=== PATIENT | female | born 1955 | race African-American/Black ===

== ENCOUNTER 2017-03-05 16:38 | Emergency (ER) | payer MEDICAID, MEDICARE ==
[2017-03-05] MEDS ORDERED: Ondansetron 4 MG/2 ML SDV IVPUSH ONE (17:35)
[2017-03-05] MEDS ORDERED: Sodium Chloride 0.9% 10 ML Syringe FLUSH PRN (17:35)
[2017-03-05] MEDS ORDERED: HYDROmorphone 0.5 MG/0.5 ML Syringe IVPUSH ONE (17:36)
--- NOTE | 2017-03-05 17:43 | EDM.PDOC ---
ED HPI GENERAL MEDICAL PROBLEM - General Chief Complaint: General Stated Complaint: DIARRHEA, LEG PAIN, LIGHTHEADED Time Seen by Provider: 03/05/17 17:16 Source of Information: Reports: Patient History Limitations: Reports: No Limitations - History of Present Illness INITIAL COMMENTS - FREE TEXT/NARRATIVE: Patient is a 61-year-old female who presents to the ED complaining of diarrhea, neuropathy to left hip, and generalized headache. 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 Neuropathy pain comes and goes and is generally treated with a Percocet tabs and/or taking ibuprofen/Aleve. States with not being able to take the Percocet tabs the pain has grown increasingly worse. In addition she developed a generalized headache this past described as a throbbing sensation mild in intensity with sensitivity to light. It is not described as the worse headache of her life. She has had headaches in the past. In addition she complains of diarrhea which she describes as being chronic. States after eating a chicken sandwich from a local fast food restaurant she had increased abdominal cramping and increasing diarrhea episodes. States she did become mildly nauseated without vomiting. Nausea has subsided. Her appetite remains in place. She has no blood in her stool but notes with wiping she has some blood on the tissue. She does have a history of hemorrhoids in the past requiring surgery. Denies vision changes, numbness/tingling, nausea or vomiting, fever/chills, sinus congestion, ear pain, sore throat, or recent trauma to her head. Onset: Other (chronic) Duration: Chronic, Waxing/Waning Location: Reports: Head, Abdomen, Other (left hip pain) Quality: Reports: Other (cramping, dull, sharp) Severity: Moderate Improves with: Reports: Medication (percocets: she ran out this past Tuesday.) Associated Symptoms: Reports: Headaches (generalized, throbbing), Nausea/ Vomiting (intermittent nausea). 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 stated) Headache Pain Score (Numeric/FACES): 10 - Related Data Allergies Allergy/AdvReac Type Severity Reaction Status Date / Time No Known Allergies Allergy Verified 10/18/14 21:50 Home Meds: Home Meds Atenolol 100 mg PO DAILY 10/18/14 [History] Gabapentin [Neurontin] 300 mg PO TID 10/18/14 [History] Hydrochlorothiazide 50 mg PO DAILY 10/18/14 [History] Omeprazole [Prilosec] 20 mg PO BID 10/18/14 [History] Potassium Chloride [Klor-Con 10] 10 meq PO BID 10/18/14 [History] Acetaminophen/oxyCODONE [Percocet 325-5 MG] 1 tab PO Q6H PRN #10 tablet [Rx] FLUoxetine [PROzac] 20 mg PO DAILY 03/05/17 [History] Nitrofurantoin Monohyd/M-Cryst [Macrobid 100 mg Capsule] 100 mg PO BID #10 capsule 03/05/17 [Rx] metroNIDAZOLE [Flagyl] 500 mg PO Q12H #20 tablet 03/05/17 [Rx] Past Medical History Cardiovascular History: Reports: Hypertension Gastrointestinal History: Reports: Chronic Diarrhea, GERD, Hemorrhoids Other Gastrointestinal History: laser to hemmoroids Genitourinary History: Reports: UTI, Recurrent Musculoskeletal History: Reports: Other (See Below) Psychiatric History: Reports: Depression - Infectious Disease History Infectious Disease History: Reports: Hepatitis C - Past Surgical History GI Surgical History: Reports: Cholecystectomy Musculoskeletal Surgical History: Reports: Amputation, Knee Replacement Other Musculoskeletal Surgeries/Procedures:: 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 hip Social & Family History - Tobacco Use Smoking Status *Q: Never Smoker Years of Tobacco use: 1 Second Hand Smoke Exposure: No - Caffeine Use Caffeine Use: Reports: Coffee, Soda, Tea - Alcohol Use Days Per Week of Alcohol Use: 0 - Recreational Drug Use Recreational Drug Use: No Recreational Drug Type: Reports: Marijuana/Hashish ED ROS GENERAL - Review of Systems Review Of Systems: See Below Constitutional: Denies: Fever, Chills, Malaise, Weakness, Decreased Appetite HEENT: Reports: No Symptoms Respiratory: Reports: No Symptoms Cardiovascular: Reports: No Symptoms GI/Abdominal: Reports: Abdominal Pain (cramping, generalized), Diarrhea, Nausea (intermittent), Other (history of hemorrhoidshistory of blood on tissue with wiping, chronic). Denies: Black Stool, Bloody Stool, Constipation, Decreased Appetite, Distension, Flatus, Melena, Vomiting : Denies: Dysuria, Flank Pain, Frequency, Hematuria, Pain, Urgency, Urinary Retention Musculoskeletal: Reports: Other (left hip pain secondary to neuropathy) Neurological: Reports: Headache, Difficulty Walking. Denies: Dizziness, Numbness, Tingling, Weakness ED EXAM, GENERAL - Physical Exam Exam: See Below Exam Limited By: No Limitations General Appearance: Alert, WD/WN, No Apparent Distress Ears: Hearing Grossly Normal Nose: Normal Inspection Throat/Mouth: Normal Inspection, Normal Oropharynx, Normal Voice, No Airway Compromise Neck: Normal Inspection, Supple. No: Lymphadenopathy (L), Lymphadenopathy (R) Respiratory/Chest: No Respiratory Distress, Lungs Clear, Normal Breath Sounds, No Accessory Muscle Use, Chest Non-Tender Cardiovascular: Normal Peripheral Pulses, Regular Rate, Rhythm, No JVD Peripheral Pulses: 2+: Radial (L) GI/Abdominal: Normal Bowel Sounds, Soft, Non-Tender, No Organomegaly, No Distention, Other (obese) Back Exam: Normal Inspection Extremities: Other (amputation of the left leg at the hip. no pain with palpation of stump.) Neurological: Alert, Oriented, CN II-XII Intact, Normal Cognition, No Motor/ Sensory Deficits Psychiatric: Normal Affect, Normal Mood Skin Exam: Warm, Dry, Intact, Normal Color Course - Vital Signs Last Recorded V/S: Last Vital Signs Temp 97.8 F 03/05/17 17:10 Pulse 85 03/05/17 19:55 Resp 16 03/05/17 19:55 BP 166/98 H 03/05/17 19:55 Pulse Ox 98 03/05/17 19:55 - Orders/Labs/Meds Orders: Active Orders 24 hr Category Date Time Status Peripheral IV Care [RC] . DIRECTED Care 03/05/17 17:35 Active CULTURE URINE [RM] Stat Lab 03/05/17 18:10 Received Peripheral IV Insertion Adult [OM.PC] Stat Oth 03/05/17 17:34 Ordered Labs: Laboratory Tests 03/05/17 03/05/17 03/05/17 Range/Units 18:10 18:10 18:30 WBC 7.93 (3.98-10.04) K/mm3 RBC 4.75 (3.98-5.22) M/mm3 Hgb 13.5 (11.2-15.7) gm/L Hct 41.5 (34.1-44.9) % MCV 87.4 (79.4-94.8) fl MCH 28.4 (25.6-32.2) pg MCHC 32.5 (32.2-35.5) g/dl RDW Std Deviation 44.3 (36.4-46.3) fL Plt Count 360 (182-369) K/mm3 MPV 11.1 (9.4-12.3) fl Neut % (Auto) 61.4 (34.0-71.1) % Lymph % (Auto) 24.8 (19.3-51.7) % Sutton % (Auto) 10.5 (4.7-12.5) % Eos % (Auto) 2.6 (0.7-5.8) Baso % (Auto) 0.4 (0.1-1.2) % Neut # (Auto) 4.87 (1.56-6.13) K/mm3 Lymph # (Auto) 1.97 (1.18-3.74) K/mm3 Sutton # (Auto) 0.83 H (0.24-0.36) K/mm3 Eos # (Auto) 0.21 (0.04-0.36) K/mm3 Baso # (Auto) 0.03 (0.01-0.08) K/mm3 Sodium (136-145) mEq/L Potassium (3.5-5.1) mEq/L Chloride (98-107) mEq/L Carbon Dioxide (21-32) mEq/L Anion Gap (5-15) BUN (7-18) mg/dL Creatinine (0.55-1.02) mg/dL Est Cr Clr Drug Dosing mL/min Estimated GFR (MDRD) (>60) mL/min BUN/Creatinine Ratio (14-18) Glucose (80-115) mg/dL Calcium (8.5-10.1) mg/dL Total Bilirubin (0.2-1.0) mg/dL AST (15-37) U/L ALT (14-59) U/L Alkaline Phosphatase (46-116) U/L Total Protein (6.4-8.2) g/dl Albumin (3.4-5.0) g/dl Globulin gm/dL Albumin/Globulin Ratio (1-2) Urine Color Yellow (Yellow) Urine Appearance Slt cloudy H (Clear) Urine pH 6.0 (5.0-8.0) Ur Specific Crete 1.020 (1.005-1.030) Urine Protein Negative (Negative) Urine Glucose (UA) Negative (Negative) Urine Ketones Negative (Negative) Urine Occult Blood Negative (Negative) Urine Nitrite Positive H (Negative) Urine Bilirubin Negative (Negative) Urine Urobilinogen 0.2 (0.2-1.0) Ur Leukocyte Esterase 2+ H (Negative) Urine RBC 0-5 (0-5) /hpf Urine WBC 50-75 H (0-5) /hpf Urine WBC Clumps Few (NOT SEEN) /hpf Ur Epithelial Cells 0-5 (0-5) /hpf Urine Bacteria Many H (FEW) /hpf Hyaline Casts 0-5 (0-5) /lpf Urine Mucus Few (FEW) /hpf C.difficile [id number] Presumptive negative C. difficile Tox (PCR) Positive H 03/05/17 Range/Units 18:30 WBC (3.98-10.04) K/mm3 RBC (3.98-5.22) M/mm3 Hgb (11.2-15.7) gm/L Hct (34.1-44.9) % MCV (79.4-94.8) fl MCH (25.6-32.2) pg MCHC (32.2-35.5) g/dl RDW Std Deviation (36.4-46.3) fL Plt Count (182-369) K/mm3 MPV (9.4-12.3) fl Neut % (Auto) (34.0-71.1) % Lymph % (Auto) (19.3-51.7) % Sutton % (Auto) (4.7-12.5) % Eos % (Auto) (0.7-5.8) Baso % (Auto) (0.1-1.2) % Neut # (Auto) (1.56-6.13) K/mm3 Lymph # (Auto) (1.18-3.74) K/mm3 Sutton # (Auto) (0.24-0.36) K/mm3 Eos # (Auto) (0.04-0.36) K/mm3 Baso # (Auto) (0.01-0.08) K/mm3 Sodium 141 (136-145) mEq/L Potassium 4.3 (3.5-5.1) mEq/L Chloride 105 (98-107) mEq/L Carbon Dioxide 24 (21-32) mEq/L Anion Gap 16.3 H (5-15) BUN 17 (7-18) mg/dL Creatinine 0.9 (0.55-1.02) mg/dL Est Cr Clr Drug Dosing 55.25 mL/min Estimated GFR (MDRD) > 60 (>60) mL/min BUN/Creatinine Ratio 18.9 H (14-18) Glucose 98 (80-115) mg/dL Calcium 9.0 (8.5-10.1) mg/dL Total Bilirubin 0.6 (0.2-1.0) mg/dL AST 28 (15-37) U/L ALT 37 (14-59) U/L Alkaline Phosphatase 147 H (46-116) U/L Total Protein 7.9 (6.4-8.2) g/dl Albumin 3.6 (3.4-5.0) g/dl Globulin 4.3 gm/dL Albumin/Globulin Ratio 0.8 L (1-2) Urine Color (Yellow) Urine Appearance (Clear) Urine pH (5.0-8.0) Ur Specific Crete (1.005-1.030) Urine Protein (Negative) Urine Glucose (UA) (Negative) Urine Ketones (Negative) Urine Occult Blood (Negative) Urine Nitrite (Negative) Urine Bilirubin (Negative) Urine Urobilinogen (0.2-1.0) Ur Leukocyte Esterase (Negative) Urine RBC (0-5) /hpf Urine WBC (0-5) /hpf Urine WBC Clumps (NOT SEEN) /hpf Ur Epithelial Cells (0-5) /hpf Urine Bacteria (FEW) /hpf Hyaline Casts (0-5) /lpf Urine Mucus (FEW) /hpf C.difficile [id number]-[id number] C. difficile Tox (PCR) Meds: Medications Discontinued Medications Generic Name Dose Route Start Last Admin Trade Name Freq PRN Reason Stop Dose Admin Hydromorphone HCl 0.5 mg 03/05/17 17:36 03/05/17 18:55 Dilaudid IVPUSH 03/05/17 17:37 0.5 mg ONETIME ONE Administration Sodium Chloride 1,000 mls @ 75 mls/hr 03/05/17 17:45 03/05/17 18:50 Normal Saline IV 75 mls/hr ASDIRECTED ADAM Administration Ondansetron HCl 4 mg 03/05/17 17:35 03/05/17 18:52 Zofran IVPUSH 03/05/17 17:36 4 mg ONETIME ONE Administration Sodium Chloride 10 ml 03/05/17 17:35 03/05/17 18:55 Saline Flush FLUSH 10 ml ASDIRECTED PRN Administration Keep Vein Open - Re-Assessments/Exams Free Text/Narrative Re-Assessment/Exam: Ordered IV of normal saline, Zofran 4 mg IVP, and dilaudid 0.5 mg IVP. Initial labs and studies include a CBC, chem 14, UA with micro-, stool WBC, C. difficile by PCR, and Hemoccult blood. Labs reviewed: CBC essentially normal. Sodium 141, potassium 4.3, creatinine 0.9. UA revealed nitrite positive, leukocyte esterase 2+, wbc's 50-75,many bacteria. Urine culture obtained. Stool WBC's negative. Stool Occult negative for blood. CDIFF pending. Minimal chance positive with no WBC's. Patients discomfort has drastically improved. Ordered macrobid 100mg PO. Will discharge patient home with instructions as documented. Prescription for macrobid and percocet provided. 03/05/17 20:04 C-diff was positive. Patient has not left will start her on flagyl. She was instructed to followup with PCP at conclusion of treatment to check for resolution. Discharge paperwork was not reprinted. Departure - Departure Time of Disposition: 19:21 Disposition: Home, Self-Care 01 Condition: good Clinical Impression: Neuropathic pain, Clostridium difficile diarrhea UTI (urinary tract infection) Qualifiers: Urinary tract infection type: acute cystitis Hematuria presence: without hematuria Qualified Code(s): N30.00 - Acute cystitis without hematuria HTN (hypertension) Qualifiers: Hypertension type: unspecified secondary hypertension Qualified Code(s): I15.9 - Secondary hypertension, unspecified - Discharge Information Prescriptions: Acetaminophen/oxyCODONE [Percocet 325-5 MG] 1 tab PO Q6H PRN #10 tablet PRN Reason: Pain (Severe 7-10) Nitrofurantoin Monohyd/M-Cryst [Macrobid 100 mg Capsule] 100 mg PO BID #10 capsule metroNIDAZOLE [Flagyl] 500 mg PO Q12H #20 tablet Instructions: Clostridium Difficile Infection, [id number], Urinary Tract Infection, Adult, [id number], Hypertension, [id number] Referrals: Toño Elaine Jr, MD [Primary Care Provider] - Forms: ED Department Discharge Additional Instructions: UA revealed U. have a urinary tract infection.Will treat your infection with Macrobid 100 mg twice a day for 5 days. For your neuropathy take the Percocet tabs one tab every 6 hours as needed for severe pain. Push the fluids. Of note your blood pressure was elevated while in the MRSA department. Continue taking all home medications as prescribed. Follow up with your primary care provider Tuesday or Tuesday to discuss further pain management and reevaluation of blood pressure. Return to the E.D. for any new or worsening symptoms - My Orders Last 24 Hours: My Active Orders 03/05/17 17:34 Peripheral IV Insertion Adult [OM.PC] Stat 03/05/17 17:35 Peripheral IV Care [RC] . DIRECTED 03/05/17 18:10 CULTURE URINE [RM] Stat - Assessment/Plan Last 24 Hours: My Active Orders 03/05/17 17:34 Peripheral IV Insertion Adult [OM.PC] Stat 03/05/17 17:35 Peripheral IV Care [RC] . DIRECTED 03/05/17 18:10 CULTURE URINE [RM] Stat
[2017-03-05] MEDS ORDERED: Sodium Chloride 0.9% 1,000 ML IV SCH (17:45)
[2017-03-05 19:56] VITALS: BP 166/98
== END 2017-03-05 19:45 | disposition home or self-care (01) ==
LOC: JD.ED 16:38
DX: M79.2 Neuralgia and neuritis, unspecified (principal); N30.00 Acute cystitis without hematuria; I15.9 Secondary hypertension, unspecified; A04.7 Enterocolitis due to Clostridium difficile; K21.9 Gastro-esophageal reflux disease without esophagitis; F32.9 Major depressive disorder, single episode, unspecified; Z90.49 Acquired absence of other specified parts of digestive tract; Z79.899 Other long term (current) drug therapy; Z96.659 Presence of unspecified artificial knee joint
CPT/HCPCS: 36415; 80053; 81001; 82272; 85025; 87086; 87493; 89055; 96361; 96374; 96375; 99284; J1170; J2405; J7040; J7050; 87088; 87186

== ENCOUNTER 2017-07-14 10:10 | Emergency (ER) | payer MEDICARE, SELFPAY ==
[2017-07-14 10:28] VITALS: BP 192/80
--- NOTE | 2017-07-14 11:35 | EDM.PDOC ---
ED HPI GENERAL MEDICAL PROBLEM - General Chief Complaint: Upper Extremity Injury/Pain Stated Complaint: FELL RIB INJURY Time Seen by Provider: 07/14/17 10:34 Source of Information: Reports: Patient History Limitations: Reports: No Limitations - History of Present Illness INITIAL COMMENTS - FREE TEXT/NARRATIVE: The patient presents with bilateral chest pain after a fall. The patient was getting up to use the bathroom Tuesday night. She has an above the knee amputation of her left leg due to bone cancer. She had no lights on and she may have tripped. She fell forward and landed on her chest. She did not hit her head and she has no neck pain. She has pain with movement and deep breathing. The pain is to the front of the chest. She has ecchymosis to the right breast. She has no fever or chills. She does not have cough. Onset: Sudden Duration: Day(s): (Tuesday) Location: Reports: Chest Quality: Reports: Sharp Severity: Moderate Improves with: Reports: None Worsens with: Reports: Breathing, Movement Context: Reports: Activity (She fell) Associated Symptoms: Reports: Chest Pain. Denies: Cough, Fever/Chills, Nausea/ Vomiting, Shortness of Breath Left Breast Pain Score (Numeric/FACES): 10 - Related Data Allergies Allergy/AdvReac Type Severity Reaction Status Date / Time diazepam [From Valium] Allergy Respiratory Verified 07/14/17 10:28 Distress meperidine [From Demerol] Allergy Respiratory Verified 07/14/17 10:28 Distress Home Meds: Home Meds Atenolol 100 mg PO DAILY 10/18/14 [History] Gabapentin [Neurontin] 300 mg PO TID 10/18/14 [History] Hydrochlorothiazide 50 mg PO DAILY 10/18/14 [History] Omeprazole [Prilosec] 20 mg PO BID 10/18/14 [History] Potassium Chloride [Klor-Con 10] 10 meq PO BID 10/18/14 [History] Acetaminophen/oxyCODONE [Percocet 325-5 MG] 1 tab PO Q6H PRN #10 tablet [Rx] FLUoxetine [PROzac] 20 mg PO DAILY 03/05/17 [History] oxyCODONE HCl/Acetaminophen [Percocet 5-325 mg Tablet] 1 - 2 each PO Q6HR PRN # 20 tablet 07/14/17 [Rx] Past Medical History HEENT History: Reports: Impaired Vision Cardiovascular History: Reports: Hypertension Gastrointestinal History: Reports: Chronic Diarrhea, GERD, Hemorrhoids Other Gastrointestinal History: laser to hemmoroids Genitourinary History: Reports: UTI, Recurrent Musculoskeletal History: Reports: Other (See Below) Psychiatric History: Reports: Depression - Infectious Disease History Infectious Disease History: Reports: Hepatitis C - Past Surgical History GI Surgical History: Reports: Cholecystectomy Musculoskeletal Surgical History: Reports: Amputation, Knee Replacement Other Musculoskeletal Surgeries/Procedures:: 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 hip Social & Family History - Family History Cardiac: Reports: [place] Endocrine/Metabolic: Reports: Diabetes, type II - Tobacco Use Smoking Status *Q: Never Smoker Years of Tobacco use: 1 Second Hand Smoke Exposure: No - Caffeine Use Caffeine Use: Reports: Coffee, Soda - Alcohol Use Days Per Week of Alcohol Use: 0 - Recreational Drug Use Recreational Drug Use: No Recreational Drug Type: Reports: Marijuana/Hashish Review of Systems - Review of Systems Review Of Systems: See Below Constitutional: Reports: No Symptoms Eyes: Reports: No Symptoms Ears: Reports: No Symptoms Nose: Reports: No Symptoms Mouth/Throat: Reports: No Symptoms Respiratory: Reports: No Symptoms Cardiovascular: Reports: Chest Pain GI/Abdominal: Reports: No Symptoms Genitourinary: Reports: No Symptoms Musculoskeletal: Reports: No Symptoms ED EXAM, GENERAL - Physical Exam Exam: See Below Exam Limited By: No Limitations General Appearance: Alert, No Apparent Distress Ears: Normal External Exam Nose: Normal Inspection Head: Atraumatic, Normocephalic Neck: Normal Inspection Respiratory/Chest: No Respiratory Distress, Lungs Clear, Normal Breath Sounds, Other (Ecchymosis to the right chest and pain upon palpation to the right and left chest) Cardiovascular: Regular Rate, Rhythm, No Edema, No Murmur GI/Abdominal: Soft, Non-Tender, No Organomegaly, No Mass Extremities: Other (Left above the knee amputation) Neurological: Alert, Oriented Course - Vital Signs Last Recorded V/S: Last Vital Signs Temp 97.9 F 07/14/17 10:24 Pulse 80 07/14/17 10:24 Resp 22 H 07/14/17 10:24 BP 192/80 H 07/14/17 10:24 Pulse Ox 97 07/14/17 10:24 - Orders/Labs/Meds Orders: Active Orders 24 hr Category Date Time Status Chest 2V [CR] Stat Exams 07/14/17 10:39 Taken - Re-Assessments/Exams Free Text/Narrative Re-Assessment/Exam: 07/14/17 11:40 Her x-ray looks good. Departure - Departure Time of Disposition: 11:50 Disposition: Home, Self-Care 01 Condition: Good Clinical Impression: Fall Qualifiers: Encounter type: initial encounter Qualified Code(s): W19.XXXA - Unspecified fall, initial encounter Chest wall contusion Qualifiers: Encounter type: initial encounter Laterality: unspecified laterality Qualified Code(s): S20.219A - Contusion of unspecified front wall of thorax, initial encounter - Discharge Information Prescriptions: oxyCODONE HCl/Acetaminophen [Percocet 5-325 mg Tablet] 1 - 2 each PO Q6HR PRN # 20 tablet PRN Reason: Pain Referrals: Toño Elaine Jr, MD [Primary Care Provider] - Forms: ED Department Discharge, ED Return to Work/School Form Additional Instructions: Take the percocet as needed for pain. Follow up with Dr Elaine tomorrow. - My Orders Last 24 Hours: My Active Orders 07/14/17 10:39 Chest 2V [CR] Stat - Assessment/Plan Last 24 Hours: My Active Orders 07/14/17 10:39 Chest 2V [CR] Stat
--- NOTE | 2017-07-15 11:14 | CR ---
Chest: Two views of the chest were obtained. Comparison: Previous chest x-ray of 05/24/15. Heart size and mediastinum are normal. Lungs are clear. Degenerative change is seen within the left shoulder. Impression: 1. Incidental finding. Nothing acute is seen on two-view chest x-ray. Diagnostic code #2
== END 2017-07-14 12:19 | disposition home or self-care (01) ==
LOC: JD.ED 10:10
DX: S20.219A Contusion of unspecified front wall of thorax, initial encounter (principal); I10 Essential (primary) hypertension; Z88.8 Allergy status to other drugs, medicaments and biological substances; Z79.899 Other long term (current) drug therapy; W19.XXXA Unspecified fall, initial encounter
CPT/HCPCS: 71020; 71020-26; 99282; 99283

== ENCOUNTER 2017-09-30 15:25 | Emergency (ER) | payer MEDICARE, MEDICAID, OTHER ==
[2017-09-30 15:32] VITALS: BP 130/71
[2017-09-30] MEDS ORDERED: HYDROmorphone 1 MG/ML Syringe IVPUSH ONE (15:45)
[2017-09-30] MEDS ORDERED: Sodium Chloride 0.9% 10 ML Syringe FLUSH PRN (15:45)
--- NOTE | 2017-09-30 18:30 | EDM.PDOC ---
ED HPI GENERAL MEDICAL PROBLEM - General Chief Complaint: Lower Extremity Injury/Pain Stated Complaint: [facility] Time Seen by Provider: 09/30/17 15:35 Source of Information: Reports: Patient History Limitations: Reports: No Limitations - History of Present Illness INITIAL COMMENTS - FREE TEXT/NARRATIVE: 62 year old female arrives via [place] ambulance service for evaluation and treatment of injuries from a fall. Injury occurred prior to arrival in the ER. 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 Tonight she was using her crutches. 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 She landed on her left side and hip. Complaining of pain to the left hip. States she did not hit her head. No syncope, back pain, neck pain or abdominal pain. Left Hip Pain Score (Numeric/FACES): 10 - Related Data Allergies Allergy/AdvReac Type Severity Reaction Status Date / Time diazepam [From Valium] Allergy Respiratory Verified 07/14/17 10:28 Distress meperidine [From Demerol] Allergy Respiratory Verified 07/14/17 10:28 Distress Home Meds: Home Meds Atenolol 100 mg PO DAILY 10/18/14 [History] Gabapentin [Neurontin] 300 mg PO TID 10/18/14 [History] Hydrochlorothiazide 50 mg PO DAILY 10/18/14 [History] Omeprazole [Prilosec] 20 mg PO BID 10/18/14 [History] Potassium Chloride [Klor-Con 10] 10 meq PO BID 10/18/14 [History] FLUoxetine [PROzac] 20 mg PO DAILY 03/05/17 [History] oxyCODONE HCl/Acetaminophen [Percocet 5-325 mg Tablet] 1 - 2 each PO Q6HR PRN # 20 tablet 07/14/17 [Rx] Past Medical History HEENT History: Reports: Impaired Vision Cardiovascular History: Reports: Hypertension Gastrointestinal History: Reports: Chronic Diarrhea, GERD, Hemorrhoids Other Gastrointestinal History: laser to hemmoroids Genitourinary History: Reports: UTI, Recurrent Musculoskeletal History: Reports: Other (See Below) Psychiatric History: Reports: Depression - Infectious Disease History Infectious Disease History: Reports: Hepatitis C - Past Surgical History GI Surgical History: Reports: Cholecystectomy Musculoskeletal Surgical History: Reports: Amputation, Knee Replacement Other Musculoskeletal Surgeries/Procedures:: 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 hip Social & Family History - Family History Cardiac: Reports: [place] Endocrine/Metabolic: Reports: Diabetes, type II - Tobacco Use Smoking Status *Q: Former Smoker Years of Tobacco use: 1 Used Tobacco, but Quit: Yes Month Tobacco Last Used: last year Second Hand Smoke Exposure: No - Caffeine Use Caffeine Use: Reports: None - Alcohol Use Days Per Week of Alcohol Use: 0 - Recreational Drug Use Recreational Drug Use: No Recreational Drug Type: Reports: Marijuana/Hashish Review of Systems - Review of Systems Review Of Systems: See Below Respiratory: Denies: Shortness of Breath Cardiovascular: Denies: Chest Pain GI/Abdominal: Denies: Abdominal Pain Musculoskeletal: Reports: Other (left hip and left side pain). Denies: Neck Pain, Back Pain Neurological: Denies: Syncope ED EXAM, GENERAL - Physical Exam Exam: See Below Exam Limited By: No Limitations General Appearance: Alert, WD/WN, Anxious, Obese Eye Exam: Bilateral Eye: Normal Inspection, PERRL Ears: Normal External Exam Nose: Normal Inspection Throat/Mouth: Normal Inspection, Normal Lips, Normal Oropharynx, Normal Voice, No Airway Compromise Head: Atraumatic, Normocephalic Neck: Normal Inspection, Supple, Non-Tender, Full Range of Motion Respiratory/Chest: No Respiratory Distress, Lungs Clear, Normal Breath Sounds Cardiovascular: Normal Peripheral Pulses, Regular Rate, Rhythm, No Murmur GI/Abdominal: Soft, Non-Tender Back Exam: Normal Inspection. No: Vertebral Tenderness Extremities: Normal Inspection (right), Non-Tender, Other (left leg amputations) Neurological: Alert, Oriented, Normal Cognition Psychiatric: Normal Affect, Normal Mood, Anxious Skin Exam: Warm, Dry, Normal Color Course - Vital Signs Last Recorded V/S: Last Vital Signs Temp 36.6 C 09/30/17 15:30 Pulse 79 09/30/17 15:30 Resp 20 09/30/17 15:30 BP 130/71 09/30/17 15:30 Pulse Ox 96 09/30/17 15:30 - Orders/Labs/Meds Labs: Laboratory Tests 09/30/17 09/30/17 Range/Units 16:18 16:18 WBC 8.85 (3.98-10.04) K/mm3 RBC 4.43 (3.98-5.22) M/mm3 Hgb 12.2 (11.2-15.7) gm/L Hct 39.0 (34.1-44.9) % MCV 88.0 (79.4-94.8) fl MCH 27.5 (25.6-32.2) pg MCHC 31.3 L (32.2-35.5) g/dl RDW Std Deviation 45.4 (36.4-46.3) fL Plt Count 314 (182-369) K/mm3 MPV 10.2 (9.4-12.3) fl Neut % (Auto) 68.5 (34.0-71.1) % Lymph % (Auto) 21.4 (19.3-51.7) % [place] % (Auto) 7.6 (4.7-12.5) % Eos % (Auto) 2.0 (0.7-5.8) Baso % (Auto) 0.2 (0.1-1.2) % Neut # (Auto) 6.06 (1.56-6.13) K/mm3 Lymph # (Auto) 1.89 (1.18-3.74) K/mm3 [place] # (Auto) 0.67 H (0.24-0.36) K/mm3 Eos # (Auto) 0.18 (0.04-0.36) K/mm3 Baso # (Auto) 0.02 (0.01-0.08) K/mm3 Sodium 145 (136-145) mEq/L Potassium 3.1 L (3.5-5.1) mEq/L Chloride 107 (98-107) mEq/L Carbon Dioxide 25 (21-32) mEq/L Anion Gap 16.1 H (5-15) BUN 11 (7-18) mg/dL Creatinine 0.5 L (0.55-1.02) mg/dL Est Cr Clr Drug Dosing 98.16 mL/min Estimated GFR (MDRD) > 60 (>60) mL/min BUN/Creatinine Ratio 22.0 H (14-18) Glucose 106 (80-115) mg/dL Calcium 8.5 (8.5-10.1) mg/dL Total Bilirubin 0.4 (0.2-1.0) mg/dL AST 48 H (15-37) U/L ALT 44 (14-59) U/L Alkaline Phosphatase 158 H (46-116) U/L Total Protein 7.1 (6.4-8.2) g/dl Albumin 3.2 L (3.4-5.0) g/dl Globulin 3.9 gm/dL Albumin/Globulin Ratio 0.8 L (1-2) Meds: Medications Discontinued Medications Generic Name Dose Route Start Last Admin Trade Name Thomq PRN Reason Stop Dose Admin Hydromorphone HCl 1 mg 09/30/17 15:45 09/30/17 15:52 Dilaudid IVPUSH 09/30/17 15:46 1 mg ONETIME ONE Administration Sodium Chloride 10 ml 09/30/17 15:45 09/30/17 15:52 Saline Flush FLUSH 10 ml ASDIRECTED PRN Administration Keep Vein Open - Radiology Interpretation Free Text/Narrative:: xray of the lumbar spine shows no acute fractures or dislocations xray of the pelvis shows a left leg amputation. No acute fractures or dislocations. - Re-Assessments/Exams Free Text/Narrative Re-Assessment/Exam: 09/30/17 18:30 I reviewed the xray results with the patient. Pain improved after the Dilaudid. Reviewed the labs with the patient. Reports she has been taking her medication, including her potassium as prescribed. Will discharge home. Discharge instructions as documented. Departure - Departure Time of Disposition: 18:28 Disposition: Home, Self-Care 01 Condition: Fair Clinical Impression: Obesity, Fall, Soft tissue injury of hip - Discharge Information Instructions: Fall Prevention in the Home, [id number], Obesity Referrals: Toño Elaine Jr, MD [Primary Care Provider] - Forms: ED Department Discharge Additional Instructions: ice or heat to the sore area. Continue on your medications for pain relief. Follow-up with your primary care provider for recheck of your symptoms next week. Please return to the ER if your symptoms change or worsen.
--- NOTE | 2017-10-03 08:34 | CR ---
Lumbar spine: AP and lateral views of the lumbar spine were obtained. Comparison: No prior lumbar spine exam. Moderate disc space narrowing is noted at L4-L5 with vacuum phenomena and anterior osteophytes with slight posterior ridging. Other disc spaces are maintained. Vertebral body heights are maintained. Pedicles as well as visualized transverse and spinous processes are intact. Prior cholecystectomy is noted. Impression: 1. Degenerative change at L4-L5. Two-view lumbar spine exam is otherwise unremarkable. Diagnostic code #2
--- NOTE | 2017-10-03 08:34 | CR ---
Pelvis: AP view of the pelvis was obtained. Comparison: No prior pelvic x-ray. Absent left lower extremity is noted. Joint space within the right hip is maintained. Osteopenia is seen mostly on the left side due to disuse. Slight disc space narrowing is noted within the lower lumbar spine. Sacroiliac joints are within normal limits. Nothing acute is seen. Impression: 1. Incidental findings. Nothing acute is appreciated on AP pelvis study. Diagnostic code #2
== END 2017-09-30 19:30 | disposition home or self-care (01) ==
LOC: SUPCPDRO 15:25 → JD.ED 15:25
DX: S79.912A Unspecified injury of left hip, initial encounter (principal); E66.9 Obesity, unspecified; F32.9 Major depressive disorder, single episode, unspecified; I10 Essential (primary) hypertension; Z88.5 Allergy status to narcotic agent; Z88.8 Allergy status to other drugs, medicaments and biological substances; Z79.899 Other long term (current) drug therapy; W19.XXXA Unspecified fall, initial encounter
CPT/HCPCS: 36415; 72100; 72170; 80053; 85025; 96374; 99284; J1170; J7050

== ENCOUNTER 2017-10-14 01:08 | Inpatient (IN) | payer MEDICARE, MEDICAID, SELFPAY ==
[2017-10-14] MEDS ORDERED: HYDROmorphone 1 MG/ML Syringe IVPUSH ONE (01:27)
[2017-10-14] MEDS ORDERED: Metoclopramide 10 MG/2 ML SDV IVPUSH ONE (01:27)
[2017-10-14] MEDS ORDERED: Sodium Chloride 0.9% 1,000 ML IV SCH (01:30)
--- NOTE | 2017-10-14 01:32 | EDM.PDOC ---
ED HPI GENERAL MEDICAL PROBLEM - General Chief Complaint: Lower Extremity Injury/Pain Stated Complaint: [facility] Time Seen by Provider: 10/14/17 01:26 Source of Information: Reports: Patient History Limitations: Reports: No Limitations - History of Present Illness INITIAL COMMENTS - FREE TEXT/NARRATIVE: 62-year-old female reports that she was up to get a glass of water when she lost her balance and fell in her kitchen on hardwood floor at about 11:30 last evening. There was no one else at home and she had wait till her son got off of work and found her on the floor. He subsequently called the ambulance. She denies hitting her head or losing consciousness. She denies any cervical neck pain or rib pain. She states she landed very hard on her left buttock and hip area. 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 She is does not use a prosthesis and gets around with crutches. Has severe pain at this time in her left hip area and pelvis. Onset: Sudden Onset Date: 10/13/17 Onset Time: 23:30 Duration: Hour(s): Location: Reports: Pelvis Quality: Reports: Ache, Other (Cries out frequently due to severe) Severity: Severe (pain in the left hip area.) Improves with: Reports: None ( 10 out of 10 pain.) Worsens with: Reports: Movement (Movement of any kind causes severe pain.) Context: Reports: Trauma (Lost her balance and fell in her kitchen at home.). Denies: Activity, Exercise, Lifting, Sick Contact Associated Symptoms: Reports: No Other Symptoms Treatments BACK LINE COOK: Reports: Other (see below) (None.) Left Hip Pain Score (Numeric/FACES): 10 - Related Data Allergies Allergy/AdvReac Type Severity Reaction Status Date / Time diazepam [From Valium] Allergy Respiratory Verified 07/14/17 10:28 Distress meperidine [From Demerol] Allergy Respiratory Verified 07/14/17 10:28 Distress Home Meds: Home Meds Atenolol 100 mg PO DAILY 10/18/14 [History] Gabapentin [Neurontin] 300 mg PO TID 10/18/14 [History] Hydrochlorothiazide 50 mg PO DAILY 10/18/14 [History] Omeprazole [Prilosec] 20 mg PO BID 10/18/14 [History] Potassium Chloride [Klor-Con 10] 10 meq PO BID 10/18/14 [History] FLUoxetine [PROzac] 20 mg PO DAILY 03/05/17 [History] oxyCODONE HCl/Acetaminophen [Percocet 5-325 mg Tablet] 1 - 2 each PO Q6HR PRN # 20 tablet 07/14/17 [Rx] Past Medical History HEENT History: Reports: Impaired Vision Cardiovascular History: Reports: Hypertension Gastrointestinal History: Reports: Chronic Diarrhea, GERD, Hemorrhoids Other Gastrointestinal History: laser to hemmoroids Genitourinary History: Reports: UTI, Recurrent Musculoskeletal History: Reports: Other (See Below) Other Musculoskeletal History: chronic pain to the right foot Psychiatric History: Reports: Depression - Infectious Disease History Infectious Disease History: Reports: Hepatitis C - Past Surgical History GI Surgical History: Reports: Cholecystectomy Musculoskeletal Surgical History: Reports: Amputation, Knee Replacement Other Musculoskeletal Surgeries/Procedures:: 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 hip Oncologic Surgical History: Reports: Other (See Below) Other Oncologic Surgeries/Procedures: 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 Social & Family History - Family History Cardiac: Reports: [place] Endocrine/Metabolic: Reports: Diabetes, type II - Tobacco Use Smoking Status *Q: Never Smoker Years of Tobacco use: 1 Used Tobacco, but Quit: Yes Month Tobacco Last Used: last year Second Hand Smoke Exposure: No - Caffeine Use Caffeine Use: Reports: Coffee - Alcohol Use Days Per Week of Alcohol Use: 0 - Recreational Drug Use Recreational Drug Use: No Recreational Drug Type: Reports: Marijuana/Hashish - Living Situation & Occupation Living situation: Reports: with Family (Silent son lives with her.) Occupation: Disabled Review of Systems - Review of Systems Review Of Systems: See Below Constitutional: Reports: No Symptoms Eyes: Reports: No Symptoms, Other Ears: Reports: No Symptoms Nose: Reports: No Symptoms Mouth/Throat: Reports: No Symptoms Respiratory: Reports: No Symptoms Cardiovascular: Reports: No Symptoms GI/Abdominal: Reports: Other (Occasional problems with constipation). Denies: Abdominal Pain Genitourinary: Reports: Incontinence (Urge component.) Musculoskeletal: Reports: Other (Chronic back pain and chronic right hip pain chronic pain lower extremity lost her left leg high thigh amputation 50 years ago due to osteogenic sarcoma.) Skin: Reports: No Symptoms Neurological: Reports: No Symptoms Psychiatric: Reports: No Symptoms ED EXAM, GENERAL - Physical Exam Exam: See Below Exam Limited By: No Limitations General Appearance: Moderate Distress (Patient cries out frequently due to severe pain in her left hip area.) Eye Exam: Bilateral Eye: Normal Inspection Throat/Mouth: Normal Inspection, Normal Lips, Normal Oropharynx Head: Atraumatic, Normocephalic Neck: Normal Inspection, Supple, Non-Tender, Full Range of Motion. No: Lymphadenopathy (L), Lymphadenopathy (R) Respiratory/Chest: Lungs Clear, Normal Breath Sounds (Mild tachypnea due to anxiety and pain.), Respiratory Distress, Other Cardiovascular: Regular Rate, Rhythm, No Edema, No Gallop (No edema in her right leg. Left leg is missing.), No Rub. No: Normal Peripheral Pulses Peripheral Pulses: 1+: Posterior Tibial (R), Dorsalis Pedis (R) GI/Abdominal: Other (Morbidly obese abdomen. This limits ability to palpate any solid organs. Does have pain on palpation in the left inguinal area.) Back Exam: Other (Pain in the left buttock and posterior pelvis and hip area.) Extremities: Normal Inspection (Of the right lower extremity and both upper extremities with full range of motion.), Other (Left leg is amputated to the hip. This apparently was done over 50 years ago because of osteogenic sarcoma.) Neurological: Alert, Oriented, CN II-XII Intact, Normal Cognition Psychiatric: Anxious (Extremely anxious) Skin Exam: Warm, Dry, Intact, Normal Color, No Rash Course - Vital Signs Last Recorded V/S: Last Vital Signs Temp 36.2 C 10/14/17 01:11 Pulse 88 10/14/17 01:11 Resp 24 H 10/14/17 01:11 BP 132/93 H 10/14/17 01:11 Pulse Ox 99 10/14/17 01:11 - Orders/Labs/Meds Orders: Active Orders 24 hr Category Date Time Status Pelvis 1V or 2V [CR] Stat Exams 10/14/17 01:27 Taken Pelvis wo Cont [CT] Stat Exams 10/14/17 01:58 Taken Sodium Chloride 0.9% [Normal Saline] 1,000 ml Med 10/14/17 01:30 Active IV ASDIRECTED Medication Orders Sodium Chloride (Normal Saline) 1,000 mls @ 250 mls/hr IV ASDIRECTED ADAM Last Admin: 10/14/17 01:56 Dose: 250 mls/hr Potassium Chloride 10 meq/ (Premix) 100 mls @ 100 mls/hr IV ASDIRECTED [facility] Labs: Laboratory Tests 10/14/17 10/14/17 Range/Units 03:10 03:10 WBC 9.53 (3.98-10.04) K/mm3 RBC 4.43 (3.98-5.22) M/mm3 Hgb 12.1 (11.2-15.7) gm/L Hct 38.7 (34.1-44.9) % MCV 87.4 (79.4-94.8) fl MCH 27.3 (25.6-32.2) pg MCHC 31.3 L (32.2-35.5) g/dl RDW Std Deviation 46.8 H (36.4-46.3) fL Plt Count 322 (182-369) K/mm3 MPV 10.0 (9.4-12.3) fl Neutrophils % (Manual) 79 H (40-60) % Band Neutrophils % 0 (0-10) % Lymphocytes % (Manual) 13 L (20-40) % Atypical Lymphs % 0 % Monocytes % (Manual) 4 (2-10) % Eosinophils % (Manual) 3 (0.7-5.8) % Basophils % (Manual) 1 (0.1-1.2) Platelet Estimate Adequate RBC Morph Comment Normal Sodium 141 (136-145) mEq/L Potassium 3.0 L (3.5-5.1) mEq/L Chloride 103 (98-107) mEq/L Carbon Dioxide 26 (21-32) mEq/L Anion Gap 15.0 (5-15) BUN 16 (7-18) mg/dL Creatinine 0.9 (0.55-1.02) mg/dL Est Cr Clr Drug Dosing 54.53 mL/min Estimated GFR (MDRD) > 60 (>60) mL/min BUN/Creatinine Ratio 17.8 (14-18) Glucose 130 H (80-115) mg/dL Calcium 8.4 L (8.5-10.1) mg/dL Magnesium 1.7 L (1.8-2.4) mg/dl Total Bilirubin 0.6 (0.2-1.0) mg/dL AST 32 (15-37) U/L ALT 32 (14-59) U/L Alkaline Phosphatase 195 H (46-116) U/L Total Protein 6.9 (6.4-8.2) g/dl Albumin 3.1 L (3.4-5.0) g/dl Globulin 3.8 gm/dL Albumin/Globulin Ratio 0.8 L (1-2) Meds: Medications Generic Name Dose Route Start Last Admin Trade Name Freq PRN Reason Stop Dose Admin Sodium Chloride 1,000 mls @ 250 mls/hr 10/14/17 01:30 10/14/17 01:56 Normal Saline IV 250 mls/hr ASDIRECTED ADAM Administration Potassium Chloride 10 meq/ 100 mls @ 100 mls/hr 10/14/17 06:45 Premix IV ASDIRECTED ADAM Discontinued Medications Generic Name Dose Route Start Last Admin Trade Name Freq PRN Reason Stop Dose Admin Hydromorphone HCl 1 mg 10/14/17 01:27 10/14/17 01:38 Dilaudid IVPUSH 10/14/17 01:28 1 mg ONETIME ONE Administration Metoclopramide HCl 10 mg 10/14/17 01:27 10/14/17 01:39 Reglan IVPUSH 10/14/17 01:28 10 mg ONETIME ONE Administration - Radiology Interpretation Free Text/Narrative:: 62-year-old female arrives in the ED per ambulance after apparently falling at home in her own kitchen at about 11:30 last p.m. There was no one else home at the time and she had to wait for her son to come home from work to discover her lying on the floor she was unable to get up. She states she landed very hard on her left hip area. Of note she has a below hip and PT for 50 years. She gets around with aid of crutches. She indicates she just simply lost her balance en route to the kitchen to get a glass to fetch some water. Examination reveals her to be morbidly obese and complaining of severe pain in the left buttock hip and pelvis area. No pain on left hip with internal/external rotation of her right hip. Plan pain management with IV normal saline at 250 mils per hour. Dilaudid 1 mg IV and Reglan 10 mg IV. X-ray of her pelvis will then be performed. - Re-Assessments/Exams Free Text/Narrative Re-Assessment/Exam: 10/14/17 02:00 plain films done on the bedside are of poor quality due to the patient's size. It appears she has had a complete hip amputation on the left side. There is a question whether there is a fracture through the superior external surface of the acetabulum of the pelvis. There is no obvious fracture of the superior or inferior pubic rami or the iliac crest. I cannot visualize the SI joint however. Due to her size decision made to CT her pelvis to further establish that there is no significant fracture that would need surgical repair. 10/14/17 02:49 CT of the pelvis confirms that she has minimal fractures through the anterior and posterior aspect of the mid and posterior left acetabulum. She has complete absence of her hip joint due to previous amputation. These are minimal fractures and will not require surgical repair. She will likely require admission to hospital for pain management since she gets around with crutches or wheelchair. She may well have to be admitted to a intermediate for a month for rehabilitation purposes. At this time she is sleeping from the initial dose of Dilaudid and Reglan. Routine lab work will now be ordered since she is tentatively going to be admitted to hospital 10/14/17 03:39 labs have been drawn. Patient remains asleep and pain seems to be well-controlled. Vital signs remained stable at this time. Labs are pending. 10/14/17 06:41 Labs reveal a total white count of 9.53 with slight left shift of 79% neutrophils. No bands reported. Hemoglobin is 12.1 with hematocrit of 38.7. Platelet count is 322,000. Sodium is 141 potassium is low at 3.0. Chloride 103 bicarbonate is 26. Anion gap is normal at 15.0. BUN is 16. Creatinine is 0.9. GFR is greater than 60. Glucose is 130. Calcium 8.4. Magnesium slightly low at 1.7. Bilirubin normal at 0.6 normal liver function alk phosphatase slightly elevated at 195. Plan she will have potassium supplement by way of IV potassium chloride 10 mEq piggyback to intercurrent IV. I have spoken with Dr. Tineo, [facility] orthodontist hospitalist and hip he has accepted patient in care. The hope is to get her into a intermediate bed today or as soon as possible for rehabilitation purposes as she requires mainly pain management and help until her acetabular fractures heal and cause her less discomfort and pain in lower her to return to her normal mobility with crutches Departure - Departure Time of Disposition: 06:42 Disposition: Refer to Observation Condition: Fair Clinical Impression: Closed fracture of acetabulum, hip, Fall as cause of accidental injury at home as place of occurrence - Discharge Information - My Orders Last 24 Hours: My Active Orders 10/14/17 01:27 Pelvis 1V or 2V [CR] Stat 10/14/17 01:30 Sodium Chloride 0.9% [Normal Saline] 1,000 ml IV ASDIRECTED 10/14/17 01:58 Pelvis wo Cont [CT] Stat - Assessment/Plan Last 24 Hours: My Active Orders 10/14/17 01:27 Pelvis 1V or 2V [CR] Stat 10/14/17 01:30 Sodium Chloride 0.9% [Normal Saline] 1,000 ml IV ASDIRECTED 10/14/17 01:58 Pelvis wo Cont [CT] Stat
[2017-10-14] MEDS ORDERED: Potassium Chloride 10 MEQ in Premix Bag 1 BAG IV SCH (06:45)
[2017-10-14] MEDS ORDERED: Ondansetron 4 MG/2 ML SDV IV PRN (07:32)
[2017-10-14] MEDS ORDERED: Magnesium Hydroxide 400 MG/5 ML Susp 30 ML Cup PO PRN (07:32)
[2017-10-14] MEDS ORDERED: Sodium Chloride 0.9% 10 ML Syringe FLUSH PRN (07:32)
[2017-10-14] MEDS ORDERED: Ondansetron 4 MG Tab.DIS PO PRN (07:32)
[2017-10-14] MEDS ORDERED: LORazepam 2 MG/ML SDV IV PRN (07:32)
[2017-10-14] MEDS ORDERED: Polyethylene Glycol 3350 Powder 17 GM Packet PO PRN (07:32)
[2017-10-14] MEDS ORDERED: Magnesium Oxide 400 MG Tab PO ONE (07:43)
--- NOTE | 2017-10-14 07:52 | PCM.HP ---
H&P History of Present Illness - General Date of Service: 10/14/17 Admit Problem/Dx: Admission Diagnosis/Problem Admission Diagnosis/Problem Fall at home Source of Information: Patient, Other (ER provider and ER notes) History Limitations: Reports: Altered Mental Status (Patient is lethargic due to pain medications given in ED--- unable to obtain much hx from her) - History of Present Illness Initial Comments - Free Text/Narative: Tonya is a 62-year-old female who presented to the emergency room in the early hours of the morning after fall at home in her kitchen. She reports this fall occurred around 11:30 PM. She repeated on the floor until her son arrived back from work at 1 AM. He then brought her to the emergency room for evaluation. She reported to ED personnel that she lost her balance and fell onto her left side. 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 She is mobile with crutches and wheelchair since that time. She reported severe pain to her left hip and pelvis upon presentation to the emergency department, she reported 10 out of 10 pain upon arrival. 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 ED evaluation initially was with plain films of the pelvis which were of poor quality. CT scan of the pelvis was obtained, Dr. 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 Labs obtained CBC with white blood cell count of 9.53 hemoglobin and hematocrit within normal limits platelets normal at 322. Call metabolic panel potassium of 3.0 magnesium 1.7, glucose 1:30, renal function and other indices within normal limits. Alkaline phosphatase is slightly elevated at 195. Pain management was obtained in the emergency department 1 mg of Dilaudid IV, 10 mg Reglan IV, 2 50 mL per hour of 1 L of normal saline. At time of my exam patient is quite lethargic and I'm really unable to get much history from her. She is resting quite comfortably. Hospitalist service is consulted for admission for acetabular fracture and pain management. Onset of Symptoms: Reports: Today Location: Reports: Pelvis Worsens with: Reports: Movement Context: Reports: Trauma (fall at home onto left side) Left Hip Pain Score (Numeric/FACES): 10 - Related Data Allergies/Adverse Reactions: Allergies Allergy/AdvReac Type Severity Reaction Status Date / Time diazepam [From Valium] Allergy Respiratory Verified 07/14/17 10:28 Distress meperidine [From Demerol] Allergy Respiratory Verified 07/14/17 10:28 Distress Home Medications: Home Meds Atenolol 100 mg PO DAILY 10/18/14 [History] Gabapentin [Neurontin] 300 mg PO TID 10/18/14 [History] Hydrochlorothiazide 50 mg PO DAILY 10/18/14 [History] Omeprazole [Prilosec] 20 mg PO BID 10/18/14 [History] Potassium Chloride [Klor-Con 10] 10 meq PO BID 10/18/14 [History] FLUoxetine [PROzac] 20 mg PO DAILY 03/05/17 [History] oxyCODONE HCl/Acetaminophen [Percocet 5-325 mg Tablet] 1 - 2 each PO Q6HR PRN # 20 tablet 07/14/17 [Rx] Past Medical History HEENT History: Reports: Impaired Vision Cardiovascular History: Reports: Hypertension Gastrointestinal History: Reports: Chronic Diarrhea, GERD, Hemorrhoids Other Gastrointestinal History: laser to hemmoroids Genitourinary History: Reports: UTI, Recurrent Musculoskeletal History: Reports: Other (See Below) Other Musculoskeletal History: chronic pain to the right foot Psychiatric History: Reports: Depression - Infectious Disease History Infectious Disease History: Reports: Hepatitis C - Past Surgical History GI Surgical History: Reports: Cholecystectomy Musculoskeletal Surgical History: Reports: Amputation, Knee Replacement Other Musculoskeletal Surgeries/Procedures:: 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 hip Oncologic Surgical History: Reports: Other (See Below) Other Oncologic Surgeries/Procedures: 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 Social & Family History - Family History Cardiac: Reports: [place] Endocrine/Metabolic: Reports: Diabetes, type II - Tobacco Use Smoking Status *Q: Never Smoker Years of Tobacco use: 1 Used Tobacco, but Quit: Yes Month Tobacco Last Used: last year Second Hand Smoke Exposure: No - Caffeine Use Caffeine Use: Reports: Coffee - Alcohol Use Days Per Week of Alcohol Use: 0 - Recreational Drug Use Recreational Drug Use: No Recreational Drug Type: Reports: Marijuana/Hashish - Living Situation & Occupation Living situation: Reports: with Family (Silent son lives with her.) Occupation: Disabled H&P Review of Systems - Review of Systems: Review Of Systems: See Below General: Denies: Fever Pulmonary: Denies: Shortness of Breath Cardiovascular: Denies: Chest Pain Gastrointestinal: Denies: Abdominal Pain Musculoskeletal: Reports: Other (pain to left pelvis with movement upon entrance to ED and while in ED prior to pain medicatoin administration) Exam - Exam Exam: See Below - Vital Signs Vital Signs: Last Vital Signs Temp 97.1 F 10/14/17 01:11 Pulse 88 10/14/17 01:11 Resp 24 H 10/14/17 01:11 BP 132/93 H 10/14/17 01:11 Pulse Ox 99 10/14/17 01:11 Weight: 220 lb - Exam General: Sedated, Other (patient is sleeping/resting comfortably, she opens her eyes with sternal rub and falls back asleep on my exam in ED ) HEENT: EOMI, Mucosa Moist & [place]. No: Rhinitis Neck: Supple Lungs: Clear to Auscultation, Normal Respiratory Effort, Decreased Breath Sounds (bases) Cardiovascular: Regular Rate, Regular Rhythm, Normal S1, Normal S2 GI/Abdominal Exam: Normal Bowel Sounds, Soft, Non-Tender, Other (round/obese) (Female) Exam: Deferred Rectal (Female) Exam: Deferred Extremities: Other (absent left leg; right leg is with very trace edema to ankle ; no other abnormalities noted) Peripheral Pulses: 2+: Dorsalis Pedis (R) Skin: Warm, Dry Neuro Extensive - Mental Status: Alert (responds appropriately to sternal rub but falls back asleep) Psychiatric: Alert, Other (lethargic; sedated) - Patient Data Result Diagrams: 10/14/17 03:10 10/14/17 03:10 *Q Meaningful Use (ADM) - VTE *Q VTE Criteria *Q: - Stroke *Q Stroke Criteria *Q: - AMI *Q AMI Criteria *Q: - Problem List (1) Closed fracture of acetabulum, hip SNOMED Code(s): 46332046 ICD Code: S32.409A - UNSP FRACTURE OF UNSP ACETABULUM, INIT FOR CLOS FX Status: Acute Priority: High Current Visit: Yes (2) Fall as cause of accidental injury at home as place of occurrence SNOMED Code(s): 24138055 ICD Code: W19.XXXA - UNSPECIFIED FALL, INITIAL ENCOUNTER; Y92.009 - UNSP PLACE IN UNSP NON-INSTITUT (PRIVATE) RESIDENCE PLACE Status: Acute Priority: High Current Visit: Yes Qualifiers: Encounter type: initial encounter Qualified Code(s): W19.XXXA - Unspecified fall, initial encounter; Y92.009 - Unspecified place in unspecified non-institutional (private) residence as the place of occurrence of the external cause; Y92.009 - Unspecified place in unspecified non-institutional ( private) residence as the place of occurrence of the external cause (3) HTN (hypertension) SNOMED Code(s): 42519393 ICD Code: I10 - ESSENTIAL (PRIMARY) HYPERTENSION Status: Chronic Priority : Medium Current Visit: Yes Qualifiers: Hypertension type: unspecified secondary hypertension Qualified Code(s): I15.9 - Secondary hypertension, unspecified; I15 - Secondary hypertension (4) Neuropathic pain SNOMED Code(s): 154491205 ICD Code: M79.2 - NEURALGIA AND NEURITIS, UNSPECIFIED Status: Chronic Priority: Medium Current Visit: No (5) Obesity SNOMED Code(s): 858794496 ICD Code: E66.9 - OBESITY, UNSPECIFIED Status: Chronic Priority: Medium Current Visit: Yes (6) Chronic pain SNOMED Code(s): 89839907 ICD Code: G89.29 - OTHER CHRONIC PAIN Status: Chronic Priority: Medium Current Visit: Yes Qualifiers: Chronic pain type: other chronic pain Qualified Code(s): G89.29 - Other chronic pain Problem List Initiated/Reviewed/Updated: Yes Orders Last 24hrs: Active Orders 24 hr Category Date Time Status Admission Status [Patient Status] [ADT] Routine ADT 10/14/17 06:43 Active Patient Status [ADT] Routine ADT 10/14/17 07:32 Ordered Ambulate [RC] ASDIRECTED Care 10/14/17 07:50 Ordered Bedrest Bathroom Privileges [RC] ASDIRECTED Care 10/14/17 07:32 Inactive Cardiac Monitoring [RC] CONTINUOUS Care 10/14/17 07:35 Ordered Intake and Output [RC] QSHIFT Care 10/14/17 07:35 Ordered Notify Provider Consults [RC] ASDIRECTED Care 10/14/17 07:39 Ordered Oxygen Therapy [RC] PRN Care 10/14/17 07:32 Ordered VTE/DVT Education [RC] PER UNIT ROUTINE Care 10/14/17 07:32 Ordered Vital Signs [RC] Q4H Care 10/14/17 07:32 Ordered Consult to Branch Customer Service Representative [CONS] Routine Cons 10/14/17 07:32 Ordered Consult to Physician [CONS] Routine Cons 10/14/17 07:32 Ordered Consult to Copping Machine Operator [CONS] Routine Cons 10/14/17 07:32 Ordered OT Evaluation and Treatment [CONS] Routine Cons 10/14/17 07:32 Ordered PT Evaluation and Treatment [CONS] Routine Cons 10/14/17 07:32 Ordered 2 Gram Sodium Diet [DIET] Diet 10/14/17 Lunch Ordered A1C [GLYCOSYLATED HEMOGLOBIN,HGBA1C] [CHEM] Routine Lab 10/14/17 07:44 Ordered BASIC METABOLIC PANEL,BMP [CHEM] AM Lab 10/15/17 05:11 Ordered CBC WITH AUTO DIFF [HEME] AM Lab 10/15/17 05:11 Ordered MAGNESIUM [CHEM] AM Lab 10/15/17 05:11 Ordered Acetaminophen/oxyCODONE [Percocet 325-5 MG] Med 10/14/17 07:32 Ordered 1 tab PO Q4H PRN Atenolol [Atenolol] Med 10/14/17 09:00 Ordered 100 mg PO DAILY Docusate Sodium/Sennosides [Senna Plus] Med 10/14/17 07:32 Ordered 1 tab PO BID PRN Enoxaparin [Lovenox] Med 10/14/17 09:00 Ordered 40 mg SUBCUT DAILY FLUoxetine [PROzac] Med 10/14/17 09:00 Ordered 20 mg PO DAILY Gabapentin [Neurontin] Med 10/14/17 09:00 Ordered 300 mg PO TID HYDROmorphone [Dilaudid] Med 10/14/17 07:32 Ordered 0.5 mg IVPUSH Q2H PRN Hydrochlorothiazide [Hydrochlorothiazide] Med 10/14/17 09:00 Ordered 50 mg PO DAILY Ibuprofen [Motrin] Med 10/14/17 07:32 Ordered 600 mg PO Q6H PRN Ketorolac [Toradol] Med 10/14/17 07:45 Ordered 30 mg IVPUSH Q6H LORazepam [Ativan] Med 10/14/17 07:32 Ordered 0.5 mg IV Q6H PRN Magnesium Hydroxide [Milk of Magnesia] Med 10/14/17 07:32 Ordered 30 ml PO Q12H PRN Magnesium Oxide Med 10/14/17 07:43 Once 800 mg PO ONETIME ONE Omeprazole Med 10/14/17 09:00 Ordered 20 mg PO BID Ondansetron [Zofran ODT] Med 10/14/17 07:32 Ordered 4 mg PO Q4H PRN Ondansetron [Zofran] Med 10/14/17 07:32 Ordered 4 mg IV Q4H PRN Polyethylene Glycol 3350 [MiraLAX] Med 10/14/17 07:32 Ordered 17 gm PO DAILY PRN Potassium Chloride Med 10/14/17 07:43 Once 40 meq PO ONETIME ONE Potassium Chloride [KCl 10 MEQ in Water 100 ML] 10 meq Med 10/14/17 06:45 Active Premix Bag 1 bag IV ASDIRECTED Potassium Chloride [Klor-Con 10] Med 10/14/17 09:00 Ordered 10 meq PO BID Sodium Chloride 0.9% [Saline Flush] Med 10/14/17 07:32 Ordered 10 ml FLUSH ASDIRECTED PRN Temazepam [Restoril] Med 10/14/17 07:32 Ordered 7.5 mg PO BEDTIME PRN Saline Lock Insert [OM.PC] Routine Oth 10/14/17 07:32 Ordered Resuscitation Status Routine Resus Stat 10/14/17 07:32 Ordered Medication Orders Enoxaparin Sodium (Lovenox) 40 mg SUBCUT DAILY ADAM Fluoxetine HCl (Prozac) 20 mg PO DAILY ADAM Gabapentin (Neurontin) 300 mg PO TID ADAM Hydromorphone HCl (Dilaudid) 0.5 mg IVPUSH Q2H PRN PRN Reason: Pain (severe 7-10) Potassium Chloride 10 meq/ (Premix) 100 mls @ 100 mls/hr IV ASDIRECTED ADAM Ibuprofen (Motrin) 600 mg PO Q6H PRN PRN Reason: Pain (moderate 4-6) Ketorolac Tromethamine (Toradol) 30 mg IVPUSH Q6H ADAM Lorazepam (Ativan) 0.5 mg IV Q6H PRN PRN Reason: restlessness, N/V Magnesium Hydroxide (Milk Of Magnesia) 30 ml PO Q12H PRN PRN Reason: Constipation Magnesium Oxide (Magnesium Oxide) 800 mg PO ONETIME ONE Stop: 10/14/17 07:44 Non-Formulary Medication (Atenolol [Atenolol]) 100 mg PO DAILY ADAM Non-Formulary Medication (Hydrochlorothiazide [Hydrochlorothiazide]) 50 mg PO DAILY ADAM Non-Formulary Medication (Omeprazole) 20 mg PO BID ADAM Ondansetron HCl (Zofran Odt) 4 mg PO Q4H PRN PRN Reason: nausea, able to take PO Ondansetron HCl (Zofran) 4 mg IV Q4H PRN PRN Reason: Nausea/Vomiting Oxycodone/Acetaminophen (Percocet 325-5 Mg) 1 tab PO Q4H PRN PRN Reason: Pain (moderate 4-6) Polyethylene Glycol (Miralax) 17 gm PO DAILY PRN PRN Reason: Constipation Potassium Chloride (Klor-Con 10) 10 meq PO BID ADAM Potassium Chloride (Potassium Chloride) 40 meq PO ONETIME ONE Stop: 10/14/17 07:44 Senna/Docusate Sodium (Senna Plus) 1 tab PO BID PRN PRN Reason: Constipation Sodium Chloride (Saline Flush) 10 ml FLUSH ASDIRECTED PRN PRN Reason: Keep Vein Open Temazepam (Restoril) 7.5 mg PO BEDTIME PRN PRN Reason: Sleep Assessment/Plan Comment:: I/P: Left acetabular fractures s/p fall at home -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 -Spoke with Dr. Carrero re: noted fractures, reviewed imaging with him. -Recommendations: Pain control, WBAT to non-affected right leg, PT/OT, f/ up with Orthopedics in 2 weeks, no surgical intervention needed -Pain management, see orders -PT/OT -SW for consult for rehab stay HTN -Resume home meds -PRN apresoline Obesity -Branch Customer Service Representative consult -A1C = 6.1 Hx of recurrent UTI -UA ordered -Currently with AMS, likely d/t narcotics but will r/o UTI also; could be contributor for fall also -Per ED reports Mental status was WNL prior to administration of narcotic pain medications; takes narcotics daily at home so is not naive. Chronic neuropathic pain -Continue home meds- neurontin TID -Chronic opioid use at home Other: Refer to Observation status at this time- if pain control is an issue can consider inpatient status later today. DVT/GI prophylax SW consult as above Pain medications as ordered Monitor mental status--suspect purely r/t narcotic medications Labs tomorrow Patient is Full Code status.
--- NOTE | 2017-10-14 07:53 | PCM.SN ---
- Free Text/Narrative Note: Call placed to Dr. Carrero, Orthopedics. Reviewed and discussed case, CT findings. Recommendations for pain control, WBAT to rt leg/nonaffected leg or side, PT to eval and treat. Orders placed. Follow up with Dr. Carrero in 2 weeks for recheck.
[2017-10-14] MEDS: Ketorolac 30 MG/ML SDV IVPUSH SCH ×3 (09:39→19:49)
[2017-10-14] MEDS: Enoxaparin 40 MG/0.4 ML Syringe SUBCUT SCH (09:53)
[2017-10-14] MEDS: Gabapentin 300 MG Cap PO SCH ×4 (09:54→20:03)
[2017-10-14] MEDS: Atenolol 50 MG Tab PO SCH ×2 (09:54→11:24)
[2017-10-14] MEDS: FLUoxetine 20 MG Cap PO SCH ×2 (09:54→11:24)
[2017-10-14] MEDS: Potassium Chloride 10% 20 MEQ/15 ML Soln 30 ML UD Cup PO ONE ×2 (09:54→14:32)
[2017-10-14] MEDS: Pantoprazole 40 MG Tab.CR PO SCH ×3 (09:54→20:04)
[2017-10-14] MEDS: Hydrochlorothiazide 25 MG Tab PO SCH ×2 (09:54→11:24)
[2017-10-14] MEDS: Potassium Chloride 10 MEQ Tab.ER PO SCH ×3 (09:54→20:03)
[2017-10-14] MEDS ORDERED: Magnesium Sulfate/Water 2 GM in Premix Bag 1 BAG IV ONE (09:56)
[2017-10-14] MEDS: HYDROmorphone 0.5 MG/0.5 ML Syringe IVPUSH PRN (10:05)
[2017-10-14] MEDS: Dextrose 5%-0.9% NaCl with KCl 1,000 ML IV SCH ×2 (10:10→19:53)
[2017-10-14] MEDS: hydrALAZINE 20 MG/ML SDV IVPUSH PRN ×2 (10:38→16:50)
--- NOTE | 2017-10-14 10:43 | CR ---
Pelvis: AP view of the pelvis was obtained. Comparison: Previous pelvis exam of 09/30/17. Bowel gas pattern appears within normal limits. Left leg is missing. Osteopenia is noted. Nothing acute is appreciated. Impression: 1. Incidental findings. Nothing acute is seen. Diagnostic code #2
--- NOTE | 2017-10-14 10:43 | CT ---
CT pelvis Technique: Multiple axial sections through the pelvis were obtained. Reconstructed coronal and sagittal images were reviewed. Comparison: Previous plain film pelvis study performed earlier on the same day (1:39 AM). Findings: Disc space narrowing is noted at L4-L5 with vacuum phenomena. Mild degenerative change seen within the apophyseal joints at L4-L5 and L5-S1. Minimal fracture identified within the superior acetabulum on the left side as well as posterior to the acetabulum. No significant displacement is seen. Joint space narrowing is noted within the right hip. Impression: 1. Nondisplaced fracture within the superior acetabulum of the left hip as well as additional nondisplaced fracture posterior to the acetabulum. 2. Degenerative change within the lumbar spine. 3. Other incidental findings. Diagnostic code #3 I agree with preliminary report issued by [facility] ([facility] report finalized on 10/14/17, 3:50 AM Central Time)
[2017-10-14] MEDS: Potassium Chloride 10 MEQ in Premix Bag 1 BAG IV SCH ×4 (13:08→16:33)
[2017-10-14] MEDS ORDERED: FLU Vacc QS 2017-18 (6mos UP)/PF 60 MCG/0.5 ML Syringe IM ONE (18:30)
[2017-10-14] MEDS: cefTRIAXone 1 GM in Sodium Chloride 0.9% 100 ML IV SCH (18:56)
--- NOTE | 2017-10-14 19:17 | PCM.SN ---
- Free Text/Narrative Note: In to see Tonya fairchild. She is eating and feels comfortable in bed. I answered multiple questions from the patient about her condition and also explained to her that she has a UTI. She does have a history of frequent UTIs. I reviewed her prior visits and urine cultures showed susceptibility to Rocephin. Culture ordered. Will start Rocephin 1 g every 24hr. Patient still somewhat confused. As noted prior this is likely due to some type of combination of pain medications and the UTI. She does answer questions appropriately, however her timeline of past events is somewhat scattered. Dietitian was in to see the patient earlier this afternoon and reported the same thing. She did have a lengthy conversation about sodium restriction and healthy eating. I did discuss with the patient the possibility of a rehabilitation stay in a jail facility, as she has had this in the past. She is concerned about falling again while attempting to get to the restroom in her home. She did note a feeling of heat on her left buttocks. She does have what appears to be a healing wound. But no erythema or edema is noted. She reports having had a prior "boil" in that location which opened up and drained. I see no signs of infection. At this time pain is controlled. No other complaints.
[2017-10-14] MEDS: Acetaminophen/oxyCODONE 325-5 MG Tab PO PRN (19:42)
[2017-10-14] MEDS: Baclofen 10 MG Tab PO SCH (20:03)
[2017-10-14] MEDS ORDERED: Atenolol 50 MG Tab PO ONE (21:00)
[2017-10-14] MEDS ORDERED: Gabapentin 600 MG Tab PO SCH (21:00)
[2017-10-15] MEDS: hydrALAZINE 20 MG/ML SDV IVPUSH PRN ×2 (00:10→16:09)
[2017-10-15] MEDS ORDERED: Ibuprofen 600 MG Tab PO PRN (02:00)
[2017-10-15] MEDS: Acetaminophen/oxyCODONE 325-5 MG Tab PO PRN ×4 (02:13→21:17)
[2017-10-15] MEDS: Dextrose 5%-0.9% NaCl with KCl 1,000 ML IV SCH ×2 (05:59→16:05)
[2017-10-15] MEDS: Enoxaparin 40 MG/0.4 ML Syringe SUBCUT SCH (08:23)
[2017-10-15] MEDS: Potassium Chloride 10 MEQ Tab.ER PO SCH ×2 (08:24→21:16)
[2017-10-15] MEDS: Hydrochlorothiazide 25 MG Tab PO SCH (08:24)
[2017-10-15] MEDS: FLUoxetine 20 MG Cap PO SCH (08:24)
[2017-10-15] MEDS: Baclofen 10 MG Tab PO SCH ×3 (08:24→21:16)
[2017-10-15] MEDS: Gabapentin 300 MG Cap PO SCH ×2 (08:25→14:11)
[2017-10-15] MEDS: Pantoprazole 40 MG Tab.CR PO SCH ×2 (08:25→21:16)
[2017-10-15] MEDS ORDERED: Gabapentin 300 MG Cap PO ONE (11:37)
--- NOTE | 2017-10-15 11:51 | PCM.PN ---
- General Info Date of Service: 10/15/17 Subjective Update: Complaining of pain, not satisfied with current regimen. Functional Status: Reports: Tolerating Diet - Review of Systems General: Reports: Weakness HEENT: Reports: No Symptoms Pulmonary: Reports: No Symptoms Cardiovascular: Reports: No Symptoms Gastrointestinal: Reports: No Symptoms Genitourinary: Reports: No Symptoms Musculoskeletal: Reports: No Symptoms Skin: Reports: No Symptoms Neurological: Reports: No Symptoms Psychiatric: Reports: No Symptoms - Patient Data Vitals - Most Recent: Last Vital Signs Temp 36.9 C 10/15/17 08:24 Pulse 86 10/15/17 08:24 Resp 18 10/15/17 08:24 BP 142/122 H 10/15/17 08:24 Pulse Ox 96 10/15/17 08:24 Weight - Most Recent: 111.039 kg I&O - Last 24 Hours: Intake & Output 10/14/17 10/15/17 10/15/17 22:59 06:59 14:59 Intake Total 1090 2497 Output Total 300 650 Balance 790 1847 Lab Results Last 24 Hours: Laboratory Results - last 24 hr 10/14/17 10/14/17 10/15/17 Range/Units 15:27 15:27 06:10 WBC 5.92 (3.98-10.04) K/mm3 RBC 4.70 (3.98-5.22) M/mm3 Hgb 12.8 (11.2-15.7) gm/L Hct 41.2 (34.1-44.9) % MCV 87.7 (79.4-94.8) fl MCH 27.2 (25.6-32.2) pg MCHC 31.1 L (32.2-35.5) g/dl RDW Std Deviation 48.2 H (36.4-46.3) fL Plt Count 300 (182-369) K/mm3 MPV 10.5 (9.4-12.3) fl Neut % (Auto) 57.1 (34.0-71.1) % Lymph % (Auto) 29.2 (19.3-51.7) % [place] % (Auto) 7.1 (4.7-12.5) % Eos % (Auto) 5.9 H (0.7-5.8) Baso % (Auto) 0.5 (0.1-1.2) % Neut # (Auto) 3.38 (1.56-6.13) K/mm3 Lymph # (Auto) 1.73 (1.18-3.74) K/mm3 [place] # (Auto) 0.42 H (0.24-0.36) K/mm3 Eos # (Auto) 0.35 (0.04-0.36) K/mm3 Baso # (Auto) 0.03 (0.01-0.08) K/mm3 Sodium (136-145) mEq/L Potassium (3.5-5.1) mEq/L Chloride (98-107) mEq/L Carbon Dioxide (21-32) mEq/L Anion Gap (5-15) BUN (7-18) mg/dL Creatinine (0.55-1.02) mg/dL Est Cr Clr Drug Dosing mL/min Estimated GFR (MDRD) (>60) mL/min BUN/Creatinine Ratio (14-18) Glucose (80-115) mg/dL Calcium (8.5-10.1) mg/dL Magnesium (1.8-2.4) mg/dl Urine Color Yellow (Yellow) Urine Appearance Slt cloudy H (Clear) Urine pH 6.0 (5.0-8.0) Ur Specific [place] 1.015 (1.005-1.030) Urine Protein Trace H (Negative) Urine Glucose (UA) Negative (Negative) Urine Ketones Negative (Negative) Urine Occult Blood 2+ H (Negative) Urine Nitrite Negative (Negative) Urine Bilirubin Negative (Negative) Urine Urobilinogen 0.2 (0.2-1.0) Ur Leukocyte Esterase 3+ H (Negative) Urine RBC 0-5 (0-5) /hpf Urine WBC 40-50 H (0-5) /hpf Urine WBC Clumps Few (NOT SEEN) /hpf Ur Epithelial Cells 0-5 (0-5) /hpf Urine Bacteria Many H (FEW) /hpf Hyaline Casts 0-5 (0-5) /lpf Urine Mucus Not seen (FEW) /hpf Urine Opiates Screen Negative (NEGATIVE) Ur Buprenorphine Scrn Negative (NEGATIVE) Ur Oxycodone Screen Negative (NEGATIVE) Urine Methadone Screen Negative (NEGATIVE) Ur Propoxyphene Screen Negative (NEGATIVE) Ur Barbiturates Screen Negative (NEGATIVE) Ur Tricyclics Screen Presumptive positive H (NEGATIVE) Ur Phencyclidine Scrn Negative (NEGATIVE) Ur Amphetamine Screen Negative (NEGATIVE) U Methamphetamines Scrn Negative (NEGATIVE) U Benzodiazepines Scrn Negative (NEGATIVE) U Cocaine Metab Screen Negative (NEGATIVE) U Marijuana (THC) Screen Negative (NEGATIVE) 10/15/17 Range/Units 06:10 WBC (3.98-10.04) K/mm3 RBC (3.98-5.22) M/mm3 Hgb (11.2-15.7) gm/L Hct (34.1-44.9) % MCV (79.4-94.8) fl MCH (25.6-32.2) pg MCHC (32.2-35.5) g/dl RDW Std Deviation (36.4-46.3) fL Plt Count (182-369) K/mm3 MPV (9.4-12.3) fl Neut % (Auto) (34.0-71.1) % Lymph % (Auto) (19.3-51.7) % [place] % (Auto) (4.7-12.5) % Eos % (Auto) (0.7-5.8) Baso % (Auto) (0.1-1.2) % Neut # (Auto) (1.56-6.13) K/mm3 Lymph # (Auto) (1.18-3.74) K/mm3 [place] # (Auto) (0.24-0.36) K/mm3 Eos # (Auto) (0.04-0.36) K/mm3 Baso # (Auto) (0.01-0.08) K/mm3 Sodium 144 (136-145) mEq/L Potassium 3.5 (3.5-5.1) mEq/L Chloride 108 H (98-107) mEq/L Carbon Dioxide 27 (21-32) mEq/L Anion Gap 12.5 (5-15) BUN 11 (7-18) mg/dL Creatinine 0.7 (0.55-1.02) mg/dL Est Cr Clr Drug Dosing 70.11 mL/min Estimated GFR (MDRD) > 60 (>60) mL/min BUN/Creatinine Ratio 15.7 (14-18) Glucose 107 (80-115) mg/dL Calcium 8.4 L (8.5-10.1) mg/dL Magnesium 2.2 (1.8-2.4) mg/dl Urine Color (Yellow) Urine Appearance (Clear) Urine pH (5.0-8.0) Ur Specific [place] (1.005-1.030) Urine Protein (Negative) Urine Glucose (UA) (Negative) Urine Ketones (Negative) Urine Occult Blood (Negative) Urine Nitrite (Negative) Urine Bilirubin (Negative) Urine Urobilinogen (0.2-1.0) Ur Leukocyte Esterase (Negative) Urine RBC (0-5) /hpf Urine WBC (0-5) /hpf Urine WBC Clumps (NOT SEEN) /hpf Ur Epithelial Cells (0-5) /hpf Urine Bacteria (FEW) /hpf Hyaline Casts (0-5) /lpf Urine Mucus (FEW) /hpf Urine Opiates Screen (NEGATIVE) Ur Buprenorphine Scrn (NEGATIVE) Ur Oxycodone Screen (NEGATIVE) Urine Methadone Screen (NEGATIVE) Ur Propoxyphene Screen (NEGATIVE) Ur Barbiturates Screen (NEGATIVE) Ur Tricyclics Screen (NEGATIVE) Ur Phencyclidine Scrn (NEGATIVE) Ur Amphetamine Screen (NEGATIVE) U Methamphetamines Scrn (NEGATIVE) U Benzodiazepines Scrn (NEGATIVE) U Cocaine Metab Screen (NEGATIVE) U Marijuana (THC) Screen (NEGATIVE) Anmol Results Last 24 Hours: Microbiology 10/14/17 15:27 Urine Culture - Preliminary Urine, Quick Cath (In-Out) Gram Negative Rods Med Orders - Current: Current Medications Baclofen (Lioresal) 10 mg PO TID [facility] Last Admin: 10/15/17 08:24 Dose: 10 mg Enoxaparin Sodium (Lovenox) 40 mg SUBCUT DAILY [facility] Last Admin: 10/15/17 08:23 Dose: 40 mg Fluoxetine HCl (Prozac) 20 mg PO DAILY [facility] Last Admin: 10/15/17 08:24 Dose: 20 mg Gabapentin (Neurontin) 300 mg PO DAILY@1500 [facility] Gabapentin (Neurontin) 600 mg PO BID [facility] Hydralazine HCl (Apresoline) 5 mg IVPUSH Q4H PRN PRN Reason: sb/p >150 Last Admin: 10/15/17 00:10 Dose: 5 mg Hydrochlorothiazide (Hydrochlorothiazide) 50 mg PO DAILY [facility] Last Admin: 10/15/17 08:24 Dose: 50 mg Hydromorphone HCl (Dilaudid) 0.5 mg IVPUSH Q2H PRN PRN Reason: Pain (severe 7-10) Last Admin: 10/14/17 10:05 Dose: 0.5 mg Potassium Chloride/Dextrose/Sod Cl (D5 Ns With 20 Meq Kcl) 1,000 mls @ 100 mls/ hr IV ASDIRECTED [facility] Last Admin: 10/15/17 05:59 Dose: 100 mls/hr Ceftriaxone Sodium 1 gm/ (Sodium Chloride) 100 mls @ 200 mls/hr IV Q24H [facility] Last Admin: 10/14/17 18:56 Dose: 200 mls/hr Ibuprofen (Motrin) 600 mg PO Q6H PRN PRN Reason: Pain (moderate 4-6) Lorazepam (Ativan) 0.5 mg IV Q6H PRN PRN Reason: restlessness, N/V Magnesium Hydroxide (Milk Of Magnesia) 30 ml PO Q12H PRN PRN Reason: Constipation Ondansetron HCl (Zofran Odt) 4 mg PO Q4H PRN PRN Reason: nausea, able to take PO Ondansetron HCl (Zofran) 4 mg IV Q4H PRN PRN Reason: Nausea/Vomiting Oxycodone/Acetaminophen (Percocet 325-5 Mg) 1 tab PO Q4H PRN PRN Reason: Pain (moderate 4-6) Last Admin: 10/15/17 09:18 Dose: 1 tab Pantoprazole Sodium (Protonix) 40 mg PO BID [facility] Last Admin: 10/15/17 08:25 Dose: 40 mg Polyethylene Glycol (Miralax) 17 gm PO DAILY PRN PRN Reason: Constipation Potassium Chloride (Klor-Con 10) 10 meq PO BID [facility] Last Admin: 10/15/17 08:24 Dose: 10 meq Senna/Docusate Sodium (Senna Plus) 1 tab PO BID PRN PRN Reason: Constipation Last Admin: 10/14/17 19:44 Dose: 1 tab Sodium Chloride (Saline Flush) 10 ml FLUSH ASDIRECTED PRN PRN Reason: Keep Vein Open Temazepam (Restoril) 7.5 mg PO BEDTIME PRN PRN Reason: Sleep Discontinued Medications Atenolol (Tenormin) 100 mg PO DAILY [facility] Last Admin: 10/14/17 11:24 Dose: Not Given Atenolol (Tenormin) 100 mg PO ONETIME ONE Stop: 10/14/17 21:01 Last Admin: 10/14/17 20:03 Dose: 100 mg Gabapentin (Neurontin) 300 mg PO TID [facility] Last Admin: 10/15/17 08:25 Dose: 300 mg Gabapentin (Neurontin) 600 mg PO QID [facility] Gabapentin (Neurontin) 300 mg PO ONETIME ONE Stop: 10/15/17 11:38 Last Admin: 10/15/17 11:48 Dose: 300 mg Hydromorphone HCl (Dilaudid) 1 mg IVPUSH ONETIME ONE Stop: 10/14/17 01:28 Last Admin: 10/14/17 01:38 Dose: 1 mg Sodium Chloride (Normal Saline) 1,000 mls @ 250 mls/hr IV ASDIRECTED [facility] Last Admin: 10/14/17 01:56 Dose: 250 mls/hr Potassium Chloride 10 meq/ (Premix) 100 mls @ 100 mls/hr IV ASDIRECTED [facility] Magnesium Sulfate 2 gm/ Premix 50 mls @ 25 mls/hr IV ONETIME ONE Stop: 10/14/17 11:55 Last Admin: 10/14/17 10:19 Dose: 25 mls/hr Potassium Chloride 10 meq/ (Premix) 100 mls @ 100 mls/hr IV Q1H [facility] Stop: 10/14/17 16:29 Last Admin: 10/14/17 16:33 Dose: 100 mls/hr Influenza Virus Vaccine (Flulaval Quad 0132-1850) 60 mcg IM .ONCE ONE Stop: 10/14/17 18:31 Ketorolac Tromethamine (Toradol) 30 mg IVPUSH Q6H [facility] Stop: 10/14/17 20:31 Last Admin: 10/14/17 19:49 Dose: 30 mg Magnesium Oxide (Magnesium Oxide) 800 mg PO ONETIME ONE Stop: 10/14/17 07:44 Last Admin: 10/14/17 10:14 Dose: Not Given Metoclopramide HCl (Reglan) 10 mg IVPUSH ONETIME ONE Stop: 10/14/17 01:28 Last Admin: 10/14/17 01:39 Dose: 10 mg Potassium Chloride (Potassium Chloride) 40 meq PO ONETIME ONE Stop: 10/14/17 07:44 Last Admin: 10/14/17 14:32 Dose: Not Given - Exam Quality Assessment: DVT Prophylaxis General: Alert, Oriented, Cooperative, No Acute Distress HEENT: Pupils Equal, Pupils Reactive, EOMI, Mucous Membr. Moist/[place] Neck: Supple, Trachea Midline Lungs: Clear to Auscultation, Normal Respiratory Effort Cardiovascular: Regular Rate, Regular Rhythm GI/Abdominal Exam: Normal Bowel Sounds, Soft, Non-Tender, No Organomegaly, No Distention (Female) Exam: Deferred Back Exam: Normal Inspection Extremities: Normal Inspection Skin: Warm Neurological: No New Focal Deficit, Normal Speech Psy/Mental Status: Alert, Normal Affect, Normal Mood - Problem List Review Problem List Initiated/Reviewed/Updated: Yes - My Orders Last 24 Hours: My Active Orders 10/15/17 15:00 Gabapentin [Neurontin] 300 mg PO DAILY@1500 10/16/17 21:00 Gabapentin [Neurontin] 600 mg PO BID - Plan Plan:: I/P: Left acetabular fractures s/p fall at home -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 -Spoke with Dr. Carrero re: noted fractures, reviewed imaging with him. -Recommendations: Pain control, WBAT to non-affected right leg, PT/OT, f/ up with Orthopedics in 2 weeks, no surgical intervention needed -Pain management, see orders -PT/OT -SW for consult for rehab stay HTN -Resume home meds -PRN apresoline Obesity -Nurse Aide consult -A1C = 6.1 Hx of recurrent UTI -UA--->AUTI on Rocephin -Currently with AMS, likely d/t narcotics but will r/o UTI also; could be contributor for fall also -Per ED reports Mental status was WNL prior to administration of narcotic pain medications; takes narcotics daily at home so is not naive. Chronic neuropathic pain -Continue home meds- neurontin TID -Chronic opioid use at home Other: Refer to Observation status at this time- if pain control is an issue can consider inpatient status later today. DVT/GI prophylax SW consult as above Pain medications as ordered Monitor mental status--suspect purely r/t narcotic medications Labs tomorrow Patient is Full Code status.
[2017-10-15] MEDS: Atenolol 50 MG Tab PO SCH ×2 (12:39→21:17)
[2017-10-15] MEDS: traMADol 50 MG Tab PO PRN (16:12)
[2017-10-15] MEDS: cefTRIAXone 1 GM in Sodium Chloride 0.9% 100 ML IV SCH (17:54)
[2017-10-15] MEDS: Gabapentin 600 MG Tab PO SCH (21:17)
[2017-10-15] MEDS: Temazepam 7.5 MG Cap PO PRN (21:19)
[2017-10-16] MEDS: Dextrose 5%-0.9% NaCl with KCl 1,000 ML IV SCH (02:34)
[2017-10-16] MEDS: traMADol 50 MG Tab PO PRN ×3 (02:35→19:57)
[2017-10-16] MEDS: Acetaminophen/oxyCODONE 325-5 MG Tab PO PRN ×5 (05:48→23:36)
[2017-10-16] MEDS: Pantoprazole 40 MG Tab.CR PO SCH ×2 (08:38→20:02)
[2017-10-16] MEDS: Hydrochlorothiazide 25 MG Tab PO SCH (08:38)
[2017-10-16] MEDS: Atenolol 50 MG Tab PO SCH ×2 (08:38→20:02)
[2017-10-16] MEDS: Gabapentin 600 MG Tab PO SCH ×2 (08:38→20:02)
[2017-10-16] MEDS: FLUoxetine 20 MG Cap PO SCH (08:38)
[2017-10-16] MEDS: Potassium Chloride 10 MEQ Tab.ER PO SCH ×2 (08:38→20:02)
[2017-10-16] MEDS: Baclofen 10 MG Tab PO SCH ×3 (08:38→20:02)
[2017-10-16] MEDS: Enoxaparin 40 MG/0.4 ML Syringe SUBCUT SCH (08:39)
[2017-10-16] MEDS: hydrALAZINE 20 MG/ML SDV IVPUSH PRN ×3 (12:02→23:36)
--- NOTE | 2017-10-16 12:08 | PCM.PN ---
- General Info Date of Service: 10/16/17 Functional Status: Reports: Pain Controlled, Tolerating Diet - Review of Systems General: Reports: No Symptoms HEENT: Reports: No Symptoms Pulmonary: Reports: No Symptoms Cardiovascular: Reports: No Symptoms Gastrointestinal: Reports: No Symptoms Genitourinary: Reports: No Symptoms Musculoskeletal: Reports: No Symptoms Skin: Reports: No Symptoms Neurological: Reports: No Symptoms Psychiatric: Reports: No Symptoms - Patient Data Vitals - Most Recent: Last Vital Signs Temp 37.0 C 10/16/17 11:31 Pulse 84 10/16/17 11:31 Resp 20 10/16/17 11:31 BP 156/89 H 10/16/17 11:31 Pulse Ox 95 10/16/17 11:31 Weight - Most Recent: 114.623 kg Med Orders - Current: Current Medications Atenolol (Tenormin) 50 mg PO BID [facility] Last Admin: 10/16/17 08:38 Dose: 50 mg Baclofen (Lioresal) 10 mg PO TID [facility] Last Admin: 10/16/17 08:38 Dose: 10 mg Enoxaparin Sodium (Lovenox) 40 mg SUBCUT DAILY [facility] Last Admin: 10/16/17 08:39 Dose: 40 mg Fluoxetine HCl (Prozac) 20 mg PO DAILY [facility] Last Admin: 10/16/17 08:38 Dose: 20 mg Gabapentin (Neurontin) 300 mg PO DAILY@1500 [facility] Last Admin: 10/15/17 14:11 Dose: 300 mg Gabapentin (Neurontin) 600 mg PO BID [facility] Last Admin: 10/16/17 08:38 Dose: 600 mg Hydralazine HCl (Apresoline) 5 mg IVPUSH Q4H PRN PRN Reason: sb/p >150 Last Admin: 10/16/17 12:02 Dose: 5 mg Hydrochlorothiazide (Hydrochlorothiazide) 50 mg PO DAILY [facility] Last Admin: 10/16/17 08:38 Dose: 50 mg Hydromorphone HCl (Dilaudid) 0.5 mg IVPUSH Q2H PRN PRN Reason: Pain (severe 7-10) Last Admin: 10/14/17 10:05 Dose: 0.5 mg Ceftriaxone Sodium 1 gm/ (Sodium Chloride) 100 mls @ 200 mls/hr IV Q24H [facility] Last Admin: 10/15/17 17:54 Dose: 200 mls/hr Ibuprofen (Motrin) 600 mg PO Q6H PRN PRN Reason: Pain (moderate 4-6) Lorazepam (Ativan) 0.5 mg IV Q6H PRN PRN Reason: restlessness, N/V Magnesium Hydroxide (Milk Of Magnesia) 30 ml PO Q12H PRN PRN Reason: Constipation Ondansetron HCl (Zofran Odt) 4 mg PO Q4H PRN PRN Reason: nausea, able to take PO Ondansetron HCl (Zofran) 4 mg IV Q4H PRN PRN Reason: Nausea/Vomiting Oxycodone/Acetaminophen (Percocet 325-5 Mg) 1 tab PO Q4H PRN PRN Reason: Pain (moderate 4-6) Last Admin: 10/16/17 09:47 Dose: 1 tab Pantoprazole Sodium (Protonix) 40 mg PO BID [facility] Last Admin: 10/16/17 08:38 Dose: 40 mg Polyethylene Glycol (Miralax) 17 gm PO DAILY PRN PRN Reason: Constipation Potassium Chloride (Klor-Con 10) 10 meq PO BID [facility] Last Admin: 10/16/17 08:38 Dose: 10 meq Senna/Docusate Sodium (Senna Plus) 1 tab PO BID PRN PRN Reason: Constipation Last Admin: 10/14/17 19:44 Dose: 1 tab Sodium Chloride (Saline Flush) 10 ml FLUSH ASDIRECTED PRN PRN Reason: Keep Vein Open Temazepam (Restoril) 7.5 mg PO BEDTIME PRN PRN Reason: Sleep Last Admin: 10/15/17 21:19 Dose: 7.5 mg Tramadol HCl (Ultram) 50 mg PO Q8H PRN PRN Reason: Pain Last Admin: 10/16/17 12:04 Dose: 50 mg Discontinued Medications Atenolol (Tenormin) 100 mg PO DAILY [facility] Last Admin: 10/14/17 11:24 Dose: Not Given Atenolol (Tenormin) 100 mg PO ONETIME ONE Stop: 10/14/17 21:01 Last Admin: 10/14/17 20:03 Dose: 100 mg Gabapentin (Neurontin) 300 mg PO TID [facility] Last Admin: 10/15/17 08:25 Dose: 300 mg Gabapentin (Neurontin) 600 mg PO QID [facility] Gabapentin (Neurontin) 300 mg PO ONETIME ONE Stop: 10/15/17 11:38 Last Admin: 10/15/17 11:48 Dose: 300 mg Hydromorphone HCl (Dilaudid) 1 mg IVPUSH ONETIME ONE Stop: 10/14/17 01:28 Last Admin: 10/14/17 01:38 Dose: 1 mg Sodium Chloride (Normal Saline) 1,000 mls @ 250 mls/hr IV ASDIRECTED [facility] Last Admin: 10/14/17 01:56 Dose: 250 mls/hr Potassium Chloride 10 meq/ (Premix) 100 mls @ 100 mls/hr IV ASDIRECTED [facility] Magnesium Sulfate 2 gm/ Premix 50 mls @ 25 mls/hr IV ONETIME ONE Stop: 10/14/17 11:55 Last Admin: 10/14/17 10:19 Dose: 25 mls/hr Potassium Chloride/Dextrose/Sod Cl (D5 Ns With 20 Meq Kcl) 1,000 mls @ 100 mls/ hr IV ASDIRECTED [facility] Last Admin: 10/16/17 02:34 Dose: 100 mls/hr Potassium Chloride 10 meq/ (Premix) 100 mls @ 100 mls/hr IV Q1H [facility] Stop: 10/14/17 16:29 Last Admin: 10/14/17 16:33 Dose: 100 mls/hr Influenza Virus Vaccine (Flulaval Quad [id number]) 60 mcg IM .ONCE ONE Stop: 10/14/17 18:31 Ketorolac Tromethamine (Toradol) 30 mg IVPUSH Q6H [facility] Stop: 10/14/17 20:31 Last Admin: 10/14/17 19:49 Dose: 30 mg Magnesium Oxide (Magnesium Oxide) 800 mg PO ONETIME ONE Stop: 10/14/17 07:44 Last Admin: 10/14/17 10:14 Dose: Not Given Metoclopramide HCl (Reglan) 10 mg IVPUSH ONETIME ONE Stop: 10/14/17 01:28 Last Admin: 10/14/17 01:39 Dose: 10 mg Potassium Chloride (Potassium Chloride) 40 meq PO ONETIME ONE Stop: 10/14/17 07:44 Last Admin: 10/14/17 14:32 Dose: Not Given - Exam Quality Assessment: Supplemental Oxygen, DVT Prophylaxis General: Alert, Oriented, Cooperative, No Acute Distress HEENT: Pupils Equal, Pupils Reactive, EOMI Neck: Supple, Trachea Midline Lungs: Clear to Auscultation, Normal Respiratory Effort Cardiovascular: Regular Rate, Regular Rhythm GI/Abdominal Exam: Normal Bowel Sounds, Soft, Non-Tender, No Organomegaly, No Distention (Female) Exam: Deferred Back Exam: Normal Inspection Extremities: Normal Inspection Skin: Warm Neurological: No New Focal Deficit, Normal Speech Psy/Mental Status: Alert, Normal Affect, Normal Mood - Problem List Review Problem List Initiated/Reviewed/Updated: Yes - My Orders Last 24 Hours: My Active Orders 10/17/17 05:00 BASIC METABOLIC PANEL,BMP [CHEM] DAILY CBC WITH AUTO DIFF [HEME] DAILY CRP [C-REACTIVE PROTEIN] [CHEM] DAILY GLYCOSYLATED HEMOGLOBIN,HGBA1C [CHEM] Routine MAGNESIUM [CHEM] DAILY 10/18/17 05:00 BASIC METABOLIC PANEL,BMP [CHEM] DAILY CBC WITH AUTO DIFF [HEME] DAILY CRP [C-REACTIVE PROTEIN] [CHEM] DAILY MAGNESIUM [CHEM] DAILY 10/19/17 05:00 BASIC METABOLIC PANEL,BMP [CHEM] DAILY CBC WITH AUTO DIFF [HEME] DAILY CRP [C-REACTIVE PROTEIN] [CHEM] DAILY MAGNESIUM [CHEM] DAILY 10/20/17 05:00 BASIC METABOLIC PANEL,BMP [CHEM] DAILY CBC WITH AUTO DIFF [HEME] DAILY CRP [C-REACTIVE PROTEIN] [CHEM] DAILY MAGNESIUM [CHEM] DAILY - Plan Plan:: I/P: Left acetabular fractures s/p fall at home -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 -Spoke with Dr. Carrero re: noted fractures, reviewed imaging with him. -Recommendations: Pain control, WBAT to non-affected right leg, PT/OT, f/ up with Orthopedics in 2 weeks, no surgical intervention needed -Pain management, see orders -PT/OT -SW for consult for rehab stay HTN -Resume home meds -PRN apresoline Obesity -Sld Educational Aide consult -A1C = 6.1 Hx of recurrent UTI -UA ordered -Currently with AMS, likely d/t narcotics but will r/o UTI also; could be contributor for fall also -Per ED reports Mental status was WNL prior to administration of narcotic pain medications; takes narcotics daily at home so is not naive. Chronic neuropathic pain -Continue home meds- neurontin TID -Chronic opioid use at home Other: Refer to Observation status at this time- if pain control is an issue can consider inpatient status later today. DVT/GI prophylax SW consult as above Pain medications as ordered Monitor mental status--suspect purely r/t narcotic medications Labs tomorrow DC will need SNF placement Patient is Full Code status.
[2017-10-16] MEDS: Gabapentin 300 MG Cap PO SCH (14:52)
[2017-10-16] MEDS: cefTRIAXone 1 GM in Sodium Chloride 0.9% 100 ML IV SCH (17:59)
[2017-10-16] MEDS: Temazepam 7.5 MG Cap PO PRN (21:22)
[2017-10-17] MEDS: traMADol 50 MG Tab PO PRN ×3 (03:39→20:00)
[2017-10-17] MEDS: Acetaminophen/oxyCODONE 325-5 MG Tab PO PRN ×5 (03:39→21:35)
[2017-10-17] MEDS: hydrALAZINE 20 MG/ML SDV IVPUSH PRN (04:21)
[2017-10-17] MEDS: Gabapentin 600 MG Tab PO SCH ×2 (10:01→20:00)
[2017-10-17] MEDS: Potassium Chloride 10 MEQ Tab.ER PO SCH (10:01)
[2017-10-17] MEDS: Hydrochlorothiazide 25 MG Tab PO SCH (10:01)
[2017-10-17] MEDS: Enoxaparin 40 MG/0.4 ML Syringe SUBCUT SCH (10:02)
[2017-10-17] MEDS: Atenolol 50 MG Tab PO SCH ×2 (10:02→19:59)
[2017-10-17] MEDS: Pantoprazole 40 MG Tab.CR PO SCH ×2 (10:02→19:59)
[2017-10-17] MEDS: Baclofen 10 MG Tab PO SCH ×3 (10:02→19:59)
[2017-10-17] MEDS: FLUoxetine 20 MG Cap PO SCH (10:02)
[2017-10-17] MEDS: Gabapentin 300 MG Cap PO SCH (15:31)
[2017-10-17] MEDS: HYDROmorphone 0.5 MG/0.5 ML Syringe IVPUSH PRN (15:31)
--- NOTE | 2017-10-17 16:01 | PCM.PN ---
- General Info Date of Service: 10/17/17 Functional Status: Reports: Pain Controlled, Tolerating Diet - Review of Systems General: Reports: No Symptoms HEENT: Reports: No Symptoms Pulmonary: Reports: No Symptoms Cardiovascular: Reports: No Symptoms Gastrointestinal: Reports: No Symptoms Genitourinary: Reports: No Symptoms Musculoskeletal: Reports: No Symptoms Skin: Reports: No Symptoms Neurological: Reports: No Symptoms Psychiatric: Reports: No Symptoms - Patient Data Vitals - Most Recent: Last Vital Signs Temp 36.9 C 10/17/17 11:45 Pulse 95 10/17/17 11:45 Resp 32 H 10/17/17 11:45 BP 171/95 H 10/17/17 11:45 Pulse Ox 94 L 10/17/17 11:45 Weight - Most Recent: 114.623 kg I&O - Last 24 Hours: Intake & Output 10/17/17 10/17/17 10/17/17 06:59 14:59 22:59 Intake Total 600 180 Output Total 1203 Balance -603 180 Lab Results Last 24 Hours: Laboratory Results - last 24 hr 10/17/17 10/17/17 10/17/17 Range/Units 05:55 05:55 05:55 WBC 6.39 (3.98-10.04) K/mm3 RBC 4.72 (3.98-5.22) M/mm3 Hgb 12.8 (11.2-15.7) gm/L Hct 41.4 (34.1-44.9) % MCV 87.7 (79.4-94.8) fl MCH 27.1 (25.6-32.2) pg MCHC 30.9 L (32.2-35.5) g/dl RDW Std Deviation 48.7 H (36.4-46.3) fL Plt Count 314 (182-369) K/mm3 MPV 10.2 (9.4-12.3) fl Neut % (Auto) 52.5 (34.0-71.1) % Lymph % (Auto) 30.0 (19.3-51.7) % [place] % (Auto) 9.1 (4.7-12.5) % Eos % (Auto) 7.7 H (0.7-5.8) Baso % (Auto) 0.5 (0.1-1.2) % Neut # (Auto) 3.36 (1.56-6.13) K/mm3 Lymph # (Auto) 1.92 (1.18-3.74) K/mm3 [place] # (Auto) 0.58 H (0.24-0.36) K/mm3 Eos # (Auto) 0.49 H (0.04-0.36) K/mm3 Baso # (Auto) 0.03 (0.01-0.08) K/mm3 Sodium 139 (136-145) mEq/L Potassium 5.0 (3.5-5.1) mEq/L Chloride 104 (98-107) mEq/L Carbon Dioxide 27 (21-32) mEq/L Anion Gap 13.0 (5-15) BUN 12 (7-18) mg/dL Creatinine 0.6 (0.55-1.02) mg/dL Est Cr Clr Drug Dosing 81.80 mL/min Estimated GFR (MDRD) > 60 (>60) mL/min BUN/Creatinine Ratio 20.0 H (14-18) Glucose 102 (80-115) mg/dL Hemoglobin A1c 6.10 (4.50-6.20) % Calcium 9.4 (8.5-10.1) mg/dL Magnesium 1.7 L (1.8-2.4) mg/dl C-Reactive Protein 0.6 (<1.0) mg/dL Med Orders - Current: Current Medications Atenolol (Tenormin) 50 mg PO BID [facility] Last Admin: 10/17/17 10:02 Dose: 50 mg Baclofen (Lioresal) 10 mg PO TID [facility] Last Admin: 10/17/17 15:31 Dose: 10 mg Enoxaparin Sodium (Lovenox) 40 mg SUBCUT DAILY [facility] Last Admin: 10/17/17 10:02 Dose: 40 mg Fluoxetine HCl (Prozac) 20 mg PO DAILY [facility] Last Admin: 10/17/17 10:02 Dose: 20 mg Gabapentin (Neurontin) 300 mg PO DAILY@1500 [facility] Last Admin: 10/17/17 15:31 Dose: 300 mg Gabapentin (Neurontin) 600 mg PO BID [facility] Last Admin: 10/17/17 10:01 Dose: 600 mg Hydralazine HCl (Apresoline) 5 mg IVPUSH Q4H PRN PRN Reason: sb/p >150 Last Admin: 10/17/17 04:21 Dose: 5 mg Hydrochlorothiazide (Hydrochlorothiazide) 50 mg PO DAILY [facility] Last Admin: 10/17/17 10:01 Dose: 50 mg Hydromorphone HCl (Dilaudid) 0.5 mg IVPUSH Q2H PRN PRN Reason: Pain (severe 7-10) Last Admin: 10/17/17 15:31 Dose: 0.25 mg Ceftriaxone Sodium 1 gm/ (Sodium Chloride) 100 mls @ 200 mls/hr IV Q24H [facility] Last Admin: 10/16/17 17:59 Dose: 200 mls/hr Ibuprofen (Motrin) 600 mg PO Q6H PRN PRN Reason: Pain (moderate 4-6) Lorazepam (Ativan) 0.5 mg IV Q6H PRN PRN Reason: restlessness, N/V Magnesium Hydroxide (Milk Of Magnesia) 30 ml PO Q12H PRN PRN Reason: Constipation Ondansetron HCl (Zofran Odt) 4 mg PO Q4H PRN PRN Reason: nausea, able to take PO Ondansetron HCl (Zofran) 4 mg IV Q4H PRN PRN Reason: Nausea/Vomiting Oxycodone/Acetaminophen (Percocet 325-5 Mg) 1 tab PO Q4H PRN PRN Reason: Pain (moderate 4-6) Last Admin: 10/17/17 12:28 Dose: 1 tab Pantoprazole Sodium (Protonix) 40 mg PO BID [facility] Last Admin: 10/17/17 10:02 Dose: 40 mg Polyethylene Glycol (Miralax) 17 gm PO DAILY PRN PRN Reason: Constipation Potassium Chloride (Klor-Con 10) 10 meq PO BID [facility] Last Admin: 10/17/17 10:01 Dose: 10 meq Senna/Docusate Sodium (Senna Plus) 1 tab PO BID PRN PRN Reason: Constipation Last Admin: 10/14/17 19:44 Dose: 1 tab Sodium Chloride (Saline Flush) 10 ml FLUSH ASDIRECTED PRN PRN Reason: Keep Vein Open Temazepam (Restoril) 7.5 mg PO BEDTIME PRN PRN Reason: Sleep Last Admin: 10/16/17 21:22 Dose: 7.5 mg Tramadol HCl (Ultram) 50 mg PO Q8H PRN PRN Reason: Pain Last Admin: 10/17/17 12:29 Dose: 50 mg Discontinued Medications Atenolol (Tenormin) 100 mg PO DAILY [facility] Last Admin: 10/14/17 11:24 Dose: Not Given Atenolol (Tenormin) 100 mg PO ONETIME ONE Stop: 10/14/17 21:01 Last Admin: 10/14/17 20:03 Dose: 100 mg Gabapentin (Neurontin) 300 mg PO TID [facility] Last Admin: 10/15/17 08:25 Dose: 300 mg Gabapentin (Neurontin) 600 mg PO QID [facility] Gabapentin (Neurontin) 300 mg PO ONETIME ONE Stop: 10/15/17 11:38 Last Admin: 10/15/17 11:48 Dose: 300 mg Hydromorphone HCl (Dilaudid) 1 mg IVPUSH ONETIME ONE Stop: 10/14/17 01:28 Last Admin: 10/14/17 01:38 Dose: 1 mg Sodium Chloride (Normal Saline) 1,000 mls @ 250 mls/hr IV ASDIRECTED [facility] Last Admin: 10/14/17 01:56 Dose: 250 mls/hr Potassium Chloride 10 meq/ (Premix) 100 mls @ 100 mls/hr IV ASDIRECTED [facility] Magnesium Sulfate 2 gm/ Premix 50 mls @ 25 mls/hr IV ONETIME ONE Stop: 10/14/17 11:55 Last Admin: 10/14/17 10:19 Dose: 25 mls/hr Potassium Chloride/Dextrose/Sod Cl (D5 Ns With 20 Meq Kcl) 1,000 mls @ 100 mls/ hr IV ASDIRECTED [facility] Last Admin: 10/16/17 02:34 Dose: 100 mls/hr Potassium Chloride 10 meq/ (Premix) 100 mls @ 100 mls/hr IV Q1H [facility] Stop: 10/14/17 16:29 Last Admin: 10/14/17 16:33 Dose: 100 mls/hr Influenza Virus Vaccine (Flulaval Quad [id number]) 60 mcg IM .ONCE ONE Stop: 10/14/17 18:31 Ketorolac Tromethamine (Toradol) 30 mg IVPUSH Q6H [facility] Stop: 10/14/17 20:31 Last Admin: 10/14/17 19:49 Dose: 30 mg Magnesium Oxide (Magnesium Oxide) 800 mg PO ONETIME ONE Stop: 10/14/17 07:44 Last Admin: 10/14/17 10:14 Dose: Not Given Metoclopramide HCl (Reglan) 10 mg IVPUSH ONETIME ONE Stop: 10/14/17 01:28 Last Admin: 10/14/17 01:39 Dose: 10 mg Potassium Chloride (Potassium Chloride) 40 meq PO ONETIME ONE Stop: 10/14/17 07:44 Last Admin: 10/14/17 14:32 Dose: Not Given - Exam Quality Assessment: DVT Prophylaxis General: Alert, Oriented, Cooperative, No Acute Distress HEENT: Pupils Equal, Pupils Reactive, EOMI Neck: Supple, Trachea Midline, No JVD Lungs: Normal Respiratory Effort Cardiovascular: Regular Rate, Regular Rhythm GI/Abdominal Exam: Normal Bowel Sounds, Soft, Non-Tender, No Organomegaly, No Distention (Female) Exam: Deferred Back Exam: Normal Inspection Extremities: Normal Inspection Skin: Warm Neurological: No New Focal Deficit Psy/Mental Status: Alert, Normal Affect, Normal Mood - Problem List Review Problem List Initiated/Reviewed/Updated: Yes - My Orders Last 24 Hours: My Active Orders 10/18/17 05:00 BASIC METABOLIC PANEL,BMP [CHEM] DAILY CBC WITH AUTO DIFF [HEME] DAILY CRP [C-REACTIVE PROTEIN] [CHEM] DAILY MAGNESIUM [CHEM] DAILY 10/19/17 05:00 BASIC METABOLIC PANEL,BMP [CHEM] DAILY CBC WITH AUTO DIFF [HEME] DAILY CRP [C-REACTIVE PROTEIN] [CHEM] DAILY MAGNESIUM [CHEM] DAILY 10/20/17 05:00 BASIC METABOLIC PANEL,BMP [CHEM] DAILY CBC WITH AUTO DIFF [HEME] DAILY CRP [C-REACTIVE PROTEIN] [CHEM] DAILY MAGNESIUM [CHEM] DAILY - Plan Plan:: I/P: Left acetabular fractures s/p fall at home -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 -Spoke with Dr. Carrero re: noted fractures, reviewed imaging with him. -Recommendations: Pain control, WBAT to non-affected right leg, PT/OT, f/ up with Orthopedics in 2 weeks, no surgical intervention needed -Pain management, see orders -PT/OT -SW for consult for rehab stay HTN -Resume home meds -PRN apresoline Obesity -Supervisor [employer] consult -A1C = 6.1 Hx of recurrent UTI -UA/UC--->E Coli sensitive to Rocephin -Currently with AMS, likely d/t narcotics but will r/o UTI also; could be contributor for fall also -Per ED reports Mental status was WNL prior to administration of narcotic pain medications; takes narcotics daily at home so is not naive. Chronic neuropathic pain -Continue home meds- neurontin TID; dose adjustment downward as tolerated. -Chronic opioid use at home Other: Refer to Observation status at this time- if pain control is an issue can consider inpatient status later today. DVT/GI prophylaxis SW consult as above Pain medications as ordered Monitor mental status--suspect purely r/t narcotic medications Labs tomorrow DC will need SNF placement Patient is Full Code status.
[2017-10-17] MEDS: cefTRIAXone 1 GM in Sodium Chloride 0.9% 100 ML IV SCH (17:46)
[2017-10-17] MEDS ORDERED: hydrALAZINE 20 MG/ML SDV IVPUSH PRN (20:16)
[2017-10-17] MEDS: Temazepam 7.5 MG Cap PO PRN (21:36)
[2017-10-18] MEDS: Acetaminophen/oxyCODONE 325-5 MG Tab PO PRN ×6 (01:39→22:28)
[2017-10-18] MEDS: traMADol 50 MG Tab PO PRN ×4 (05:53→22:28)
[2017-10-18] MEDS: Hydrochlorothiazide 25 MG Tab PO SCH (10:04)
[2017-10-18] MEDS: Atenolol 50 MG Tab PO SCH ×2 (10:05→22:27)
[2017-10-18] MEDS: Baclofen 10 MG Tab PO SCH ×3 (10:06→22:26)
[2017-10-18] MEDS: Gabapentin 600 MG Tab PO SCH ×2 (10:06→22:27)
[2017-10-18] MEDS: Pantoprazole 40 MG Tab.CR PO SCH ×2 (10:06→22:27)
[2017-10-18] MEDS: FLUoxetine 20 MG Cap PO SCH (10:06)
[2017-10-18] MEDS: Enoxaparin 40 MG/0.4 ML Syringe SUBCUT SCH (10:06)
[2017-10-18] MEDS ORDERED: Ondansetron 4 MG/2 ML SDV IV PRN (13:07)
[2017-10-18] MEDS ORDERED: LORazepam 2 MG/ML SDV IV PRN (13:07)
[2017-10-18] MEDS ORDERED: HYDROmorphone 0.5 MG/0.5 ML Syringe IVPUSH PRN (13:07)
[2017-10-18] MEDS: Gabapentin 300 MG Cap PO SCH (15:29)
--- NOTE | 2017-10-18 16:21 | PCM.PN ---
- General Info Date of Service: 10/18/17 Functional Status: Reports: Tolerating Diet - Review of Systems General: Reports: Weakness HEENT: Reports: No Symptoms Pulmonary: Reports: No Symptoms Cardiovascular: Reports: No Symptoms Gastrointestinal: Reports: No Symptoms Genitourinary: Reports: No Symptoms Musculoskeletal: Reports: No Symptoms Skin: Reports: No Symptoms Neurological: Reports: No Symptoms Psychiatric: Reports: No Symptoms - Patient Data Vitals - Most Recent: Last Vital Signs Temp 36.5 C 10/18/17 14:32 Pulse 89 10/18/17 14:32 Resp 18 10/18/17 14:32 BP 138/72 10/18/17 14:32 Pulse Ox 95 10/18/17 14:32 Weight - Most Recent: 112.718 kg I&O - Last 24 Hours: Intake & Output 10/18/17 10/18/17 10/18/17 06:59 14:59 22:59 Intake Total 700 180 Output Total 1850 Balance -1150 180 Lab Results Last 24 Hours: Laboratory Results - last 24 hr 10/18/17 10/18/17 Range/Units 06:25 06:25 WBC 7.23 (3.98-10.04) K/mm3 RBC 4.75 (3.98-5.22) M/mm3 Hgb 13.0 (11.2-15.7) gm/L Hct 41.4 (34.1-44.9) % MCV 87.2 (79.4-94.8) fl MCH 27.4 (25.6-32.2) pg MCHC 31.4 L (32.2-35.5) g/dl RDW Std Deviation 48.2 H (36.4-46.3) fL Plt Count 338 (182-369) K/mm3 MPV 10.2 (9.4-12.3) fl Neut % (Auto) 54.3 (34.0-71.1) % Lymph % (Auto) 29.3 (19.3-51.7) % [place] % (Auto) 8.4 (4.7-12.5) % Eos % (Auto) 7.3 H (0.7-5.8) Baso % (Auto) 0.4 (0.1-1.2) % Neut # (Auto) 3.92 (1.56-6.13) K/mm3 Lymph # (Auto) 2.12 (1.18-3.74) K/mm3 [place] # (Auto) 0.61 H (0.24-0.36) K/mm3 Eos # (Auto) 0.53 H (0.04-0.36) K/mm3 Baso # (Auto) 0.03 (0.01-0.08) K/mm3 Sodium 141 (136-145) mEq/L Potassium 4.9 (3.5-5.1) mEq/L Chloride 102 (98-107) mEq/L Carbon Dioxide 29 (21-32) mEq/L Anion Gap 14.9 (5-15) BUN 14 (7-18) mg/dL Creatinine 0.7 (0.55-1.02) mg/dL Est Cr Clr Drug Dosing 70.11 mL/min Estimated GFR (MDRD) > 60 (>60) mL/min BUN/Creatinine Ratio 20.0 H (14-18) Glucose 113 (80-115) mg/dL Calcium 9.4 (8.5-10.1) mg/dL Magnesium 1.8 (1.8-2.4) mg/dl C-Reactive Protein 0.5 (<1.0) mg/dL Med Orders - Current: Current Medications Atenolol (Tenormin) 50 mg PO BID [facility] Last Admin: 10/18/17 10:05 Dose: 50 mg Baclofen (Lioresal) 10 mg PO TID [facility] Last Admin: 10/18/17 15:29 Dose: 10 mg Enoxaparin Sodium (Lovenox) 40 mg SUBCUT DAILY [facility] Last Admin: 10/18/17 10:06 Dose: 40 mg Fluoxetine HCl (Prozac) 20 mg PO DAILY [facility] Last Admin: 10/18/17 10:06 Dose: 20 mg Gabapentin (Neurontin) 300 mg PO DAILY@1500 [facility] Last Admin: 10/18/17 15:29 Dose: 300 mg Gabapentin (Neurontin) 600 mg PO BID [facility] Last Admin: 10/18/17 10:06 Dose: 600 mg Hydralazine HCl (Apresoline) 20 mg IVPUSH Q4H PRN PRN Reason: SBP >150 Hydrochlorothiazide (Hydrochlorothiazide) 50 mg PO DAILY [facility] Last Admin: 10/18/17 10:04 Dose: 50 mg Hydromorphone HCl (Dilaudid) 1 mg IVPUSH Q4H PRN PRN Reason: Pain (severe 7-10) Last Admin: 10/18/17 16:09 Dose: 1 mg Ceftriaxone Sodium 1 gm/ (Sodium Chloride) 100 mls @ 200 mls/hr IV Q24H [facility] Stop: 10/18/17 18:01 Last Admin: 10/17/17 17:46 Dose: 200 mls/hr Ibuprofen (Motrin) 600 mg PO Q6H PRN PRN Reason: Pain (moderate 4-6) Lorazepam (Ativan) 0.5 mg IV Q12H PRN PRN Reason: restlessness, N/V Magnesium Hydroxide (Milk Of Magnesia) 30 ml PO Q12H PRN PRN Reason: Constipation Ondansetron HCl (Zofran Odt) 4 mg PO Q4H PRN PRN Reason: nausea, able to take PO Ondansetron HCl (Zofran) 4 mg IV Q8H PRN PRN Reason: Nausea/Vomiting Oxycodone/Acetaminophen (Percocet 325-5 Mg) 1 tab PO Q4H PRN PRN Reason: Pain (moderate 4-6) Last Admin: 10/18/17 14:19 Dose: 1 tab Pantoprazole Sodium (Protonix) 40 mg PO BID [facility] Last Admin: 10/18/17 10:06 Dose: 40 mg Polyethylene Glycol (Miralax) 17 gm PO DAILY PRN PRN Reason: Constipation Potassium Chloride (Klor-Con 10) 10 meq PO BID [facility] Last Admin: 10/17/17 10:01 Dose: 10 meq Senna/Docusate Sodium (Senna Plus) 1 tab PO BID PRN PRN Reason: Constipation Last Admin: 10/14/17 19:44 Dose: 1 tab Sodium Chloride (Saline Flush) 10 ml FLUSH ASDIRECTED PRN PRN Reason: Keep Vein Open Temazepam (Restoril) 7.5 mg PO BEDTIME PRN PRN Reason: Sleep Last Admin: 10/17/17 21:36 Dose: 7.5 mg Tramadol HCl (Ultram) 50 mg PO Q4H PRN PRN Reason: Pain Last Admin: 10/18/17 14:19 Dose: 50 mg Discontinued Medications Atenolol (Tenormin) 100 mg PO DAILY [facility] Last Admin: 10/14/17 11:24 Dose: Not Given Atenolol (Tenormin) 100 mg PO ONETIME ONE Stop: 10/14/17 21:01 Last Admin: 10/14/17 20:03 Dose: 100 mg Gabapentin (Neurontin) 300 mg PO TID [facility] Last Admin: 10/15/17 08:25 Dose: 300 mg Gabapentin (Neurontin) 600 mg PO QID [facility] Gabapentin (Neurontin) 300 mg PO ONETIME ONE Stop: 10/15/17 11:38 Last Admin: 10/15/17 11:48 Dose: 300 mg Hydralazine HCl (Apresoline) 5 mg IVPUSH Q4H PRN PRN Reason: sb/p >150 Last Admin: 10/17/17 04:21 Dose: 5 mg Hydromorphone HCl (Dilaudid) 1 mg IVPUSH ONETIME ONE Stop: 10/14/17 01:28 Last Admin: 10/14/17 01:38 Dose: 1 mg Hydromorphone HCl (Dilaudid) 0.5 mg IVPUSH Q2H PRN PRN Reason: Pain (severe 7-10) Last Admin: 10/17/17 15:31 Dose: 0.25 mg Sodium Chloride (Normal Saline) 1,000 mls @ 250 mls/hr IV ASDIRECTED [facility] Last Admin: 10/14/17 01:56 Dose: 250 mls/hr Potassium Chloride 10 meq/ (Premix) 100 mls @ 100 mls/hr IV ASDIRECTED [facility] Magnesium Sulfate 2 gm/ Premix 50 mls @ 25 mls/hr IV ONETIME ONE Stop: 10/14/17 11:55 Last Admin: 10/14/17 10:19 Dose: 25 mls/hr Potassium Chloride/Dextrose/Sod Cl (D5 Ns With 20 Meq Kcl) 1,000 mls @ 100 mls/ hr IV ASDIRECTED [facility] Last Admin: 10/16/17 02:34 Dose: 100 mls/hr Potassium Chloride 10 meq/ (Premix) 100 mls @ 100 mls/hr IV Q1H [facility] Stop: 10/14/17 16:29 Last Admin: 10/14/17 16:33 Dose: 100 mls/hr Ceftriaxone Sodium 1 gm/ (Sodium Chloride) 100 mls @ 200 mls/hr IV Q24H [facility] Last Admin: 10/16/17 17:59 Dose: 200 mls/hr Influenza Virus Vaccine (Flulaval Quad [id number]) 60 mcg IM .ONCE ONE Stop: 10/14/17 18:31 Ketorolac Tromethamine (Toradol) 30 mg IVPUSH Q6H [facility] Stop: 10/14/17 20:31 Last Admin: 10/14/17 19:49 Dose: 30 mg Lorazepam (Ativan) 0.5 mg IV Q6H PRN PRN Reason: restlessness, N/V Magnesium Oxide (Magnesium Oxide) 800 mg PO ONETIME ONE Stop: 10/14/17 07:44 Last Admin: 10/14/17 10:14 Dose: Not Given Metoclopramide HCl (Reglan) 10 mg IVPUSH ONETIME ONE Stop: 10/14/17 01:28 Last Admin: 10/14/17 01:39 Dose: 10 mg Ondansetron HCl (Zofran) 4 mg IV Q4H PRN PRN Reason: Nausea/Vomiting Potassium Chloride (Potassium Chloride) 40 meq PO ONETIME ONE Stop: 10/14/17 07:44 Last Admin: 10/14/17 14:32 Dose: Not Given Tramadol HCl (Ultram) 50 mg PO Q8H PRN PRN Reason: Pain Last Admin: 10/18/17 05:53 Dose: 50 mg - Exam Quality Assessment: Supplemental Oxygen, DVT Prophylaxis General: Alert, Oriented, Cooperative, No Acute Distress HEENT: Pupils Equal, Pupils Reactive, EOMI Neck: Trachea Midline, No JVD Lungs: Normal Respiratory Effort Cardiovascular: Regular Rate, Regular Rhythm GI/Abdominal Exam: Normal Bowel Sounds, Soft, Non-Tender, No Organomegaly, No Distention (Female) Exam: Deferred Back Exam: Normal Inspection Extremities: Normal Inspection Skin: Warm Neurological: No New Focal Deficit Psy/Mental Status: Alert, Normal Affect, Normal Mood - Problem List Review Problem List Initiated/Reviewed/Updated: Yes - My Orders Last 24 Hours: My Active Orders 10/17/17 15:40 Patient Status [ADT] Routine 10/17/17 20:16 hydrALAZINE [Apresoline] 20 mg IVPUSH Q4H PRN 10/18/17 13:07 HYDROmorphone [Dilaudid] 1 mg IVPUSH Q4H PRN LORazepam [Ativan] 0.5 mg IV Q12H PRN Ondansetron [Zofran] 4 mg IV Q8H PRN traMADol [Ultram] 50 mg PO Q4H PRN 10/19/17 05:00 BASIC METABOLIC PANEL,BMP [CHEM] DAILY CBC WITH AUTO DIFF [HEME] DAILY CRP [C-REACTIVE PROTEIN] [CHEM] DAILY MAGNESIUM [CHEM] DAILY 10/20/17 05:00 BASIC METABOLIC PANEL,BMP [CHEM] DAILY CBC WITH AUTO DIFF [HEME] DAILY CRP [C-REACTIVE PROTEIN] [CHEM] DAILY MAGNESIUM [CHEM] DAILY - Plan Plan:: I/P: Left acetabular fractures s/p fall at home -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 -Spoke with Dr. Carrero re: noted fractures, reviewed imaging with him. 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 Chronic neuropathic pain -Continue home meds- neurontin TID; dose adjustment downward as tolerated. -Chronic opioid use at home Other: Refer to Observation status at this time- if pain control is an issue can consider inpatient status later today. DVT/GI prophylaxis SW consult as above Pain medications as ordered Monitor mental status--suspect purely r/t narcotic medications Labs daily. Adjusted pain meds as needed. DC will need SNF placement Patient is Full Code status.
[2017-10-18] MEDS: cefTRIAXone 1 GM in Sodium Chloride 0.9% 100 ML IV SCH (18:38)
[2017-10-18] MEDS: Temazepam 7.5 MG Cap PO PRN (22:32)
[2017-10-19] MEDS: traMADol 50 MG Tab PO PRN ×5 (03:08→21:49)
[2017-10-19] MEDS: Acetaminophen/oxyCODONE 325-5 MG Tab PO PRN ×5 (03:08→21:54)
[2017-10-19] MEDS: Atenolol 50 MG Tab PO SCH ×2 (08:11→21:52)
[2017-10-19] MEDS: Baclofen 10 MG Tab PO SCH ×3 (08:11→21:54)
[2017-10-19] MEDS: Hydrochlorothiazide 25 MG Tab PO SCH (08:11)
[2017-10-19] MEDS: Gabapentin 600 MG Tab PO SCH ×2 (08:11→21:48)
[2017-10-19] MEDS: Pantoprazole 40 MG Tab.CR PO SCH ×2 (08:11→21:52)
[2017-10-19] MEDS: FLUoxetine 20 MG Cap PO SCH (08:12)
[2017-10-19] MEDS: Enoxaparin 40 MG/0.4 ML Syringe SUBCUT SCH (08:12)
[2017-10-19] MEDS ORDERED: HYDROmorphone 0.5 MG/0.5 ML Syringe IVPUSH PRN (09:49)
[2017-10-19] MEDS ORDERED: HYDROmorphone 1 MG/ML Syringe IVPUSH PRN (10:55)
[2017-10-19] MEDS: fentaNYL 25 MCG/HR Transdermal Patch TRDERM SCH (11:05)
[2017-10-19] MEDS: Gabapentin 300 MG Cap PO SCH (14:14)
[2017-10-19] MEDS ORDERED: Magnesium Sulfate/Water 2 GM in Premix Bag 1 BAG IV ONE (14:41)
--- NOTE | 2017-10-19 14:43 | PCM.PN ---
- General Info Date of Service: 10/19/17 Functional Status: Reports: Pain Controlled (moderate control), Tolerating Diet - Review of Systems General: Reports: No Symptoms HEENT: Reports: No Symptoms Pulmonary: Reports: No Symptoms Cardiovascular: Reports: No Symptoms Gastrointestinal: Reports: No Symptoms Genitourinary: Reports: No Symptoms Musculoskeletal: Reports: No Symptoms Skin: Reports: No Symptoms Neurological: Reports: No Symptoms Psychiatric: Reports: No Symptoms - Patient Data Vitals - Most Recent: Last Vital Signs Temp 36.8 C 10/19/17 12:06 Pulse 86 10/19/17 12:06 Resp 18 10/19/17 12:06 BP 123/81 10/19/17 12:06 Pulse Ox 95 10/19/17 12:06 Weight - Most Recent: 112.672 kg I&O - Last 24 Hours: Intake & Output 10/18/17 10/19/17 10/19/17 22:59 06:59 14:59 Intake Total 2800 500 600 Output Total 750 2825 Balance 2050 -2325 600 Lab Results Last 24 Hours: Laboratory Results - last 24 hr 10/19/17 10/19/17 Range/Units 06:37 06:37 WBC 8.20 (3.98-10.04) K/mm3 RBC 4.61 (3.98-5.22) M/mm3 Hgb 12.8 (11.2-15.7) gm/L Hct 40.2 (34.1-44.9) % MCV 87.2 (79.4-94.8) fl MCH 27.8 (25.6-32.2) pg MCHC 31.8 L (32.2-35.5) g/dl RDW Std Deviation 47.5 H (36.4-46.3) fL Plt Count 370 H (182-369) K/mm3 MPV 10.5 (9.4-12.3) fl Neut % (Auto) 55.1 (34.0-71.1) % Lymph % (Auto) 28.7 (19.3-51.7) % [place] % (Auto) 10.1 (4.7-12.5) % Eos % (Auto) 5.5 (0.7-5.8) Baso % (Auto) 0.4 (0.1-1.2) % Neut # (Auto) 4.52 (1.56-6.13) K/mm3 Lymph # (Auto) 2.35 (1.18-3.74) K/mm3 [place] # (Auto) 0.83 H (0.24-0.36) K/mm3 Eos # (Auto) 0.45 H (0.04-0.36) K/mm3 Baso # (Auto) 0.03 (0.01-0.08) K/mm3 Sodium 137 (136-145) mEq/L Potassium 4.9 (3.5-5.1) mEq/L Chloride 100 (98-107) mEq/L Carbon Dioxide 29 (21-32) mEq/L Anion Gap 12.9 (5-15) BUN 16 (7-18) mg/dL Creatinine 0.8 (0.55-1.02) mg/dL Est Cr Clr Drug Dosing 61.35 mL/min Estimated GFR (MDRD) > 60 (>60) mL/min BUN/Creatinine Ratio 20.0 H (14-18) Glucose 119 H (80-115) mg/dL Calcium 9.9 (8.5-10.1) mg/dL Magnesium 1.8 (1.8-2.4) mg/dl C-Reactive Protein 1.0 (<1.0) mg/dL Med Orders - Current: Current Medications Atenolol (Tenormin) 50 mg PO BID [facility] Last Admin: 10/19/17 08:11 Dose: 50 mg Baclofen (Lioresal) 10 mg PO TID [facility] Last Admin: 10/19/17 14:14 Dose: 10 mg Enoxaparin Sodium (Lovenox) 40 mg SUBCUT DAILY [facility] Last Admin: 10/19/17 08:12 Dose: 40 mg Fentanyl (Duragesic) 25 mcg TRDERM Q72H [facility] Last Admin: 10/19/17 11:05 Dose: 25 mcg Fluoxetine HCl (Prozac) 20 mg PO DAILY [facility] Last Admin: 10/19/17 08:12 Dose: 20 mg Gabapentin (Neurontin) 300 mg PO DAILY@1500 [facility] Last Admin: 10/19/17 14:14 Dose: 300 mg Gabapentin (Neurontin) 600 mg PO BID [facility] Last Admin: 10/19/17 08:11 Dose: 600 mg Hydralazine HCl (Apresoline) 20 mg IVPUSH Q4H PRN PRN Reason: SBP >150 Hydrochlorothiazide (Hydrochlorothiazide) 50 mg PO DAILY [facility] Last Admin: 10/19/17 08:11 Dose: 50 mg Hydromorphone HCl (Dilaudid) 1 mg IVPUSH Q6H PRN PRN Reason: Pain (severe 7-10) Last Admin: 10/19/17 11:05 Dose: 1 mg Ibuprofen (Motrin) 600 mg PO Q6H PRN PRN Reason: Pain (moderate 4-6) Magnesium Hydroxide (Milk Of Magnesia) 30 ml PO Q12H PRN PRN Reason: Constipation Miscellaneous Information (Remove Patch) 0 ea TRDERM Q72H [facility] Ondansetron HCl (Zofran Odt) 4 mg PO Q4H PRN PRN Reason: nausea, able to take PO Ondansetron HCl (Zofran) 4 mg IV Q8H PRN PRN Reason: Nausea/Vomiting Oxycodone/Acetaminophen (Percocet 325-5 Mg) 1 tab PO Q4H PRN PRN Reason: Pain (moderate 4-6) Last Admin: 10/19/17 13:28 Dose: 1 tab Pantoprazole Sodium (Protonix) 40 mg PO BID [facility] Last Admin: 10/19/17 08:11 Dose: 40 mg Polyethylene Glycol (Miralax) 17 gm PO DAILY PRN PRN Reason: Constipation Potassium Chloride (Klor-Con 10) 10 meq PO BID [facility] Last Admin: 10/17/17 10:01 Dose: 10 meq Senna/Docusate Sodium (Senna Plus) 1 tab PO BID PRN PRN Reason: Constipation Last Admin: 10/14/17 19:44 Dose: 1 tab Sodium Chloride (Saline Flush) 10 ml FLUSH ASDIRECTED PRN PRN Reason: Keep Vein Open Temazepam (Restoril) 7.5 mg PO BEDTIME PRN PRN Reason: Sleep Last Admin: 10/18/17 22:32 Dose: 7.5 mg Tramadol HCl (Ultram) 50 mg PO Q4H PRN PRN Reason: Pain Last Admin: 10/19/17 13:28 Dose: 50 mg Discontinued Medications Atenolol (Tenormin) 100 mg PO DAILY [facility] Last Admin: 10/14/17 11:24 Dose: Not Given Atenolol (Tenormin) 100 mg PO ONETIME ONE Stop: 10/14/17 21:01 Last Admin: 10/14/17 20:03 Dose: 100 mg Gabapentin (Neurontin) 300 mg PO TID [facility] Last Admin: 10/15/17 08:25 Dose: 300 mg Gabapentin (Neurontin) 600 mg PO QID [facility] Gabapentin (Neurontin) 300 mg PO ONETIME ONE Stop: 10/15/17 11:38 Last Admin: 10/15/17 11:48 Dose: 300 mg Hydralazine HCl (Apresoline) 5 mg IVPUSH Q4H PRN PRN Reason: sb/p >150 Last Admin: 10/17/17 04:21 Dose: 5 mg Hydromorphone HCl (Dilaudid) 1 mg IVPUSH ONETIME ONE Stop: 10/14/17 01:28 Last Admin: 10/14/17 01:38 Dose: 1 mg Hydromorphone HCl (Dilaudid) 0.5 mg IVPUSH Q2H PRN PRN Reason: Pain (severe 7-10) Last Admin: 10/17/17 15:31 Dose: 0.25 mg Hydromorphone HCl (Dilaudid) 1 mg IVPUSH Q4H PRN PRN Reason: Pain (severe 7-10) Last Admin: 10/18/17 16:09 Dose: 1 mg Hydromorphone HCl (Dilaudid) 1 mg IVPUSH Q6H PRN PRN Reason: Pain (severe 7-10) Sodium Chloride (Normal Saline) 1,000 mls @ 250 mls/hr IV ASDIRECTED [facility] Last Admin: 10/14/17 01:56 Dose: 250 mls/hr Potassium Chloride 10 meq/ (Premix) 100 mls @ 100 mls/hr IV ASDIRECTED [facility] Magnesium Sulfate 2 gm/ Premix 50 mls @ 25 mls/hr IV ONETIME ONE Stop: 10/14/17 11:55 Last Admin: 10/14/17 10:19 Dose: 25 mls/hr Potassium Chloride/Dextrose/Sod Cl (D5 Ns With 20 Meq Kcl) 1,000 mls @ 100 mls/ hr IV ASDIRECTED [facility] Last Admin: 10/16/17 02:34 Dose: 100 mls/hr Potassium Chloride 10 meq/ (Premix) 100 mls @ 100 mls/hr IV Q1H [facility] Stop: 10/14/17 16:29 Last Admin: 10/14/17 16:33 Dose: 100 mls/hr Ceftriaxone Sodium 1 gm/ (Sodium Chloride) 100 mls @ 200 mls/hr IV Q24H [facility] Last Admin: 10/16/17 17:59 Dose: 200 mls/hr Ceftriaxone Sodium 1 gm/ (Sodium Chloride) 100 mls @ 200 mls/hr IV Q24H [facility] Stop: 10/18/17 18:01 Last Admin: 10/18/17 18:38 Dose: 200 mls/hr Influenza Virus Vaccine (Flulaval Quad 8236-1284) 60 mcg IM .ONCE ONE Stop: 10/14/17 18:31 Ketorolac Tromethamine (Toradol) 30 mg IVPUSH Q6H [facility] Stop: 10/14/17 20:31 Last Admin: 10/14/17 19:49 Dose: 30 mg Lorazepam (Ativan) 0.5 mg IV Q6H PRN PRN Reason: restlessness, N/V Lorazepam (Ativan) 0.5 mg IV Q12H PRN PRN Reason: restlessness, N/V Magnesium Oxide (Magnesium Oxide) 800 mg PO ONETIME ONE Stop: 10/14/17 07:44 Last Admin: 10/14/17 10:14 Dose: Not Given Metoclopramide HCl (Reglan) 10 mg IVPUSH ONETIME ONE Stop: 10/14/17 01:28 Last Admin: 10/14/17 01:39 Dose: 10 mg Ondansetron HCl (Zofran) 4 mg IV Q4H PRN PRN Reason: Nausea/Vomiting Potassium Chloride (Potassium Chloride) 40 meq PO ONETIME ONE Stop: 10/14/17 07:44 Last Admin: 10/14/17 14:32 Dose: Not Given Tramadol HCl (Ultram) 50 mg PO Q8H PRN PRN Reason: Pain Last Admin: 10/18/17 05:53 Dose: 50 mg - Exam Quality Assessment: DVT Prophylaxis General: Alert, Oriented, Cooperative, No Acute Distress HEENT: Pupils Equal, Pupils Reactive, EOMI Neck: Supple, Trachea Midline Lungs: Normal Respiratory Effort Cardiovascular: Regular Rate GI/Abdominal Exam: Normal Bowel Sounds, Soft, Non-Tender, No Organomegaly, No Distention (Female) Exam: Deferred Back Exam: Normal Inspection Extremities: Normal Inspection, Non-Tender Skin: Warm Neurological: No New Focal Deficit Psy/Mental Status: Alert, Normal Affect, Normal Mood - Problem List Review Problem List Initiated/Reviewed/Updated: Yes - My Orders Last 24 Hours: My Active Orders 10/19/17 04:12 Up With Assistance [RC] ASDIRECTED 10/19/17 10:00 fentaNYL [Duragesic] 25 mcg TRDERM Q72H 10/19/17 10:55 HYDROmorphone [Dilaudid] 1 mg IVPUSH Q6H PRN 10/19/17 14:41 Magnesium Sulfate/Water [Magnesium Sulfate 2 GM in Water 50 ML] 2 gm Premix Bag 1 bag IV ONETIME 10/20/17 05:00 BASIC METABOLIC PANEL,BMP [CHEM] DAILY CBC WITH AUTO DIFF [HEME] DAILY CRP [C-REACTIVE PROTEIN] [CHEM] DAILY MAGNESIUM [CHEM] DAILY 10/22/17 10:00 Remove Patch 0 ea TRDERM Q72H - Plan Plan:: I/P: Left acetabular fractures s/p fall at home -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 -Spoke with Dr. Carrero re: noted fractures, reviewed imaging with him. -Recommendations: Pain control, WBAT to non-affected right leg, PT/OT, f/ up with Orthopedics in 2 weeks, no surgical intervention needed -Pain management, see orders -PT/OT -SW for consult for rehab stay HTN -Resume home meds -PRN apresoline Obesity -[employer]ist [employer] consult -A1C = 6.1 Hx of recurrent UTI -UA/UC--->E Coli sensitive to Rocephin -Currently with AMS, likely d/t narcotics but will r/o UTI also; could be contributor for fall also -Per ED reports Mental status was WNL prior to administration of narcotic pain medications; takes narcotics daily at home so is not naive. Chronic neuropathic pain -Continue home meds- neurontin TID; dose adjustment downward as tolerated. -Chronic opioid use at home Other: Refer to Observation status at this time- if pain control is an issue can consider inpatient status later today. DVT/GI prophylaxis SW consult as above Pain medications as ordered Monitor mental status--suspect purely r/t narcotic medications Labs daily. Adjusted pain meds as needed. DC will need SNF placement, or HH; LOS> 96 houyrs for placement and adjustment of pain meds Patient is Full Code status.
[2017-10-19] MEDS: Temazepam 15 MG Cap PO PRN (21:48)
[2017-10-20] MEDS: Acetaminophen/oxyCODONE 325-5 MG Tab PO PRN ×5 (03:35→22:44)
[2017-10-20] MEDS: traMADol 50 MG Tab PO PRN ×5 (03:36→22:42)
[2017-10-20] MEDS: Pantoprazole 40 MG Tab.CR PO SCH ×2 (09:28→22:43)
[2017-10-20] MEDS: Baclofen 10 MG Tab PO SCH ×3 (09:28→22:43)
[2017-10-20] MEDS: FLUoxetine 20 MG Cap PO SCH (09:28)
[2017-10-20] MEDS: Hydrochlorothiazide 25 MG Tab PO SCH (09:28)
[2017-10-20] MEDS: Enoxaparin 40 MG/0.4 ML Syringe SUBCUT SCH (09:28)
[2017-10-20] MEDS: Gabapentin 600 MG Tab PO SCH ×2 (09:29→22:44)
[2017-10-20] MEDS: Atenolol 50 MG Tab PO SCH ×2 (09:29→22:43)
--- NOTE | 2017-10-20 14:28 | PCM.PN ---
- General Info Date of Service: 10/20/17 Subjective Update: Continues to complain of pain, Percocet 325-10 is NF, also Neurontin has been decreased to 600 mg TID. Patient is open to Home Health; current option for skilled care are three: HH; SNF; Swing bed. Patient states that she wishes to go back to work when her pain is under control. See will reschedule her appt with Dr Del Cid for her left hip fracture. Functional Status: Reports: Tolerating Diet - Review of Systems General: Reports: No Symptoms HEENT: Reports: No Symptoms Pulmonary: Reports: No Symptoms Cardiovascular: Reports: No Symptoms Gastrointestinal: Reports: No Symptoms Genitourinary: Reports: No Symptoms Musculoskeletal: Reports: Leg Pain (left hip) Skin: Reports: No Symptoms Neurological: Reports: No Symptoms Psychiatric: Reports: No Symptoms - Patient Data Vitals - Most Recent: Last Vital Signs Temp 36.7 C 10/20/17 11:10 Pulse 87 10/20/17 11:10 Resp 18 10/20/17 11:10 BP 150/87 H 10/20/17 11:10 Pulse Ox 97 10/20/17 11:10 Weight - Most Recent: 111.674 kg I&O - Last 24 Hours: Intake & Output 10/19/17 10/20/17 10/20/17 22:59 06:59 14:59 Intake Total 1430 600 540 Output Total 950 1200 Balance 480 -600 540 Lab Results Last 24 Hours: Laboratory Results - last 24 hr 10/20/17 10/20/17 Range/Units 08:21 08:21 WBC 8.74 (3.98-10.04) K/mm3 RBC 4.78 (3.98-5.22) M/mm3 Hgb 13.0 (11.2-15.7) gm/L Hct 41.6 (34.1-44.9) % MCV 87.0 (79.4-94.8) fl MCH 27.2 (25.6-32.2) pg MCHC 31.3 L (32.2-35.5) g/dl RDW Std Deviation 48.2 H (36.4-46.3) fL Plt Count 394 H (182-369) K/mm3 MPV 10.5 (9.4-12.3) fl Neut % (Auto) 53.3 (34.0-71.1) % Lymph % (Auto) 28.8 (19.3-51.7) % [place] % (Auto) 11.8 (4.7-12.5) % Eos % (Auto) 4.9 (0.7-5.8) Baso % (Auto) 0.5 (0.1-1.2) % Neut # (Auto) 4.66 (1.56-6.13) K/mm3 Lymph # (Auto) 2.52 (1.18-3.74) K/mm3 [place] # (Auto) 1.03 H (0.24-0.36) K/mm3 Eos # (Auto) 0.43 H (0.04-0.36) K/mm3 Baso # (Auto) 0.04 (0.01-0.08) K/mm3 Sodium 136 (136-145) mEq/L Potassium 4.7 (3.5-5.1) mEq/L Chloride 98 (98-107) mEq/L Carbon Dioxide 31 (21-32) mEq/L Anion Gap 11.7 (5-15) BUN 21 H (7-18) mg/dL Creatinine 0.8 (0.55-1.02) mg/dL Est Cr Clr Drug Dosing 61.35 mL/min Estimated GFR (MDRD) > 60 (>60) mL/min BUN/Creatinine Ratio 26.3 H (14-18) Glucose 104 (80-115) mg/dL Calcium 9.9 (8.5-10.1) mg/dL Magnesium 2.1 (1.8-2.4) mg/dl C-Reactive Protein 1.3 H* (<1.0) mg/dL Med Orders - Current: Current Medications Atenolol (Tenormin) 50 mg PO BID [facility] Last Admin: 10/20/17 09:29 Dose: 50 mg Baclofen (Lioresal) 10 mg PO TID [facility] Last Admin: 10/20/17 09:28 Dose: 10 mg Enoxaparin Sodium (Lovenox) 40 mg SUBCUT DAILY [facility] Last Admin: 10/20/17 09:28 Dose: 40 mg Fentanyl (Duragesic) 25 mcg TRDERM Q72H [facility] Last Admin: 10/19/17 11:05 Dose: 25 mcg Fluoxetine HCl (Prozac) 20 mg PO DAILY [facility] Last Admin: 10/20/17 09:28 Dose: 20 mg Gabapentin (Neurontin) 300 mg PO DAILY@1500 [facility] Last Admin: 10/19/17 14:14 Dose: 300 mg Gabapentin (Neurontin) 600 mg PO BID [facility] Last Admin: 10/20/17 09:29 Dose: 600 mg Hydralazine HCl (Apresoline) 20 mg IVPUSH Q4H PRN PRN Reason: SBP >150 Hydrochlorothiazide (Hydrochlorothiazide) 50 mg PO DAILY [facility] Last Admin: 10/20/17 09:28 Dose: 50 mg Ibuprofen (Motrin) 600 mg PO Q6H PRN PRN Reason: Pain (moderate 4-6) Magnesium Hydroxide (Milk Of Magnesia) 30 ml PO Q12H PRN PRN Reason: Constipation Miscellaneous Information (Remove Patch) 0 ea TRDERM Q72H [facility] Ondansetron HCl (Zofran Odt) 4 mg PO Q4H PRN PRN Reason: nausea, able to take PO Ondansetron HCl (Zofran) 4 mg IV Q8H PRN PRN Reason: Nausea/Vomiting Oxycodone/Acetaminophen (Percocet 325-5 Mg) 1 tab PO Q4H PRN PRN Reason: Pain (moderate 4-6) Last Admin: 10/20/17 13:28 Dose: 1 tab Pantoprazole Sodium (Protonix) 40 mg PO BID [facility] Last Admin: 10/20/17 09:28 Dose: 40 mg Polyethylene Glycol (Miralax) 17 gm PO DAILY PRN PRN Reason: Constipation Potassium Chloride (Klor-Con 10) 10 meq PO BID [facility] Last Admin: 10/17/17 10:01 Dose: 10 meq Senna/Docusate Sodium (Senna Plus) 1 tab PO BID PRN PRN Reason: Constipation Last Admin: 10/14/17 19:44 Dose: 1 tab Sodium Chloride (Saline Flush) 10 ml FLUSH ASDIRECTED PRN PRN Reason: Keep Vein Open Temazepam (Restoril) 15 mg PO BEDTIME PRN PRN Reason: Insomnia Last Admin: 10/19/17 21:48 Dose: 15 mg Tramadol HCl (Ultram) 50 mg PO Q4H PRN PRN Reason: Pain Last Admin: 10/20/17 13:27 Dose: 50 mg Discontinued Medications Atenolol (Tenormin) 100 mg PO DAILY [facility] Last Admin: 10/14/17 11:24 Dose: Not Given Atenolol (Tenormin) 100 mg PO ONETIME ONE Stop: 10/14/17 21:01 Last Admin: 10/14/17 20:03 Dose: 100 mg Gabapentin (Neurontin) 300 mg PO TID [facility] Last Admin: 10/15/17 08:25 Dose: 300 mg Gabapentin (Neurontin) 600 mg PO QID [facility] Gabapentin (Neurontin) 300 mg PO ONETIME ONE Stop: 10/15/17 11:38 Last Admin: 10/15/17 11:48 Dose: 300 mg Hydralazine HCl (Apresoline) 5 mg IVPUSH Q4H PRN PRN Reason: sb/p >150 Last Admin: 10/17/17 04:21 Dose: 5 mg Hydromorphone HCl (Dilaudid) 1 mg IVPUSH ONETIME ONE Stop: 10/14/17 01:28 Last Admin: 10/14/17 01:38 Dose: 1 mg Hydromorphone HCl (Dilaudid) 0.5 mg IVPUSH Q2H PRN PRN Reason: Pain (severe 7-10) Last Admin: 10/17/17 15:31 Dose: 0.25 mg Hydromorphone HCl (Dilaudid) 1 mg IVPUSH Q4H PRN PRN Reason: Pain (severe 7-10) Last Admin: 10/18/17 16:09 Dose: 1 mg Hydromorphone HCl (Dilaudid) 1 mg IVPUSH Q6H PRN PRN Reason: Pain (severe 7-10) Hydromorphone HCl (Dilaudid) 1 mg IVPUSH Q6H PRN PRN Reason: Pain (severe 7-10) Last Admin: 10/19/17 11:05 Dose: 1 mg Sodium Chloride (Normal Saline) 1,000 mls @ 250 mls/hr IV ASDIRECTED [facility] Last Admin: 10/14/17 01:56 Dose: 250 mls/hr Potassium Chloride 10 meq/ (Premix) 100 mls @ 100 mls/hr IV ASDIRECTED [facility] Magnesium Sulfate 2 gm/ Premix 50 mls @ 25 mls/hr IV ONETIME ONE Stop: 10/14/17 11:55 Last Admin: 10/14/17 10:19 Dose: 25 mls/hr Potassium Chloride/Dextrose/Sod Cl (D5 Ns With 20 Meq Kcl) 1,000 mls @ 100 mls/ hr IV ASDIRECTED [facility] Last Admin: 10/16/17 02:34 Dose: 100 mls/hr Potassium Chloride 10 meq/ (Premix) 100 mls @ 100 mls/hr IV Q1H [facility] Stop: 10/14/17 16:29 Last Admin: 10/14/17 16:33 Dose: 100 mls/hr Ceftriaxone Sodium 1 gm/ (Sodium Chloride) 100 mls @ 200 mls/hr IV Q24H [facility] Last Admin: 10/16/17 17:59 Dose: 200 mls/hr Ceftriaxone Sodium 1 gm/ (Sodium Chloride) 100 mls @ 200 mls/hr IV Q24H [facility] Stop: 10/18/17 18:01 Last Admin: 10/18/17 18:38 Dose: 200 mls/hr Magnesium Sulfate 2 gm/ Premix 50 mls @ 25 mls/hr IV ONETIME ONE Stop: 10/19/17 16:40 Last Admin: 10/19/17 15:16 Dose: 25 mls/hr Influenza Virus Vaccine (Flulaval Quad [id number]) 60 mcg IM .ONCE ONE Stop: 10/14/17 18:31 Ketorolac Tromethamine (Toradol) 30 mg IVPUSH Q6H [facility] Stop: 10/14/17 20:31 Last Admin: 10/14/17 19:49 Dose: 30 mg Lorazepam (Ativan) 0.5 mg IV Q6H PRN PRN Reason: restlessness, N/V Lorazepam (Ativan) 0.5 mg IV Q12H PRN PRN Reason: restlessness, N/V Magnesium Oxide (Magnesium Oxide) 800 mg PO ONETIME ONE Stop: 10/14/17 07:44 Last Admin: 10/14/17 10:14 Dose: Not Given Metoclopramide HCl (Reglan) 10 mg IVPUSH ONETIME ONE Stop: 10/14/17 01:28 Last Admin: 10/14/17 01:39 Dose: 10 mg Ondansetron HCl (Zofran) 4 mg IV Q4H PRN PRN Reason: Nausea/Vomiting Potassium Chloride (Potassium Chloride) 40 meq PO ONETIME ONE Stop: 10/14/17 07:44 Last Admin: 10/14/17 14:32 Dose: Not Given Temazepam (Restoril) 7.5 mg PO BEDTIME PRN PRN Reason: Sleep Last Admin: 10/18/17 22:32 Dose: 7.5 mg Tramadol HCl (Ultram) 50 mg PO Q8H PRN PRN Reason: Pain Last Admin: 10/18/17 05:53 Dose: 50 mg - Problem List Review Problem List Initiated/Reviewed/Updated: Yes - My Orders Last 24 Hours: My Active Orders 10/19/17 20:07 Temazepam [Restoril] 15 mg PO BEDTIME PRN 10/20/17 14:24 Consult to Speech Language Pathology [HOSPITAL SECRETARY Evaluation and Treatment] [CONS] Routine 10/22/17 10:00 Remove Patch 0 ea TRDERM Q72H - Plan Plan:: I/P: Left acetabular fractures s/p fall at home -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 -Will reschedule appt with Dr Del Cid re: l hip fx. -Recommendations: Pain control, WBAT to non-affected right leg, PT/OT, f/ up with Orthopedics in 2 weeks, no surgical intervention needed -Pain management, see orders -PT/OT -SW for consult for rehab stay HTN -Resume home meds -PRN apresoline Obesity -Digital Account Manager consult -A1C = 6.1 Hx of recurrent UTI -UA/UC--->E Coli sensitive to Rocephin -Currently with AMS, likely d/t narcotics but will r/o UTI also; could be contributor for fall also -Per ED reports Mental status was WNL prior to administration of narcotic pain medications; takes narcotics daily at home so is not naive. Chronic neuropathic pain -Continue home meds- neurontin TID; dose adjustment downward as tolerated. -Chronic opioid use at home Other: Refer to Observation status at this time- if pain control is an issue can consider inpatient status later today. DVT/GI prophylaxis SW consult as above Pain medications as ordered Monitor mental status--suspect purely r/t narcotic medications Labs daily. Adjusted pain meds as needed. DC will need SNF placement, or HH; LOS> 96 hours for placement and adjustment of pain meds Patient is Full Code status.
[2017-10-20] MEDS: Gabapentin 300 MG Cap PO SCH (14:51)
[2017-10-20] MEDS: Temazepam 15 MG Cap PO PRN (22:43)
[2017-10-21] MEDS: Acetaminophen/oxyCODONE 325-5 MG Tab PO PRN ×3 (03:39→12:27)
[2017-10-21] MEDS: traMADol 50 MG Tab PO PRN ×3 (03:41→12:26)
[2017-10-21] MEDS: Pantoprazole 40 MG Tab.CR PO SCH (08:25)
[2017-10-21] MEDS: Potassium Chloride 10 MEQ Tab.ER PO SCH (08:25)
[2017-10-21] MEDS: Gabapentin 600 MG Tab PO SCH (08:25)
[2017-10-21] MEDS: Baclofen 10 MG Tab PO SCH (08:26)
[2017-10-21] MEDS: FLUoxetine 20 MG Cap PO SCH (08:26)
[2017-10-21] MEDS: Hydrochlorothiazide 25 MG Tab PO SCH (08:28)
[2017-10-21] MEDS: Enoxaparin 40 MG/0.4 ML Syringe SUBCUT SCH (08:29)
[2017-10-21] MEDS: Atenolol 50 MG Tab PO SCH (08:30)
--- NOTE | 2017-10-21 10:44 | PCM.DCSUM1 ---
Discharge Summary - Hospital Course Free Text/Narrative:: Tonya is a 62-year-old female who presented to the emergency room in the early hours of the morning after fall at home in her kitchen. She reports this fall occurred around 11:30 PM. She repeated on the floor until her son arrived back from work at 1 AM. He then brought her to the emergency room for evaluation. She reported to ED personnel that she lost her balance and fell onto her left side. 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 She is mobile with crutches and wheelchair since that time. She reported severe pain to her left hip and pelvis upon presentation to the emergency department, she reported 10 out of 10 pain upon arrival. 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 ED evaluation initially was with plain films of the pelvis which were of poor quality. CT scan of the pelvis was obtained, Dr. 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 Labs obtained CBC with white blood cell count of 9.53 hemoglobin and hematocrit within normal limits platelets normal at 322. Call metabolic panel potassium of 3.0 magnesium 1.7, glucose 1:30, renal function and other indices within normal limits. Alkaline phosphatase is slightly elevated at 195. Pain management was obtained in the emergency department 1 mg of Dilaudid IV, 10 mg Reglan IV, 2 50 mL per hour of 1 L of normal saline. At time of my exam patient is quite lethargic and I'm really unable to get much history from her. She is resting quite comfortably. Hospitalist service is consulted for admission for acetabular fracture and pain management. - Discharge Data Discharge Date: 10/21/17 (admit date 10/16/17) Discharge Disposition: DC/Tfer to SNF 03 Condition: Fair - Discharge Diagnosis/Problem(s) (1) Closed fracture of acetabulum, hip SNOMED Code(s): 84099045 ICD Code: S32.409A - UNSP FRACTURE OF UNSP ACETABULUM, INIT FOR CLOS FX Status: Acute Priority: High Current Visit: Yes (2) Fall as cause of accidental injury at home as place of occurrence SNOMED Code(s): 04721833 ICD Code: W19.XXXA - UNSPECIFIED FALL, INITIAL ENCOUNTER; Y92.009 - UNSP PLACE IN UNSP NON-INSTITUT (PRIVATE) RESIDENCE PLACE Status: Acute Priority: High Current Visit: Yes Qualifiers: Encounter type: initial encounter Qualified Code(s): W19.XXXA - Unspecified fall, initial encounter; Y92.009 - Unspecified place in unspecified non-institutional (private) residence as the place of occurrence of the external cause; Y92.009 - Unspecified place in unspecified non-institutional ( private) residence as the place of occurrence of the external cause (3) HTN (hypertension) SNOMED Code(s): 87473169 ICD Code: I10 - ESSENTIAL (PRIMARY) HYPERTENSION Status: Chronic Priority : Medium Current Visit: Yes Qualifiers: Hypertension type: unspecified secondary hypertension Qualified Code(s): I15.9 - Secondary hypertension, unspecified; I15 - Secondary hypertension (4) Neuropathic pain SNOMED Code(s): 588856006 ICD Code: M79.2 - NEURALGIA AND NEURITIS, UNSPECIFIED Status: Chronic Priority: Medium Current Visit: Yes (5) Obesity SNOMED Code(s): 097978489 ICD Code: E66.9 - OBESITY, UNSPECIFIED Status: Chronic Priority: Medium Current Visit: Yes (6) Chronic pain SNOMED Code(s): 58020409 ICD Code: G89.29 - OTHER CHRONIC PAIN Status: Chronic Priority: Medium Current Visit: Yes Qualifiers: Chronic pain type: other chronic pain Qualified Code(s): G89.29 - Other chronic pain - Patient Summary/Data Operative Procedure(s) Performed: None Complications: None Consults: Consultations 10/20/17 14:24 Consult to Speech Language Pathology [ROLL FORM OPERATOR Evaluation and Treatment] [CONS] Routine Labs Pending at D/C: None Recommended Follow-up Testing/Procedures: [employer] recommend patient to get new w/c from [place] office due to amputation of leg (They would be able to fit her better) Phone # [phone]. Community based service information given to patient Nursing please call [facility] [phone] to notify of d/c date. Home health care physical, occupational and possible speech therapy. Follow up with primary provider Dr Elaine and return to Dr Mendoza for post fall follow up and testing; both with [facility] in [place]. Planned Operative Procedure(s) after DC: None Hospital Course: I/P: Left acetabular fractures s/p fall at home -Absent left leg/femur d/t hx of osteosarcoma 50 years ago -High fall risk; gait imbalance, obesity -Will reschedule appt with Dr Del Cid, primary Orthopedic provider for her-- re: lt hip fx. -Recommendations from Dr Carrero, Ortho during hospital stay: Pain control, WBAT to non-affected right leg, PT/OT, f/up with Orthopedics in 2 weeks , no surgical intervention needed -Pain management, see orders -PT/OT -SW for consult for rehab stay HTN--stable -Resume home meds -PRN apresoline Obesity -Infantry Indirect Fire Crewmember consult -A1C = 6.1 Hx of recurrent UTI -UA/UC--->E Coli sensitive to Rocephin--completed treatment, no abx needed on discharge -Currently with AMS, likely d/t narcotics but will r/o UTI also; could be contributor for fall also -Per ED reports Mental status was WNL prior to administration of narcotic pain medications; takes narcotics daily at home so is not naive. Chronic neuropathic pain -Continue home meds- neurontin TID---dose adjusted and stable now -Chronic opioid use at home Other: IP status DVT/GI prophylaxis SW consult as above Pain medications as ordered--adjusted for pain control PRN Labs daily. DC will need SNF/rehab placement, or HHC; LOS> 96 hours for placement and adjustment of pain meds---Patient accepted at [facility] today; will be transported via ambulance for pain control to [facility] today. Patient is Full Code status. - Patient Instructions Diet: Heart Healthy Diet, Drink 8-10+ Glasses/Day Activity: As Tolerated (PT/OT to eval and tx) Driving: Do Not Drive Showering/Bathing: May Shower Notify Provider of: Fever, Increased Pain - Discharge Plan Home Medications: Home Meds Hydrochlorothiazide 50 mg PO DAILY 10/18/14 [History] Omeprazole [Prilosec] 20 mg PO BIDMEALS 10/18/14 [History] Potassium Chloride [Klor-Con 10] 10 meq PO DAILY 10/18/14 [History] FLUoxetine [PROzac] 20 mg PO DAILY 03/05/17 [History] Alendronate [Fosamax] 70 mg PO WEEKLY 10/14/17 [History] Baclofen 10 mg PO TID 10/14/17 [History] Cyclobenzaprine [Flexeril] 10 mg PO Q12HR PRN 10/14/17 [History] Diclofenac Sodium [Voltaren 1% Gel] 100 gm TOP QID PRN 10/14/17 [History] Ibuprofen 600 mg PO TIDMEALS 10/14/17 [History] Zolpidem [Ambien] 10 mg PO BEDTIME PRN 10/14/17 [History] oxyCODONE HCl/Acetaminophen [Endocet 10-325 mg Tablet] 1 each PO Q6HR PRN [History] Atenolol [Tenormin] 50 mg PO BID tablet 10/21/17 [Rx] Docusate Sodium/Sennosides [Senna Plus] 1 tab PO BID PRN tablet 10/21/17 [Rx] Gabapentin [Neurontin] 300 mg PO DAILY@1500 cap 10/21/17 [Rx] Gabapentin [Neurontin] 600 mg PO BID tablet 10/21/17 [Rx] fentaNYL [Duragesic] 25 mcg TRDERM Q72H patch 10/21/17 [Rx] traMADol [Ultram] 50 mg PO Q4H PRN tablet 10/21/17 [Rx] Patient Handouts: Hip Pain, Hip Fracture Forms: ED Department Discharge Referrals: PCP,None [Primary Care Provider] - - Discharge Summary/Plan Comment DC Time >30 min.: Yes (40 min) - General Info Date of Service: 10/21/17 Admission Dx/Problem (Free Text: Admission Diagnosis/Problem Admission Diagnosis/Problem Fall at home Acetabular fracture Patient doing well, pain under fair control with current regimen and addition of fentanyl patch. Plans DC for rehab at [facility] today. Functional Status: Reports: Pain Controlled, Tolerating Diet, Ambulating, Urinating. Denies: New Symptoms - Review of Systems General: Reports: Weakness, Fatigue HEENT: Reports: No Symptoms Pulmonary: Reports: No Symptoms. Denies: Cough Cardiovascular: Reports: No Symptoms. Denies: Chest Pain Gastrointestinal: Reports: No Symptoms. Denies: Abdominal Pain, Diarrhea, Nausea, Vomiting Genitourinary: Reports: No Symptoms Musculoskeletal: Reports: Other (hip pain/pelvic pain ) Skin: Reports: No Symptoms Neurological: Reports: Other (Neuropathic pain) Psychiatric: Reports: No Symptoms - Patient Data Vitals - Most Recent: Last Vital Signs Temp 97.0 F 10/21/17 05:30 Pulse 95 10/21/17 08:30 Resp 16 10/21/17 05:30 BP 142/90 H 10/21/17 08:30 Pulse Ox 93 L 10/21/17 05:30 Weight - Most Recent: 245 lb 12.8 oz I&O - Last 24 hours: Intake & Output 10/20/17 10/21/17 10/21/17 22:59 06:59 14:59 Intake Total 1200 1600 Output Total 600 1950 Balance 600 -350 Med Orders - Current: Current Medications Atenolol (Tenormin) 50 mg PO BID [facility] Last Admin: 10/21/17 08:30 Dose: 50 mg Baclofen (Lioresal) 10 mg PO TID [facility] Last Admin: 10/21/17 08:26 Dose: 10 mg Enoxaparin Sodium (Lovenox) 40 mg SUBCUT DAILY [facility] Last Admin: 10/21/17 08:29 Dose: 40 mg Fentanyl (Duragesic) 25 mcg TRDERM Q72H [facility] Last Admin: 10/19/17 11:05 Dose: 25 mcg Fluoxetine HCl (Prozac) 20 mg PO DAILY [facility] Last Admin: 10/21/17 08:26 Dose: 20 mg Gabapentin (Neurontin) 300 mg PO DAILY@1500 [facility] Last Admin: 10/20/17 14:51 Dose: 300 mg Gabapentin (Neurontin) 600 mg PO BID [facility] Last Admin: 10/21/17 08:25 Dose: 600 mg Hydralazine HCl (Apresoline) 20 mg IVPUSH Q4H PRN PRN Reason: SBP >150 Hydrochlorothiazide (Hydrochlorothiazide) 50 mg PO DAILY [facility] Last Admin: 10/21/17 08:28 Dose: 50 mg Ibuprofen (Motrin) 600 mg PO Q6H PRN PRN Reason: Pain (moderate 4-6) Magnesium Hydroxide (Milk Of Magnesia) 30 ml PO Q12H PRN PRN Reason: Constipation Miscellaneous Information (Remove Patch) 0 ea TRDERM Q72H [facility] Ondansetron HCl (Zofran Odt) 4 mg PO Q4H PRN PRN Reason: nausea, able to take PO Ondansetron HCl (Zofran) 4 mg IV Q8H PRN PRN Reason: Nausea/Vomiting Oxycodone/Acetaminophen (Percocet 325-5 Mg) 1 tab PO Q4H PRN PRN Reason: Pain (moderate 4-6) Last Admin: 10/21/17 08:24 Dose: 1 tab Pantoprazole Sodium (Protonix) 40 mg PO BID [facility] Last Admin: 10/21/17 08:25 Dose: 40 mg Polyethylene Glycol (Miralax) 17 gm PO DAILY PRN PRN Reason: Constipation Potassium Chloride (Klor-Con 10) 10 meq PO BID [facility] Last Admin: 10/21/17 08:25 Dose: 10 meq Senna/Docusate Sodium (Senna Plus) 1 tab PO BID PRN PRN Reason: Constipation Last Admin: 10/14/17 19:44 Dose: 1 tab Sodium Chloride (Saline Flush) 10 ml FLUSH ASDIRECTED PRN PRN Reason: Keep Vein Open Temazepam (Restoril) 15 mg PO BEDTIME PRN PRN Reason: Insomnia Last Admin: 10/20/17 22:43 Dose: 15 mg Tramadol HCl (Ultram) 50 mg PO Q4H PRN PRN Reason: Pain Last Admin: 10/21/17 08:22 Dose: 50 mg Discontinued Medications Atenolol (Tenormin) 100 mg PO DAILY [facility] Last Admin: 10/14/17 11:24 Dose: Not Given Atenolol (Tenormin) 100 mg PO ONETIME ONE Stop: 10/14/17 21:01 Last Admin: 10/14/17 20:03 Dose: 100 mg Gabapentin (Neurontin) 300 mg PO TID [facility] Last Admin: 10/15/17 08:25 Dose: 300 mg Gabapentin (Neurontin) 600 mg PO QID [facility] Gabapentin (Neurontin) 300 mg PO ONETIME ONE Stop: 10/15/17 11:38 Last Admin: 10/15/17 11:48 Dose: 300 mg Hydralazine HCl (Apresoline) 5 mg IVPUSH Q4H PRN PRN Reason: sb/p >150 Last Admin: 10/17/17 04:21 Dose: 5 mg Hydromorphone HCl (Dilaudid) 1 mg IVPUSH ONETIME ONE Stop: 10/14/17 01:28 Last Admin: 10/14/17 01:38 Dose: 1 mg Hydromorphone HCl (Dilaudid) 0.5 mg IVPUSH Q2H PRN PRN Reason: Pain (severe 7-10) Last Admin: 10/17/17 15:31 Dose: 0.25 mg Hydromorphone HCl (Dilaudid) 1 mg IVPUSH Q4H PRN PRN Reason: Pain (severe 7-10) Last Admin: 10/18/17 16:09 Dose: 1 mg Hydromorphone HCl (Dilaudid) 1 mg IVPUSH Q6H PRN PRN Reason: Pain (severe 7-10) Hydromorphone HCl (Dilaudid) 1 mg IVPUSH Q6H PRN PRN Reason: Pain (severe 7-10) Last Admin: 10/19/17 11:05 Dose: 1 mg Sodium Chloride (Normal Saline) 1,000 mls @ 250 mls/hr IV ASDIRECTED [facility] Last Admin: 10/14/17 01:56 Dose: 250 mls/hr Potassium Chloride 10 meq/ (Premix) 100 mls @ 100 mls/hr IV ASDIRECTED [facility] Magnesium Sulfate 2 gm/ Premix 50 mls @ 25 mls/hr IV ONETIME ONE Stop: 10/14/17 11:55 Last Admin: 10/14/17 10:19 Dose: 25 mls/hr Potassium Chloride/Dextrose/Sod Cl (D5 Ns With 20 Meq Kcl) 1,000 mls @ 100 mls/ hr IV ASDIRECTED [facility] Last Admin: 10/16/17 02:34 Dose: 100 mls/hr Potassium Chloride 10 meq/ (Premix) 100 mls @ 100 mls/hr IV Q1H [facility] Stop: 10/14/17 16:29 Last Admin: 10/14/17 16:33 Dose: 100 mls/hr Ceftriaxone Sodium 1 gm/ (Sodium Chloride) 100 mls @ 200 mls/hr IV Q24H [facility] Last Admin: 10/16/17 17:59 Dose: 200 mls/hr Ceftriaxone Sodium 1 gm/ (Sodium Chloride) 100 mls @ 200 mls/hr IV Q24H [facility] Stop: 10/18/17 18:01 Last Admin: 10/18/17 18:38 Dose: 200 mls/hr Magnesium Sulfate 2 gm/ Premix 50 mls @ 25 mls/hr IV ONETIME ONE Stop: 10/19/17 16:40 Last Admin: 10/19/17 15:16 Dose: 25 mls/hr Influenza Virus Vaccine (Flulaval Quad [id number]) 60 mcg IM .ONCE ONE Stop: 10/14/17 18:31 Ketorolac Tromethamine (Toradol) 30 mg IVPUSH Q6H ADAM Stop: 10/14/17 20:31 Last Admin: 10/14/17 19:49 Dose: 30 mg Lorazepam (Ativan) 0.5 mg IV Q6H PRN PRN Reason: restlessness, N/V Lorazepam (Ativan) 0.5 mg IV Q12H PRN PRN Reason: restlessness, N/V Magnesium Oxide (Magnesium Oxide) 800 mg PO ONETIME ONE Stop: 10/14/17 07:44 Last Admin: 10/14/17 10:14 Dose: Not Given Metoclopramide HCl (Reglan) 10 mg IVPUSH ONETIME ONE Stop: 10/14/17 01:28 Last Admin: 10/14/17 01:39 Dose: 10 mg Ondansetron HCl (Zofran) 4 mg IV Q4H PRN PRN Reason: Nausea/Vomiting Potassium Chloride (Potassium Chloride) 40 meq PO ONETIME ONE Stop: 10/14/17 07:44 Last Admin: 10/14/17 14:32 Dose: Not Given Temazepam (Restoril) 7.5 mg PO BEDTIME PRN PRN Reason: Sleep Last Admin: 10/18/17 22:32 Dose: 7.5 mg Tramadol HCl (Ultram) 50 mg PO Q8H PRN PRN Reason: Pain Last Admin: 10/18/17 05:53 Dose: 50 mg - Exam Quality Assessment: Reports: DVT Prophylaxis General: Reports: Alert, Oriented, Cooperative HEENT: Reports: Pupils Equal, EOMI, Mucous Membr. Moist/Welling Neck: Reports: Supple Lungs: Reports: Normal Respiratory Effort, Decreased Breath Sounds (bases) Cardiovascular: Reports: Regular Rate, Regular Rhythm GI/Abdominal Exam: Normal Bowel Sounds, Soft, Non-Tender, Other (round/obese) (Female) Exam: Deferred Rectal (Female) Exam: Deferred Extremities: Other (absent left leg; pain to left hip/pelvis area with movement or ambulation with walker.) Neurological: Reports: No New Focal Deficit Psy/Mental Status: Reports: Alert, Normal Affect, Normal Mood *Q Meaningful Use (DIS) - VTE *Q VTE Criteria *Q: - Stroke *Q Stroke Criteria *Q: - AMI *Q AMI Criteria *Q:
[2017-10-21 12:28] VITALS: BP 111/80
[2017-10-21] MEDS: fentaNYL 25 MCG/HR Transdermal Patch TRDERM SCH (12:43)
[2017-10-21] MEDS ORDERED: FLU Vacc QS 2017-18 (6mos UP)/PF 60 MCG/0.5 ML Syringe IM ONE (13:30)
== END 2017-10-21 12:20 | DRG 947 ==
LOC: JD.ED 01:08 → UNDOADMOB 06:36 → JD.MS 06:36 → OBSVTOIN 10-16 10:47
PROVIDERS: ADMIT Internal Medicine Cardiovascular Disease; ATTEND Internal Medicine Cardiovascular Disease
DX: G89.11 Acute pain due to trauma (principal); S32.492A Other specified fracture of left acetabulum, initial encounter for closed fracture; N39.0 Urinary tract infection, site not specified; B96.20 Unspecified Escherichia coli [E. coli] as the cause of diseases classified elsewhere; W18.30XA Fall on same level, unspecified, initial encounter; Y92.000 Kitchen of unspecified non-institutional (private) residence as the place of occurrence of the external cause; R41.82 Altered mental status, unspecified; R53.1 Weakness; I10 Essential (primary) hypertension; K21.9 Gastro-esophageal reflux disease without esophagitis; G89.29 Other chronic pain; F32.9 Major depressive disorder, single episode, unspecified; Z85.830 Personal history of malignant neoplasm of bone; Z89.612 Acquired absence of left leg above knee; K52.9 Noninfective gastroenteritis and colitis, unspecified; E66.9 Obesity, unspecified; Z68.37 Body mass index [BMI] 37.0-37.9, adult; Z86.19 Personal history of other infectious and parasitic diseases; M79.2 Neuralgia and neuritis, unspecified; Z87.440 Personal history of urinary (tract) infections; Z87.891 Personal history of nicotine dependence; Z88.8 Allergy status to other drugs, medicaments and biological substances; Z79.899 Other long term (current) drug therapy; Z91.81 History of falling; Z23 Encounter for immunization
CPT/HCPCS: 36415 ×2; 51701; 72170; 72192; 80048; 80053; 80306; 81001; 83036; 83735 ×2; 85025 ×2; 87086; 96361; 96374; 96375; 97162; 97167; 97530 ×3; 99285; A9270 ×39; J0360 ×4; J0696 ×2; J1170 ×2; J1650 ×3; J1885 ×3; J2765; J3480 ×9; J7030 ×2; J7040; 86140; 87088; 87186; 90686; 96125-GN; 96365; 96366; 96367; 96372; 96376; 97110-GO; 97110-GP; 97116-GP; 97166-GO; 97535-GO; 99284; G0008; G0378; J3475

== ENCOUNTER 2018-01-27 01:52 | Emergency (ER) | payer MEDICAID, MEDICARE, OTHER ==
[2018-01-27] MEDS ORDERED: HYDROmorphone 0.5 MG/0.5 ML SYRINGE IVPUSH ONE ×2 (02:16→06:41)
[2018-01-27] MEDS ORDERED: Sodium Chloride 0.9% 10 ML Syringe FLUSH PRN (02:16)
[2018-01-27] MEDS ORDERED: Ondansetron 4 MG/2 ML SDV IVPUSH ONE ×2 (02:16→06:41)
[2018-01-27] MEDS ORDERED: Famotidine 20 MG/2 ML SDV IVPUSH ONE (02:17)
[2018-01-27] MEDS ORDERED: Sodium Chloride 0.9% 1,000 ML IV SCH (02:30)
[2018-01-27] MEDS ORDERED: LORazepam 2 MG/ML SDV IVPUSH ONE (03:02)
--- NOTE | 2018-01-27 03:12 | EDM.PDOC ---
ED HPI GENERAL MEDICAL PROBLEM - General Chief Complaint: Chest Pain Stated Complaint: [facility] Time Seen by Provider: 01/27/18 02:02 Source of Information: Reports: Patient, EMS, RN Notes Reviewed - History of Present Illness INITIAL COMMENTS - FREE TEXT/NARRATIVE: 62-year-old lady states she has not been feeling well for about 3-5 days. Yesterday afternoon she became more violently ill with upper abdominal pain, nausea, vomiting. Early this morning she started having burning discomfort up the center of her chest. At that point she decided to call our local ambulance for transport here to the ED. She continues to feel nauseated on arrival to the ED with continued upper abdominal discomfort and continued burning discomfort radiating up the central area of her chest. No radiation to shoulder or arm. No recent cough fever or difficulty breathing. She has had some loose stools but no watery diarrhea. No known history for coronary artery disease. Chest Pain Score (Numeric/FACES): 8 - Related Data Allergies Allergy/AdvReac Type Severity Reaction Status Date / Time diazepam [From Valium] Allergy Respiratory Verified 01/27/18 01:55 Distress meperidine [From Demerol] Allergy Respiratory Verified 01/27/18 01:55 Distress Home Meds: Home Meds Hydrochlorothiazide 50 mg PO DAILY 10/18/14 [History] Omeprazole [Prilosec] 20 mg PO BIDMEALS 10/18/14 [History] Potassium Chloride [Klor-Con 10] 20 meq PO DAILY 10/18/14 [History] FLUoxetine [PROzac] 20 mg PO DAILY 03/05/17 [History] Alendronate [Fosamax] 70 mg PO WEEKLY 10/14/17 [History] Baclofen 10 mg PO TID 10/14/17 [History] Ibuprofen 600 mg PO TIDMEALS 10/14/17 [History] Zolpidem [Ambien] 10 mg PO BEDTIME PRN 10/14/17 [History] oxyCODONE HCl/Acetaminophen [Endocet 10-325 mg Tablet] 1 each PO Q6HR PRN [History] Gabapentin [Neurontin] 300 mg PO DAILY@1500 cap 10/21/17 [Rx] Atenolol [Tenormin] 100 mg PO DAILY 01/27/18 [History] Diclofenac Sodium [Voltaren] 1 applic TOP BID 01/27/18 [History] Gabapentin [Neurontin] 600 mg PO QID 01/27/18 [History] Iron Ag,Ps/C/Fa6/B12/Zn/SA/Sto [Niferex Tablet] 1 tab PO DAILY 01/27/18 [History ] Meloxicam 15 mg PO DAILY 01/27/18 [History] Meloxicam [Mobic] 7.5 mg PO DAILY PRN 01/27/18 [History] Ondansetron [Zofran ODT] 4 mg PO Q6H PRN #7 tab.dis 01/27/18 [Rx] Past Medical History HEENT History: Reports: Impaired Vision Cardiovascular History: Reports: Hypertension Gastrointestinal History: Reports: Chronic Diarrhea, GERD, Hemorrhoids Other Gastrointestinal History: laser to hemmoroids Genitourinary History: Reports: UTI, Recurrent Musculoskeletal History: Reports: Other (See Below) Other Musculoskeletal History: chronic pain to the right foot Psychiatric History: Reports: Depression - Infectious Disease History Infectious Disease History: Reports: Hepatitis C - Past Surgical History GI Surgical History: Reports: Cholecystectomy Musculoskeletal Surgical History: Reports: Amputation, Knee Replacement Other Musculoskeletal Surgeries/Procedures:: 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 hip Oncologic Surgical History: Reports: Other (See Below) Other Oncologic Surgeries/Procedures: 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 Social & Family History - Family History Family Medical History: Unobtainable Cardiac: Reports: [place] Endocrine/Metabolic: Reports: Diabetes, type II - Tobacco Use Smoking Status *Q: Unknown Ever Smoked Years of Tobacco use: 1 Used Tobacco, but Quit: Yes Month/Year Tobacco Last Used: last year Second Hand Smoke Exposure: No - Caffeine Use Caffeine Use: Reports: Coffee - Alcohol Use Days Per Week of Alcohol Use: 0 Number of Drinks Per Day: 3 Total Drinks Per Week: 0 - Recreational Drug Use Recreational Drug Use: No Drug Use in Last 12 Months: Yes Recreational Drug Type: Reports: Marijuana/Hashish Recreational Drug Use Frequency: Socially - Living Situation & Occupation Living situation: Reports: with Family (Silent son lives with her.) Occupation: Disabled ED ROS GENERAL - Review of Systems Review Of Systems: See Below Constitutional: Reports: Chills. Denies: Fever, Diaphoresis HEENT: Denies: Sinus Problem, Throat Pain Respiratory: Reports: Shortness of Breath (Occasional) Cardiovascular: Reports: Chest Pain (Burning anterior mid chest discomfort) GI/Abdominal: Reports: Abdominal Pain (Primarily upper mid abdomen), Diarrhea ( Loose stools only), Nausea, Vomiting. Denies: Hematemesis Musculoskeletal: Denies: Shoulder Pain, Arm Pain Skin: Reports: No Symptoms Neurological: Reports: No Symptoms ED EXAM, GI/ABD - Physical Exam Exam: See Below General Appearance: Alert, Mild Distress Eyes: Bilateral: Normal Appearance Throat/Mouth: Normal Inspection, Other (A mucosa is dry) Head: Atraumatic. No: Facial Swelling Neck: Supple, Full Range of Motion Respiratory/Chest: No Respiratory Distress, Lungs Clear, Normal Breath Sounds Cardiovascular: Regular Rate, Rhythm GI/Abdominal Exam: Tender (There is tenderness of the upper mid abdomen lower abdomen is soft and nontender). No: Guarding, Rebound Back Exam: No: CVA Tenderness (L), CVA Tenderness (R) Neurological: Alert, Oriented, No Motor/Sensory Deficits EKG INTERPRETATION EKG Date: 01/27/18 Rhythm: NSR P-Wave: Present QRS: Normal ST-T: Normal Course - Vital Signs Last Recorded V/S: Last Vital Signs Temp 97.4 F 01/27/18 01:55 Pulse 102 H 01/27/18 03:17 Resp 20 01/27/18 03:17 BP 123/87 01/27/18 03:17 Pulse Ox 86 L 01/27/18 03:17 - Orders/Labs/Meds Orders: Active Orders 24 hr Category Date Time Status EKG Documentation Completion [RC] ASDIRECTED Care 01/27/18 02:03 Active Peripheral IV Care [RC] . DIRECTED Care 01/27/18 02:17 Active Sodium Chloride 0.9% [Normal Saline] 1,000 ml Med 01/27/18 02:30 Active IV ONETIME Sodium Chloride 0.9% [Saline Flush] Med 01/27/18 02:16 Active 10 ml FLUSH ASDIRECTED PRN Peripheral IV Insertion Adult [OM.PC] Stat Oth 01/27/18 02:16 Ordered EKG 12 Lead [EK] Stat Ther 01/27/18 02:03 Ordered Medication Orders Sodium Chloride (Normal Saline) 1,000 mls @ 999 mls/hr IV ONETIME ADAM Last Admin: 01/27/18 02:23 Dose: 999 mls/hr Sodium Chloride (Saline Flush) 10 ml FLUSH ASDIRECTED PRN PRN Reason: Keep Vein Open Last Admin: 01/27/18 02:25 Dose: 10 ml Labs: Laboratory Tests 01/27/18 01/27/18 Range/Units 02:25 02:25 WBC 10.25 H (3.98-10.04) K/mm3 RBC 4.35 (3.98-5.22) M/mm3 Hgb 11.7 (11.2-15.7) gm/L Hct 36.4 (34.1-44.9) % MCV 83.7 (79.4-94.8) fl MCH 26.9 (25.6-32.2) pg MCHC 32.1 L (32.2-35.5) g/dl RDW Std Deviation 46.7 H (36.4-46.3) fL Plt Count 382 H (182-369) K/mm3 MPV 10.5 (9.4-12.3) fl Neut % (Auto) 76.5 H (34.0-71.1) % Lymph % (Auto) 16.2 L (19.3-51.7) % [place] % (Auto) 6.5 (4.7-12.5) % Eos % (Auto) 0.3 L (0.7-5.8) Baso % (Auto) 0.3 (0.1-1.2) % Neut # (Auto) 7.84 H (1.56-6.13) K/mm3 Lymph # (Auto) 1.66 (1.18-3.74) K/mm3 [place] # (Auto) 0.67 H (0.24-0.36) K/mm3 Eos # (Auto) 0.03 L (0.04-0.36) K/mm3 Baso # (Auto) 0.03 (0.01-0.08) K/mm3 Sodium 145 (136-145) mEq/L Potassium 3.2 L (3.5-5.1) mEq/L Chloride 107 (98-107) mEq/L Carbon Dioxide 22 (21-32) mEq/L Anion Gap 19.2 H (5-15) BUN 24 H (7-18) mg/dL Creatinine 1.4 H (0.55-1.02) mg/dL Est Cr Clr Drug Dosing 35.06 mL/min Estimated GFR (MDRD) 46 (>60) mL/min BUN/Creatinine Ratio 17.1 (14-18) Glucose 114 (80-115) mg/dL Calcium 9.9 (8.5-10.1) mg/dL Total Bilirubin 0.5 (0.2-1.0) mg/dL AST 21 (15-37) U/L ALT 23 (14-59) U/L Alkaline Phosphatase 123 H (46-116) U/L Total Protein 7.5 (6.4-8.2) g/dl Albumin 3.3 L (3.4-5.0) g/dl Globulin 4.2 gm/dL Albumin/Globulin Ratio 0.8 L (1-2) Lipase 442 H (73-393) U/L Meds: Medications Generic Name Dose Route Start Last Admin Trade Name Freq PRN Reason Stop Dose Admin Sodium Chloride 1,000 mls @ 999 mls/hr 01/27/18 02:30 01/27/18 02:23 Normal Saline IV 999 mls/hr ONETIME ADAM Administration Sodium Chloride 10 ml 01/27/18 02:16 01/27/18 02:25 Saline Flush FLUSH 10 ml ASDIRECTED PRN Administration Keep Vein Open Discontinued Medications Generic Name Dose Route Start Last Admin Trade Name Freq PRN Reason Stop Dose Admin Famotidine 20 mg 01/27/18 02:17 01/27/18 02:24 Pepcid IVPUSH 01/27/18 02:18 20 mg ONETIME ONE Administration Hydromorphone HCl 0.5 mg 01/27/18 02:16 01/27/18 02:26 Dilaudid IVPUSH 01/27/18 02:17 0.5 mg ONETIME ONE Administration Lorazepam 1 mg 01/27/18 03:02 01/27/18 03:15 Ativan IVPUSH 01/27/18 03:03 1 mg ONETIME ONE Administration Ondansetron HCl 4 mg 01/27/18 02:16 01/27/18 02:24 Zofran IVPUSH 01/27/18 02:17 4 mg ONETIME ONE Administration - Re-Assessments/Exams Free Text/Narrative Re-Assessment/Exam: 01/27/18 04:00. Patient was given Zofran 4 mg IV which helped her nausea vomiting very rapidly, Dilaudid 1 mg IV which helped her pain. However she was still restless, anxious so we did give 1 mg Ativan IV. With that she has been sleeping for over the past hour. No further vomiting. Labs show that she was moderately dehydrated so have given 1 L IV fluid now working on the second liter. Lipase very slightly elevated. Because that is only very mildly elevated I am not going to CT her at this time. Once the second liter of fluid is in and she has a ride she will be able to go home. Departure - Departure Time of Disposition: 04:20 Disposition: Home, Self-Care 01 Condition: Fair Clinical Impression: Abdominal pain Qualifiers: Abdominal location: upper abdomen, unspecified Qualified Code(s): R10.10 - Upper abdominal pain, unspecified GERD (gastroesophageal reflux disease) Qualifiers: Esophagitis presence: without esophagitis Qualified Code(s): K21.9 - Gastro- esophageal reflux disease without esophagitis Vomiting Qualifiers: Vomiting type: unspecified Vomiting Intractability: non-intractable Nausea presence: with nausea Qualified Code(s): R11.2 - Nausea with vomiting, unspecified - Discharge Information Prescriptions: Ondansetron [Zofran ODT] 4 mg PO Q6H PRN #7 tab.dis PRN Reason: Nausea/Vomiting Referrals: Toño Elaine Jr, MD [Primary Care Provider] - Forms: ED Department Discharge Additional Instructions: Clear liquids until this evening, than very careful bland diet as tolerated, Zofran if needed for any further nausea or vomiting, follow-up clinic if not much better within 2-3 days as expected, return to ED as needed if symptoms worsening in any way. - My Orders Last 24 Hours: My Active Orders 01/27/18 02:03 EKG Documentation Completion [RC] ASDIRECTED EKG 12 Lead [EK] Stat 01/27/18 02:16 Sodium Chloride 0.9% [Saline Flush] 10 ml FLUSH ASDIRECTED PRN Peripheral IV Insertion Adult [OM.PC] Stat 01/27/18 02:17 Peripheral IV Care [RC] . DIRECTED 01/27/18 02:30 Sodium Chloride 0.9% [Normal Saline] 1,000 ml IV ONETIME - Assessment/Plan Last 24 Hours: My Active Orders 01/27/18 02:03 EKG Documentation Completion [RC] ASDIRECTED EKG 12 Lead [EK] Stat 01/27/18 02:16 Sodium Chloride 0.9% [Saline Flush] 10 ml FLUSH ASDIRECTED PRN Peripheral IV Insertion Adult [OM.PC] Stat 01/27/18 02:17 Peripheral IV Care [RC] . DIRECTED 01/27/18 02:30 Sodium Chloride 0.9% [Normal Saline] 1,000 ml IV ONETIME
[2018-01-27 03:49] VITALS: BP 123/87
== END 2018-01-27 08:47 | disposition home or self-care (01) ==
LOC: SUPCPDRO 01:52 → JD.ED 01:52
DX: K21.9 Gastro-esophageal reflux disease without esophagitis (principal); R11.2 Nausea with vomiting, unspecified; I10 Essential (primary) hypertension; Z79.899 Other long term (current) drug therapy; Z88.8 Allergy status to other drugs, medicaments and biological substances; Z87.891 Personal history of nicotine dependence
CPT/HCPCS: 36415; 80053; 83690; 85025; 93005; 96361; 96374; 96375; 96376; 99285; J1170; J2060; J2405; J7040; J7050; 93010; 99284-25

== ENCOUNTER 2018-07-03 19:09 | Emergency (ER) | payer MEDICARE, SELFPAY ==
[2018-07-03 19:18] VITALS: BP 139/79
[2018-07-03] MEDS ORDERED: Sodium Chloride 0.9% 10 ML Syringe FLUSH PRN (19:42)
[2018-07-03] MEDS ORDERED: HYDROmorphone 0.5 MG/0.5 ML SYRINGE IVPUSH ONE ×2 (19:42→21:35)
[2018-07-03] MEDS ORDERED: Ondansetron 4 MG/2 ML SDV IVPUSH ONE (19:42)
[2018-07-03] MEDS ORDERED: Sodium Chloride 0.9% 1,000 ML IV SCH (19:45)
--- NOTE | 2018-07-03 20:27 | EDM.PDOC ---
ED HPI GENERAL MEDICAL PROBLEM - General Chief Complaint: Abdominal Pain Stated Complaint: [facility] Time Seen by Provider: 07/03/18 19:19 Source of Information: Reports: Patient, EMS, RN Notes Reviewed - History of Present Illness INITIAL COMMENTS - FREE TEXT/NARRATIVE: 62-year-old lady was fairly sudden onset of right lower abdominal pain at work about 2 hours ago. Since the pain initially was very sharp, shooting and came on quite suddenly. Continues to have aching pain in the right lower abdomen but not as intense as it was initially. Is not radiating to left abdomen or into her back. No voiding symptoms. She did get nauseated but has not vomited. She has had diarrhea today, about 4 episodes of watery diarrhea worse after eating. No fever or chills. Chest pain or difficulty breathing. Abdomen Pain Score (Numeric/FACES): 8 - Related Data Allergies Allergy/AdvReac Type Severity Reaction Status Date / Time diazepam [From Valium] Allergy Respiratory Verified 07/03/18 19:18 Distress meperidine [From Demerol] Allergy Respiratory Verified 07/03/18 19:18 Distress Home Meds: Home Meds Potassium Chloride [Klor-Con 10] 20 meq PO DAILY 10/18/14 [History] Alendronate [Fosamax] 70 mg PO WEEKLY 10/14/17 [History] Baclofen 10 mg PO TID 10/14/17 [History] Zolpidem [Ambien] 10 mg PO BEDTIME PRN 10/14/17 [History] oxyCODONE HCl/Acetaminophen [Endocet 10-325 mg Tablet] 1 each PO Q6HR PRN [History] Atenolol [Tenormin] 100 mg PO DAILY 01/27/18 [History] Gabapentin [Neurontin] 600 mg PO QID 01/27/18 [History] Iron Ag,Ps/C/Fa6/B12/Zn/SA/Sto [Niferex Tablet] 1 tab PO DAILY 01/27/18 [History ] Past Medical History HEENT History: Reports: Impaired Vision Cardiovascular History: Reports: Hypertension Gastrointestinal History: Reports: Chronic Diarrhea, GERD, Hemorrhoids Other Gastrointestinal History: laser to hemmoroids Genitourinary History: Reports: UTI, Recurrent Musculoskeletal History: Reports: Other (See Below) Other Musculoskeletal History: chronic pain to the right foot Psychiatric History: Reports: Depression - Infectious Disease History Infectious Disease History: Reports: Hepatitis C - Past Surgical History GI Surgical History: Reports: Cholecystectomy Musculoskeletal Surgical History: Reports: Amputation, Knee Replacement Other Musculoskeletal Surgeries/Procedures:: 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 hip Oncologic Surgical History: Reports: Other (See Below) Other Oncologic Surgeries/Procedures: 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 Denies: Fever, Chills HEENT: Reports: No Symptoms Respiratory: Denies: Shortness of Breath, Pleuritic Chest Pain Cardiovascular: Denies: Chest Pain GI/Abdominal: Reports: Abdominal Pain, Diarrhea (Right lower abdomen), Nausea ( watery, repetitive). Denies: Hematochezia, Melena, Vomiting Musculoskeletal: Denies: Back Pain Skin: Denies: Rash Neurological: Reports: Dizziness (No better) ED EXAM, GI/ABD - Physical Exam Exam: See Below General Appearance: Alert, Mild Distress Eyes: Bilateral: Normal Appearance Throat/Mouth: Normal Inspection, Normal Oropharynx Head: Atraumatic. No: Facial Swelling Neck: Supple, Full Range of Motion Respiratory/Chest: No Respiratory Distress, Lungs Clear, Normal Breath Sounds Cardiovascular: Regular Rate, Rhythm GI/Abdominal Exam: Tender (Right lower abdomen, remainder of abdomen soft and nontender). No: Guarding, Rebound Back Exam: No: CVA Tenderness (L), CVA Tenderness (R) Neurological: Alert, Oriented, No Motor/Sensory Deficits Skin Exam: Warm, Dry Course - Vital Signs Last Recorded V/S: Last Vital Signs Temp 98.3 F 07/03/18 19:14 Pulse 87 07/03/18 19:14 Resp 18 07/03/18 19:14 BP 139/79 07/03/18 19:14 Pulse Ox 97 07/03/18 19:14 - Orders/Labs/Meds Orders: Active Orders 24 hr Category Date Time Status Peripheral IV Care [RC] . DIRECTED Care 07/03/18 19:42 Active Peripheral IV Insertion Adult [OM.PC] Stat Oth 07/03/18 19:41 Ordered Labs: Laboratory Tests 07/03/18 07/03/18 07/03/18 Range/Units 19:55 19:55 19:55 WBC 9.65 (3.98-10.04) K/mm3 RBC 4.58 (3.98-5.22) M/mm3 Hgb 12.4 (11.2-15.7) gm/L Hct 38.8 (34.1-44.9) % MCV 84.7 (79.4-94.8) fl MCH 27.1 (25.6-32.2) pg MCHC 32.0 L (32.2-35.5) g/dl RDW Std Deviation 45.6 (36.4-46.3) fL Plt Count 324 (182-369) K/mm3 MPV 10.5 (9.4-12.3) fl Neut % (Auto) 60.4 (34.0-71.1) % Lymph % (Auto) 27.8 (19.3-51.7) % [place] % (Auto) 10.2 (4.7-12.5) % Eos % (Auto) 1.3 (0.7-5.8) Baso % (Auto) 0.3 (0.1-1.2) % Neut # (Auto) 5.83 (1.56-6.13) K/mm3 Lymph # (Auto) 2.68 (1.18-3.74) K/mm3 [place] # (Auto) 0.98 H (0.24-0.36) K/mm3 Eos # (Auto) 0.13 (0.04-0.36) K/mm3 Baso # (Auto) 0.03 (0.01-0.08) K/mm3 Sodium 139 (136-145) mEq/L Potassium 3.3 L (3.5-5.1) mEq/L Chloride 103 (98-107) mEq/L Carbon Dioxide 25 (21-32) mEq/L Anion Gap 14.3 (5-15) BUN 26 H (7-18) mg/dL Creatinine 0.8 (0.55-1.02) mg/dL Est Cr Clr Drug Dosing 61.35 mL/min Estimated GFR (MDRD) > 60 (>60) mL/min BUN/Creatinine Ratio 32.5 H (14-18) Glucose 78 L (80-115) mg/dL Calcium 9.1 (8.5-10.1) mg/dL Total Bilirubin 0.5 (0.2-1.0) mg/dL AST 43 H (15-37) U/L ALT 52 (14-59) U/L Alkaline Phosphatase 126 H (46-116) U/L C-Reactive Protein 0.2 (<1.0) mg/dL Total Protein 7.7 (6.4-8.2) g/dl Albumin 3.3 L (3.4-5.0) g/dl Globulin 4.4 gm/dL Albumin/Globulin Ratio 0.8 L (1-2) Meds: Medications Discontinued Medications Generic Name Dose Route Start Last Admin Trade Name Freq PRN Reason Stop Dose Admin Hydromorphone HCl 0.5 mg 07/03/18 19:42 07/03/18 20:18 Dilaudid IVPUSH 07/03/18 19:43 0.5 mg ONETIME ONE Administration Hydromorphone HCl 0.5 mg 07/03/18 21:35 07/03/18 21:43 Dilaudid IVPUSH 07/03/18 21:36 0.5 mg ONETIME ONE Administration Sodium Chloride 1,000 mls @ 999 mls/hr 07/03/18 19:45 07/03/18 20:16 Normal Saline IV 999 mls/hr ONETIME ADAM Administration Lorazepam 1 mg 07/03/18 20:33 07/03/18 20:47 Ativan PO 07/03/18 20:34 1 mg ONETIME ONE Administration Ondansetron HCl 4 mg 07/03/18 19:42 07/03/18 20:16 Zofran IVPUSH 07/03/18 19:43 4 mg ONETIME ONE Administration Sodium Chloride 10 ml 07/03/18 19:42 07/03/18 20:18 Saline Flush FLUSH 10 ml ASDIRECTED PRN Administration Keep Vein Open - Re-Assessments/Exams Free Text/Narrative Re-Assessment/Exam: 07/04/18 03:31 White blood count and C-reactive protein normal, you missed Maryan relatively okay. Patient has been given 1 L of IV fluid, Zofran IV and also Dilaudid IV. That she is feeling somewhat better. She is asking for pain medication ago home and I have informed her that is inappropriate for diarrhea. Discharge instructions as documented. Departure - Departure Time of Disposition: 22:12 Disposition: Home, Self-Care 01 Condition: Fair Clinical Impression: Abdominal pain Qualifiers: Abdominal location: upper abdomen, unspecified Qualified Code(s): R10.10 - Upper abdominal pain, unspecified Diarrhea Qualifiers: Diarrhea type: unspecified type Qualified Code(s): R19.7 - Diarrhea, unspecified - Discharge Information Instructions: Diarrhea, Adult, Abdominal Pain, Adult, [id number] Referrals: Toño Elaine Jr, MD [Primary Care Provider] - Forms: ED Department Discharge Additional Instructions: Clear liquids until tomorrow afternoon, then very careful bland diet as tolerated, begin probiotic this evening if possible and take twice daily for 1 week, that is available OTC, follow-up clinic if not getting back to normal within 2-3 days as expected. You've been given Zofran, IV fluid, Dilaudid IV while here in the ED, Tylenol if needed for further discomfort. - My Orders Last 24 Hours: My Active Orders 07/03/18 19:41 Peripheral IV Insertion Adult [OM.PC] Stat 07/03/18 19:42 Peripheral IV Care [RC] . DIRECTED - Assessment/Plan Last 24 Hours: My Active Orders 07/03/18 19:41 Peripheral IV Insertion Adult [OM.PC] Stat 07/03/18 19:42 Peripheral IV Care [RC] . DIRECTED
[2018-07-03] MEDS ORDERED: LORazepam 1 MG Tab PO ONE (20:33)
== END 2018-07-03 22:42 | disposition home or self-care (01) ==
LOC: JD.ED 19:09
DX: R19.7 Diarrhea, unspecified (principal); R10.31 Right lower quadrant pain; I10 Essential (primary) hypertension; Z88.8 Allergy status to other drugs, medicaments and biological substances; Z79.899 Other long term (current) drug therapy
CPT/HCPCS: 36415; 80053; 85025; 86140; 96361; 96374; 96375; 96376; 99284; A9270; J1170; J2405; J7040; J7050

== ENCOUNTER 2020-10-24 17:52 | Emergency (ER) | payer MEDICARE, OTHER, MEDICAID ==
[2020-10-24 18:30] VITALS: BP 155/65; PULSE 80
[2020-10-24] MEDS ORDERED: HYDROmorphone 1 MG/ML Syringe IM ONE (18:31)
--- NOTE | 2020-10-24 18:35 | EDM.PDOC ---
ED HPI GENERAL MEDICAL PROBLEM - General Chief Complaint: Lower Extremity Injury/Pain Stated Complaint: LEG PAIN Time Seen by Provider: 10/24/20 18:15 Source of Information: Reports: Patient, RN Notes Reviewed History Limitations: Reports: No Limitations - History of Present Illness INITIAL COMMENTS - FREE TEXT/NARRATIVE: Patient is a 65-year-old female presenting to the emergency department with complaints of right lower extremity pain from below her knee to her ankle. Pain began a few days ago. Patient states that she saw Dr. Curtis in the clinic yesterday for routine care on the calluses on her right foot. She states he did blood work at that time and it was all found to be normal. He recommended that she have an ultrasound done of the extremity to ensure that there is not a blood clot. She has no history of blood clots. Denies any redness or warmth to the area. She chose to come to the emergency department to have the ultrasound done as opposed to [facility] as she was worried that it would be too painful to have it done in the clinic without pain medications given prior. She denies any chest pain or shortness of breath. Right Lower Leg Pain Score (Numeric/FACES): 8 - Related Data Allergies Allergy/AdvReac Type Severity Reaction Status Date / Time diazepam [From Valium] Allergy Respiratory Verified 07/03/18 19:18 Distress meperidine [From Demerol] Allergy Respiratory Verified 07/03/18 19:18 Distress Home Meds: Home Meds Potassium Chloride [Klor-Con 10] 20 meq PO DAILY 10/18/14 [History] Alendronate [Fosamax] 70 mg PO WEEKLY 10/14/17 [History] Baclofen 10 mg PO TID 10/14/17 [History] Zolpidem [Ambien] 10 mg PO BEDTIME PRN 10/14/17 [History] oxyCODONE HCl/Acetaminophen [Endocet 10-325 mg Tablet] 1 each PO Q6HR PRN 10/14/17 [History] Atenolol [Tenormin] 100 mg PO DAILY 01/27/18 [History] Gabapentin [Neurontin] 600 mg PO QID 01/27/18 [History] Iron Ag,Ps/C/Fa6/B12/Zn/SA/Sto [Niferex Tablet] 1 tab PO DAILY 01/27/18 [History] Past Medical History HEENT History: Reports: Impaired Vision Cardiovascular History: Reports: Hypertension Gastrointestinal History: Reports: Chronic Diarrhea, GERD, Hemorrhoids Other Gastrointestinal History: laser to hemmoroids Genitourinary History: Reports: UTI, Recurrent Musculoskeletal History: Reports: Other (See Below) Other Musculoskeletal History: chronic pain to the right foot Psychiatric History: Reports: Depression - Infectious Disease History Infectious Disease History: Reports: Hepatitis C - Past Surgical History GI Surgical History: Reports: Cholecystectomy Musculoskeletal Surgical History: Reports: Amputation, Knee Replacement Other Musculoskeletal Surgeries/Procedures:: 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 hip Oncologic Surgical History: Reports: Other (See Below) Other Oncologic Surgeries/Procedures: 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 Social & Family History - Family History Family Medical History: Unobtainable Cardiac: Reports: [place] Endocrine/Metabolic: Reports: Diabetes, type II - Tobacco Use Tobacco Use Status *Q: Former Tobacco User Used Tobacco, but Quit: Yes Month/Year Tobacco Last Used: March - Caffeine Use Caffeine Use: Reports: Coffee, Soda, Tea - Recreational Drug Use Recreational Drug Use: No - Living Situation & Occupation Living situation: Reports: with Family (Silent son lives with her.) Occupation: Disabled Review of Systems - Review of Systems Review Of Systems: See Below Constitutional: Reports: No Symptoms Eyes: Reports: No Symptoms Ears: Reports: No Symptoms Nose: Reports: No Symptoms Mouth/Throat: Reports: No Symptoms Respiratory: Reports: No Symptoms Cardiovascular: Reports: No Symptoms GI/Abdominal: Reports: No Symptoms Genitourinary: Reports: No Symptoms Musculoskeletal: Reports: Other (right calf pain) Skin: Reports: No Symptoms Neurological: Reports: No Symptoms Psychiatric: Reports: No Symptoms ED EXAM, GENERAL - Physical Exam Exam: See Below General Appearance: Alert, WD/WN, No Apparent Distress Respiratory/Chest: No Respiratory Distress, Lungs Clear, Normal Breath Sounds, No Accessory Muscle Use, Chest Non-Tender Cardiovascular: Normal Peripheral Pulses, Regular Rate, Rhythm, No Edema, No Gallop, No JVD, No Murmur, No Rub Extremities: Other (tenderness to palpation to the distal aspect of the right calf No redness, warmth, or edema. Lt below the hip amputation of LLE.) Neurological: Alert, Oriented, CN II-XII Intact, Normal Cognition, Normal Gait, Normal Reflexes, No Motor/Sensory Deficits Psychiatric: Normal Affect, Normal Mood Skin Exam: Warm, Dry, Intact, Normal Color, No Rash Course - Vital Signs Last Recorded V/S: Last Vital Signs Temp 97.6 F 10/24/20 18:29 Pulse 80 10/24/20 18:29 Resp 20 10/24/20 18:29 BP 155/65 H 10/24/20 18:29 Pulse Ox 98 10/24/20 18:29 - Orders/Labs/Meds Meds: Medications Discontinued Medications Generic Name Dose Route Start Last Admin Trade Name Heather PRN Reason Stop Dose Admin Hydromorphone HCl 1 mg 10/24/20 18:31 10/24/20 18:57 Dilaudid IM 10/24/20 18:32 1 mg ONETIME ONE Administration - Re-Assessments/Exams Free Text/Narrative Re-Assessment/Exam: Patient is a 65-year-old female presenting to the emergency department at the request of Dr. Curtis. She has pain to her right lower extremity on the distal portion of her calf. This has been going on for about 3 days. States she had blood work done at [facility] and this was found to be normal. She is requesting ultrasound to rule out DVT. I have ordered a venous Doppler ultrasound of the right lower extremity. She is scheduled to have shoulder surgery with Dr. Reed next week and is requesting that the images and a copy of today's report be sent to him as well. Ordered Dilaudid 1 mg IM for pain control related to the ultrasound procedure. 10/24/20 20:40 Venous Doppler ultrasound of the right lower extremity was negative for DVT. Discussed symptomatic treatment with patient including heat, elevation, and Tyl enol. I have pushed the images to [facility] for Dr. Reed's review. I will also provide her with a copy of today's radiology report that she may provide to him. Discharge instructions as documented. Departure - Departure Time of Disposition: 20:42 Disposition: Home, Self-Care 01 Condition: Good Clinical Impression: Leg pain, right - Discharge Information *PRESCRIPTION DRUG MONITORING PROGRAM REVIEWED*: No *COPY OF PRESCRIPTION DRUG MONITORING REPORT IN PATIENT CHIDI: No Instructions: Pain Without a Known Cause Referrals: Toño Elaine Jr, MD [Primary Care Provider] - Valdemar Reed MD [Physician] - Forms: ED Department Discharge Additional Instructions: You were seen in the emergency department today for evaluation with regards to pain to your right lower extremity. Venous Doppler ultrasound was completed and did not show a blood clot. As we discussed, your pain is likely musculoskeletal in nature. Recommend elevation and heat to the lower extremity. You may use Tylenol as needed for discomfort. A copy of the report has been provided for you to give to Dr. Reed as needed. We have also sent the ultrasound images to [facility]. If you should experience any new or worsening symptoms of concern, please not hesitate to return to the emergency department for reevaluation. Sepsis Event Note (ED) - Evaluation Sepsis Screening Result: No Definite Risk
--- NOTE | 2020-10-25 14:44 | US ---
Right lower extremity deep venous ultrasound: Duplex and color Doppler evaluation was obtained of the right common femoral, proximal greater saphenous, superficial femoral, popliteal, posterior tibial and peroneal vein. Calf veins are not well seen due to patient's body size and edema. Findings: Normal phasic flow, augmentation and compression is otherwise seen. Impression: 1. Calf veins are not well seen. 2. Other veins show no findings of deep venous thrombosis. Diagnostic code #2 I agree with preliminary report from [facility], finalized on 10/24/20, 9:17 PM HOUSE DETECTIVE
== END 2020-10-24 20:55 | disposition home or self-care (01) ==
LOC: JD.ED 17:52
DX: M79.661 Pain in right lower leg (principal); I10 Essential (primary) hypertension; Z79.899 Other long term (current) drug therapy; Z87.891 Personal history of nicotine dependence; Z88.8 Allergy status to other drugs, medicaments and biological substances; Z88.5 Allergy status to narcotic agent
CPT/HCPCS: 93971; 96372; 99283; J1170

== ENCOUNTER 2020-11-24 14:06 | Inpatient (IN) | payer MEDICARE, OTHER, MEDICAID ==
--- NOTE | 2020-11-24 15:03 | EDM.PDOC ---
ED HPI GENERAL MEDICAL PROBLEM - General Chief Complaint: General Stated Complaint: DISABILITIES MAKE HER UNABLE TO CARE FOR HERSELF Time Seen by Provider: 11/24/20 14:40 Source of Information: Reports: Patient History Limitations: Reports: No Limitations, Other (ED vital signs reveal a temp of 98.0, pulse 85, respiratory rate 16, blood pressure 142/75, pulse ox 96% on room air.) - History of Present Illness INITIAL COMMENTS - FREE TEXT/NARRATIVE: 65-year-old female presents to the emergency department today stating she is unable to care for herself at home and wants residential placement. She had a total shoulder replacement on October [address] Reed in [place] and has been in a residential in [place] until last Tuesday. She states she checked herself out as her family is all located in [place] however she realizes she is now unable to care for herself and does need residential placement and physical therapy. She states that she called [facility] and spoke with one of their social workers who told her to come to the emergency department. Patient states she needs physical therapy but is unable to get to any of her appointments. She denies any other physical complaints such as fever, chills, nausea, vomiting or diarrhea. Right Shoulder Pain Score (Numeric/FACES): 5 - Related Data Allergies Allergy/AdvReac Type Severity Reaction Status Date / Time diazepam [From Valium] Allergy Respiratory Verified 07/03/18 19:18 Distress meperidine [From Demerol] Allergy Respiratory Verified 07/03/18 19:18 Distress Home Meds: Home Meds Potassium Chloride [Klor-Con 10] 20 meq PO DAILY 10/18/14 [History] Alendronate [Fosamax] 70 mg PO WEEKLY 10/14/17 [History] Baclofen 10 mg PO TID 10/14/17 [History] Zolpidem [Ambien] 10 mg PO BEDTIME PRN 10/14/17 [History] oxyCODONE HCl/Acetaminophen [Endocet 10-325 mg Tablet] 1 each PO Q6HR 10/14/17 [History] Atenolol [Tenormin] 100 mg PO DAILY 01/27/18 [History] Gabapentin [Neurontin] 600 mg PO QID 01/27/18 [History] Iron Ag,Ps/C/Fa6/B12/Zn/SA/Sto [Niferex Tablet] 1 tab PO DAILY 01/27/18 [History] Aspirin 81 mg PO DAILY 11/24/20 [History] Docusate Sodium [Colace] 50 mg PO DAILY 11/24/20 [History] fentaNYL [Fentanyl] 25 mcg TRDERM ASDIRECTED 11/24/20 [History] hydroCHLOROthiazide [Hydrochlorothiazide] 50 mg PO DAILY 11/24/20 [History] oxyCODONE 5 mg PO Q4HR PRN 11/24/20 [History] Past Medical History HEENT History: Reports: Impaired Vision Cardiovascular History: Reports: Hypertension Gastrointestinal History: Reports: Chronic Diarrhea, GERD, Hemorrhoids Other Gastrointestinal History: laser to hemmoroids Genitourinary History: Reports: UTI, Recurrent Musculoskeletal History: Reports: Other (See Below) Other Musculoskeletal History: chronic pain to the right foot Psychiatric History: Reports: Depression - Infectious Disease History Infectious Disease History: Reports: Hepatitis C - Past Surgical History GI Surgical History: Reports: Cholecystectomy Musculoskeletal Surgical History: Reports: Amputation, Knee Replacement Other Musculoskeletal Surgeries/Procedures:: 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 ED EXAM, GENERAL - Physical Exam Exam: See Below Exam Limited By: No Limitations General Appearance: Alert, WD/WN, No Apparent Distress Eye Exam: Bilateral Eye: PERRL Nose: Normal Inspection Throat/Mouth: Normal Voice, No Airway Compromise Head: Atraumatic, Normocephalic Neck: Normal Inspection, Supple, Non-Tender, Full Range of Motion Respiratory/Chest: No Respiratory Distress, Lungs Clear, Normal Breath Sounds, No Accessory Muscle Use, Chest Non-Tender Cardiovascular: Normal Peripheral Pulses, Regular Rate, Rhythm, No Edema, No JVD, No Murmur GI/Abdominal: Normal Bowel Sounds, Soft, Non-Tender, No Distention (Female) Exam: Deferred Rectal (Female) Exam: Deferred Back Exam: Normal Inspection, Full Range of Motion Extremities: Normal Inspection, No Pedal Edema, Normal Capillary Refill. No: Normal Range of Motion (Decreased range of motion to right upper extremity due to recent shoulder replacement. Patient's arm is in a sling and swath and Steri-Strips are still in place.), Non-Tender (Right upper extremity specifically right shoulder area due to surgery on October 27. Steri-Strips are still intact.) Neurological: Alert, Oriented, Normal Cognition Psychiatric: Normal Affect, Normal Mood Skin Exam: Warm, Dry, Intact, Normal Color, No Rash, Wound/Incision (Steri- Strips still intact, no redness warmth or drainage noted to incision) Lymphatic: No Adenopathy Course - Vital Signs Text/Narrative:: 65-year-old female presented emergency department with request for residential placement. Recent surgery on October 27 for shoulder replacement. Has been in the residential in [place] since then until this last Tuesday when she checked herself out. Denies any other physical complaints. However she is unable to care for herself at home and needs physical therapy for her shoulder. I have called the hospital social security specialist to assist with patient placement. Last Recorded V/S: Last Vital Signs Temp 98 F 11/24/20 14:37 Pulse 85 11/24/20 14:37 Resp 16 11/24/20 14:37 BP 142/75 H 11/24/20 14:37 Pulse Ox 96 11/24/20 14:37 - Orders/Labs/Meds Orders: Active Orders 24 hr Category Date Time Status CORONAVIRUS COVID-19 BEBE [MOLEC] Stat Lab 11/24/20 17:25 Received - Re-Assessments/Exams Free Text/Narrative Re-Assessment/Exam: 11/24/20 17:40 The hospital social security specialist spoke with [facility] and they state they will take the patient but not until tomorrow. Social work also attempted to get patient placed at [facility] and [facility] and killed there however both of them refused to accept her. Attempted to send the patient home for the night as she has 2 sons that live in town. Patient states she cannot go home tonight. Social work attempted to asked the patient to give them permission to call the sons and speak with them and she refuses to release this information. The patient states that she has not bathed since Tuesday and also that she almost fell while at home today. She states she is unsafe to go home and cannot do that. I will speak with Dr. Messer the hospitalist to see if he will accept her as an observation patient on the floor. I have done a Covid test on her and I am waiting the results. 11/24/20 17:41 Dr. Messer has accepted care of the patient. [facility] obv placement. Departure - Departure Time of Disposition: 17:44 Disposition: DC/Tfer to [facility] Condition: Fair Clinical Impression: Unable to care for self - Discharge Information Referrals: Toño Elaine Jr, MD [Primary Care Provider] - Forms: ED Department Discharge Sepsis Event Note (ED) - Evaluation Sepsis Screening Result: No Definite Risk - Focused Exam Vital Signs: Vital Signs Temp Pulse Resp BP Pulse Ox 11/24/20 14:37 98 F 85 16 142/75 H 96 - My Orders Last 24 Hours: My Active Orders 11/24/20 17:25 CORONAVIRUS COVID-19 BEBE [MOLEC] Stat - Assessment/Plan Last 24 Hours: My Active Orders 11/24/20 17:25 CORONAVIRUS COVID-19 BEBE [MOLEC] Stat
[2020-11-24] MEDS ORDERED: Albuterol/Ipratropium 3.0-0.5 MG/3 ML Neb Soln NEB PRN (19:23)
[2020-11-24] MEDS ORDERED: Promethazine 12.5 MG in Sodium Chloride 0.9% 50 ML IV PRN (19:23)
[2020-11-24] MEDS ORDERED: oxyCODONE 5 MG Tab PO PRN (19:23)
[2020-11-24] MEDS ORDERED: hydrALAZINE 20 MG/ML SDV IVPUSH PRN (19:35)
--- NOTE | 2020-11-24 19:42 | PCM.HP.2 ---
H&P History of Present Illness - General Date of Service: 11/24/20 Admit Problem/Dx: Admission Diagnosis/Problem Admission Diagnosis/Problem Failure to thrive in adult Source of Information: Patient, Other - History of Present Illness Initial Comments - Free Text/Narative: Patient is a 65-year-old female with a history of high blood pressure and hepatitis C who presented to the ER because she is unable to take care of of herself wants retirement placement. Patient had a right total shoulder placement in October [address] Reed in [place] and has been in a retirement in [place] until last Tuesday. Other than mild right shoulder pain and limited range of motion, she is fine. Denies headache, dizziness, chest pain, shortness of breath, abdominal pain, or dysuria. In the ER, Covid test positive. Onset of Symptoms: Reports: Gradual Right Shoulder Pain Score (Numeric/FACES): 5 - Related Data Allergies/Adverse Reactions: Allergies Allergy/AdvReac Type Severity Reaction Status Date / Time No Known Allergies Allergy Verified 11/24/20 19:04 Home Medications: Home Meds Potassium Chloride [Klor-Con 10] 20 meq PO DAILY 10/18/14 [History] Alendronate [Fosamax] 70 mg PO WEEKLY 10/14/17 [History] Baclofen 10 mg PO TID 10/14/17 [History] Zolpidem [Ambien] 10 mg PO BEDTIME PRN 10/14/17 [History] oxyCODONE HCl/Acetaminophen [Endocet 10-325 mg Tablet] 1 each PO Q6HR 10/14/17 [History] Atenolol [Tenormin] 100 mg PO DAILY 01/27/18 [History] Gabapentin [Neurontin] 600 mg PO QID 01/27/18 [History] Iron Ag,Ps/C/Fa6/B12/Zn/SA/Sto [Niferex Tablet] 1 tab PO DAILY 01/27/18 [History] Aspirin 81 mg PO DAILY 11/24/20 [History] Docusate Sodium [Colace] 50 mg PO DAILY 11/24/20 [History] fentaNYL [Fentanyl] 25 mcg TRDERM ASDIRECTED 11/24/20 [History] hydroCHLOROthiazide [Hydrochlorothiazide] 50 mg PO DAILY 11/24/20 [History] oxyCODONE 5 mg PO Q4HR PRN 11/24/20 [History] Past Medical History HEENT History: Reports: Impaired Vision, Other (See Below) Other HEENT History: wear glasses, upper denture and lower partial Cardiovascular History: Reports: Hypertension Gastrointestinal History: Reports: Chronic Diarrhea, GERD, Hemorrhoids Other Gastrointestinal History: laser to hemorrhoids Genitourinary History: Reports: UTI, Recurrent [employer] History: Reports: Musculoskeletal History: Reports: Other (See Below) Other Musculoskeletal History: chronic pain to the right foot Psychiatric History: Reports: Depression Hematologic History: Reports: Anemia - Infectious Disease History Infectious Disease History: Reports: Chicken Pox, Hepatitis C, Novel Coronavirus - Past Surgical History GI Surgical History: Reports: Cholecystectomy Musculoskeletal Surgical History: Reports: Amputation, Knee Replacement Other Musculoskeletal Surgeries/Procedures:: 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 hip Oncologic Surgical History: Reports: Other (See Below) Other Oncologic Surgeries/Procedures: 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 Social & Family History - Family History Family Medical History: Unobtainable Cardiac: Reports: [place] Endocrine/Metabolic: Reports: Diabetes, type II - Tobacco Use Tobacco Use Status *Q: Never Tobacco User Second Hand Smoke Exposure: No - Caffeine Use Caffeine Use: Reports: Coffee, Soda - Recreational Drug Use Recreational Drug Use: No Drug Use in Last 12 Months: No - Living Situation & Occupation Living situation: Reports: with Family (Silent son lives with her.) Occupation: Disabled H&P Review of Systems - Review of Systems: Review Of Systems: Comprehensive ROS is negative, except as noted in HPI. Exam - Exam Exam: See Below - Vital Signs Vital Signs: Last Vital Signs Temp 36.6 C 11/24/20 14:37 Pulse 85 11/24/20 14:37 Resp 16 11/24/20 14:37 BP 142/75 H 11/24/20 14:37 Pulse Ox 96 11/24/20 14:37 Weight: 95.073 kg - Exam Physical Exam Comments:: Physical Exam: General: No acute distress HEENT: Conjunctiva Clear, EOMI, Mucosa Moist & [place] Neck: Supple, Trachea Midline, NO JVD Lungs: CTA, normal Respiratory Effort, no Wheezing Cardiovascular: Regular Rate, Regular Rhythm GI/Abdominal Exam: Normal Bowel Sounds, Soft, Non-Tender, No Organomegaly, No Distention, No Abnormal Bruit, No Mass Extremities: Right shoulder in a sling and limited range of motion. Skin: Warm, Dry, Intact Neurology: A+O x 3, no focal neurological deficits Psychiatric: Normal Mood - Patient Data Lab Results Last 24 hrs: Laboratory Results - last 24 hr 11/24/20 Range/Units 17:25 SARS-CoV-2 RNA (BEBE) Positive H (NEGATIVE) Sepsis Event Note - Evaluation Sepsis Screening Result: No Definite Risk - Focused Exam Vital Signs: Vital Signs Temp Pulse Resp BP Pulse Ox 11/24/20 14:37 36.6 C 85 16 142/75 H 96 Problem List Initiated/Reviewed/Updated: Yes Orders Last 24hrs: Active Orders 24 hr Category Date Time Status Admission Status [Patient Status] [ADT] Routine ADT 11/24/20 17:45 Active Bedrest Bedside Commode [RC] ASDIRECTED Care 11/24/20 19:23 Ordered Intake and Output [RC] QSHIFT Care 11/24/20 19:23 Ordered Oxygen Therapy [RC] PRN Care 11/24/20 19:23 Active RT Aerosol Therapy [RC] ASDIRECTED Care 11/24/20 19:26 Ordered VTE/DVT Education [RC] PER UNIT ROUTINE Care 11/24/20 19:23 Ordered Vital Signs [RC] Q4H Care 11/24/20 19:23 Ordered OT Evaluation and Treatment [CONS] Routine Cons 11/24/20 19:26 Ordered PT Evaluation and Treatment [CONS] Routine Cons 11/24/20 19:26 Ordered Consistent Carbohydrate Diet [DIET] Diet 11/24/20 Dinner Ordered Chest 1V Frontal [CR] Routine Exams 11/24/20 19:30 Ordered A1C [GLYCOSYLATED HEMOGLOBIN,HGBA1C] [CHEM] Routine Lab 11/24/20 19:31 Ordered CBC WITH AUTO DIFF [HEME] DAILY Lab 11/25/20 05:00 Ordered CBC WITH AUTO DIFF [HEME] DAILY Lab 11/26/20 05:00 Ordered CBC WITH AUTO DIFF [HEME] DAILY Lab 11/27/20 05:00 Ordered CBC WITH AUTO DIFF [HEME] DAILY Lab 11/28/20 05:00 Ordered COMPREHENSIVE METABOLIC PN,CMP [CHEM] DAILY Lab 11/25/20 05:00 Ordered COMPREHENSIVE METABOLIC PN,CMP [CHEM] DAILY Lab 11/26/20 05:00 Ordered COMPREHENSIVE METABOLIC PN,CMP [CHEM] DAILY Lab 11/27/20 05:00 Ordered COMPREHENSIVE METABOLIC PN,CMP [CHEM] DAILY Lab 11/28/20 05:00 Ordered CRP [C-REACTIVE PROTEIN] [CHEM] Routine Lab 11/24/20 19:31 Ordered MAGNESIUM [CHEM] Routine Lab 11/24/20 19:26 Ordered PROCALCITONIN [REF] Urgent Lab 11/24/20 19:31 Ordered TROPONIN I [CHEM] Stat Lab 11/24/20 19:26 Ordered VITAMIN D,25-HYDROXY [CHEM] Routine Lab 11/24/20 19:31 Ordered Acetaminophen [TylenoL] Med 11/24/20 19:23 Ordered 650 mg PO Q6H PRN Albuterol/Ipratropium [DuoNeb 3.0-0.5 MG/3 ML] Med 11/24/20 19:23 Ordered 3 ml NEB Q4H PRN Alendronate Med 11/24/20 19:45 Ordered 70 mg PO WEEKLY Aspirin Med 11/25/20 09:00 Ordered 81 mg PO DAILY Baclofen [Lioresal] Med 11/24/20 21:00 Ordered 10 mg PO TID Docusate Sodium [Colace] Med 11/24/20 19:23 Ordered 100 mg PO BID PRN Enoxaparin [Lovenox] Med 11/25/20 09:00 Ordered 40 mg SUBCUT DAILY Gabapentin [Neurontin] Med 11/24/20 21:00 Ordered 600 mg PO QID Iron Ag,Ps/C/Fa6/B12/Zn/SA/Sto [Niferex Tablet] Med 11/25/20 09:00 Ordered 1 tab PO DAILY Morphine Med 11/24/20 19:23 Ordered 2 mg IVPUSH Q4H PRN Promethazine [Phenergan] 12.5 mg Med 11/24/20 19:23 Ordered Sodium Chloride 0.9% [Normal Saline] 50 ml IV Q6H Zolpidem [Ambien] Med 11/24/20 19:33 Ordered 10 mg PO BEDTIME PRN atenoloL [Tenormin] Med 11/25/20 09:00 Ordered 100 mg PO DAILY hydrALAZINE [Apresoline] Med 11/24/20 19:35 Ordered 10 mg IVPUSH Q4H PRN hydroCHLOROthiazide [Hydrochlorothiazide] Med 11/25/20 09:00 Ordered 50 mg PO DAILY oxyCODONE Med 11/24/20 19:23 Ordered 5 mg PO Q6H PRN Pulse Oximetry Continuous Monitoring [OM.PC] Routine Oth 11/24/20 19:32 Ordered Resuscitation Status Routine Resus Stat 11/24/20 19:23 Ordered Medication Orders Acetaminophen (Tylenol) 650 mg PO Q6H PRN PRN Reason: Pain (Mild 1-3)/fever Albuterol/Ipratropium (Duoneb 3.0-0.5 Mg/3 Ml) 3 ml NEB Q4H PRN PRN Reason: Shortness Of Breath/wheezing Aspirin (Aspirin) 81 mg PO DAILY ADAM Atenolol (Tenormin) 100 mg PO DAILY ADAM Baclofen (Lioresal) 10 mg PO TID ADAM Docusate Sodium (Colace) 100 mg PO BID PRN PRN Reason: Constipation Enoxaparin Sodium (Lovenox) 40 mg SUBCUT DAILY ADAM Gabapentin (Neurontin) 600 mg PO QID ADAM Hydralazine HCl (Apresoline) 10 mg IVPUSH Q4H PRN PRN Reason: Hypertension Promethazine HCl 12.5 mg/ (Sodium Chloride) 50.5 mls @ 100 mls/hr IV Q6H PRN PRN Reason: Nausea/Vomiting Morphine Sulfate (Morphine) 2 mg IVPUSH Q4H PRN PRN Reason: Pain (severe 7-10) Stop: 11/25/20 19:25 Non-Formulary Medication (Alendronate) 70 mg PO WEEKLY [facility] Non-Formulary Medication (Hydrochlorothiazide [Hydrochlorothiazide]) 50 mg PO DAILY [facility] Non-Formulary Medication (Iron Ag,Ps/C/Fa6/B12/Zn/Sa/Sto [Niferex Tablet]) 1 tab PO DAILY [facility] Oxycodone HCl (Oxycodone) 5 mg PO Q6H PRN PRN Reason: Pain (moderate 4-6) Zolpidem Tartrate (Ambien) 10 mg PO BEDTIME PRN PRN Reason: Sleep Assessment/Plan Comment:: Assessment and plan: 1. 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 S/p right total should replacement in 10/[address] Mejia in [place] Follow with Dr. Reed 3. HTN Continue home medication 4. Hepatitis C Repeat liver function in morning 5. Covid 19 positive Patient is on room air with good oxygen saturation Chest x-ray CRP Hemoglobin A1c Procalcitonin I do not order D-dimer due to recent surgery Troponin Vitamin D level I do not order remdesivir, steroid or anticoagulation at this moment Continue home aspirin 6. DVT prophylaxis: Lovenox - Mortality Measure Prognosis:: Good
[2020-11-24] MEDS ORDERED: Non-Formulary Medication 1 Each (Alendronate 70 MG) PO SCH (19:45)
[2020-11-24 20:13] LABS: HEMOGLOBIN A1C 5.9 %
[2020-11-24 20:36] LABS: VITAMIN D,25-HYDROXY 21.3 ng/ml (30.0-100.0)
[2020-11-24] MEDS: Gabapentin 600 MG Tab PO SCH (21:23)
[2020-11-24] MEDS: Baclofen 10 MG Tab PO SCH (21:23)
[2020-11-24] MEDS: Morphine 2 MG/ML SYRINGE IVPUSH PRN (22:08)
[2020-11-25] MEDS: Zolpidem 10 MG Tab PO PRN (00:20)
[2020-11-25] MEDS: Morphine 2 MG/ML SYRINGE IVPUSH PRN (06:12)
--- NOTE | 2020-11-25 08:57 | CR ---
Chest: Portable view of the chest was obtained. Comparison: Prior chest x-ray of 07/14/17. Heart size and mediastinum are normal. Lungs are clear with no acute parenchymal change. Bony structures show degenerative change within the shoulder on the left side. Prior surgery is noted on the right side. Impression: 1. Findings as noted above. 2. Nothing acute is appreciated. Diagnostic code #2 I agree with preliminary report from [facility], finalized on 11/24/20, 10:38 PM [employer]
[2020-11-25] MEDS: Baclofen 10 MG Tab PO SCH ×3 (09:11→20:28)
[2020-11-25] MEDS: Aspirin 81 MG Tab.Chew PO SCH (09:13)
[2020-11-25] MEDS: Gabapentin 600 MG Tab PO SCH ×4 (09:13→20:28)
[2020-11-25] MEDS: Atenolol 50 MG Tab PO SCH (09:14)
[2020-11-25] MEDS: Hydrochlorothiazide 25 MG Tab PO SCH (09:16)
[2020-11-25] MEDS: Acetaminophen 325 MG Tab PO PRN (10:16)
[2020-11-25] MEDS: Enoxaparin 40 MG/0.4 ML Syringe SUBCUT SCH ×2 (10:17→10:28)
[2020-11-25] MEDS: Iron Polysaccharides Complex 150 MG Cap PO SCH (10:17)
[2020-11-25] MEDS: amLODIPine 2.5 MG Tab PO SCH (10:17)
[2020-11-25] MEDS ORDERED: oxyCODONE 5 MG Tab PO PRN ×2 (11:35→17:52)
[2020-11-25] MEDS: Acetaminophen/oxyCODONE 325-5 MG Tab PO PRN ×2 (13:39→21:58)
--- NOTE | 2020-11-25 15:55 | PCM.PN ---
- General Info Date of Service: 11/25/20 Admission Dx/Problem (Free Text): Admission Diagnosis/Problem Admission Diagnosis/Problem Failure to thrive in adult Subjective Update: Patient complains of right shoulder pain and asks more pain medications. He would like to have acetaminophen/oxycodone 325-10 every 4 hours. Blood pressure 146/69, heart rate 88 Hemoglobin 80.8, hemoglobin A1c 5.9 CRP less than 0.2 Vitamin D 21.3 Explained to patient that she does not need treatment for her positive COVID-19 based on the guidelines. She agreed with that. - Review of Systems Systems Review Comment:: Positive for right shoulder pain. All other systems were reviewed and negative. - Patient Data Vitals - Most Recent: Last Vital Signs Temp 37.1 C 11/25/20 11:10 Pulse 84 11/25/20 11:10 Resp 18 11/25/20 11:10 BP 158/90 H 11/25/20 11:10 Pulse Ox 97 11/25/20 11:10 Weight - Most Recent: 95.073 kg I&O - Last 24 Hours: Intake & Output 11/25/20 11/25/20 11/25/20 06:59 14:59 22:59 Intake Total 400 320 Output Total 600 Balance -200 320 Lab Results Last 24 Hours: Laboratory Results - last 24 hr 11/24/20 11/24/20 11/24/20 Range/Units 17:25 19:47 19:47 WBC (3.98-10.04) K/mm3 RBC (3.98-5.22) M/mm3 Hgb (11.2-15.7) gm/dl Hct (34.1-44.9) % MCV (79.4-94.8) fl MCH (25.6-32.2) pg MCHC (32.2-35.5) g/dl RDW Std Deviation (36.4-46.3) fL Plt Count (182-369) K/mm3 MPV (9.4-12.3) fl Neut % (Auto) (34.0-71.1) % Lymph % (Auto) (19.3-51.7) % [place] % (Auto) (4.7-12.5) % Eos % (Auto) (0.7-5.8) Baso % (Auto) (0.1-1.2) % Neut # (Auto) (1.56-6.13) K/mm3 Lymph # (Auto) (1.18-3.74) K/mm3 [place] # (Auto) (0.24-0.36) K/mm3 Eos # (Auto) (0.04-0.36) K/mm3 Baso # (Auto) (0.01-0.08) K/mm3 Manual Slide Review Sodium (136-145) mEq/L Potassium (3.5-5.1) mEq/L Chloride (98-107) mEq/L Carbon Dioxide (21-32) mEq/L Anion Gap (5-15) BUN (7-18) mg/dL Creatinine (0.55-1.02) mg/dL Est Cr Clr Drug Dosing mL/min Estimated GFR (MDRD) (>60) mL/min BUN/Creatinine Ratio (14-18) Glucose (80-115) mg/dL Hemoglobin A1c ( - 5.6) % Calcium (8.5-10.1) mg/dL Magnesium 1.9 (1.8-2.4) mg/dl Ferritin (8-252) ng/ml Total Bilirubin (0.2-1.0) mg/dL AST (15-37) U/L ALT (14-59) U/L Alkaline Phosphatase (46-116) U/L Troponin I < 0.017 (0.00-0.056) ng/mL C-Reactive Protein <0.2 (<1.0) mg/dL Total Protein (6.4-8.2) g/dl Albumin (3.4-5.0) g/dl Globulin gm/dL Albumin/Globulin Ratio (1-2) Vitamin D 25-Hydroxy 21.3 L (30.0-100.0) ng/ml SARS-CoV-2 RNA (BEBE) Positive H (NEGATIVE) MRSA (PCR) 11/24/20 11/24/20 11/25/20 Range/Units 19:47 21:00 06:13 WBC 5.02 (3.98-10.04) K/mm3 RBC 3.37 L (3.98-5.22) M/mm3 Hgb 8.8 L D (11.2-15.7) gm/dl Hct 29.8 L (34.1-44.9) % MCV 88.4 D (79.4-94.8) fl MCH 26.1 (25.6-32.2) pg MCHC 29.5 L (32.2-35.5) g/dl RDW Std Deviation 47.2 H (36.4-46.3) fL Plt Count 309 (182-369) K/mm3 MPV 9.8 (9.4-12.3) fl Neut % (Auto) 53.5 (34.0-71.1) % Lymph % (Auto) 31.1 (19.3-51.7) % [place] % (Auto) 11.4 (4.7-12.5) % Eos % (Auto) 3.6 (0.7-5.8) Baso % (Auto) 0.2 (0.1-1.2) % Neut # (Auto) 2.69 (1.56-6.13) K/mm3 Lymph # (Auto) 1.56 (1.18-3.74) K/mm3 [place] # (Auto) 0.57 H (0.24-0.36) K/mm3 Eos # (Auto) 0.18 (0.04-0.36) K/mm3 Baso # (Auto) 0.01 (0.01-0.08) K/mm3 Manual Slide Review Abnormal smear Sodium (136-145) mEq/L Potassium (3.5-5.1) mEq/L Chloride (98-107) mEq/L Carbon Dioxide (21-32) mEq/L Anion Gap (5-15) BUN (7-18) mg/dL Creatinine (0.55-1.02) mg/dL Est Cr Clr Drug Dosing mL/min Estimated GFR (MDRD) (>60) mL/min BUN/Creatinine Ratio (14-18) Glucose (80-115) mg/dL Hemoglobin A1c 5.9 H ( - 5.6) % Calcium (8.5-10.1) mg/dL Magnesium (1.8-2.4) mg/dl Ferritin (8-252) ng/ml Total Bilirubin (0.2-1.0) mg/dL AST (15-37) U/L ALT (14-59) U/L Alkaline Phosphatase (46-116) U/L Troponin I (0.00-0.056) ng/mL C-Reactive Protein (<1.0) mg/dL Total Protein (6.4-8.2) g/dl Albumin (3.4-5.0) g/dl Globulin gm/dL Albumin/Globulin Ratio (1-2) Vitamin D 25-Hydroxy (30.0-100.0) ng/ml SARS-CoV-2 RNA (BEBE) (NEGATIVE) MRSA (PCR) Negative 11/25/20 11/25/20 Range/Units 06:13 06:13 WBC (3.98-10.04) K/mm3 RBC (3.98-5.22) M/mm3 Hgb (11.2-15.7) gm/dl Hct (34.1-44.9) % MCV (79.4-94.8) fl MCH (25.6-32.2) pg MCHC (32.2-35.5) g/dl RDW Std Deviation (36.4-46.3) fL Plt Count (182-369) K/mm3 MPV (9.4-12.3) fl Neut % (Auto) (34.0-71.1) % Lymph % (Auto) (19.3-51.7) % [place] % (Auto) (4.7-12.5) % Eos % (Auto) (0.7-5.8) Baso % (Auto) (0.1-1.2) % Neut # (Auto) (1.56-6.13) K/mm3 Lymph # (Auto) (1.18-3.74) K/mm3 [place] # (Auto) (0.24-0.36) K/mm3 Eos # (Auto) (0.04-0.36) K/mm3 Baso # (Auto) (0.01-0.08) K/mm3 Manual Slide Review Sodium 145 (136-145) mEq/L Potassium 3.5 (3.5-5.1) mEq/L Chloride 109 H (98-107) mEq/L Carbon Dioxide 24 (21-32) mEq/L Anion Gap 15.5 H (5-15) BUN 13 (7-18) mg/dL Creatinine 0.7 (0.55-1.02) mg/dL Est Cr Clr Drug Dosing 67.34 mL/min Estimated GFR (MDRD) > 60 (>60) mL/min BUN/Creatinine Ratio 18.6 H (14-18) Glucose 88 (80-115) mg/dL Hemoglobin A1c ( - 5.6) % Calcium 8.8 (8.5-10.1) mg/dL Magnesium (1.8-2.4) mg/dl Ferritin 58 (8-252) ng/ml Total Bilirubin 0.3 (0.2-1.0) mg/dL AST 67 H (15-37) U/L ALT 42 (14-59) U/L Alkaline Phosphatase 146 H (46-116) U/L Troponin I (0.00-0.056) ng/mL C-Reactive Protein (<1.0) mg/dL Total Protein 6.5 (6.4-8.2) g/dl Albumin 2.8 L (3.4-5.0) g/dl Globulin 3.7 gm/dL Albumin/Globulin Ratio 0.8 L (1-2) Vitamin D 25-Hydroxy (30.0-100.0) ng/ml SARS-CoV-2 RNA (BEBE) (NEGATIVE) MRSA (PCR) Med Orders - Current: Current Medications Acetaminophen (Tylenol) 650 mg PO Q6H PRN PRN Reason: Pain (Mild 1-3)/fever Last Admin: 11/25/20 10:16 Dose: 650 mg Documented by: Albuterol/Ipratropium (Duoneb 3.0-0.5 Mg/3 Ml) 3 ml NEB Q4H PRN PRN Reason: Shortness Of Breath/wheezing Amlodipine Besylate (Norvasc) 2.5 mg PO DAILY [facility] Last Admin: 11/25/20 10:17 Dose: Not Given Documented by: Aspirin (Aspirin) 81 mg PO DAILY [facility] Last Admin: 11/25/20 09:13 Dose: 81 mg Documented by: Atenolol (Tenormin) 100 mg PO DAILY [facility] Last Admin: 11/25/20 09:14 Dose: 100 mg Documented by: Baclofen (Lioresal) 10 mg PO TID [facility] Last Admin: 11/25/20 09:11 Dose: 10 mg Documented by: Docusate Sodium (Colace) 100 mg PO BID PRN PRN Reason: Constipation Enoxaparin Sodium (Lovenox) 40 mg SUBCUT DAILY [facility] Last Admin: 11/25/20 10:28 Dose: Not Given Documented by: Gabapentin (Neurontin) 600 mg PO QID [facility] Last Admin: 11/25/20 13:40 Dose: 600 mg Documented by: Hydralazine HCl (Apresoline) 10 mg IVPUSH Q4H PRN PRN Reason: Hypertension Hydrochlorothiazide (Hydrochlorothiazide) 50 mg PO DAILY [facility] Last Admin: 11/25/20 09:16 Dose: 50 mg Documented by: Promethazine HCl 12.5 mg/ (Sodium Chloride) 50.5 mls @ 100 mls/hr IV Q6H PRN PRN Reason: Nausea/Vomiting Morphine Sulfate (Morphine) 2 mg IVPUSH Q4H PRN PRN Reason: Pain (severe 7-10) Stop: 11/25/20 19:25 Last Admin: 11/25/20 06:12 Dose: 2 mg Documented by: Oxycodone HCl (Oxycodone) 5 mg PO Q8H PRN PRN Reason: Pain (moderate 4-6) Last Admin: 11/25/20 13:40 Dose: 5 mg Documented by: Oxycodone/Acetaminophen (Percocet 325-5 Mg) 1 tab PO Q8H PRN PRN Reason: Pain (moderate 4-6) Last Admin: 11/25/20 13:39 Dose: 1 tab Documented by: Polysaccharide Iron Complex (Ferrex 150) 150 mg PO DAILY [facility] Last Admin: 11/25/20 10:17 Dose: 150 mg Documented by: Zolpidem Tartrate (Ambien) 10 mg PO BEDTIME PRN PRN Reason: Sleep Last Admin: 11/25/20 00:20 Dose: 10 mg Documented by: Discontinued Medications Non-Formulary Medication (Alendronate) 70 mg PO WEEKLY [facility] Oxycodone HCl (Oxycodone) 5 mg PO Q6H PRN PRN Reason: Pain (moderate 4-6) Last Admin: 11/25/20 09:11 Dose: 5 mg Documented by: - Exam Physical Findings Comments:: Physical Exam: General: No acute distress HEENT: Conjunctiva Clear, EOMI, Mucosa Moist & [place] Neck: Supple, Trachea Midline, NO JVD Lungs: CTA, normal Respiratory Effort, no Wheezing Cardiovascular: Regular Rate, Regular Rhythm GI/Abdominal Exam: Normal Bowel Sounds, Soft, Non-Tender, No Organomegaly, No Distention, No Abnormal Bruit, No Mass Extremities: Right shoulder in a sling and limited range of motion. Left leg amputated. Skin: Warm, Dry, Intact Neurology: A+O x 3, no focal neurological deficits Psychiatric: Normal Mood Sepsis Event Note - Evaluation Sepsis Screening Result: No Definite Risk - Focused Exam Vital Signs: Vital Signs Temp Pulse Resp BP Pulse Ox 11/25/20 11:10 37.1 C 84 18 158/90 H 97 11/25/20 10:17 146/69 H 11/25/20 09:14 88 146/69 H 11/25/20 07:16 37.1 C 88 14 146/69 H 95 - Problem List Review Problem List Initiated/Reviewed/Updated: Yes - My Orders Last 24 Hours: My Active Orders 11/24/20 Dinner Consistent Carbohydrate Diet [DIET] 11/24/20 19:23 Bedrest Bedside Commode [RC] 10,22 Intake and Output [RC] 04,16 Oxygen Therapy [RC] PRN VTE/DVT Education [RC] DAILY Vital Signs [RC] Q4HR Acetaminophen [TylenoL] 650 mg PO Q6H PRN Albuterol/Ipratropium [DuoNeb 3.0-0.5 MG/3 ML] 3 ml NEB Q4H PRN Docusate Sodium [Colace] 100 mg PO BID PRN Morphine 2 mg IVPUSH Q4H PRN Promethazine [Phenergan] 12.5 mg Sodium Chloride 0.9% [Normal Saline] 50 ml IV Q6H Resuscitation Status Routine 11/24/20 19:26 RT Aerosol Therapy [RC] ASDIRECTED OT Evaluation and Treatment [CONS] Routine PT Evaluation and Treatment [CONS] Routine 11/24/20 19:32 Pulse Oximetry Continuous Monitoring [OM.PC] Routine 11/24/20 19:33 Zolpidem [Ambien] 10 mg PO BEDTIME PRN 11/24/20 19:35 hydrALAZINE [Apresoline] 10 mg IVPUSH Q4H PRN 11/24/20 19:47 PROCALCITONIN [REF] Urgent 11/24/20 21:00 Baclofen [Lioresal] 10 mg PO TID Gabapentin [Neurontin] 600 mg PO QID 11/24/20 22:14 Peripheral IV Insertion Adult [OM.PC] Routine 11/25/20 09:00 Aspirin 81 mg PO DAILY atenoloL [Tenormin] 100 mg PO DAILY hydroCHLOROthiazide 50 mg PO DAILY 11/25/20 10:00 Enoxaparin [Lovenox] 40 mg SUBCUT DAILY Iron Polysaccharides Complex [Ferrex 150] 150 mg PO DAILY amLODIPine [Norvasc] 2.5 mg PO DAILY 11/25/20 11:34 Acetaminophen/oxyCODONE [Percocet 325-5 MG] 1 tab PO Q8H PRN 11/25/20 11:35 oxyCODONE 5 mg PO Q8H PRN 11/26/20 05:00 CBC WITH AUTO DIFF [HEME] DAILY COMPREHENSIVE METABOLIC PN,CMP [CHEM] DAILY 11/27/20 05:00 CBC WITH AUTO DIFF [HEME] DAILY COMPREHENSIVE METABOLIC PN,CMP [CHEM] DAILY 11/28/20 05:00 CBC WITH AUTO DIFF [HEME] DAILY COMPREHENSIVE METABOLIC PN,CMP [CHEM] DAILY - Plan Plan:: Assessment and plan: 1. Self care deficit PT OT 2. S/p right total should replacement in 10/[address] Mejia in [place] Follow with Dr. Reed pain management: Acetaminophen/oxycodone (325-10) Q8hrs prn Morphine 2mg iv Q4h prn Baclofen 10mg tid Gabapentin 600mg Qid Home fentanyl patch and oxycodone 5mg Q4hrs are on hold 3. HTN Continue home medication 4. Hepatitis C Repeat liver function in morning 5. Covid 19 positive Patient is on room air with good oxygen saturation Chest x-ray -no acute change CRP less than 0.2 I did not order D-dimer due to recent surgery Troponin negative I did not order remdesivir, steroid or anticoagulation at this moment Continue home aspirin 6. DVT prophylaxis: Lovenox 7. Vitamin D insufficiency Vitamin D 8. Prediabetes? Hemoglobin A1c 5.9 Diabetic diet Deposition: SNF placement [facility] refused her
[2020-11-26] MEDS: Zolpidem 10 MG Tab PO PRN ×2 (00:54→22:45)
[2020-11-26] MEDS: Acetaminophen/oxyCODONE 325-5 MG Tab PO PRN (08:19)
[2020-11-26] MEDS: Iron Polysaccharides Complex 150 MG Cap PO SCH (08:20)
[2020-11-26] MEDS: Aspirin 81 MG Tab.Chew PO SCH (08:20)
[2020-11-26] MEDS: Hydrochlorothiazide 25 MG Tab PO SCH (08:20)
[2020-11-26] MEDS: Gabapentin 600 MG Tab PO SCH ×4 (08:20→20:21)
[2020-11-26] MEDS: Acetaminophen 325 MG Tab PO PRN (08:20)
[2020-11-26] MEDS: Baclofen 10 MG Tab PO SCH ×3 (08:20→20:20)
[2020-11-26] MEDS: amLODIPine 2.5 MG Tab PO SCH (08:20)
[2020-11-26] MEDS: Atenolol 50 MG Tab PO SCH (08:20)
[2020-11-26] MEDS: Enoxaparin 40 MG/0.4 ML Syringe SUBCUT SCH (08:21)
--- NOTE | 2020-11-26 10:57 | PCM.PN ---
- General Info Date of Service: 11/26/20 Admission Dx/Problem (Free Text): Admission Diagnosis/Problem Admission Diagnosis/Problem Failure to thrive in adult Subjective Update: Patient denies any significant pain this morning. She states she is feeling well, eating well, and states that she just cannot take care of her self. Functional Status: Reports: Pain Controlled - Review of Systems General: Reports: No Symptoms HEENT: Reports: No Symptoms Pulmonary: Reports: No Symptoms Cardiovascular: Reports: No Symptoms Gastrointestinal: Reports: No Symptoms Musculoskeletal: Reports: Joint Swelling Skin: Reports: No Symptoms Psychiatric: Reports: No Symptoms - Patient Data Vitals - Most Recent: Last Vital Signs Temp 98.1 F 11/26/20 08:18 Pulse 79 11/26/20 08:20 Resp 18 11/26/20 08:18 BP 126/64 11/26/20 08:20 Pulse Ox 92 L 11/26/20 08:18 Weight - Most Recent: 217 lb 9.6 oz I&O - Last 24 Hours: Intake & Output 11/25/20 11/26/20 11/26/20 22:59 06:59 14:59 Intake Total 1360 600 Output Total 1200 1300 Balance 160 -700 Lab Results Last 24 Hours: Laboratory Results - last 24 hr 11/24/20 11/26/20 11/26/20 Range/Units 19:47 05:56 05:56 WBC 6.04 (3.98-10.04) K/mm3 RBC 3.60 L (3.98-5.22) M/mm3 Hgb 9.5 L (11.2-15.7) gm/dl Hct 31.7 L (34.1-44.9) % MCV 88.1 (79.4-94.8) fl MCH 26.4 (25.6-32.2) pg MCHC 30.0 L (32.2-35.5) g/dl RDW Std Deviation 47.7 H (36.4-46.3) fL Plt Count 321 (182-369) K/mm3 MPV 9.8 (9.4-12.3) fl Neut % (Auto) 57.2 (34.0-71.1) % Lymph % (Auto) 30.5 (19.3-51.7) % Mcleod % (Auto) 8.3 (4.7-12.5) % Eos % (Auto) 3.5 (0.7-5.8) Baso % (Auto) 0.3 (0.1-1.2) % Neut # (Auto) 3.46 (1.56-6.13) K/mm3 Lymph # (Auto) 1.84 (1.18-3.74) K/mm3 Mcleod # (Auto) 0.50 H (0.24-0.36) K/mm3 Eos # (Auto) 0.21 (0.04-0.36) K/mm3 Baso # (Auto) 0.02 (0.01-0.08) K/mm3 Sodium 144 (136-145) mEq/L Potassium 3.6 (3.5-5.1) mEq/L Chloride 108 H (98-107) mEq/L Carbon Dioxide 25 (21-32) mEq/L Anion Gap 14.6 (5-15) BUN 19 H (7-18) mg/dL Creatinine 0.9 (0.55-1.02) mg/dL Est Cr Clr Drug Dosing 52.38 mL/min Estimated GFR (MDRD) > 60 (>60) mL/min BUN/Creatinine Ratio 21.1 H (14-18) Glucose 93 (80-115) mg/dL Calcium 9.3 (8.5-10.1) mg/dL Total Bilirubin 0.3 (0.2-1.0) mg/dL AST 75 H (15-37) U/L ALT 47 (14-59) U/L Alkaline Phosphatase 160 H (46-116) U/L Total Protein 7.1 (6.4-8.2) g/dl Albumin 3.1 L (3.4-5.0) g/dl Globulin 4.0 gm/dL Albumin/Globulin Ratio 0.8 L (1-2) Procalcitonin <0.05 ng/mL Med Orders - Current: Current Medications Acetaminophen (Tylenol) 650 mg PO Q6H PRN PRN Reason: Pain (Mild 1-3)/fever Last Admin: 11/26/20 08:20 Dose: 650 mg Documented by: Albuterol/Ipratropium (Duoneb 3.0-0.5 Mg/3 Ml) 3 ml NEB Q4H PRN PRN Reason: Shortness Of Breath/wheezing Amlodipine Besylate (Norvasc) 2.5 mg PO DAILY [facility] Last Admin: 11/26/20 08:20 Dose: 2.5 mg Documented by: Aspirin (Aspirin) 81 mg PO DAILY [facility] Last Admin: 11/26/20 08:20 Dose: 81 mg Documented by: Atenolol (Tenormin) 100 mg PO DAILY [facility] Last Admin: 11/26/20 08:20 Dose: 100 mg Documented by: Baclofen (Lioresal) 10 mg PO TID [facility] Last Admin: 11/26/20 08:20 Dose: 10 mg Documented by: Docusate Sodium (Colace) 100 mg PO BID PRN PRN Reason: Constipation Enoxaparin Sodium (Lovenox) 40 mg SUBCUT DAILY [facility] Last Admin: 11/26/20 08:21 Dose: 40 mg Documented by: Gabapentin (Neurontin) 600 mg PO QID [facility] Last Admin: 11/26/20 08:20 Dose: 600 mg Documented by: Hydralazine HCl (Apresoline) 10 mg IVPUSH Q4H PRN PRN Reason: Hypertension Hydrochlorothiazide (Hydrochlorothiazide) 50 mg PO DAILY [facility] Last Admin: 11/26/20 08:20 Dose: 50 mg Documented by: Promethazine HCl 12.5 mg/ (Sodium Chloride) 50.5 mls @ 100 mls/hr IV Q6H PRN PRN Reason: Nausea/Vomiting Oxycodone HCl (Oxycodone) 5 mg PO Q8H PRN PRN Reason: Pain Last Admin: 11/25/20 21:58 Dose: 5 mg Documented by: Oxycodone/Acetaminophen (Percocet 325-5 Mg) 1 tab PO Q8H PRN PRN Reason: Pain (moderate 4-6) Last Admin: 11/26/20 08:19 Dose: 1 tab Documented by: Polysaccharide Iron Complex (Ferrex 150) 150 mg PO DAILY [facility] Last Admin: 11/26/20 08:20 Dose: 150 mg Documented by: Zolpidem Tartrate (Ambien) 10 mg PO BEDTIME PRN PRN Reason: Sleep Last Admin: 11/26/20 00:54 Dose: 10 mg Documented by: Discontinued Medications Morphine Sulfate (Morphine) 2 mg IVPUSH Q4H PRN PRN Reason: Pain (severe 7-10) Stop: 11/25/20 19:25 Last Admin: 11/25/20 06:12 Dose: 2 mg Documented by: Non-Formulary Medication (Alendronate) 70 mg PO WEEKLY [facility] Oxycodone HCl (Oxycodone) 5 mg PO Q6H PRN PRN Reason: Pain (moderate 4-6) Last Admin: 11/25/20 09:11 Dose: 5 mg Documented by: Oxycodone HCl (Oxycodone) 5 mg PO Q8H PRN PRN Reason: Pain (moderate 4-6) Last Admin: 11/25/20 13:40 Dose: 5 mg Documented by: - Exam Quality Assessment: No: Supplemental Oxygen General: Alert, Oriented HEENT: Pupils Equal, Mucous Membr. Moist/[place] Neck: Supple Lungs: Clear to Auscultation, Normal Respiratory Effort Cardiovascular: Regular Rate, Regular Rhythm GI/Abdominal Exam: Normal Bowel Sounds, Soft, Non-Tender, No Organomegaly, No Distention, No Abnormal Bruit, No Mass Extremities: Normal Inspection, Normal Range of Motion, Non-Tender, No Pedal Edema, Normal Capillary Refill Skin: Warm, Dry, Intact Psy/Mental Status: Alert, Normal Affect, Normal Mood Sepsis Event Note - Evaluation Sepsis Screening Result: No Definite Risk - Focused Exam Vital Signs: Vital Signs Temp Pulse Resp BP Pulse Ox 11/26/20 08:20 79 126/64 11/26/20 08:18 98.1 F 79 18 126/64 92 L 11/26/20 03:29 83 94 L 11/26/20 03:23 97.9 F 16 155/79 H 11/25/20 23:27 98.8 F 79 16 130/72 100 - Problem List & Annotations (1) Unable to care for self SNOMED Code(s): 831051140, 370399027 Code(s): Z78.9 - OTHER SPECIFIED HEALTH STATUS Status: Acute Current Visit: Yes - Problem List Review Problem List Initiated/Reviewed/Updated: Yes - Plan Plan:: November 25, 2020 Assessment and plan: 1. Self care deficit PT OT 2. S/p right total should replacement in 10/[address] Mejia in [place] Follow with Dr. Reed pain management: Acetaminophen/oxycodone (325-10) Q8hrs prn Morphine 2mg iv Q4h prn Baclofen 10mg tid Gabapentin 600mg Qid Home fentanyl patch and oxycodone 5mg Q4hrs are on hold 3. HTN Continue home medication 4. Hepatitis C Repeat liver function in morning 5. Covid 19 positive Patient is on room air with good oxygen saturation Chest x-ray -no acute change CRP less than 0.2 I did not order D-dimer due to recent surgery Troponin negative I did not order remdesivir, steroid or anticoagulation at this moment Continue home aspirin 6. DVT prophylaxis: Lovenox 7. Vitamin D insufficiency Vitamin D 8. Prediabetes? Hemoglobin A1c 5.9 Diabetic diet Deposition: SNF placement [facility] refused her November 26, 2020 1. Self care deficit PT OT 2. S/p right total should replacement in 10/[address] Mejia in [place] Follow with Dr. Reed pain management: Stop Acetaminophen/oxycodone (325-10) Q8hrs prn Stop Morphine 2mg iv Q4h prn Baclofen 10mg tid Gabapentin 600mg Qid Stop fentanyl patch oxycodone 5mg Q4hrs are on hold 3. HTN Continue home medication 4. Hepatitis C Repeat liver function in morning 5. Covid 19 positive Patient is on room air with good oxygen saturation Chest x-ray -no acute change CRP less than 0.2 I did not order D-dimer due to recent surgery Troponin negative I did not order remdesivir, steroid or anticoagulation at this moment Continue home aspirin 6. DVT prophylaxis: Lovenox 7. Vitamin D insufficiency Vitamin D 5000 units daily 8. Prediabetes? Hemoglobin A1c 5.9 Diabetic diet Deposition: SNF placement [facility] after 10 days of quarantine at our facility
[2020-11-26] MEDS: oxyCODONE 5 MG Tab PO PRN ×2 (15:33→19:38)
[2020-11-26] MEDS: Acetaminophen 325 MG Tab PO SCH ×2 (15:34→19:39)
[2020-11-26] MEDS ORDERED: Ketorolac 15 MG/ML SDV IVPUSH PRN (17:45)
[2020-11-27] MEDS: oxyCODONE 5 MG Tab PO PRN ×4 (02:10→21:14)
[2020-11-27] MEDS: Acetaminophen 325 MG Tab PO SCH ×4 (02:10→21:16)
[2020-11-27] MEDS: Hydrochlorothiazide 25 MG Tab PO SCH (09:27)
[2020-11-27] MEDS: Enoxaparin 40 MG/0.4 ML Syringe SUBCUT SCH (09:27)
[2020-11-27] MEDS: Aspirin 81 MG Tab.Chew PO SCH (09:27)
[2020-11-27] MEDS: amLODIPine 2.5 MG Tab PO SCH (09:28)
[2020-11-27] MEDS: Atenolol 50 MG Tab PO SCH (09:29)
[2020-11-27] MEDS: Iron Polysaccharides Complex 150 MG Cap PO SCH (09:31)
[2020-11-27] MEDS: Gabapentin 600 MG Tab PO SCH ×4 (09:31→21:16)
[2020-11-27] MEDS: Baclofen 10 MG Tab PO SCH ×3 (09:31→21:16)
--- NOTE | 2020-11-27 09:57 | PCM.PN ---
- General Info Date of Service: 11/27/20 Admission Dx/Problem (Free Text): Admission Diagnosis/Problem Admission Diagnosis/Problem Failure to thrive in adult Subjective Update: 55-year-old female with right total shoulder replacement in [place] by Dr. Reed 1 month ago left assisted living in [facility] and then presented to our hospital because she could not take care of her self. She was planning on going to [facility], but when she became positive for COVID-19 she was admitted to our hospital. Patient is not receiving any treatment for her COVID-19. She is getting currently oxycodone and Tylenol for pain. She is getting scheduled Tylenol every 6 hours and oxycodone 5 mg every 4 hours. On review of her admission H&P there was no mention of severe pain. It does mention mild pain. Patient apparently had fentanyl 25 mcg/h patch as a home medication but that was not renewed here. Also, I ordered Toradol 15 mg every 6 hours as needed pain yesterday which she never received overnight. Patient is very distraught about her pain this morning. I did change her oxycodone to 5 mg every 4 hours as needed from the oxycodone 5 mg every 8 hours and Percocet 5 mg every 8 hours. Apparently she was taking the Percocet and the oxycodone all at 1 time. Nursing reported to me yesterday that she was not getting good pain control with that combination. It sounds like she was having short time of some pain relief followed by no pain relief. The plan was to spread out her narcotic medication to improve her overall pain with scheduled Tylenol. Also, the plan yesterday was for her to get Toradol if she had breakthrough pain. Unknown to me why she did not get Toradol if she was crying when I walked in this morning secondary to pain. The situation was brought up to the charge nurse this morning. Patient would like to voice a formal complaint because of her lack of pain control. Patient advocate will be contacted for her. I tried to be very careful in what I would promise the patient secondary to her history of opioid dependence, alcohol abuse, and substance abuse. I recognize she could still be in severe pain, but I did not want to promise her treatment I was not able to give her. I also wanted to get down to why she did not get her Toradol injection if she was in that much pain. I elected not to ask her directly because she was very upset and I had concerned that it would make her even more upset. I requested a consult by Dr. Smith in our orthopedics department since this is pain secondary to an orthopedic procedure and I would like a specialist in that discipline to help me with this difficult situation. Functional Status: Denies: Pain Controlled - Review of Systems General: Reports: No Symptoms HEENT: Reports: No Symptoms Pulmonary: Reports: No Symptoms Cardiovascular: Reports: No Symptoms Gastrointestinal: Reports: No Symptoms Musculoskeletal: Reports: No Symptoms Neurological: Reports: No Symptoms Psychiatric: Reports: No Symptoms - Patient Data Vitals - Most Recent: Last Vital Signs Temp 97.9 F 11/27/20 04:23 Pulse 93 11/27/20 08:47 Resp 16 11/27/20 08:47 BP 155/85 H 11/27/20 08:47 Pulse Ox 96 11/27/20 08:47 Weight - Most Recent: 214 lb 6.4 oz I&O - Last 24 Hours: Intake & Output 11/26/20 11/27/20 11/27/20 22:59 06:59 14:59 Intake Total 1140 800 Output Total 800 1450 Balance 340 -650 Med Orders - Current: Current Medications Acetaminophen (Tylenol) 650 mg PO Q6H [facility] Albuterol/Ipratropium (Duoneb 3.0-0.5 Mg/3 Ml) 3 ml NEB Q4H PRN PRN Reason: Shortness Of Breath/wheezing Amlodipine Besylate (Norvasc) 2.5 mg PO DAILY [facility] Last Admin: 11/26/20 08:20 Dose: 2.5 mg Documented by: Aspirin (Aspirin) 81 mg PO DAILY [facility] Last Admin: 11/26/20 08:20 Dose: 81 mg Documented by: Atenolol (Tenormin) 100 mg PO DAILY [facility] Last Admin: 11/26/20 08:20 Dose: 100 mg Documented by: Baclofen (Lioresal) 10 mg PO TID [facility] Last Admin: 11/26/20 20:20 Dose: 10 mg Documented by: Diclofenac Sodium (Voltaren 1% Gel) 2 gm TOP QID PRN PRN Reason: Pain Docusate Sodium (Colace) 100 mg PO BID PRN PRN Reason: Constipation Enoxaparin Sodium (Lovenox) 40 mg SUBCUT DAILY [facility] Last Admin: 11/26/20 08:21 Dose: 40 mg Documented by: Gabapentin (Neurontin) 600 mg PO QID [facility] Last Admin: 11/26/20 20:21 Dose: 600 mg Documented by: Hydralazine HCl (Apresoline) 10 mg IVPUSH Q4H PRN PRN Reason: Hypertension Hydrochlorothiazide (Hydrochlorothiazide) 50 mg PO DAILY [facility] Last Admin: 11/26/20 08:20 Dose: 50 mg Documented by: Promethazine HCl 12.5 mg/ (Sodium Chloride) 50.5 mls @ 100 mls/hr IV Q6H PRN PRN Reason: Nausea/Vomiting Ketorolac Tromethamine (Toradol) 15 mg IVPUSH Q6H PRN PRN Reason: Pain (severe 7-10) Oxycodone HCl (Oxycodone) 5 mg PO Q4H PRN PRN Reason: Pain (moderate 4-6) Last Admin: 11/27/20 06:44 Dose: 5 mg Documented by: Polysaccharide Iron Complex (Ferrex 150) 150 mg PO DAILY [facility] Last Admin: 11/26/20 08:20 Dose: 150 mg Documented by: Zolpidem Tartrate (Ambien) 10 mg PO BEDTIME PRN PRN Reason: Sleep Last Admin: 11/26/20 22:45 Dose: 10 mg Documented by: Discontinued Medications Acetaminophen (Tylenol) 650 mg PO Q6H PRN PRN Reason: Pain (Mild 1-3)/fever Last Admin: 11/26/20 08:20 Dose: 650 mg Documented by: Acetaminophen (Tylenol) 650 mg PO Q6H [facility] Last Admin: 11/27/20 02:10 Dose: 650 mg Documented by: Morphine Sulfate (Morphine) 2 mg IVPUSH Q4H PRN PRN Reason: Pain (severe 7-10) Stop: 11/25/20 19:25 Last Admin: 11/25/20 06:12 Dose: 2 mg Documented by: Non-Formulary Medication (Alendronate) 70 mg PO WEEKLY [facility] Oxycodone HCl (Oxycodone) 5 mg PO Q6H PRN PRN Reason: Pain (moderate 4-6) Last Admin: 11/25/20 09:11 Dose: 5 mg Documented by: Oxycodone HCl (Oxycodone) 5 mg PO Q8H PRN PRN Reason: Pain (moderate 4-6) Last Admin: 11/25/20 13:40 Dose: 5 mg Documented by: Oxycodone HCl (Oxycodone) 5 mg PO Q8H PRN PRN Reason: Pain Last Admin: 11/25/20 21:58 Dose: 5 mg Documented by: Oxycodone/Acetaminophen (Percocet 325-5 Mg) 1 tab PO Q8H PRN PRN Reason: Pain (moderate 4-6) Last Admin: 11/26/20 08:19 Dose: 1 tab Documented by: - Exam Quality Assessment: No: Supplemental Oxygen General: Alert, Oriented HEENT: Pupils Equal, Mucous Membr. Moist/[place] Neck: Supple Lungs: Clear to Auscultation, Normal Respiratory Effort Cardiovascular: Regular Rate, Regular Rhythm GI/Abdominal Exam: Normal Bowel Sounds, Soft, Non-Tender, No Distention Extremities: Other (Physical therapy working with her when I was present.) Skin: Warm, Dry, Intact Wound/Incisions: Healing Well Psy/Mental Status: Alert, Agitated Sepsis Event Note - Evaluation Sepsis Screening Result: No Definite Risk - Focused Exam Vital Signs: Vital Signs Temp Pulse Resp BP Pulse Ox 11/27/20 08:47 93 16 155/85 H 96 11/27/20 04:23 97.9 F 80 16 141/77 H 11/26/20 23:05 98.2 F 18 129/53 L - Problem List & Annotations (1) Unable to care for self SNOMED Code(s): 001841392, 251624480 Code(s): Z78.9 - OTHER SPECIFIED HEALTH STATUS Status: Acute Current Visit: Yes (2) COVID-19 SNOMED Code(s): 980914652 Code(s): U07.1 - COVID-19 Status: Acute Current Visit: Yes (3) Acute postoperative pain of right shoulder SNOMED Code(s): 79989809 Code(s): G89.18 - OTHER ACUTE POSTPROCEDURAL PAIN; M25.511 - PAIN IN RIGHT SHOULDER Status: Acute Current Visit: Yes - Problem List Review Problem List Initiated/Reviewed/Updated: Yes - My Orders Last 24 Hours: My Active Orders 11/26/20 11:23 Admission Status [Patient Status] [ADT] Routine 11/26/20 14:28 Diclofenac Sodium [Voltaren 1% Gel] 2 gm TOP QID PRN oxyCODONE 5 mg PO Q4H PRN 11/26/20 17:45 Ketorolac [Toradol] 15 mg IVPUSH Q6H PRN 11/27/20 09:00 Acetaminophen [TylenoL] 650 mg PO Q6H 11/27/20 09:30 Consult to Physician [CONS] Routine 11/27/20 09:31 Notify Provider Consults [RC] ASDIRECTED - Plan Plan:: November 25, 2020 Assessment and plan: 1. Self care deficit PT OT 2. S/p right total should replacement in 10/[address] Mejia in [place] Follow with Dr. Reed pain management: Acetaminophen/oxycodone (325-10) Q8hrs prn Morphine 2mg iv Q4h prn Baclofen 10mg tid Gabapentin 600mg Qid Home fentanyl patch and oxycodone 5mg Q4hrs are on hold 3. HTN Continue home medication 4. Hepatitis C Repeat liver function in morning 5. Covid 19 positive Patient is on room air with good oxygen saturation Chest x-ray -no acute change CRP less than 0.2 I did not order D-dimer due to recent surgery Troponin negative I did not order remdesivir, steroid or anticoagulation at this moment Continue home aspirin 6. DVT prophylaxis: Lovenox 7. Vitamin D insufficiency Vitamin D 8. Prediabetes? Hemoglobin A1c 5.9 Diabetic diet Deposition: SNF placement [facility] refused her November 26, 2020 1. Self care deficit PT OT 2. S/p right total should replacement in 10/[address] Mejia in [place] Follow with Dr. Reed pain management: Stop Acetaminophen/oxycodone (325-10) Q8hrs prn Stop Morphine 2mg iv Q4h prn Baclofen 10mg tid Gabapentin 600mg Qid Stop fentanyl patch oxycodone 5mg Q4hrs are on hold 3. HTN Continue home medication 4. Hepatitis C Repeat liver function in morning 5. Covid 19 positive Patient is on room air with good oxygen saturation Chest x-ray -no acute change CRP less than 0.2 I did not order D-dimer due to recent surgery Troponin negative I did not order remdesivir, steroid or anticoagulation at this moment Continue home aspirin 6. DVT prophylaxis: Lovenox 7. Vitamin D insufficiency Vitamin D 5000 units daily 8. Prediabetes? Hemoglobin A1c 5.9 Diabetic diet Deposition: SNF placement [facility] after 10 days of quarantine at our facility 11/27/2020 1. Self care deficit secondary to right shoulder surgery. PT OT 2. S/p right total should replacement in 10/[address] Mejia in [place] Follow with Dr. Reed after discharge Request Dr. Smith and orthopedics to evaluate patient and her pain. Making sure she gets appropriate therapy and pain control. pain management: Patient started on oxycodone 5 mg every 4 hours as needed, Tylenol 650 mg every 6 hours scheduled, and Toradol 15 mg IV every 6 hours as needed. Patient states she still not getting appropriate pain control. Fentanyl patch will be restarted at 25 mcg/h. Patient did still have a fentanyl patch on as of this morning. It was likely over 3 days. 3. HTN Continue home medication 4. Hepatitis C Repeat liver function in morning Continue following liver function panel. Concerned that there is a slight in crease in AST and alk phos today with the scheduled Tylenol. Tylenol may need to be stopped or decreased. She is only getting 2600 mg of Tylenol daily at this time. 5. Covid 19 positiveno change On room air 6. DVT prophylaxis: Lovenox 7. Vitamin D insufficiency Vitamin D 5000 units daily 8. Prediabetes? Hemoglobin A1c 5.9 Diabetic diet Deposition: SNF placement [facility] after 10 days of quarantine at our facility Length of stay greater than 96 hours secondary to being quarantined in our facility because the local nursing [facility] will not take a Covid positive patient before 10 days.
[2020-11-27] MEDS: fentaNYL 25 MCG/HR Transdermal Patch TRDERM SCH (10:06)
--- NOTE | 2020-11-27 14:30 | CR ---
Right shoulder: 3 views of the right shoulder were obtained. Comparison: Previous right shoulder MRI of 01/17/18. Right shoulder prosthesis is noted. Components are aligned. Underlying bony structures show slight degenerative change within the acromioclavicular joint. No acute osseous finding is appreciated. Impression: 1. Right shoulder prosthesis. 2. Other findings as noted above which are not acute. Diagnostic code #2
[2020-11-27] MEDS ORDERED: MELOXICAM 7.5 MG PO SCH (15:15)
[2020-11-27] MEDS: Diclofenac Sodium 1% Gel 100 GM Tube TOP PRN (15:47)
[2020-11-27] MEDS ORDERED: Ketorolac 15 MG/ML SDV IVPUSH PRN (17:01)
[2020-11-27] MEDS: Pantoprazole 40 MG Tab.CR PO SCH (21:16)
[2020-11-27] MEDS: Zolpidem 10 MG Tab PO PRN (21:23)
[2020-11-28] MEDS: Acetaminophen 325 MG Tab PO SCH ×4 (03:53→20:42)
[2020-11-28] MEDS: oxyCODONE 5 MG Tab PO PRN ×5 (03:56→20:43)
[2020-11-28] MEDS: Enoxaparin 40 MG/0.4 ML Syringe SUBCUT SCH (08:01)
[2020-11-28] MEDS: Atenolol 50 MG Tab PO SCH (08:02)
[2020-11-28] MEDS: amLODIPine 2.5 MG Tab PO SCH (08:03)
[2020-11-28] MEDS: Baclofen 10 MG Tab PO SCH ×3 (08:03→20:43)
[2020-11-28] MEDS: Hydrochlorothiazide 25 MG Tab PO SCH (08:03)
[2020-11-28] MEDS: Aspirin 81 MG Tab.Chew PO SCH (08:03)
[2020-11-28] MEDS: Gabapentin 600 MG Tab PO SCH ×4 (08:03→20:43)
[2020-11-28] MEDS: Iron Polysaccharides Complex 150 MG Cap PO SCH (08:03)
[2020-11-28] MEDS: Pantoprazole 40 MG Tab.CR PO SCH ×2 (08:03→20:41)
--- NOTE | 2020-11-28 08:50 | PCM.PN ---
- General Info Date of Service: 11/28/20 Admission Dx/Problem (Free Text): Admission Diagnosis/Problem Admission Diagnosis/Problem Failure to thrive in adult Subjective Update: Patient states that her pain is improving but her leg on her right side is still painful. Patient states that the right leg, her only leg, is tender all over and she notices it when they help her move or ambulate. Any pressure is moderately painful. Functional Status: Reports: Pain Controlled - Review of Systems General: Reports: No Symptoms HEENT: Reports: No Symptoms Pulmonary: Reports: No Symptoms Cardiovascular: Reports: No Symptoms Gastrointestinal: Reports: No Symptoms Musculoskeletal: Reports: Leg Pain - Patient Data Vitals - Most Recent: Last Vital Signs Temp 97.5 F 11/28/20 07:56 Pulse 74 11/28/20 08:02 Resp 20 11/28/20 07:56 BP 126/87 11/28/20 08:03 Pulse Ox 99 11/28/20 07:56 Weight - Most Recent: 217 lb 6.4 oz I&O - Last 24 Hours: Intake & Output 11/27/20 11/28/20 11/28/20 22:59 06:59 14:59 Intake Total 1100 600 Balance 1100 600 Med Orders - Current: Current Medications Acetaminophen (Tylenol) 650 mg PO Q6H [facility] Last Admin: 11/28/20 08:02 Dose: 650 mg Documented by: Albuterol/Ipratropium (Duoneb 3.0-0.5 Mg/3 Ml) 3 ml NEB Q4H PRN PRN Reason: Shortness Of Breath/wheezing Amlodipine Besylate (Norvasc) 2.5 mg PO DAILY [facility] Last Admin: 11/28/20 08:03 Dose: Not Given Documented by: Aspirin (Aspirin) 81 mg PO DAILY [facility] Last Admin: 11/28/20 08:03 Dose: 81 mg Documented by: Atenolol (Tenormin) 100 mg PO DAILY [facility] Last Admin: 11/28/20 08:02 Dose: 100 mg Documented by: Baclofen (Lioresal) 10 mg PO TID [facility] Last Admin: 11/28/20 08:03 Dose: 10 mg Documented by: Diclofenac Sodium (Voltaren 1% Gel) 2 gm TOP QID PRN PRN Reason: Pain Last Admin: 11/27/20 15:47 Dose: 1 gram Documented by: Docusate Sodium (Colace) 100 mg PO BID PRN PRN Reason: Constipation Enoxaparin Sodium (Lovenox) 40 mg SUBCUT DAILY [facility] Last Admin: 11/28/20 08:01 Dose: 40 mg Documented by: Fentanyl (Duragesic) 25 mcg TRDERM Q72H [facility] Last Admin: 11/27/20 10:06 Dose: 25 mcg Documented by: Gabapentin (Neurontin) 600 mg PO QID [facility] Last Admin: 11/28/20 08:03 Dose: 600 mg Documented by: Hydralazine HCl (Apresoline) 10 mg IVPUSH Q4H PRN PRN Reason: Hypertension Hydrochlorothiazide (Hydrochlorothiazide) 50 mg PO DAILY [facility] Last Admin: 11/28/20 08:03 Dose: 50 mg Documented by: Promethazine HCl 12.5 mg/ (Sodium Chloride) 50.5 mls @ 100 mls/hr IV Q6H PRN PRN Reason: Nausea/Vomiting Ketorolac Tromethamine (Toradol) 15 mg IVPUSH Q6H PRN PRN Reason: Pain (moderate 4-6) Miscellaneous Information (Remove Patch) 1 ea TRDERM Q72H [facility] Last Admin: 11/27/20 13:47 Dose: 1 ea Documented by: Oxycodone HCl (Oxycodone) 5 mg PO Q4H PRN PRN Reason: Pain (moderate 4-6) Last Admin: 11/28/20 08:02 Dose: 5 mg Documented by: Oxycodone HCl (Oxycodone) 7.5 mg PO Q4H PRN PRN Reason: Pain (severe 7-10) Pantoprazole Sodium (Protonix) 40 mg PO BID [facility] Last Admin: 11/28/20 08:03 Dose: 40 mg Documented by: Polysaccharide Iron Complex (Ferrex 150) 150 mg PO DAILY [facility] Last Admin: 11/28/20 08:03 Dose: 150 mg Documented by: Zolpidem Tartrate (Ambien) 10 mg PO BEDTIME PRN PRN Reason: Sleep Last Admin: 11/27/20 21:23 Dose: 10 mg Documented by: Discontinued Medications Acetaminophen (Tylenol) 650 mg PO Q6H PRN PRN Reason: Pain (Mild 1-3)/fever Last Admin: 11/26/20 08:20 Dose: 650 mg Documented by: Acetaminophen (Tylenol) 650 mg PO Q6H [facility] Last Admin: 11/27/20 02:10 Dose: 650 mg Documented by: Ketorolac Tromethamine (Toradol) 15 mg IVPUSH Q6H PRN PRN Reason: Pain (severe 7-10) Last Admin: 11/27/20 09:53 Dose: 15 mg Documented by: Morphine Sulfate (Morphine) 2 mg IVPUSH Q4H PRN PRN Reason: Pain (severe 7-10) Stop: 11/25/20 19:25 Last Admin: 11/25/20 06:12 Dose: 2 mg Documented by: Non-Formulary Medication (Alendronate) 70 mg PO WEEKLY [facility] Meloxicam 7.5 Mg (Ptom) 7.5 mg PO DAILY [facility] Last Admin: 11/27/20 16:19 Dose: Not Given Documented by: Oxycodone HCl (Oxycodone) 5 mg PO Q6H PRN PRN Reason: Pain (moderate 4-6) Last Admin: 11/25/20 09:11 Dose: 5 mg Documented by: Oxycodone HCl (Oxycodone) 5 mg PO Q8H PRN PRN Reason: Pain (moderate 4-6) Last Admin: 11/25/20 13:40 Dose: 5 mg Documented by: Oxycodone HCl (Oxycodone) 5 mg PO Q8H PRN PRN Reason: Pain Last Admin: 11/25/20 21:58 Dose: 5 mg Documented by: Oxycodone/Acetaminophen (Percocet 325-5 Mg) 1 tab PO Q8H PRN PRN Reason: Pain (moderate 4-6) Last Admin: 11/26/20 08:19 Dose: 1 tab Documented by: - Exam Quality Assessment: No: Supplemental Oxygen General: Alert, Oriented HEENT: Pupils Equal, Mucous Membr. Moist/[place] Neck: Supple Lungs: Clear to Auscultation, Normal Respiratory Effort Cardiovascular: Regular Rate, Regular Rhythm Extremities: Other (Diffuse right leg pain generally in the soleus and gastroc muscles.) Sepsis Event Note - Evaluation Sepsis Screening Result: No Definite Risk - Focused Exam Vital Signs: Vital Signs Temp Temp Pulse Pulse Resp BP BP 11/28/20 08:03 126/87 11/28/20 08:02 74 126/87 11/28/20 07:56 97.5 F 74 20 126/87 11/28/20 04:00 97.9 F 72 18 122/86 11/28/20 01:00 18 11/28/20 00:21 98.1 F 82 20 116/65 11/28/20 00:08 98.1 F 20 112/67 Pulse Ox 11/28/20 08:03 11/28/20 08:02 11/28/20 07:56 99 11/28/20 04:00 97 11/28/20 01:00 93 L 11/28/20 00:21 91 L 11/28/20 00:08 - Problem List & Annotations (1) Unable to care for self SNOMED Code(s): 969203250, 190689990 Code(s): Z78.9 - OTHER SPECIFIED HEALTH STATUS Status: Acute Current Visit: Yes (2) COVID-19 SNOMED Code(s): 422352212 Code(s): U07.1 - COVID-19 Status: Acute Current Visit: Yes (3) Acute postoperative pain of right shoulder SNOMED Code(s): 29264908 Code(s): G89.18 - OTHER ACUTE POSTPROCEDURAL PAIN; M25.511 - PAIN IN RIGHT SHOULDER Status: Acute Current Visit: Yes - Problem List Review Problem List Initiated/Reviewed/Updated: Yes - My Orders Last 24 Hours: My Active Orders 11/27/20 09:00 Acetaminophen [TylenoL] 650 mg PO Q6H 11/27/20 09:30 Consult to Physician [CONS] Routine 11/27/20 09:31 Notify Provider Consults [RC] ASDIRECTED 11/27/20 10:00 Remove Patch 1 ea TRDERM Q72H fentaNYL [Duragesic] 25 mcg TRDERM Q72H 11/27/20 17:01 Ketorolac [Toradol] 15 mg IVPUSH Q6H PRN 11/28/20 08:49 oxyCODONE 7.5 mg PO Q4H PRN 11/29/20 05:11 C-REACTIVE PROTEIN [CHEM] AM CBC WITH AUTO DIFF [HEME] AM CMP [COMPREHENSIVE METABOLIC PN,CMP] [CHEM] AM MAGNESIUM [CHEM] AM PHOSPHORUS [CHEM] AM - Plan Plan:: November 25, 2020 Assessment and plan: 1. Self care deficit PT OT 2. S/p right total should replacement in 10/[address] Mejia in [place] Follow with Dr. Reed pain management: Acetaminophen/oxycodone (325-10) Q8hrs prn Morphine 2mg iv Q4h prn Baclofen 10mg tid Gabapentin 600mg Qid Home fentanyl patch and oxycodone 5mg Q4hrs are on hold 3. HTN Continue home medication 4. Hepatitis C Repeat liver function in morning 5. Covid 19 positive Patient is on room air with good oxygen saturation Chest x-ray -no acute change CRP less than 0.2 I did not order D-dimer due to recent surgery Troponin negative I did not order remdesivir, steroid or anticoagulation at this moment Continue home aspirin 6. DVT prophylaxis: Lovenox 7. Vitamin D insufficiency Vitamin D 8. Prediabetes? Hemoglobin A1c 5.9 Diabetic diet Deposition: SNF placement [facility] refused her November 26, 2020 1. Self care deficit PT OT 2. S/p right total should replacement in 10/[address] Mejia in [place] Follow with Dr. Reed pain management: Stop Acetaminophen/oxycodone (325-10) Q8hrs prn Stop Morphine 2mg iv Q4h prn Baclofen 10mg tid Gabapentin 600mg Qid Stop fentanyl patch oxycodone 5mg Q4hrs are on hold 3. HTN Continue home medication 4. Hepatitis C Repeat liver function in morning 5. Covid 19 positive Patient is on room air with good oxygen saturation Chest x-ray -no acute change CRP less than 0.2 I did not order D-dimer due to recent surgery Troponin negative I did not order remdesivir, steroid or anticoagulation at this moment Continue home aspirin 6. DVT prophylaxis: Lovenox 7. Vitamin D insufficiency Vitamin D 5000 units daily 8. Prediabetes? Hemoglobin A1c 5.9 Diabetic diet Deposition: SNF placement [facility] after 10 days of quarantine at our facility 11/27/2020 1. Self care deficit secondary to right shoulder surgery. PT OT 2. S/p right total should replacement in 10/[address] Mejia in [place] Follow with Dr. Reed after discharge Request Dr. Smith and orthopedics to evaluate patient and her pain. Making sure she gets appropriate therapy and pain control. pain management: Patient started on oxycodone 5 mg every 4 hours as needed, Tylenol 650 mg every 6 hours scheduled, and Toradol 15 mg IV every 6 hours as needed. Patient states she still not getting appropriate pain control. Fentanyl patch will be restarted at 25 mcg/h. Patient did still have a fentanyl patch on as of this morning. It was likely over 3 days. 3. HTN Continue home medication 4. Hepatitis C Repeat liver function in morning Continue following liver function panel. Concerned that there is a slight increase in AST and alk phos today with the scheduled Tylenol. Tylenol may need to be stopped or decreased. She is only getting 2600 mg of Tylenol daily at this time. 5. Covid 19 positiveno change On room air 6. DVT prophylaxis: Lovenox 7. Vitamin D insufficiency Vitamin D 5000 units daily 8. Prediabetes? Hemoglobin A1c 5.9 Diabetic diet Deposition: SNF placement [facility] after 10 days of quarantine at our facility 11/28/2020 1. Self care deficit secondary to right shoulder surgery. Patient complains of right leg pain Continue physical therapy. X-ray right leg today. 2. S/p right total should replacement in 10/[address] Mejia in [place] Follow with Dr. Reed after discharge Request Dr. Smith and orthopedics to evaluate patient and her pain. Making sure she gets appropriate therapy and pain control. pain management: Patient started on oxycodone 5 mg every 4 hours as needed, Tylenol 650 mg every 6 hours scheduled, and Toradol 15 mg IV every 6 hours as needed. Patient states she still not getting appropriate pain control. Fentanyl patch will be restarted at 25 mcg/h. Patient did still have a fentanyl patch on as of this morning. It was likely over 3 days. 3. HTN Continue home medication 4. Hepatitis C Repeat liver function in morning Continue following liver function panel. Concerned that there is a slight in crease in AST and alk phos today with the scheduled Tylenol. Tylenol may need to be stopped or decreased. She is only getting 2600 mg of Tylenol daily at this time. 5. Covid 19 positiveno change On room air 6. DVT prophylaxis: Lovenox 7. Vitamin D insufficiency -25 hydroxy vitamin D23.1 Vitamin D 5000 units daily 8. Prediabetes? Hemoglobin A1c 5.9 Diabetic diet Deposition: SNF placement [facility] after 10 days of quarantine at our facility Length of stay greater than 96 hours secondary to being quarantined in our facility because the local nursing homes will not take a Covid positive patient before 10 days.
--- NOTE | 2020-11-28 13:19 | CR ---
Right tibia and fibula: AP and lateral views of the right tibia and fibula were obtained. Comparison: No prior tibia or fibula study is available. Knee prosthesis is noted. Plantar arch appears flattened. Mild degenerative change is seen within the midfoot. Ankle mortise appears symmetric. Osteopenia is present. No acute fracture or other acute osseous abnormality is appreciated. Very minimal plantar spur is noted. Impression: 1. Knee prosthesis. 2. Midfoot findings as noted above. 3. Nothing acute is definitely appreciated on 2 view right tibia and fibula study. Diagnostic code #2
[2020-11-28] MEDS: Zolpidem 10 MG Tab PO PRN (20:43)
[2020-11-29] MEDS: Acetaminophen 325 MG Tab PO SCH ×4 (04:46→20:46)
[2020-11-29] MEDS: oxyCODONE 5 MG Tab PO PRN ×4 (04:47→20:47)
[2020-11-29] MEDS: Hydrochlorothiazide 25 MG Tab PO SCH (09:08)
[2020-11-29] MEDS: Aspirin 81 MG Tab.Chew PO SCH (09:10)
[2020-11-29] MEDS: Gabapentin 600 MG Tab PO SCH ×4 (09:11→20:45)
[2020-11-29] MEDS: Pantoprazole 40 MG Tab.CR PO SCH ×2 (09:14→20:45)
[2020-11-29] MEDS: Baclofen 10 MG Tab PO SCH ×3 (09:16→20:45)
[2020-11-29] MEDS: Atenolol 50 MG Tab PO SCH (09:17)
[2020-11-29] MEDS: Iron Polysaccharides Complex 150 MG Cap PO SCH (09:17)
[2020-11-29] MEDS: amLODIPine 2.5 MG Tab PO SCH (09:24)
[2020-11-29] MEDS: Enoxaparin 40 MG/0.4 ML Syringe SUBCUT SCH (09:26)
--- NOTE | 2020-11-29 12:35 | PCM.PN ---
- General Info Date of Service: 11/29/20 Admission Dx/Problem (Free Text): Admission Diagnosis/Problem Admission Diagnosis/Problem Failure to thrive in adult Subjective Update: No issues last night. She complaints of epigastric spasm (underneath her breast) that went away spontaneously. She gets it on and off and usually brings on by certain movements. Her shoulder pain is not quite controlled. She is asking if we can go up more frequent on her gabapentin. She states it only last for 6 hrs. Her Cr is considerably elevated this AM. Functional Status: Reports: Tolerating Diet, Ambulating, Urinating, New Symptoms. Denies: Pain Controlled - Review of Systems General: Denies: Fever, Chills HEENT: Reports: No Symptoms Pulmonary: Denies: Shortness of Breath, Pleuritic Chest Pain, Cough Cardiovascular: Reports: Other (chest spasm underneath her breast) Gastrointestinal: Denies: Abdominal Pain, Nausea, Vomiting Genitourinary: Denies: Frequency Musculoskeletal: Reports: Shoulder Pain, Joint Pain Skin: Denies: Rash Neurological: Reports: Difficulty Walking, Gait Disturbance. Denies: Confusion Psychiatric: Denies: Confusion, Anxiety - Patient Data Vitals - Most Recent: Last Vital Signs Temp 36.8 C 11/29/20 09:22 Pulse 77 11/29/20 09:22 Resp 18 11/29/20 09:22 BP 115/69 11/29/20 09:24 Pulse Ox 98 11/29/20 09:22 Weight - Most Recent: 99.291 kg I&O - Last 24 Hours: Intake & Output 11/28/20 11/29/20 11/29/20 22:59 06:59 14:59 Intake Total 1050 1225 600 Balance 1050 1225 600 Lab Results Last 24 Hours: Laboratory Results - last 24 hr 11/29/20 11/29/20 Range/Units 05:30 05:30 WBC 6.41 (3.98-10.04) K/mm3 RBC 3.74 L (3.98-5.22) M/mm3 Hgb 9.8 L (11.2-15.7) gm/dl Hct 32.7 L (34.1-44.9) % MCV 87.4 (79.4-94.8) fl MCH 26.2 (25.6-32.2) pg MCHC 30.0 L (32.2-35.5) g/dl RDW Std Deviation 49.6 H (36.4-46.3) fL Plt Count 304 (182-369) K/mm3 MPV 10.2 (9.4-12.3) fl Neut % (Auto) 45.4 (34.0-71.1) % Lymph % (Auto) 38.8 (19.3-51.7) % Major % (Auto) 10.8 (4.7-12.5) % Eos % (Auto) 4.5 (0.7-5.8) Baso % (Auto) 0.3 (0.1-1.2) % Neut # (Auto) 2.91 (1.56-6.13) K/mm3 Lymph # (Auto) 2.49 (1.18-3.74) K/mm3 Major # (Auto) 0.69 H (0.24-0.36) K/mm3 Eos # (Auto) 0.29 (0.04-0.36) K/mm3 Baso # (Auto) 0.02 (0.01-0.08) K/mm3 Sodium 138 (136-145) mEq/L Potassium 4.0 (3.5-5.1) mEq/L Chloride 104 (98-107) mEq/L Carbon Dioxide 22 (21-32) mEq/L Anion Gap 16.0 H (5-15) BUN 45 H D (7-18) mg/dL Creatinine 1.2 H (0.55-1.02) mg/dL Est Cr Clr Drug Dosing 39.28 mL/min Estimated GFR (MDRD) 54 (>60) mL/min BUN/Creatinine Ratio 37.5 H (14-18) Glucose 93 (80-115) mg/dL Calcium 8.7 (8.5-10.1) mg/dL Phosphorus 5.3 H (2.6-4.7) mg/dL Magnesium 2.3 (1.8-2.4) mg/dl Total Bilirubin 0.4 (0.2-1.0) mg/dL AST 51 H (15-37) U/L ALT 44 (14-59) U/L Alkaline Phosphatase 146 H (46-116) U/L C-Reactive Protein < 0.2 (<1.0) mg/dL Total Protein 7.1 (6.4-8.2) g/dl Albumin 3.1 L (3.4-5.0) g/dl Globulin 4.0 gm/dL Albumin/Globulin Ratio 0.8 L (1-2) Med Orders - Current: Current Medications Acetaminophen (Tylenol) 650 mg PO Q6H [facility] Last Admin: 11/29/20 09:12 Dose: 650 mg Documented by: Albuterol/Ipratropium (Duoneb 3.0-0.5 Mg/3 Ml) 3 ml NEB Q4H PRN PRN Reason: Shortness Of Breath/wheezing Amlodipine Besylate (Norvasc) 2.5 mg PO DAILY [facility] Last Admin: 11/29/20 09:24 Dose: 2.5 mg Documented by: Aspirin (Aspirin) 81 mg PO DAILY [facility] Last Admin: 11/29/20 09:10 Dose: 81 mg Documented by: Atenolol (Tenormin) 100 mg PO DAILY [facility] Last Admin: 11/29/20 09:17 Dose: 100 mg Documented by: Baclofen (Lioresal) 10 mg PO TID [facility] Last Admin: 11/29/20 09:16 Dose: 10 mg Documented by: Diclofenac Sodium (Voltaren 1% Gel) 2 gm TOP QID PRN PRN Reason: Pain Last Admin: 11/27/20 15:47 Dose: 1 gram Documented by: Docusate Sodium (Colace) 100 mg PO BID PRN PRN Reason: Constipation Enoxaparin Sodium (Lovenox) 40 mg SUBCUT DAILY [facility] Last Admin: 11/29/20 09:26 Dose: 40 mg Documented by: Fentanyl (Duragesic) 25 mcg TRDERM Q72H [facility] Last Admin: 11/27/20 10:06 Dose: 25 mcg Documented by: Gabapentin (Neurontin) 600 mg PO QID [facility] Last Admin: 11/29/20 12:00 Dose: 600 mg Documented by: Hydralazine HCl (Apresoline) 10 mg IVPUSH Q4H PRN PRN Reason: Hypertension Hydrochlorothiazide (Hydrochlorothiazide) 50 mg PO DAILY [facility] Last Admin: 11/29/20 09:08 Dose: 50 mg Documented by: Promethazine HCl 12.5 mg/ (Sodium Chloride) 50.5 mls @ 100 mls/hr IV Q6H PRN PRN Reason: Nausea/Vomiting Ketorolac Tromethamine (Toradol) 15 mg IVPUSH Q6H PRN PRN Reason: Pain (moderate 4-6) Last Admin: 11/28/20 22:16 Dose: 15 mg Documented by: Miscellaneous Information (Remove Patch) 1 ea TRDERM Q72H [facility] Last Admin: 11/27/20 13:47 Dose: 1 ea Documented by: Oxycodone HCl (Oxycodone) 5 mg PO Q4H PRN PRN Reason: Pain (moderate 4-6) Last Admin: 11/28/20 08:02 Dose: 5 mg Documented by: Oxycodone HCl (Oxycodone) 7.5 mg PO Q4H PRN PRN Reason: Pain (severe 7-10) Last Admin: 11/29/20 10:24 Dose: 7.5 mg Documented by: Pantoprazole Sodium (Protonix) 40 mg PO BID [facility] Last Admin: 11/29/20 09:14 Dose: 40 mg Documented by: Polysaccharide Iron Complex (Ferrex 150) 150 mg PO DAILY [facility] Last Admin: 11/29/20 09:17 Dose: 150 mg Documented by: Zolpidem Tartrate (Ambien) 10 mg PO BEDTIME PRN PRN Reason: Sleep Last Admin: 11/28/20 20:43 Dose: 10 mg Documented by: Discontinued Medications Acetaminophen (Tylenol) 650 mg PO Q6H PRN PRN Reason: Pain (Mild 1-3)/fever Last Admin: 11/26/20 08:20 Dose: 650 mg Documented by: Acetaminophen (Tylenol) 650 mg PO Q6H [facility] Last Admin: 11/27/20 02:10 Dose: 650 mg Documented by: Ketorolac Tromethamine (Toradol) 15 mg IVPUSH Q6H PRN PRN Reason: Pain (severe 7-10) Last Admin: 11/27/20 09:53 Dose: 15 mg Documented by: Morphine Sulfate (Morphine) 2 mg IVPUSH Q4H PRN PRN Reason: Pain (severe 7-10) Stop: 11/25/20 19:25 Last Admin: 11/25/20 06:12 Dose: 2 mg Documented by: Non-Formulary Medication (Alendronate) 70 mg PO WEEKLY [facility] Meloxicam 7.5 Mg (Ptom) 7.5 mg PO DAILY [facility] Last Admin: 11/27/20 16:19 Dose: Not Given Documented by: Oxycodone HCl (Oxycodone) 5 mg PO Q6H PRN PRN Reason: Pain (moderate 4-6) Last Admin: 11/25/20 09:11 Dose: 5 mg Documented by: Oxycodone HCl (Oxycodone) 5 mg PO Q8H PRN PRN Reason: Pain (moderate 4-6) Last Admin: 11/25/20 13:40 Dose: 5 mg Documented by: Oxycodone HCl (Oxycodone) 5 mg PO Q8H PRN PRN Reason: Pain Last Admin: 11/25/20 21:58 Dose: 5 mg Documented by: Oxycodone/Acetaminophen (Percocet 325-5 Mg) 1 tab PO Q8H PRN PRN Reason: Pain (moderate 4-6) Last Admin: 11/26/20 08:19 Dose: 1 tab Documented by: - Exam Quality Assessment: No: Supplemental Oxygen General: Alert, Oriented, Cooperative, Other (Obese) HEENT: Pupils Equal, Pupils Reactive, EOMI, Mucous Membr. Moist/[place] Neck: Supple Lungs: Clear to Auscultation, Normal Respiratory Effort Cardiovascular: Regular Rate, Regular Rhythm, Other (non-tender to palpation) GI/Abdominal Exam: Normal Bowel Sounds, Soft, Non-Tender, No Organomegaly, No Distention, No Abnormal Bruit, No Mass, Other (Obese) (Female) Exam: Deferred Back Exam: Normal Inspection, Decreased Range of Motion Extremities: Normal Inspection, Normal Range of Motion, Non-Tender, No Pedal Edema, Normal Capillary Refill, Other (left hip amputation) Peripheral Pulses: 2+: Posterior Tibial (R), Dorsalis Pedis (R) Skin: Warm, Dry, Intact Wound/Incisions: Healing Well, No Drainage. No: Erythema Neurological: No New Focal Deficit, Other (hypersensitivity to lower extremity) Psy/Mental Status: Alert, Normal Affect, Normal Mood Sepsis Event Note - Evaluation Sepsis Screening Result: No Definite Risk - Focused Exam Vital Signs: Vital Signs Temp Pulse Resp BP Pulse Ox 11/29/20 09:24 115/69 11/29/20 09:22 36.8 C 77 18 115/69 98 11/29/20 09:17 77 115/69 11/29/20 04:08 36.6 C 82 20 122/76 97 - Problem List Review Problem List Initiated/Reviewed/Updated: Yes - My Orders Last 24 Hours: My Active Orders 11/29/20 10:50 Communication Order [RC] ASDIRECTED - Plan Plan:: November 25, 2020 Assessment and plan: 1. Self care deficit PT OT 2. S/p right total should replacement in 10/[address] Meija in [place] Follow with Dr. Reed pain management: Acetaminophen/oxycodone (325-10) Q8hrs prn Morphine 2mg iv Q4h prn Baclofen 10mg tid Gabapentin 600mg Qid Home fentanyl patch and oxycodone 5mg Q4hrs are on hold 3. HTN Continue home medication 4. Hepatitis C Repeat liver function in morning 5. Covid 19 positive Patient is on room air with good oxygen saturation Chest x-ray -no acute change CRP less than 0.2 I did not order D-dimer due to recent surgery Troponin negative I did not order remdesivir, steroid or anticoagulation at this moment Continue home aspirin 6. DVT prophylaxis: Lovenox 7. Vitamin D insufficiency Vitamin D 8. Prediabetes? Hemoglobin A1c 5.9 Diabetic diet Deposition: SNF placement [facility] refused her November 26, 2020 1. Self care deficit PT OT 2. S/p right total should replacement in 10/[address] Mejia in [place] Follow with Dr. Reed pain management: Stop Acetaminophen/oxycodone (325-10) Q8hrs prn Stop Morphine 2mg iv Q4h prn Baclofen 10mg tid Gabapentin 600mg Qid Stop fentanyl patch oxycodone 5mg Q4hrs are on hold 3. HTN Continue home medication 4. Hepatitis C Repeat liver function in morning 5. Covid 19 positive Patient is on room air with good oxygen saturation Chest x-ray -no acute change CRP less than 0.2 I did not order D-dimer due to recent surgery Troponin negative I did not order remdesivir, steroid or anticoagulation at this moment Continue home aspirin 6. DVT prophylaxis: Lovenox 7. Vitamin D insufficiency Vitamin D 5000 units daily 8. Prediabetes? Hemoglobin A1c 5.9 Diabetic diet Deposition: SNF placement [facility] after 10 days of quarantine at our facility 11/27/2020 1. Self care deficit secondary to right shoulder surgery. PT OT 2. S/p right total should replacement in 10/[address] Mejia in [place] Follow with Dr. Reed after discharge Request Dr. Smith and orthopedics to evaluate patient and her pain. Making sure she gets appropriate therapy and pain control. pain management: Patient started on oxycodone 5 mg every 4 hours as needed, Tylenol 650 mg every 6 hours scheduled, and Toradol 15 mg IV every 6 hours as needed. Patient states she still not getting appropriate pain control. Fentanyl patch will be restarted at 25 mcg/h. Patient did still have a fentanyl patch on as of this morning. It was likely over 3 days. 3. HTN Continue home medication 4. Hepatitis C Repeat liver function in morning Continue following liver function panel. Concerned that there is a slight increase in AST and alk phos today with the scheduled Tylenol. Tylenol may need to be stopped or decreased. She is only getting 2600 mg of Tylenol daily at this time. 5. Covid 19 positive, no change on room air 6. DVT prophylaxis: Lovenox 7. Vitamin D insufficiency Vitamin D 5000 units daily 8. Prediabetes? Hemoglobin A1c 5.9 Diabetic diet Deposition: SNF placement [facility] after 10 days of quarantine at our facility 11/28/2020 1. Self care deficit secondary to right shoulder surgery. Patient complains of right leg pain Continue physical therapy. X-ray right leg today. 2. S/p right total should replacement in 10/[address] Mejia in [place] Follow with Dr. Reed after discharge Request Dr. Smith and orthopedics to evaluate patient and her pain. Making sure she gets appropriate therapy and pain control. pain management: Patient started on oxycodone 5 mg every 4 hours as needed, Tylenol 650 mg every 6 hours scheduled, and Toradol 15 mg IV every 6 hours as needed. Patient states she still not getting appropriate pain control. Fentanyl patch will be restarted at 25 mcg/h. Patient did still have a fentanyl patch on as of this morning. It was likely over 3 days. 3. HTN Continue home medication 4. Hepatitis C Repeat liver function in morning Continue following liver function panel. Concerned that there is a slight incr ease in AST and alk phos today with the scheduled Tylenol. Tylenol may need to be stopped or decreased. She is only getting 2600 mg of Tylenol daily at this time. 5. Covid 19 positiveno change On room air 6. DVT prophylaxis: Lovenox 7. Vitamin D insufficiency -25 hydroxy vitamin D23.1 Vitamin D 5000 units daily 8. Prediabetes? Hemoglobin A1c 5.9 Diabetic diet Deposition: SNF placement [facility] after 10 days of quarantine at our facility Length of stay greater than 96 hours secondary to being quarantined in our facility because the local nursing homes will not take a Covid positive patient before 10 days. 11/29/2020 1. Self care deficit secondary to right shoulder surgery. Patient complains of right leg pain, has peripheral neuropathy-> asking for increased frequency. Hold increase in dose due to renal insufficiency. Continue physical therapy. X-ray right leg on 11/28/2020-nothing acute. Will go up on her narcotic pain medication 2. S/p right total should replacement in 10/[address] Mejia in [place] Follow with Dr. Reed after discharge Request Dr. Smith and orthopedics to evaluate patient and her pain. Making sure she gets appropriate therapy and pain control. pain management: Patient started on oxycodone 5 mg every 4 hours as needed, Tylenol 650 mg every 6 hours scheduled, and Toradol 15 mg IV every 6 hours as needed. Patient states she still not getting appropriate pain control. Fentanyl patch will be restarted at 25 mcg/h. Patient did still have a fentanyl patch on as of this morning. It was likely over 3 days. 3. HTN, controlled Continue home medication. 4. Hepatitis C Repeat liver function in morning. Continue following liver function panel. Concerned that there is a slight increase in AST and alk phos today with the scheduled Tylenol. Tylenol may need to be stopped or decreased. She is only getting 2600 mg of Tylenol daily at this time. 5. Covid 19 positiveasymptomatic 6. DVT prophylaxis: Lovenox 7. Vitamin D insufficiency -25 hydroxy vitamin D23.1 Vitamin D 5000 units daily 8. Prediabetes? Hemoglobin A1c 5.9 Diabetic diet 9. Normocytic Hypochromic Anemia, POA She is post surgical Hgb is stable at 9.8 grams 10. ALLEGRA with Cr 1.2 Iatrogenic for HCTZ and Ketorolac Use Hold HCTZ and discontinue NSAID Encourage patient to drink more fluids May consider 500 ml NS bolus x1 11. Elevated AST, POA 12. Elevated Alkaline Phosphatase, POA 13. Hypoalbuminemia with Albumin of 3.1, POA 14. Class II Obese, BMI of 37.6 Monitor Dietary consult for weight management 15. Epigastric Pain/Rib Pain R/o ACS: serial troponin and EKG. Lipid panel in AM Deposition: SNF placement [facility] after 10 days of quarantine at our facility Length of stay greater than 96 hours secondary to being quarantined in our facility because the local nursing homes will not take a Covid positive patient before 10 days.
[2020-11-29] MEDS: Diclofenac Sodium 1% Gel 100 GM Tube TOP PRN (18:21)
[2020-11-29] MEDS ORDERED: Sodium Chloride 0.9% 500 ML IV SCH (20:30)
[2020-11-29] MEDS: Zolpidem 10 MG Tab PO PRN (20:48)
[2020-11-30] MEDS: Acetaminophen 325 MG Tab PO SCH ×4 (03:31→21:19)
[2020-11-30] MEDS: oxyCODONE 5 MG Tab PO PRN ×4 (03:32→21:21)
[2020-11-30] MEDS: amLODIPine 2.5 MG Tab PO SCH (09:30)
--- NOTE | 2020-11-30 09:51 | PCM.PN ---
- General Info Date of Service: 11/30/20 Admission Dx/Problem (Free Text): Admission Diagnosis/Problem Admission Diagnosis/Problem Failure to thrive in adult Subjective Update: She rested well last night. Her pain still not quite controlled. She refused 500 ml of NS bolus last night. However her Cr level has improved this AM. No fever or chills. This morning she was not very happy and felt that nurses have been sneaking in some medicines for her to take. She refused Norvasc for her hypertension. Otherwise she has no other acute cy issues. Serial troponin and EKGS were both wnl. Her lipid panel is abnormal. Functional Status: Reports: Tolerating Diet, Urinating. Denies: Pain Controlled, New Symptoms - Review of Systems General: Denies: Fever, Chills Pulmonary: Denies: Shortness of Breath Cardiovascular: Reports: Other (no epigastric pain). Denies: Chest Pain Gastrointestinal: Denies: Abdominal Pain, Nausea, Vomiting Genitourinary: Denies: Frequency Musculoskeletal: Reports: Leg Pain, Joint Pain Skin: Denies: Bruising, Pruritis, Rash Neurological: Reports: Gait Disturbance. Denies: Confusion Psychiatric: Denies: Depression, Anxiety, Hallucinations - Patient Data Vitals - Most Recent: Last Vital Signs Temp 36.5 C 11/30/20 08:43 Pulse 85 11/30/20 08:43 Resp 20 11/30/20 08:43 BP 135/64 11/30/20 08:43 Pulse Ox 99 11/30/20 08:43 Weight - Most Recent: 100.062 kg I&O - Last 24 Hours: Intake & Output 11/29/20 11/30/20 11/30/20 22:59 06:59 14:59 Intake Total 2100 1300 Balance 2100 1300 Lab Results Last 24 Hours: Laboratory Results - last 24 hr 11/29/20 11/29/20 11/30/20 Range/Units 15:45 20:20 05:54 WBC (3.98-10.04) K/mm3 RBC (3.98-5.22) M/mm3 Hgb (11.2-15.7) gm/dl Hct (34.1-44.9) % MCV (79.4-94.8) fl MCH (25.6-32.2) pg MCHC (32.2-35.5) g/dl RDW Std Deviation (36.4-46.3) fL Plt Count (182-369) K/mm3 MPV (9.4-12.3) fl Neut % (Auto) (34.0-71.1) % Lymph % (Auto) (19.3-51.7) % Surry % (Auto) (4.7-12.5) % Eos % (Auto) (0.7-5.8) Baso % (Auto) (0.1-1.2) % Neut # (Auto) (1.56-6.13) K/mm3 Lymph # (Auto) (1.18-3.74) K/mm3 Surry # (Auto) (0.24-0.36) K/mm3 Eos # (Auto) (0.04-0.36) K/mm3 Baso # (Auto) (0.01-0.08) K/mm3 Sodium 141 (136-145) mEq/L Potassium 3.8 (3.5-5.1) mEq/L Chloride 105 (98-107) mEq/L Carbon Dioxide 23 (21-32) mEq/L Anion Gap 16.8 H (5-15) BUN 47 H (7-18) mg/dL Creatinine 1.0 (0.55-1.02) mg/dL Est Cr Clr Drug Dosing 47.14 mL/min Estimated GFR (MDRD) > 60 (>60) mL/min BUN/Creatinine Ratio 47.0 H (14-18) Glucose 88 (80-115) mg/dL Calcium 9.3 (8.5-10.1) mg/dL Magnesium 2.3 (1.8-2.4) mg/dl Troponin I < 0.017 < 0.017 < 0.017 (0.00-0.056) ng/mL Triglycerides 234 H (<150) mg/dL Cholesterol 145 (<200) mg/dL LDL Cholesterol Direct 39 (<100) mg/dL HDL Cholesterol 64.0 H (40-59) mg/dL 11/30/20 Range/Units 05:54 WBC 6.48 (3.98-10.04) K/mm3 RBC 4.04 (3.98-5.22) M/mm3 Hgb 10.5 L (11.2-15.7) gm/dl Hct 34.9 (34.1-44.9) % MCV 86.4 (79.4-94.8) fl MCH 26.0 (25.6-32.2) pg MCHC 30.1 L (32.2-35.5) g/dl RDW Std Deviation 48.2 H (36.4-46.3) fL Plt Count 323 (182-369) K/mm3 MPV 10.3 (9.4-12.3) fl Neut % (Auto) 45.4 (34.0-71.1) % Lymph % (Auto) 39.4 (19.3-51.7) % Surry % (Auto) 10.6 (4.7-12.5) % Eos % (Auto) 3.9 (0.7-5.8) Baso % (Auto) 0.5 (0.1-1.2) % Neut # (Auto) 2.95 (1.56-6.13) K/mm3 Lymph # (Auto) 2.55 (1.18-3.74) K/mm3 Surry # (Auto) 0.69 H (0.24-0.36) K/mm3 Eos # (Auto) 0.25 (0.04-0.36) K/mm3 Baso # (Auto) 0.03 (0.01-0.08) K/mm3 Sodium (136-145) mEq/L Potassium (3.5-5.1) mEq/L Chloride (98-107) mEq/L Carbon Dioxide (21-32) mEq/L Anion Gap (5-15) BUN (7-18) mg/dL Creatinine (0.55-1.02) mg/dL Est Cr Clr Drug Dosing mL/min Estimated GFR (MDRD) (>60) mL/min BUN/Creatinine Ratio (14-18) Glucose (80-115) mg/dL Calcium (8.5-10.1) mg/dL Magnesium (1.8-2.4) mg/dl Troponin I (0.00-0.056) ng/mL Triglycerides (<150) mg/dL Cholesterol (<200) mg/dL LDL Cholesterol Direct (<100) mg/dL HDL Cholesterol (40-59) mg/dL Med Orders - Current: Current Medications Acetaminophen (Tylenol) 650 mg PO Q6H ADAM Last Admin: 11/30/20 03:31 Dose: 650 mg Documented by: Albuterol/Ipratropium (Duoneb 3.0-0.5 Mg/3 Ml) 3 ml NEB Q4H PRN PRN Reason: Shortness Of Breath/wheezing Amlodipine Besylate (Norvasc) 2.5 mg PO DAILY [facility] Last Admin: 11/30/20 09:30 Dose: Not Given Documented by: Aspirin (Aspirin) 81 mg PO DAILY [facility] Last Admin: 11/29/20 09:10 Dose: 81 mg Documented by: Atenolol (Tenormin) 100 mg PO DAILY [facility] Last Admin: 11/29/20 09:17 Dose: 100 mg Documented by: Baclofen (Lioresal) 10 mg PO TID [facility] Last Admin: 11/29/20 20:45 Dose: 10 mg Documented by: Diclofenac Sodium (Voltaren 1% Gel) 2 gm TOP QID PRN PRN Reason: Pain Last Admin: 11/29/20 18:21 Dose: 1 gram Documented by: Docusate Sodium (Colace) 100 mg PO BID PRN PRN Reason: Constipation Enoxaparin Sodium (Lovenox) 40 mg SUBCUT DAILY [facility] Last Admin: 11/29/20 09:26 Dose: 40 mg Documented by: Fentanyl (Duragesic) 25 mcg TRDERM Q72H [facility] Last Admin: 11/27/20 10:06 Dose: 25 mcg Documented by: Gabapentin (Neurontin) 800 mg PO QID [facility] Hydralazine HCl (Apresoline) 10 mg IVPUSH Q4H PRN PRN Reason: Hypertension Hydrochlorothiazide (Hydrochlorothiazide) 50 mg PO DAILY [facility] Promethazine HCl 12.5 mg/ (Sodium Chloride) 50.5 mls @ 100 mls/hr IV Q6H PRN PRN Reason: Nausea/Vomiting Miscellaneous Information (Remove Patch) 1 ea TRDERM Q72H [facility] Last Admin: 11/27/20 13:47 Dose: 1 ea Documented by: Oxycodone HCl (Oxycodone) 5 mg PO Q4H PRN PRN Reason: Pain (moderate 4-6) Last Admin: 11/28/20 08:02 Dose: 5 mg Documented by: Oxycodone HCl (Oxycodone) 10 mg PO Q4H PRN PRN Reason: Pain (severe 7-10) Last Admin: 11/30/20 03:32 Dose: 10 mg Documented by: Pantoprazole Sodium (Protonix) 40 mg PO BID [facility] Last Admin: 11/29/20 20:45 Dose: 40 mg Documented by: Polysaccharide Iron Complex (Ferrex 150) 150 mg PO DAILY [facility] Last Admin: 11/29/20 09:17 Dose: 150 mg Documented by: Zolpidem Tartrate (Ambien) 10 mg PO BEDTIME PRN PRN Reason: Sleep Last Admin: 11/29/20 20:48 Dose: 10 mg Documented by: Discontinued Medications Acetaminophen (Tylenol) 650 mg PO Q6H PRN PRN Reason: Pain (Mild 1-3)/fever Last Admin: 11/26/20 08:20 Dose: 650 mg Documented by: Acetaminophen (Tylenol) 650 mg PO Q6H [facility] Last Admin: 11/27/20 02:10 Dose: 650 mg Documented by: Gabapentin (Neurontin) 600 mg PO QID [facility] Last Admin: 11/29/20 20:45 Dose: 600 mg Documented by: Hydrochlorothiazide (Hydrochlorothiazide) 50 mg PO DAILY [facility] Last Admin: 11/29/20 09:08 Dose: 50 mg Documented by: Sodium Chloride (Normal Saline) 500 mls @ 50 mls/hr IV ASDIRECTED [facility] Stop: 11/30/20 06:29 Ketorolac Tromethamine (Toradol) 15 mg IVPUSH Q6H PRN PRN Reason: Pain (severe 7-10) Last Admin: 11/27/20 09:53 Dose: 15 mg Documented by: Ketorolac Tromethamine (Toradol) 15 mg IVPUSH Q6H PRN PRN Reason: Pain (moderate 4-6) Last Admin: 11/28/20 22:16 Dose: 15 mg Documented by: Morphine Sulfate (Morphine) 2 mg IVPUSH Q4H PRN PRN Reason: Pain (severe 7-10) Stop: 11/25/20 19:25 Last Admin: 11/25/20 06:12 Dose: 2 mg Documented by: Non-Formulary Medication (Alendronate) 70 mg PO WEEKLY [facility] Meloxicam 7.5 Mg (Ptom) 7.5 mg PO DAILY [facility] Last Admin: 11/27/20 16:19 Dose: Not Given Documented by: Oxycodone HCl (Oxycodone) 5 mg PO Q6H PRN PRN Reason: Pain (moderate 4-6) Last Admin: 11/25/20 09:11 Dose: 5 mg Documented by: Oxycodone HCl (Oxycodone) 5 mg PO Q8H PRN PRN Reason: Pain (moderate 4-6) Last Admin: 11/25/20 13:40 Dose: 5 mg Documented by: Oxycodone HCl (Oxycodone) 5 mg PO Q8H PRN PRN Reason: Pain Last Admin: 11/25/20 21:58 Dose: 5 mg Documented by: Oxycodone HCl (Oxycodone) 7.5 mg PO Q4H PRN PRN Reason: Pain (severe 7-10) Last Admin: 11/29/20 10:24 Dose: 7.5 mg Documented by: Oxycodone/Acetaminophen (Percocet 325-5 Mg) 1 tab PO Q8H PRN PRN Reason: Pain (moderate 4-6) Last Admin: 11/26/20 08:19 Dose: 1 tab Documented by: - Exam Quality Assessment: No: Supplemental Oxygen General: Alert, Oriented, Cooperative HEENT: Pupils Equal, Pupils Reactive, EOMI, Mucous Membr. Moist/Galliano Neck: Supple Lungs: Clear to Auscultation, Normal Respiratory Effort Cardiovascular: Regular Rate, Regular Rhythm GI/Abdominal Exam: Normal Bowel Sounds, Soft, Non-Tender, No Organomegaly, No Distention, No Abnormal Bruit, No Mass, Other (obese) (Female) Exam: Deferred Back Exam: Normal Inspection, Decreased Range of Motion Extremities: Normal Inspection, Normal Range of Motion, Non-Tender, No Pedal Edema, Normal Capillary Refill, Other (surgical scar on right knee and amputated left hip) Peripheral Pulses: 2+: Posterior Tibial (R), Dorsalis Pedis (R) Skin: Warm, Dry, Intact Wound/Incisions: Healing Well, No Drainage, Other (on right shoulder). No: Erythema Neurological: No New Focal Deficit. No: Normal Gait Psy/Mental Status: Alert, Normal Affect, Normal Mood Sepsis Event Note - Evaluation Sepsis Screening Result: No Definite Risk - Focused Exam Vital Signs: Vital Signs Temp Pulse Resp BP Pulse Ox 11/30/20 08:43 36.5 C 85 20 135/64 99 02/14/21 03:30 36.2 C 87 20 133/68 99 11/30/20 00:46 36.3 C 87 20 134/72 96 - Problem List Review Problem List Initiated/Reviewed/Updated: Yes - My Orders Last 24 Hours: My Active Orders 11/29/20 10:50 Communication Order [RC] ASDIRECTED 11/29/20 13:22 oxyCODONE 10 mg PO Q4H PRN 11/30/20 13:00 Gabapentin [Neurontin] 800 mg PO QID 12/01/20 05:11 BMP [BASIC METABOLIC PANEL,BMP] [CHEM] AM CBC WITH AUTO DIFF [HEME] AM MAGNESIUM [CHEM] AM 12/01/20 09:00 hydroCHLOROthiazide 50 mg PO DAILY 12/02/20 05:11 BMP [BASIC METABOLIC PANEL,BMP] [CHEM] AM CBC WITH AUTO DIFF [HEME] AM MAGNESIUM [CHEM] AM 12/03/20 05:11 BMP [BASIC METABOLIC PANEL,BMP] [CHEM] AM CBC WITH AUTO DIFF [HEME] AM MAGNESIUM [CHEM] AM - Assessment Assessment:: 1. Self care deficit secondary to right shoulder surgery. Post surgical shoulder pain. Chronic leg pain. Patient complains of right leg pain, has peripheral neuropathy-> asking for increased frequency. Hold increase in dose due to renal insufficiency; now improved Continue physical therapy. X-ray right leg on 11/28/2020-nothing acute. Gone up on her narcotic dose yesterday. Will go up on Gabapetin to 800 mg po QID. 2. S/p right total should replacement in 10/[address] Mejia in [place] Follow with Dr. Reed after discharge Request Dr. Smith and orthopedics to evaluate patient and her pain. Making sure she gets appropriate therapy and pain control. pain management: Patient started on oxycodone 5 mg every 4 hours as needed, Tylenol 650 mg every 6 hours scheduled, and Toradol 15 mg IV every 6 hours as needed. Patient states she still not getting appropriate pain control. Fentanyl patch will be restarted at 25 mcg/h. Patient did still have a fentanyl patch on as of this morning. It was likely over 3 days. 3. HTN, controlled Continue home medication Discontinued norvasc, her pressures overall are controlled Will resume thiazide in AM as her renal panel has improved 4. Hepatitis C Repeat liver function in morning Continue following liver function panel. Concerned that there is a slight increase in AST and alk phos today with the scheduled Tylenol. Tylenol may need to be stopped or decreased. She is only getting 2600 mg of Tylenol daily at this time. 5. Covid 19 positiveremains asymptomatic 6. DVT prophylaxis: Lovenox 7. Vitamin D insufficiency -25 hydroxy vitamin D23.1 Vitamin D 5000 units daily 8. Prediabetes? Hemoglobin A1c 5.9 Diabetic diet 9. Normocytic Hypochromic Anemia, POA She is post surgical Hgb is stable at 10.5 grams this AM 10. ALLEGRA with Cr 1.2, resolved Iatrogenic for HCTZ and Ketorolac Use Held HCTZ and discontinue NSAID Encourage patient to drink more fluids Refused 500 ml NS bolus x1 ordered yesterday 11. Elevated AST, POA 12. Elevated Alkaline Phosphatase, POA 13. Hypoalbuminemia with Albumin of 3.1, POA 14. Class II Obese, BMI of 37.6 Monitor Dietary consult for weight management Deposition: SNF placement [facility] after 10 days of quarantine at our facility Length of stay greater than 96 hours secondary to being quarantined in our facility because the local nursing homes will not take a Covid positive patient before 10 days. - Plan Plan:: November 25, 2020 Assessment and plan: 1. Self care deficit PT OT 2. S/p right total should replacement in 10/[address] Mejia in [place] Follow with Dr. Reed pain management: Acetaminophen/oxycodone (325-10) Q8hrs prn Morphine 2mg iv Q4h prn Baclofen 10mg tid Gabapentin 600mg Qid Home fentanyl patch and oxycodone 5mg Q4hrs are on hold 3. HTN Continue home medication 4. Hepatitis C Repeat liver function in morning 5. Covid 19 positive Patient is on room air with good oxygen saturation Chest x-ray -no acute change CRP less than 0.2 I did not order D-dimer due to recent surgery Troponin negative I did not order remdesivir, steroid or anticoagulation at this moment Continue home aspirin 6. DVT prophylaxis: Lovenox 7. Vitamin D insufficiency Vitamin D 8. Prediabetes? Hemoglobin A1c 5.9 Diabetic diet Deposition: SNF placement [facility] refused her November 26, 2020 1. Self care deficit PT OT 2. S/p right total should replacement in 10/[address] Mejia in [place] Follow with Dr. Reed pain management: Stop Acetaminophen/oxycodone (325-10) Q8hrs prn Stop Morphine 2mg iv Q4h prn Baclofen 10mg tid Gabapentin 600mg Qid Stop fentanyl patch oxycodone 5mg Q4hrs are on hold 3. HTN Continue home medication 4. Hepatitis C Repeat liver function in morning 5. Covid 19 positive Patient is on room air with good oxygen saturation Chest x-ray -no acute change CRP less than 0.2 I did not order D-dimer due to recent surgery Troponin negative I did not order remdesivir, steroid or anticoagulation at this moment Continue home aspirin 6. DVT prophylaxis: Lovenox 7. Vitamin D insufficiency Vitamin D 5000 units daily 8. Prediabetes? Hemoglobin A1c 5.9 Diabetic diet Deposition: SNF placement [facility] after 10 days of quarantine at our facility 11/27/2020 1. Self care deficit secondary to right shoulder surgery. PT OT 2. S/p right total should replacement in 10/[address] Mejia in [place] Follow with Dr. Reed after discharge Request Dr. Smith and orthopedics to evaluate patient and her pain. Making sure she gets appropriate therapy and pain control. pain management: Patient started on oxycodone 5 mg every 4 hours as needed, Tylenol 650 mg every 6 hours scheduled, and Toradol 15 mg IV every 6 hours as needed. Patient states she still not getting appropriate pain control. Fentanyl patch will be restarted at 25 mcg/h. Patient did still have a fentanyl patch on as of this morning. It was likely over 3 days. 3. HTN Continue home medication 4. Hepatitis C Repeat liver function in morning Continue following liver function panel. Concerned that there is a slight increase in AST and alk phos today with the scheduled Tylenol. Tylenol may need to be stopped or decreased. She is only getting 2600 mg of Tylenol daily at this time. 5. Covid 19 positive, no change on room air 6. DVT prophylaxis: Lovenox 7. Vitamin D insufficiency Vitamin D 5000 units daily 8. Prediabetes? Hemoglobin A1c 5.9 Diabetic diet Deposition: SNF placement [facility] after 10 days of quarantine at our facility 11/28/2020 1. Self care deficit secondary to right shoulder surgery. Patient complains of right leg pain Continue physical therapy. X-ray right leg today. 2. S/p right total should replacement in 10/[address] Mejia in [place] Follow with Dr. Reed after discharge Request Dr. Smith and orthopedics to evaluate patient and her pain. Making sure she gets appropriate therapy and pain control. pain management: Patient started on oxycodone 5 mg every 4 hours as needed, Tylenol 650 mg every 6 hours scheduled, and Toradol 15 mg IV every 6 hours as needed. Patient states she still not getting appropriate pain control. Fentanyl patch will be restarted at 25 mcg/h. Patient did still have a fentanyl patch on as of this morning. It was likely over 3 days. 3. HTN Continue home medication 4. Hepatitis C Repeat liver function in morning Continue following liver function panel. Concerned that there is a slight increase in AST and alk phos today with the scheduled Tylenol. Tylenol may need to be stopped or decreased. She is only getting 2600 mg of Tylenol daily at this time. 5. Covid 19 positiveno change On room air 6. DVT prophylaxis: Lovenox 7. Vitamin D insufficiency -25 hydroxy vitamin D23.1 Vitamin D 5000 units daily 8. Prediabetes? Hemoglobin A1c 5.9 Diabetic diet Deposition: SNF placement [facility] after 10 days of quarantine at our facility Length of stay greater than 96 hours secondary to being quarantined in our facility because the local nursing homes will not take a Covid positive patient before 10 days. 11/29/2020 1. Self care deficit secondary to right shoulder surgery. Patient complains of right leg pain, has peripheral neuropathy-> asking for increased frequency. Hold increase in dose due to renal insufficiency. Continue physical therapy. X-ray right leg on 11/28/2020-nothing acute. Will go up on her narcotic pain medication 2. S/p right total should replacement in 10/[address] Mejia in [place] Follow with Dr. Reed after discharge Request Dr. Smith and orthopedics to evaluate patient and her pain. Making sure she gets appropriate therapy and pain control. pain management: Patient started on oxycodone 5 mg every 4 hours as needed, Tylenol 650 mg every 6 hours scheduled, and Toradol 15 mg IV every 6 hours as needed. Patient states she still not getting appropriate pain control. Fentanyl patch will be restarted at 25 mcg/h. Patient did still have a fentanyl patch on as of this morning. It was likely over 3 days. 3. HTN, controlled Continue home medication 4. Hepatitis C Repeat liver function in morning Continue following liver function panel. Concerned that there is a slight increase in AST and alk phos today with the scheduled Tylenol. Tylenol may need to be stopped or decreased. She is only getting 2600 mg of Tylenol daily at this time. 5. Covid 19 positiveasymptomatic 6. DVT prophylaxis: Lovenox 7. Vitamin D insufficiency -25 hydroxy vitamin D23.1 Vitamin D 5000 units daily 8. Prediabetes? Hemoglobin A1c 5.9 Diabetic diet 9. Normocytic Hypochromic Anemia, POA She is post surgical Hgb is sable at 9.8 grams 10. ALLEGRA with Cr 1.2 Iatrogenic for HCTZ and Ketorolac Use Hold HCTZ and discontinue NSAID Encourage patient to drink more fluids 11. Elevated AST, POA 12. Elevated Alkaline Phosphatase, POA 13. Hypoalbuminemia with Albumin of 3.1, POA 14. Class II Obese, BMI of 37.6 Monitor Dietary consult for weight management 15. Epigastric Pain/Rib Pain 16. Dyslipidemia, New onset -ruled out ACS -Serial troponin and EKGs were wnl -Lipid pane-abnormal -Dietary consult for dyslipidemia Deposition: SNF placement [facility] after 10 days of quarantine at our facility Length of stay greater than 96 hours secondary to being quarantined in our facility because the local nursing homes will not take a Covid positive patient before 10 days.
[2020-11-30] MEDS ORDERED: Potassium Chloride 20 MEQ Tab.ER PO ONE (10:06)
[2020-11-30] MEDS: Aspirin 81 MG Tab.Chew PO SCH (10:17)
[2020-11-30] MEDS: Baclofen 10 MG Tab PO SCH ×3 (10:20→21:41)
[2020-11-30] MEDS: Iron Polysaccharides Complex 150 MG Cap PO SCH (10:20)
[2020-11-30] MEDS: Pantoprazole 40 MG Tab.CR PO SCH ×2 (10:21→21:20)
[2020-11-30] MEDS: Atenolol 50 MG Tab PO SCH (10:24)
[2020-11-30] MEDS: Gabapentin 600 MG Tab PO SCH ×4 (10:33→21:20)
[2020-11-30] MEDS: fentaNYL 25 MCG/HR Transdermal Patch TRDERM SCH (10:36)
[2020-11-30] MEDS: Enoxaparin 40 MG/0.4 ML Syringe SUBCUT SCH (10:43)
[2020-11-30] MEDS: Gabapentin 100 MG Cap PO SCH ×4 (11:06→21:20)
[2020-11-30] MEDS: Diclofenac Sodium 1% Gel 100 GM Tube TOP PRN ×2 (11:44→21:22)
[2020-11-30] MEDS: Zolpidem 10 MG Tab PO PRN (21:22)
[2020-12-01] MEDS: Acetaminophen 325 MG Tab PO SCH ×4 (03:28→21:15)
[2020-12-01] MEDS: oxyCODONE 5 MG Tab PO PRN ×5 (03:34→23:11)
--- NOTE | 2020-12-01 07:04 | PCM.PN ---
- General Info Date of Service: 12/01/20 Admission Dx/Problem (Free Text): Admission Diagnosis/Problem Admission Diagnosis/Problem Failure to thrive in adult Subjective Update: No overnight or acute issues. Her pain is much better. She is eating and drinking fine. She is requesting last dose of gabapentin be changed to 2300. Functional Status: Reports: Tolerating Diet, Ambulating, Urinating - Review of Systems General: Denies: Fever, Chills Pulmonary: Denies: Shortness of Breath Cardiovascular: Denies: Chest Pain Gastrointestinal: Denies: Abdominal Pain, Nausea, Vomiting Genitourinary: Denies: Frequency Musculoskeletal: Reports: Leg Pain. Denies: Neck Pain Skin: Denies: Cyanosis Neurological: Reports: Gait Disturbance. Denies: Confusion, Difficulty Walking, Weakness Psychiatric: Denies: Depression, Anxiety - Patient Data Vitals - Most Recent: Last Vital Signs Temp 36.8 C 11/30/20 21:27 Pulse 86 11/30/20 21:27 Resp 16 11/30/20 21:27 BP 128/61 11/30/20 21:27 Pulse Ox 98 11/30/20 21:27 Weight - Most Recent: 99.836 kg I&O - Last 24 Hours: Intake & Output 11/30/20 12/01/20 12/01/20 22:59 06:59 14:59 Intake Total 1640 1100 Balance 1640 1100 Med Orders - Current: Current Medications Acetaminophen (Tylenol) 650 mg PO Q6H [facility] Last Admin: 12/01/20 03:28 Dose: 650 mg Documented by: Albuterol/Ipratropium (Duoneb 3.0-0.5 Mg/3 Ml) 3 ml NEB Q4H PRN PRN Reason: Shortness Of Breath/wheezing Aspirin (Halfprin) 81 mg PO DAILY [facility] Atenolol (Tenormin) 100 mg PO DAILY [facility] Last Admin: 11/30/20 10:24 Dose: 100 mg Documented by: Baclofen (Lioresal) 10 mg PO TID [facility] Last Admin: 11/30/20 21:41 Dose: 10 mg Documented by: Diclofenac Sodium (Voltaren 1% Gel) 2 gm TOP QID PRN PRN Reason: Pain Last Admin: 11/30/20 21:22 Dose: 1 applic Documented by: Docusate Sodium (Colace) 100 mg PO BID PRN PRN Reason: Constipation Enoxaparin Sodium (Lovenox) 40 mg SUBCUT DAILY [facility] Last Admin: 11/30/20 10:43 Dose: 40 mg Documented by: Fentanyl (Duragesic) 25 mcg TRDERM Q72H [facility] Last Admin: 11/30/20 10:36 Dose: 25 mcg Documented by: Gabapentin (Neurontin) 600 mg PO QID [facility] Last Admin: 11/30/20 21:20 Dose: 600 mg Documented by: Gabapentin (Neurontin) 200 mg PO QID [facility] Last Admin: 11/30/20 21:20 Dose: 200 mg Documented by: Hydralazine HCl (Apresoline) 10 mg IVPUSH Q4H PRN PRN Reason: Hypertension Hydrochlorothiazide (Hydrochlorothiazide) 50 mg PO DAILY [facility] Promethazine HCl 12.5 mg/ (Sodium Chloride) 50.5 mls @ 100 mls/hr IV Q6H PRN PRN Reason: Nausea/Vomiting Miscellaneous Information (Remove Patch) 1 ea TRDERM Q72H [facility] Last Admin: 11/30/20 10:39 Dose: 1 ea Documented by: Oxycodone HCl (Oxycodone) 5 mg PO Q4H PRN PRN Reason: Pain (moderate 4-6) Last Admin: 11/28/20 08:02 Dose: 5 mg Documented by: Oxycodone HCl (Oxycodone) 10 mg PO Q4H PRN PRN Reason: Pain (severe 7-10) Last Admin: 12/01/20 03:34 Dose: 10 mg Documented by: Pantoprazole Sodium (Protonix) 40 mg PO BID [facility] Last Admin: 11/30/20 21:20 Dose: 40 mg Documented by: Polysaccharide Iron Complex (Ferrex 150) 150 mg PO DAILY [facility] Last Admin: 11/30/20 10:20 Dose: 150 mg Documented by: Potassium Chloride (Klor-Con M20) 20 meq PO DAILY [facility] Senna/Docusate Sodium (Senna Plus) 1 tab PO DAILY [facility] Zolpidem Tartrate (Ambien) 10 mg PO BEDTIME PRN PRN Reason: Sleep Last Admin: 11/30/20 21:22 Dose: 10 mg Documented by: Discontinued Medications Acetaminophen (Tylenol) 650 mg PO Q6H PRN PRN Reason: Pain (Mild 1-3)/fever Last Admin: 11/26/20 08:20 Dose: 650 mg Documented by: Acetaminophen (Tylenol) 650 mg PO Q6H [facility] Last Admin: 11/27/20 02:10 Dose: 650 mg Documented by: Amlodipine Besylate (Norvasc) 2.5 mg PO DAILY [facility] Last Admin: 11/30/20 09:30 Dose: Not Given Documented by: Aspirin (Aspirin) 81 mg PO DAILY [facility] Last Admin: 11/30/20 10:17 Dose: 81 mg Documented by: Gabapentin (Neurontin) 600 mg PO QID [facility] Last Admin: 11/29/20 20:45 Dose: 600 mg Documented by: Hydrochlorothiazide (Hydrochlorothiazide) 50 mg PO DAILY [facility] Last Admin: 11/29/20 09:08 Dose: 50 mg Documented by: Sodium Chloride (Normal Saline) 500 mls @ 50 mls/hr IV ASDIRECTED [facility] Stop: 11/30/20 06:29 Ketorolac Tromethamine (Toradol) 15 mg IVPUSH Q6H PRN PRN Reason: Pain (severe 7-10) Last Admin: 11/27/20 09:53 Dose: 15 mg Documented by: Ketorolac Tromethamine (Toradol) 15 mg IVPUSH Q6H PRN PRN Reason: Pain (moderate 4-6) Last Admin: 11/28/20 22:16 Dose: 15 mg Documented by: Morphine Sulfate (Morphine) 2 mg IVPUSH Q4H PRN PRN Reason: Pain (severe 7-10) Stop: 11/25/20 19:25 Last Admin: 11/25/20 06:12 Dose: 2 mg Documented by: Non-Formulary Medication (Alendronate) 70 mg PO WEEKLY [facility] Meloxicam 7.5 Mg (Ptom) 7.5 mg PO DAILY [facility] Last Admin: 11/27/20 16:19 Dose: Not Given Documented by: Oxycodone HCl (Oxycodone) 5 mg PO Q6H PRN PRN Reason: Pain (moderate 4-6) Last Admin: 11/25/20 09:11 Dose: 5 mg Documented by: Oxycodone HCl (Oxycodone) 5 mg PO Q8H PRN PRN Reason: Pain (moderate 4-6) Last Admin: 11/25/20 13:40 Dose: 5 mg Documented by: Oxycodone HCl (Oxycodone) 5 mg PO Q8H PRN PRN Reason: Pain Last Admin: 11/25/20 21:58 Dose: 5 mg Documented by: Oxycodone HCl (Oxycodone) 7.5 mg PO Q4H PRN PRN Reason: Pain (severe 7-10) Last Admin: 11/29/20 10:24 Dose: 7.5 mg Documented by: Oxycodone/Acetaminophen (Percocet 325-5 Mg) 1 tab PO Q8H PRN PRN Reason: Pain (moderate 4-6) Last Admin: 11/26/20 08:19 Dose: 1 tab Documented by: Potassium Chloride (Klor-Con M20) 20 meq PO ONETIME ONE Stop: 11/30/20 10:07 Last Admin: 11/30/20 10:34 Dose: 20 meq Documented by: Senna/Docusate Sodium (Senna Plus) 1 tab PO ONETIME ONE Stop: 11/30/20 10:11 Last Admin: 11/30/20 10:34 Dose: 1 tab Documented by: - Exam Quality Assessment: No: Supplemental Oxygen General: Alert, Oriented, Cooperative, No Acute Distress, Other (Obese) HEENT: Pupils Equal, Pupils Reactive, EOMI, Mucous Membr. Moist/[place] Neck: Supple Lungs: Clear to Auscultation, Normal Respiratory Effort Cardiovascular: Regular Rate, Regular Rhythm GI/Abdominal Exam: Normal Bowel Sounds, Soft, Non-Tender, No Organomegaly, No Distention, No Abnormal Bruit, Other (Obese) (Female) Exam: No: Deferred Back Exam: Normal Inspection, Decreased Range of Motion Extremities: Normal Inspection, Normal Range of Motion, Non-Tender, No Pedal Edema, Normal Capillary Refill, Other (left hip amputation) Peripheral Pulses: 2+: Posterior Tibial (R), Dorsalis Pedis (R) Skin: Warm, Dry, Intact Neurological: No New Focal Deficit. No: Normal Gait Psy/Mental Status: Alert, Normal Affect, Normal Mood Physical Findings Comments:: She remains clinical stable. Sepsis Event Note - Evaluation Sepsis Screening Result: No Definite Risk - Focused Exam Vital Signs: Vital Signs Temp Pulse Resp BP Pulse Ox 11/30/20 21:27 36.8 C 86 16 128/61 98 - Problem List Review Problem List Initiated/Reviewed/Updated: Yes - My Orders Last 24 Hours: My Active Orders 11/30/20 11:00 Gabapentin [Neurontin] 200 mg PO QID 11/30/20 13:00 Gabapentin [Neurontin] 600 mg PO QID 11/30/20 19:50 Vital Signs [RC] QSHIFT 12/01/20 05:11 BMP [BASIC METABOLIC PANEL,BMP] [CHEM] AM CBC WITH AUTO DIFF [HEME] AM MAGNESIUM [CHEM] AM 12/01/20 09:00 Docusate Sodium/Sennosides [Senna Plus] 1 tab PO DAILY Potassium Chloride [Klor-Con M20] 20 meq PO DAILY hydroCHLOROthiazide 50 mg PO DAILY 12/02/20 05:11 BMP [BASIC METABOLIC PANEL,BMP] [CHEM] AM CBC WITH AUTO DIFF [HEME] AM MAGNESIUM [CHEM] AM 12/03/20 05:11 BMP [BASIC METABOLIC PANEL,BMP] [CHEM] AM CBC WITH AUTO DIFF [HEME] AM MAGNESIUM [CHEM] AM - Assessment Assessment:: 1. Self care deficit secondary to right shoulder surgery. Post surgical shoulder pain. Chronic leg pain. Patient complains of right leg pain, has peripheral neuropathy-> asking for increased frequency. Hold increase in dose due to renal insufficiency; now improved Continue physical therapy. X-ray right leg on 11/28/2020-nothing acute. Gone up on her narcotic dose yesterday. Will go up on Gabapetin to 800 mg po QID. 2. S/p right total should replacement in 10/[address] Mejia in [place] Follow with Dr. Reed after discharge Request Dr. Smith and orthopedics to evaluate patient and her pain. Making sure she gets appropriate therapy and pain control. pain management: Patient started on oxycodone 5 mg every 4 hours as needed, Tylenol 650 mg every 6 hours scheduled, and Toradol 15 mg IV every 6 hours as needed. Patient states she still not getting appropriate pain control. Fentanyl patch will be restarted at 25 mcg/h. Patient did still have a fentanyl patch on as of this morning. It was likely over 3 days. 3. HTN, controlled Continue home medication Discontinued norvasc, her pressures overall are controlled Will resume thiazide in AM as her renal panel has improved 4. Hepatitis C Repeat liver function in morning Continue following liver function panel. Concerned that there is a slight increase in AST and alk phos today with the scheduled Tylenol. Tylenol may need to be stopped or decreased. She is only getting 2600 mg of Tylenol daily at this time. 5. Covid 19 positiveremains asymptomatic 6. DVT prophylaxis: Lovenox 7. Vitamin D insufficiency -25 hydroxy vitamin D23.1 Vitamin D 5000 units daily 8. Prediabetes? Hemoglobin A1c 5.9 Diabetic diet 9. Normocytic Hypochromic Anemia, POA She is post surgical Hgb is stable at 10.5 grams this AM 10. ALLEGRA with Cr 1.2, resolved Iatrogenic for HCTZ and Ketorolac Use Held HCTZ and discontinue NSAID Encourage patient to drink more fluids Refused 500 ml NS bolus x1 ordered yesterday 11. Elevated AST, POA 12. Elevated Alkaline Phosphatase, POA 13. Hypoalbuminemia with Albumin of 3.1, POA 14. Class II Obese, BMI of 37.6 Monitor Dietary consult for weight management Deposition: SNF placement [facility] after 10 days of quarantine at our facility Length of stay greater than 96 hours secondary to being quarantined in our facility because the local nursing homes will not take a Covid positive patient before 10 days. - Plan Plan:: November 25, 2020 Assessment and plan: 1. Self care deficit PT OT 2. S/p right total should replacement in 10/[address] Mejia in [place] Follow with Dr. Reed pain management: Acetaminophen/oxycodone (325-10) Q8hrs prn Morphine 2mg iv Q4h prn Baclofen 10mg tid Gabapentin 600mg Qid Home fentanyl patch and oxycodone 5mg Q4hrs are on hold 3. HTN Continue home medication 4. Hepatitis C Repeat liver function in morning 5. Covid 19 positive Patient is on room air with good oxygen saturation Chest x-ray -no acute change CRP less than 0.2 I did not order D-dimer due to recent surgery Troponin negative I did not order remdesivir, steroid or anticoagulation at this moment Continue home aspirin 6. DVT prophylaxis: Lovenox 7. Vitamin D insufficiency Vitamin D 8. Prediabetes? Hemoglobin A1c 5.9 Diabetic diet Deposition: SNF placement [facility] refused her November 26, 2020 1. Self care deficit PT OT 2. S/p right total should replacement in 10/[address] Mejia in [place] Follow with Dr. Reed pain management: Stop Acetaminophen/oxycodone (325-10) Q8hrs prn Stop Morphine 2mg iv Q4h prn Baclofen 10mg tid Gabapentin 600mg Qid Stop fentanyl patch oxycodone 5mg Q4hrs are on hold 3. HTN Continue home medication 4. Hepatitis C Repeat liver function in morning 5. Covid 19 positive Patient is on room air with good oxygen saturation Chest x-ray -no acute change CRP less than 0.2 I did not order D-dimer due to recent surgery Troponin negative I did not order remdesivir, steroid or anticoagulation at this moment Continue home aspirin 6. DVT prophylaxis: Lovenox 7. Vitamin D insufficiency Vitamin D 5000 units daily 8. Prediabetes? Hemoglobin A1c 5.9 Diabetic diet Deposition: SNF placement [facility] after 10 days of quarantine at our facility 11/27/2020 1. Self care deficit secondary to right shoulder surgery. PT OT 2. S/p right total should replacement in 10/[address] Mejia in [place] Follow with Dr. Reed after discharge Request Dr. Smith and orthopedics to evaluate patient and her pain. Making sure she gets appropriate therapy and pain control. pain management: Patient started on oxycodone 5 mg every 4 hours as needed, Tylenol 650 mg every 6 hours scheduled, and Toradol 15 mg IV every 6 hours as needed. Patient states she still not getting appropriate pain control. Fentanyl patch will be restarted at 25 mcg/h. Patient did still have a fentanyl patch on as of this morning. It was likely over 3 days. 3. HTN Continue home medication 4. Hepatitis C Repeat liver function in morning Continue following liver function panel. Concerned that there is a slight increase in AST and alk phos today with the scheduled Tylenol. Tylenol may need to be stopped or decreased. She is only getting 2600 mg of Tylenol daily at this time. 5. Covid 19 positive, no change on room air 6. DVT prophylaxis: Lovenox 7. Vitamin D insufficiency Vitamin D 5000 units daily 8. Prediabetes? Hemoglobin A1c 5.9 Diabetic diet Deposition: SNF placement [facility] after 10 days of quarantine at our facility 11/28/2020 1. Self care deficit secondary to right shoulder surgery. Patient complains of right leg pain Continue physical therapy. X-ray right leg today. 2. S/p right total should replacement in 10/[address] Mejia in [place] Follow with Dr. Reed after discharge Request Dr. Smith and orthopedics to evaluate patient and her pain. Making sure she gets appropriate therapy and pain control. pain management: Patient started on oxycodone 5 mg every 4 hours as needed, Tylenol 650 mg every 6 hours scheduled, and Toradol 15 mg IV every 6 hours as needed. Patient states she still not getting appropriate pain control. Fentanyl patch will be restarted at 25 mcg/h. Patient did still have a fentanyl patch on as of this morning. It was likely over 3 days. 3. HTN Continue home medication 4. Hepatitis C Repeat liver function in morning Continue following liver function panel. Concerned that there is a slight increase in AST and alk phos today with the scheduled Tylenol. Tylenol may need to be stopped or decreased. She is only getting 2600 mg of Tylenol daily at this time. 5. Covid 19 positiveno change On room air 6. DVT prophylaxis: Lovenox 7. Vitamin D insufficiency -25 hydroxy vitamin D23.1 Vitamin D 5000 units daily 8. Prediabetes? Hemoglobin A1c 5.9 Diabetic diet Deposition: SNF placement [facility] after 10 days of quarantine at our facility Length of stay greater than 96 hours secondary to being quarantined in our facility because the local nursing homes will not take a Covid positive patient before 10 days. 11/29/2020 1. Self care deficit secondary to right shoulder surgery. Patient complains of right leg pain, has peripheral neuropathy-> asking for increased frequency. Hold increase in dose due to renal insufficiency. Continue physical therapy. X-ray right leg on 11/28/2020-nothing acute. Will go up on her narcotic pain medication 2. S/p right total should replacement in 10/[address] Mejia in [place] Follow with Dr. Reed after discharge Request Dr. Smith and orthopedics to evaluate patient and her pain. Making sure she gets appropriate therapy and pain control. pain management: Patient started on oxycodone 5 mg every 4 hours as needed, Tylenol 650 mg every 6 hours scheduled, and Toradol 15 mg IV every 6 hours as needed. Patient states she still not getting appropriate pain control. Fentanyl patch will be restarted at 25 mcg/h. Patient did still have a fentanyl patch on as of this morning. It was likely over 3 days. 3. HTN, controlled Continue home medication 4. Hepatitis C Repeat liver function in morning Continue following liver function panel. Concerned that there is a slight increase in AST and alk phos today with the scheduled Tylenol. Tylenol may need to be stopped or decreased. She is only getting 2600 mg of Tylenol daily at this time. 5. Covid 19 positiveasymptomatic 6. DVT prophylaxis: Lovenox 7. Vitamin D insufficiency -25 hydroxy vitamin D23.1 Vitamin D 5000 units daily 8. Prediabetes? Hemoglobin A1c 5.9 Diabetic diet 9. Normocytic Hypochromic Anemia, POA She is post surgical Hgb is sable at 9.8 grams 10. ALLEGRA with Cr 1.2 Iatrogenic for HCTZ and Ketorolac Use Hold HCTZ and discontinue NSAID Encourage patient to drink more fluids 11. Elevated AST, POA 12. Elevated Alkaline Phosphatase, POA 13. Hypoalbuminemia with Albumin of 3.1, POA 14. Class II Obese, BMI of 37.6 Monitor Dietary consult for weight management 15. Epigastric Pain/Rib Pain 16. Dyslipidemia, New onset -ruled out ACS -Serial troponin and EKGs were wnl -Lipid pane-abnormal -Dietary consult for dyslipidemia Deposition: SNF placement [facility] after 10 days of quarantine at our facility Length of stay greater than 96 hours secondary to being quarantined in our facility because the local nursing homes will not take a Covid positive patient before 10 days. 12/01/2020 1. Self care deficit secondary to right shoulder surgery. Patient complains of right leg pain, has peripheral neuropathy. Hold increase in dose due to renal insufficiency. Continue physical therapy. X-ray right leg on 11/28/2020-nothing acute. Oxycodon now at 10 mg po Q4H PRN for pain Gabapentin 800 mg po QID-will change last dose to 2300 2. S/p right total should replacement in 10/[address] Mejia in [place] Follow with Dr. Reed after discharge Request Dr. Smith and orthopedics to evaluate patient and her pain. Making sure she gets appropriate therapy and pain control. pain management: Patient started on oxycodone 5 mg every 4 hours as needed, Tylenol 650 mg every 6 hours scheduled, and Toradol 15 mg IV every 6 hours as needed. Patient states she still not getting appropriate pain control. Fentanyl patch will be restarted at 25 mcg/h. Patient did still have a fentanyl patch on as of this morning. It was likely over 3 days. 3. HTN, controlled Continue home medication Discontinue norvasc per patient request 4. Hepatitis C Repeat liver function in morning Continue following liver function panel. Concerned that there is a slight increase in AST and alk phos today with the scheduled Tylenol. Tylenol may need to be stopped or decreased. She is only getting 2600 mg of Tylenol daily at this time. 5. Covid 19 positiveasymptomatic 6. DVT prophylaxis: Lovenox 7. Vitamin D insufficiency -25 hydroxy vitamin D23.1 Vitamin D 5000 units daily 8. Prediabetes? Hemoglobin A1c 5.9 Diabetic diet 9. Normocytic Hypochromic Anemia, POA She is post surgical Hgb remains stable at 10.5 grams 10. ALLEGRA with Cr 1.2 Iatrogenic for HCTZ and Ketorolac Use Hold HCTZ and discontinue NSAID Encourage patient to drink more fluids 11. Elevated AST, POA 12. Elevated Alkaline Phosphatase, POA 13. Hypoalbuminemia with Albumin of 3.1, POA 14. Class II Obese, BMI of 37.6 Monitor Dietary consult for weight management 15. Epigastric Pain/Rib Pain 16. Dyslipidemia, New onset -ruled out ACS -Serial troponin and EKGs were wnl -Lipid pane-abnormal -Dietary consult for dyslipidemia Deposition: SNF placement [facility] after 10 days of quarantine at our facility Length of stay greater than 96 hours secondary to being quarantined in our facility because the local nursing homes will not take a Covid positive patient before 10 days.
[2020-12-01] MEDS: Gabapentin 600 MG Tab PO SCH ×5 (07:46→23:10)
[2020-12-01] MEDS: Diclofenac Sodium 1% Gel 100 GM Tube TOP PRN ×2 (08:03→21:16)
[2020-12-01] MEDS: Atenolol 50 MG Tab PO SCH (08:34)
[2020-12-01] MEDS: Potassium Chloride 20 MEQ Tab.ER PO SCH (08:35)
[2020-12-01] MEDS: Pantoprazole 40 MG Tab.CR PO SCH ×2 (08:37→21:15)
[2020-12-01] MEDS: Aspirin 81 MG Tab.EC PO SCH (08:40)
[2020-12-01] MEDS: Docusate Sodium 100 MG Cap PO PRN (08:41)
[2020-12-01] MEDS: Enoxaparin 40 MG/0.4 ML Syringe SUBCUT SCH (08:42)
[2020-12-01] MEDS: Iron Polysaccharides Complex 150 MG Cap PO SCH (08:43)
[2020-12-01] MEDS: Gabapentin 100 MG Cap PO SCH ×4 (08:44→23:10)
[2020-12-01] MEDS: Hydrochlorothiazide 25 MG Tab PO SCH (08:45)
[2020-12-01] MEDS: Baclofen 10 MG Tab PO SCH ×3 (08:45→21:14)
[2020-12-01] MEDS: Zolpidem 10 MG Tab PO PRN (23:19)
[2020-12-02] MEDS: Acetaminophen 325 MG Tab PO SCH ×4 (04:30→22:00)
--- NOTE | 2020-12-02 05:54 | PCM.PN ---
- General Info Date of Service: 12/02/20 Admission Dx/Problem (Free Text): Admission Diagnosis/Problem Admission Diagnosis/Problem Failure to thrive in adult Subjective Update: No overnight or acute issues. Her pain is controlled. Functional Status: Reports: Pain Controlled, Tolerating Diet, Ambulating, Urinating. Denies: New Symptoms - Review of Systems General: Denies: Fever, Chills HEENT: Denies: Headaches Pulmonary: Denies: Shortness of Breath Cardiovascular: Denies: Chest Pain Gastrointestinal: Denies: Abdominal Pain, Nausea, Vomiting Genitourinary: Denies: Dysuria Musculoskeletal: Reports: Shoulder Pain, Leg Pain Skin: Denies: Pruritis, Rash Neurological: Reports: Paresthesia, Gait Disturbance. Denies: Difficulty Walking, Weakness Psychiatric: Denies: Depression, Anxiety - Patient Data Vitals - Most Recent: Last Vital Signs Temp 36.4 C 12/02/20 04:00 Pulse 77 12/02/20 04:00 Resp 20 12/02/20 04:00 BP 132/76 12/02/20 04:00 Pulse Ox 95 12/02/20 04:00 Weight - Most Recent: 99.836 kg I&O - Last 24 Hours: Intake & Output 12/01/20 12/01/20 12/02/20 14:59 22:59 06:59 Intake Total 1720 Balance 1720 Lab Results Last 24 Hours: Laboratory Results - last 24 hr 12/01/20 12/01/20 Range/Units 08:19 08:19 WBC 5.71 (3.98-10.04) K/mm3 RBC 4.01 (3.98-5.22) M/mm3 Hgb 10.5 L (11.2-15.7) gm/dl Hct 34.7 (34.1-44.9) % MCV 86.5 (79.4-94.8) fl MCH 26.2 (25.6-32.2) pg MCHC 30.3 L (32.2-35.5) g/dl RDW Std Deviation 48.0 H (36.4-46.3) fL Plt Count 320 (182-369) K/mm3 MPV 10.6 (9.4-12.3) fl Neut % (Auto) 49.3 (34.0-71.1) % Lymph % (Auto) 38.2 (19.3-51.7) % Navarro % (Auto) 7.7 (4.7-12.5) % Eos % (Auto) 4.0 (0.7-5.8) Baso % (Auto) 0.4 (0.1-1.2) % Neut # (Auto) 2.82 (1.56-6.13) K/mm3 Lymph # (Auto) 2.18 (1.18-3.74) K/mm3 Navarro # (Auto) 0.44 H (0.24-0.36) K/mm3 Eos # (Auto) 0.23 (0.04-0.36) K/mm3 Baso # (Auto) 0.02 (0.01-0.08) K/mm3 Sodium 135 L (136-145) mEq/L Potassium 4.1 (3.5-5.1) mEq/L Chloride 102 (98-107) mEq/L Carbon Dioxide 18 L (21-32) mEq/L Anion Gap 19.1 H (5-15) BUN 44 H (7-18) mg/dL Creatinine 0.9 (0.55-1.02) mg/dL Est Cr Clr Drug Dosing 52.38 mL/min Estimated GFR (MDRD) > 60 (>60) mL/min BUN/Creatinine Ratio 48.9 H (14-18) Glucose 113 (80-115) mg/dL Calcium 9.1 (8.5-10.1) mg/dL Magnesium 2.1 (1.8-2.4) mg/dl Med Orders - Current: Current Medications Acetaminophen (Tylenol) 650 mg PO Q6H [facility] Last Admin: 12/02/20 04:30 Dose: Not Given Documented by: Albuterol/Ipratropium (Duoneb 3.0-0.5 Mg/3 Ml) 3 ml NEB Q4H PRN PRN Reason: Shortness Of Breath/wheezing Aspirin (Halfprin) 81 mg PO DAILY [facility] Last Admin: 12/01/20 08:40 Dose: 81 mg Documented by: Atenolol (Tenormin) 100 mg PO DAILY [facility] Last Admin: 12/01/20 08:34 Dose: 100 mg Documented by: Baclofen (Lioresal) 10 mg PO TID [facility] Last Admin: 12/01/20 21:14 Dose: 10 mg Documented by: Diclofenac Sodium (Voltaren 1% Gel) 2 gm TOP QID PRN PRN Reason: Pain Last Admin: 12/01/20 21:16 Dose: 1 applic Documented by: Docusate Sodium (Colace) 100 mg PO BID PRN PRN Reason: Constipation Last Admin: 12/01/20 08:41 Dose: 100 mg Documented by: Enoxaparin Sodium (Lovenox) 40 mg SUBCUT DAILY [facility] Last Admin: 12/01/20 08:42 Dose: 40 mg Documented by: Fentanyl (Duragesic) 25 mcg TRDERM Q72H [facility] Last Admin: 11/30/20 10:36 Dose: 25 mcg Documented by: Gabapentin (Neurontin) 200 mg PO 0900,1300,1700,2300 [facility] Last Admin: 12/01/20 23:10 Dose: 200 mg Documented by: Gabapentin (Neurontin) 600 mg PO 0900,1300,1700,2300 [facility] Last Admin: 12/01/20 23:10 Dose: 600 mg Documented by: Hydralazine HCl (Apresoline) 10 mg IVPUSH Q4H PRN PRN Reason: Hypertension Hydrochlorothiazide (Hydrochlorothiazide) 50 mg PO DAILY [facility] Last Admin: 12/01/20 08:45 Dose: 50 mg Documented by: Promethazine HCl 12.5 mg/ (Sodium Chloride) 50.5 mls @ 100 mls/hr IV Q6H PRN PRN Reason: Nausea/Vomiting Miscellaneous Information (Remove Patch) 1 ea TRDERM Q72H [facility] Last Admin: 11/30/20 10:39 Dose: 1 ea Documented by: Oxycodone HCl (Oxycodone) 5 mg PO Q4H PRN PRN Reason: Pain (moderate 4-6) Last Admin: 12/01/20 08:39 Dose: 5 mg Documented by: Oxycodone HCl (Oxycodone) 10 mg PO Q4H PRN PRN Reason: Pain (severe 7-10) Last Admin: 12/01/20 23:11 Dose: 10 mg Documented by: Pantoprazole Sodium (Protonix) 40 mg PO BID [facility] Last Admin: 12/01/20 21:15 Dose: 40 mg Documented by: Polysaccharide Iron Complex (Ferrex 150) 150 mg PO DAILY [facility] Last Admin: 12/01/20 08:43 Dose: 150 mg Documented by: Potassium Chloride (Klor-Con M20) 20 meq PO DAILY [facility] Last Admin: 12/01/20 08:35 Dose: 20 meq Documented by: Senna/Docusate Sodium (Senna Plus) 1 tab PO DAILY [facility] Last Admin: 12/01/20 08:41 Dose: 1 tab Documented by: Zolpidem Tartrate (Ambien) 10 mg PO BEDTIME PRN PRN Reason: Sleep Last Admin: 12/01/20 23:19 Dose: 10 mg Documented by: Discontinued Medications Acetaminophen (Tylenol) 650 mg PO Q6H PRN PRN Reason: Pain (Mild 1-3)/fever Last Admin: 11/26/20 08:20 Dose: 650 mg Documented by: Acetaminophen (Tylenol) 650 mg PO Q6H [facility] Last Admin: 11/27/20 02:10 Dose: 650 mg Documented by: Amlodipine Besylate (Norvasc) 2.5 mg PO DAILY [facility] Last Admin: 11/30/20 09:30 Dose: Not Given Documented by: Aspirin (Aspirin) 81 mg PO DAILY [facility] Last Admin: 11/30/20 10:17 Dose: 81 mg Documented by: Gabapentin (Neurontin) 600 mg PO QID [facility] Last Admin: 12/01/20 07:46 Dose: Not Given Documented by: Gabapentin (Neurontin) 600 mg PO QID [facility] Last Admin: 12/01/20 17:44 Dose: 600 mg Documented by: Gabapentin (Neurontin) 200 mg PO QID [facility] Last Admin: 12/01/20 17:45 Dose: 200 mg Documented by: Hydrochlorothiazide (Hydrochlorothiazide) 50 mg PO DAILY [facility] Last Admin: 11/29/20 09:08 Dose: 50 mg Documented by: Sodium Chloride (Normal Saline) 500 mls @ 50 mls/hr IV ASDIRECTED [facility] Stop: 11/30/20 06:29 Ketorolac Tromethamine (Toradol) 15 mg IVPUSH Q6H PRN PRN Reason: Pain (severe 7-10) Last Admin: 11/27/20 09:53 Dose: 15 mg Documented by: Ketorolac Tromethamine (Toradol) 15 mg IVPUSH Q6H PRN PRN Reason: Pain (moderate 4-6) Last Admin: 11/28/20 22:16 Dose: 15 mg Documented by: Morphine Sulfate (Morphine) 2 mg IVPUSH Q4H PRN PRN Reason: Pain (severe 7-10) Stop: 11/25/20 19:25 Last Admin: 11/25/20 06:12 Dose: 2 mg Documented by: Non-Formulary Medication (Alendronate) 70 mg PO WEEKLY [facility] Meloxicam 7.5 Mg (Ptom) 7.5 mg PO DAILY [facility] Last Admin: 11/27/20 16:19 Dose: Not Given Documented by: Oxycodone HCl (Oxycodone) 5 mg PO Q6H PRN PRN Reason: Pain (moderate 4-6) Last Admin: 11/25/20 09:11 Dose: 5 mg Documented by: Oxycodone HCl (Oxycodone) 5 mg PO Q8H PRN PRN Reason: Pain (moderate 4-6) Last Admin: 11/25/20 13:40 Dose: 5 mg Documented by: Oxycodone HCl (Oxycodone) 5 mg PO Q8H PRN PRN Reason: Pain Last Admin: 11/25/20 21:58 Dose: 5 mg Documented by: Oxycodone HCl (Oxycodone) 7.5 mg PO Q4H PRN PRN Reason: Pain (severe 7-10) Last Admin: 11/29/20 10:24 Dose: 7.5 mg Documented by: Oxycodone/Acetaminophen (Percocet 325-5 Mg) 1 tab PO Q8H PRN PRN Reason: Pain (moderate 4-6) Last Admin: 11/26/20 08:19 Dose: 1 tab Documented by: Potassium Chloride (Klor-Con M20) 20 meq PO ONETIME ONE Stop: 11/30/20 10:07 Last Admin: 11/30/20 10:34 Dose: 20 meq Documented by: Senna/Docusate Sodium (Senna Plus) 1 tab PO ONETIME ONE Stop: 11/30/20 10:11 Last Admin: 11/30/20 10:34 Dose: 1 tab Documented by: - Exam Quality Assessment: No: Supplemental Oxygen General: Alert, Oriented, Cooperative, No Acute Distress, Other (Obese) HEENT: Pupils Equal, Pupils Reactive, EOMI, Mucous Membr. Moist/[place] Neck: Supple Lungs: Clear to Auscultation, Normal Respiratory Effort Cardiovascular: Regular Rate, Regular Rhythm GI/Abdominal Exam: Normal Bowel Sounds, Soft, Non-Tender, No Organomegaly, No Mass, Pelvis Stable, Other (Obese) (Female) Exam: Deferred Back Exam: Normal Inspection, Full Range of Motion, Other (left hip amputation) Extremities: Normal Inspection, Normal Range of Motion, Non-Tender, No Pedal Edema, Normal Capillary Refill Peripheral Pulses: 2+: Posterior Tibial (R), Dorsalis Pedis (R) Skin: Warm, Dry, Intact Wound/Incisions: Healing Well, No Drainage. No: Erythema Neurological: No New Focal Deficit. No: Normal Gait Psy/Mental Status: Alert, Normal Affect, Normal Mood Sepsis Event Note - Evaluation Sepsis Screening Result: No Definite Risk - Focused Exam Vital Signs: Vital Signs Temp Temp Pulse Pulse Resp BP BP 12/02/20 04:00 36.4 C 77 20 132/76 12/01/20 19:36 36.7 C 85 20 136/83 12/01/20 19:34 36.7 C 90 12/01/20 19:00 Pulse Ox Pulse Ox 12/02/20 04:00 95 12/01/20 19:36 99 12/01/20 19:34 100 12/01/20 19:00 99 - Problem List Review Problem List Initiated/Reviewed/Updated: Yes - My Orders Last 24 Hours: My Active Orders 12/01/20 09:00 Docusate Sodium/Sennosides [Senna Plus] 1 tab PO DAILY Potassium Chloride [Klor-Con M20] 20 meq PO DAILY hydroCHLOROthiazide 50 mg PO DAILY 12/01/20 23:00 Gabapentin [Neurontin] 200 mg PO 0900,1300,1700,2300 Gabapentin [Neurontin] 600 mg PO 0900,1300,1700,2300 12/02/20 05:11 BMP [BASIC METABOLIC PANEL,BMP] [CHEM] AM CBC WITH AUTO DIFF [HEME] AM MAGNESIUM [CHEM] AM 12/03/20 05:11 BMP [BASIC METABOLIC PANEL,BMP] [CHEM] AM CBC WITH AUTO DIFF [HEME] AM MAGNESIUM [CHEM] AM - Assessment Assessment:: 1. Self care deficit secondary to right shoulder surgery. Post surgical shoulder pain. Chronic leg pain. Patient complains of right leg pain, has peripheral neuropathy-> asking for increased frequency. Hold increase in dose due to renal insufficiency; now improved Continue physical therapy. X-ray right leg on 11/28/2020-nothing acute. Gone up on her narcotic dose yesterday. Will go up on Gabapetin to 800 mg po QID. 2. S/p right total should replacement in 10/[address] Mejia in [place] Follow with Dr. Reed after discharge Request Dr. Smith and orthopedics to evaluate patient and her pain. Making sure she gets appropriate therapy and pain control. pain management: Patient started on oxycodone 5 mg every 4 hours as needed, Tylenol 650 mg every 6 hours scheduled, and Toradol 15 mg IV every 6 hours as needed. Patient states she still not getting appropriate pain control. Fentanyl patch will be restarted at 25 mcg/h. Patient did still have a fentanyl patch on as of this morning. It was likely over 3 days. 3. HTN, controlled Continue home medication Discontinued norvasc, her pressures overall are controlled Will resume thiazide in AM as her renal panel has improved 4. Hepatitis C Repeat liver function in morning Continue following liver function panel. Concerned that there is a slight increase in AST and alk phos today with the scheduled Tylenol. Tylenol may need to be stopped or decreased. She is only getting 2600 mg of Tylenol daily at this time. 5. Covid 19 positiveremains asymptomatic 6. DVT prophylaxis: Lovenox 7. Vitamin D insufficiency -25 hydroxy vitamin D23.1 Vitamin D 5000 units daily 8. Prediabetes? Hemoglobin A1c 5.9 Diabetic diet 9. Normocytic Hypochromic Anemia, POA She is post surgical Hgb is stable at 10.5 grams this AM 10. ALLEGRA with Cr 1.2, resolved Iatrogenic for HCTZ and Ketorolac Use Held HCTZ and discontinue NSAID Encourage patient to drink more fluids Refused 500 ml NS bolus x1 ordered yesterday 11. Elevated AST, POA 12. Elevated Alkaline Phosphatase, POA 13. Hypoalbuminemia with Albumin of 3.1, POA 14. Class II Obese, BMI of 37.6 Monitor Dietary consult for weight management Deposition: SNF placement [facility] after 10 days of quarantine at our facility Length of stay greater than 96 hours secondary to being quarantined in our facility because the local nursing homes will not take a Covid positive patient before 10 days. - Plan Plan:: November 25, 2020 Assessment and plan: 1. Self care deficit PT OT 2. S/p right total should replacement in 10/[address] Mejia in [place] Follow with Dr. Reed pain management: Acetaminophen/oxycodone (325-10) Q8hrs prn Morphine 2mg iv Q4h prn Baclofen 10mg tid Gabapentin 600mg Qid Home fentanyl patch and oxycodone 5mg Q4hrs are on hold 3. HTN Continue home medication 4. Hepatitis C Repeat liver function in morning 5. Covid 19 positive Patient is on room air with good oxygen saturation Chest x-ray -no acute change CRP less than 0.2 I did not order D-dimer due to recent surgery Troponin negative I did not order remdesivir, steroid or anticoagulation at this moment Continue home aspirin 6. DVT prophylaxis: Lovenox 7. Vitamin D insufficiency Vitamin D 8. Prediabetes? Hemoglobin A1c 5.9 Diabetic diet Deposition: SNF placement [facility] refused her November 26, 2020 1. Self care deficit PT OT 2. S/p right total should replacement in 10/[address] Mejia in [place] Follow with Dr. Reed pain management: Stop Acetaminophen/oxycodone (325-10) Q8hrs prn Stop Morphine 2mg iv Q4h prn Baclofen 10mg tid Gabapentin 600mg Qid Stop fentanyl patch oxycodone 5mg Q4hrs are on hold 3. HTN Continue home medication 4. Hepatitis C Repeat liver function in morning 5. Covid 19 positive Patient is on room air with good oxygen saturation Chest x-ray -no acute change CRP less than 0.2 I did not order D-dimer due to recent surgery Troponin negative I did not order remdesivir, steroid or anticoagulation at this moment Continue home aspirin 6. DVT prophylaxis: Lovenox 7. Vitamin D insufficiency Vitamin D 5000 units daily 8. Prediabetes? Hemoglobin A1c 5.9 Diabetic diet Deposition: SNF placement [facility] after 10 days of quarantine at our facility 11/27/2020 1. Self care deficit secondary to right shoulder surgery. PT OT 2. S/p right total should replacement in 10/[address] Mejia in [place] Follow with Dr. Reed after discharge Request Dr. Smith and orthopedics to evaluate patient and her pain. Making sure she gets appropriate therapy and pain control. pain management: Patient started on oxycodone 5 mg every 4 hours as needed, Tylenol 650 mg every 6 hours scheduled, and Toradol 15 mg IV every 6 hours as needed. Patient states she still not getting appropriate pain control. Fentanyl patch will be restarted at 25 mcg/h. Patient did still have a fentanyl patch on as of this morning. It was likely over 3 days. 3. HTN Continue home medication 4. Hepatitis C Repeat liver function in morning Continue following liver function panel. Concerned that there is a slight increase in AST and alk phos today with the scheduled Tylenol. Tylenol may need to be stopped or decreased. She is only getting 2600 mg of Tylenol daily at this time. 5. Covid 19 positive, no change on room air 6. DVT prophylaxis: Lovenox 7. Vitamin D insufficiency Vitamin D 5000 units daily 8. Prediabetes? Hemoglobin A1c 5.9 Diabetic diet Deposition: SNF placement [facility] after 10 days of quarantine at our facility 11/28/2020 1. Self care deficit secondary to right shoulder surgery. Patient complains of right leg pain Continue physical therapy. X-ray right leg today. 2. S/p right total should replacement in 10/[address] Mejia in [place] Follow with Dr. Reed after discharge Request Dr. Smith and orthopedics to evaluate patient and her pain. Making sure she gets appropriate therapy and pain control. pain management: Patient started on oxycodone 5 mg every 4 hours as needed, Tylenol 650 mg every 6 hours scheduled, and Toradol 15 mg IV every 6 hours as needed. Patient states she still not getting appropriate pain control. Fentanyl patch will be restarted at 25 mcg/h. Patient did still have a fentanyl patch on as of this morning. It was likely over 3 days. 3. HTN Continue home medication 4. Hepatitis C Repeat liver function in morning Continue following liver function panel. Concerned that there is a slight increase in AST and alk phos today with the scheduled Tylenol. Tylenol may need to be stopped or decreased. She is only getting 2600 mg of Tylenol daily at this time. 5. Covid 19 positiveno change On room air 6. DVT prophylaxis: Lovenox 7. Vitamin D insufficiency -25 hydroxy vitamin D23.1 Vitamin D 5000 units daily 8. Prediabetes? Hemoglobin A1c 5.9 Diabetic diet Deposition: SNF placement [facility] after 10 days of quarantine at our facility Length of stay greater than 96 hours secondary to being quarantined in our facility because the local nursing homes will not take a Covid positive patient before 10 days. 11/29/2020 1. Self care deficit secondary to right shoulder surgery. Patient complains of right leg pain, has peripheral neuropathy-> asking for increased frequency. Hold increase in dose due to renal insufficiency. Continue physical therapy. X-ray right leg on 11/28/2020-nothing acute. Will go up on her narcotic pain medication 2. S/p right total should replacement in 10/[address] Mejia in [place] Follow with Dr. Reed after discharge Request Dr. Smith and orthopedics to evaluate patient and her pain. Making sure she gets appropriate therapy and pain control. pain management: Patient started on oxycodone 5 mg every 4 hours as needed, Tylenol 650 mg every 6 hours scheduled, and Toradol 15 mg IV every 6 hours as needed. Patient states she still not getting appropriate pain control. Fentanyl patch will be restarted at 25 mcg/h. Patient did still have a fentanyl patch on as of this morning. It was likely over 3 days. 3. HTN, controlled Continue home medication 4. Hepatitis C Repeat liver function in morning Continue following liver function panel. Concerned that there is a slight increase in AST and alk phos today with the scheduled Tylenol. Tylenol may need to be stopped or decreased. She is only getting 2600 mg of Tylenol daily at this time. 5. Covid 19 positiveasymptomatic 6. DVT prophylaxis: Lovenox 7. Vitamin D insufficiency -25 hydroxy vitamin D23.1 Vitamin D 5000 units daily 8. Prediabetes? Hemoglobin A1c 5.9 Diabetic diet 9. Normocytic Hypochromic Anemia, POA She is post surgical Hgb is sable at 9.8 grams 10. ALLEGRA with Cr 1.2 Iatrogenic for HCTZ and Ketorolac Use Hold HCTZ and discontinue NSAID Encourage patient to drink more fluids 11. Elevated AST, POA 12. Elevated Alkaline Phosphatase, POA 13. Hypoalbuminemia with Albumin of 3.1, POA 14. Class II Obese, BMI of 37.6 Monitor Dietary consult for weight management 15. Epigastric Pain/Rib Pain 16. Dyslipidemia, New onset -ruled out ACS -Serial troponin and EKGs were wnl -Lipid pane-abnormal -Dietary consult for dyslipidemia Deposition: SNF placement [facility] after 10 days of quarantine at our facility Length of stay greater than 96 hours secondary to being quarantined in our f acility because the local nursing homes will not take a Covid positive patient before 10 days. 12/01/2020 1. Self care deficit secondary to right shoulder surgery. Patient complains of right leg pain, has peripheral neuropathy. Hold increase in dose due to renal insufficiency. Continue physical therapy. X-ray right leg on 11/28/2020-nothing acute. Oxycodon now at 10 mg po Q4H PRN for pain Gabapentin 800 mg po QID-will change last dose to 2300 2. S/p right total should replacement in 10/[address] Mejia in [place] Follow with Dr. Reed after discharge Request Dr. Smith and orthopedics to evaluate patient and her pain. Making sure she gets appropriate therapy and pain control. pain management: Patient started on oxycodone 5 mg every 4 hours as needed, Tylenol 650 mg every 6 hours scheduled, and Toradol 15 mg IV every 6 hours as needed. Patient states she still not getting appropriate pain control. Fentanyl patch will be restarted at 25 mcg/h. Patient did still have a fentanyl patch on as of this morning. It was likely over 3 days. 3. HTN, controlled Continue home medication Discontinue norvasc per patient request 4. Hepatitis C Repeat liver function in morning Continue following liver function panel. Concerned that there is a slight increase in AST and alk phos today with the scheduled Tylenol. Tylenol may need to be stopped or decreased. She is only getting 2600 mg of Tylenol daily at this time. 5. Covid 19 positiveasymptomatic 6. DVT prophylaxis: Lovenox 7. Vitamin D insufficiency -25 hydroxy vitamin D23.1 Vitamin D 5000 units daily 8. Prediabetes? Hemoglobin A1c 5.9 Diabetic diet 9. Normocytic Hypochromic Anemia, POA She is post surgical Hgb remains stable at 10.5 grams 10. ALLEGRA with Cr 1.2 Iatrogenic for HCTZ and Ketorolac Use Hold HCTZ and discontinue NSAID Encourage patient to drink more fluids 11. Elevated AST, POA 12. Elevated Alkaline Phosphatase, POA 13. Hypoalbuminemia with Albumin of 3.1, POA 14. Class II Obese, BMI of 37.6 Monitor Dietary consult for weight management 15. Epigastric Pain/Rib Pain 16. Dyslipidemia, New onset -ruled out ACS -Serial troponin and EKGs were wnl -Lipid pane-abnormal -Dietary consult for dyslipidemia Deposition: SNF placement [facility] after 10 days of quarantine at our facility Expected day of discharge 12/05/2020 per Malika JOYCE Length of stay greater than 96 hours secondary to being quarantined in our facility because the local nursing homes will not take a Covid positive patient before 10 days. 12/02/2020 1. Self care deficit secondary to right shoulder surgery. Patient complains of right leg pain, has peripheral neuropathy. Hold increase in dose due to renal insufficiency. Continue physical therapy. X-ray right leg on 11/28/2020-nothing acute. Oxycodon now at 10 mg po Q4H PRN for pain Gabapentin 800 mg po QID-will change last dose to 2300 2. S/p right total should replacement in 10/[address] Mejia in [place] Follow with Dr. Reed after discharge Request Dr. Smith and orthopedics to evaluate patient and her pain. Making sure she gets appropriate therapy and pain control. pain management: Patient started on oxycodone 5 mg every 4 hours as needed, Tylenol 650 mg every 6 hours scheduled, and Toradol 15 mg IV every 6 hours as needed. Patient states she still not getting appropriate pain control. Fentanyl patch will be restarted at 25 mcg/h. Patient did still have a fentanyl patch on as of this morning. It was likely over 3 days. 3. HTN, controlled Continue home medication Discontinue norvasc per patient request 4. Hepatitis C Repeat liver function in morning Continue following liver function panel. Concerned that there is a slight increase in AST and alk phos today with the scheduled Tylenol. Tylenol may need to be stopped or decreased. She is only getting 2600 mg of Tylenol daily at this time. 5. Covid 19 positiveasymptomatic 6. DVT prophylaxis: Lovenox 7. Vitamin D insufficiency -25 hydroxy vitamin D23.1 Vitamin D 5000 units daily 8. Prediabetes? Hemoglobin A1c 5.9 Diabetic diet 9. Normocytic Hypochromic Anemia, POA She is post surgical Hgb remains stable at 10.5 grams 10. ALLEGRA with Cr 1.2 Iatrogenic for HCTZ and Ketorolac Use Hold HCTZ and discontinue NSAID Encourage patient to drink more fluids 11. Elevated AST, POA 12. Elevated Alkaline Phosphatase, POA 13. Hypoalbuminemia with Albumin of 3.1, POA 14. Class II Obese, BMI of 37.6 Monitor Dietary consult for weight management 15. Epigastric Pain/Rib Pain 16. Dyslipidemia, New onset ruled out ACS Serial troponin and EKGs were wnl Lipid pane-abnormal Dietary consult for dyslipidemia Deposition: SNF placement [facility] after 10 days of quarantine at our facility Expected day of discharge 12/05/2020 per Malika JOYCE Length of stay greater than 96 hours secondary to being quarantined in our facility because the local [facility] will not take a Covid positive patient before 10 days.
[2020-12-02] MEDS: Enoxaparin 40 MG/0.4 ML Syringe SUBCUT SCH (08:45)
[2020-12-02] MEDS: Pantoprazole 40 MG Tab.CR PO SCH ×2 (08:46→22:04)
[2020-12-02] MEDS: Potassium Chloride 20 MEQ Tab.ER PO SCH (08:48)
[2020-12-02] MEDS: oxyCODONE 5 MG Tab PO PRN ×6 (08:50→22:13)
[2020-12-02] MEDS: Docusate Sodium 100 MG Cap PO PRN ×2 (08:51→22:04)
[2020-12-02] MEDS: Baclofen 10 MG Tab PO SCH ×3 (08:51→22:05)
[2020-12-02] MEDS: Atenolol 50 MG Tab PO SCH (08:52)
[2020-12-02] MEDS: Iron Polysaccharides Complex 150 MG Cap PO SCH (08:53)
[2020-12-02] MEDS: Aspirin 81 MG Tab.EC PO SCH (08:53)
[2020-12-02] MEDS: Hydrochlorothiazide 25 MG Tab PO SCH (08:53)
[2020-12-02] MEDS: Gabapentin 100 MG Cap PO SCH ×4 (08:54→22:05)
[2020-12-02] MEDS: Gabapentin 600 MG Tab PO SCH ×4 (08:54→22:05)
[2020-12-02] MEDS: Diclofenac Sodium 1% Gel 100 GM Tube TOP PRN (08:55)
[2020-12-03] MEDS: Zolpidem 10 MG Tab PO PRN (01:16)
[2020-12-03] MEDS: Acetaminophen 325 MG Tab PO SCH ×4 (05:11→21:31)
--- NOTE | 2020-12-03 05:43 | CONS ---
CONSULTING PHYSICIAN: Keegan Smith MD DATE OF CONSULTATION: 11/27/2020 HISTORY OF PRESENT ILLNESS: This is a 65-year-old female who is known to me previously, but underwent right reverse total shoulder arthroplasty now [address] Reed in [place]. The [facility] subsequently [facility]. She left [facility], came back here and has been unable to take care of herself secondary to having a left lower extremity amputation and her difficulty with ambulation and utilizing crutches or walker. The patient is having some shoulder discomfort and more than anything they just want to make sure that the shoulder was healing well. OBJECTIVE: The skin is intact. She has no erythema or drainage. There are few Steri- Strips remaining which were removed at this time. She otherwise is externally and internally rotating at her side with her elbow tucked to the side. She is neurovascularly intact to axillary, radial, ulnar, and median nerve distribution. Otherwise, good cap refill. RADIOGRAPHS: Show well-seated implants. No signs of osteolysis or loosening of the right reverse total shoulder arthroplasty. ASSESSMENT: Status post right reverse total shoulder arthroplasty [address] Reed in [place]. PLAN: The patient at this time seems to be progressing well. We did discuss we would not want the patient to do any axial loading through the right upper extremity after a reverse total shoulder arthroplasty at least in the first 6 weeks. The patient at this time will have a followup with Dr. Reed once she is off of COVID restrictions and they can contact us if there are any further concerns. At this time, the patient is healing well for her 4 weeks after reverse total shoulder arthroplasty. MMODAL /[id number]
--- NOTE | 2020-12-03 07:39 | PCM.PN ---
- General Info Date of Service: 12/03/20 Admission Dx/Problem (Free Text): Admission Diagnosis/Problem Admission Diagnosis/Problem Failure to thrive in adult Subjective Update: No overnight or acute issues. Her pain is controlled. She is doing relatively well. Functional Status: Reports: Pain Controlled, Tolerating Diet, Ambulating, Urinating. Denies: New Symptoms - Review of Systems General: Denies: Fever, Chills HEENT: Denies: Headaches Pulmonary: Denies: Shortness of Breath Cardiovascular: Denies: Chest Pain Gastrointestinal: Denies: Abdominal Pain, Nausea, Vomiting Genitourinary: Denies: Frequency Musculoskeletal: Reports: Leg Pain Skin: Denies: Bruising, Pruritis, Rash Neurological: Denies: Difficulty Walking, Weakness, Gait Disturbance Psychiatric: Denies: Confusion, Anxiety - Patient Data Vitals - Most Recent: Last Vital Signs Temp 37.1 C 12/02/20 20:21 Pulse 88 12/02/20 20:21 Resp 14 12/02/20 20:21 BP 114/69 12/02/20 20:21 Pulse Ox 99 12/02/20 20:21 Weight - Most Recent: 99.926 kg I&O - Last 24 Hours: Intake & Output 12/02/20 12/03/20 12/03/20 22:59 06:59 14:59 Intake Total 1780 Balance 1780 Lab Results Last 24 Hours: Laboratory Results - last 24 hr 12/02/20 12/02/20 Range/Units 07:55 07:55 WBC 5.19 (3.98-10.04) K/mm3 RBC 4.30 (3.98-5.22) M/mm3 Hgb 11.3 (11.2-15.7) gm/dl Hct 37.0 (34.1-44.9) % MCV 86.0 (79.4-94.8) fl MCH 26.3 (25.6-32.2) pg MCHC 30.5 L (32.2-35.5) g/dl RDW Std Deviation 47.6 H (36.4-46.3) fL Plt Count 314 (182-369) K/mm3 MPV 10.3 (9.4-12.3) fl Neut % (Auto) 43.3 (34.0-71.1) % Lymph % (Auto) 41.2 (19.3-51.7) % [place] % (Auto) 9.1 (4.7-12.5) % Eos % (Auto) 5.8 (0.7-5.8) Baso % (Auto) 0.4 (0.1-1.2) % Neut # (Auto) 2.25 (1.56-6.13) K/mm3 Lymph # (Auto) 2.14 (1.18-3.74) K/mm3 [place] # (Auto) 0.47 H (0.24-0.36) K/mm3 Eos # (Auto) 0.30 (0.04-0.36) K/mm3 Baso # (Auto) 0.02 (0.01-0.08) K/mm3 Sodium 138 (136-145) mEq/L Potassium 3.8 (3.5-5.1) mEq/L Chloride 103 (98-107) mEq/L Carbon Dioxide 22 (21-32) mEq/L Anion Gap 16.8 H (5-15) BUN 40 H (7-18) mg/dL Creatinine 1.0 (0.55-1.02) mg/dL Est Cr Clr Drug Dosing 47.14 mL/min Estimated GFR (MDRD) > 60 (>60) mL/min BUN/Creatinine Ratio 40.0 H (14-18) Glucose 103 (80-115) mg/dL Calcium 9.5 (8.5-10.1) mg/dL Magnesium 2.3 (1.8-2.4) mg/dl Med Orders - Current: Current Medications Acetaminophen (Tylenol) 650 mg PO Q6H [facility] Last Admin: 12/03/20 05:11 Dose: Not Given Documented by: Albuterol/Ipratropium (Duoneb 3.0-0.5 Mg/3 Ml) 3 ml NEB Q4H PRN PRN Reason: Shortness Of Breath/wheezing Aspirin (Halfprin) 81 mg PO DAILY [facility] Last Admin: 12/02/20 08:53 Dose: 81 mg Documented by: Atenolol (Tenormin) 100 mg PO DAILY [facility] Last Admin: 12/02/20 08:52 Dose: 100 mg Documented by: Baclofen (Lioresal) 10 mg PO TID [facility] Last Admin: 12/02/20 22:05 Dose: 10 mg Documented by: Diclofenac Sodium (Voltaren 1% Gel) 2 gm TOP QID PRN PRN Reason: Pain Last Admin: 12/02/20 08:55 Dose: 1 applic Documented by: Docusate Sodium (Colace) 100 mg PO BID PRN PRN Reason: Constipation Last Admin: 12/02/20 22:04 Dose: 100 mg Documented by: Enoxaparin Sodium (Lovenox) 40 mg SUBCUT DAILY [facility] Last Admin: 12/02/20 08:45 Dose: 40 mg Documented by: Fentanyl (Duragesic) 25 mcg TRDERM Q72H [facility] Last Admin: 11/30/20 10:36 Dose: 25 mcg Documented by: Gabapentin (Neurontin) 200 mg PO 0900,1300,1700,2300 [facility] Last Admin: 12/02/20 22:05 Dose: 200 mg Documented by: Gabapentin (Neurontin) 600 mg PO 0900,1300,1700,2300 [facility] Last Admin: 12/02/20 22:05 Dose: 600 mg Documented by: Hydralazine HCl (Apresoline) 10 mg IVPUSH Q4H PRN PRN Reason: Hypertension Hydrochlorothiazide (Hydrochlorothiazide) 50 mg PO DAILY [facility] Last Admin: 12/02/20 08:53 Dose: 50 mg Documented by: Promethazine HCl 12.5 mg/ (Sodium Chloride) 50.5 mls @ 100 mls/hr IV Q6H PRN PRN Reason: Nausea/Vomiting Miscellaneous Information (Remove Patch) 1 ea TRDERM Q72H [facility] Last Admin: 11/30/20 10:39 Dose: 1 ea Documented by: Oxycodone HCl (Oxycodone) 5 mg PO Q4H PRN PRN Reason: Pain (moderate 4-6) Last Admin: 12/01/20 08:39 Dose: 5 mg Documented by: Oxycodone HCl (Oxycodone) 10 mg PO Q4H PRN PRN Reason: Pain (severe 7-10) Last Admin: 12/02/20 22:13 Dose: 10 mg Documented by: Pantoprazole Sodium (Protonix) 40 mg PO BID [facility] Last Admin: 12/02/20 22:04 Dose: 40 mg Documented by: Polysaccharide Iron Complex (Ferrex 150) 150 mg PO DAILY [facility] Last Admin: 12/02/20 08:53 Dose: 150 mg Documented by: Potassium Chloride (Klor-Con M20) 20 meq PO DAILY [facility] Last Admin: 12/02/20 08:48 Dose: 20 meq Documented by: Senna/Docusate Sodium (Senna Plus) 1 tab PO DAILY [facility] Last Admin: 12/02/20 08:51 Dose: 1 tab Documented by: Zolpidem Tartrate (Ambien) 10 mg PO BEDTIME PRN PRN Reason: Sleep Last Admin: 12/03/20 01:16 Dose: 10 mg Documented by: Discontinued Medications Acetaminophen (Tylenol) 650 mg PO Q6H PRN PRN Reason: Pain (Mild 1-3)/fever Last Admin: 11/26/20 08:20 Dose: 650 mg Documented by: Acetaminophen (Tylenol) 650 mg PO Q6H [facility] Last Admin: 11/27/20 02:10 Dose: 650 mg Documented by: Amlodipine Besylate (Norvasc) 2.5 mg PO DAILY [facility] Last Admin: 11/30/20 09:30 Dose: Not Given Documented by: Aspirin (Aspirin) 81 mg PO DAILY [facility] Last Admin: 11/30/20 10:17 Dose: 81 mg Documented by: Gabapentin (Neurontin) 600 mg PO QID [facility] Last Admin: 12/01/20 07:46 Dose: Not Given Documented by: Gabapentin (Neurontin) 600 mg PO QID [facility] Last Admin: 12/01/20 17:44 Dose: 600 mg Documented by: Gabapentin (Neurontin) 200 mg PO QID [facility] Last Admin: 12/01/20 17:45 Dose: 200 mg Documented by: Hydrochlorothiazide (Hydrochlorothiazide) 50 mg PO DAILY [facility] Last Admin: 11/29/20 09:08 Dose: 50 mg Documented by: Sodium Chloride (Normal Saline) 500 mls @ 50 mls/hr IV ASDIRECTED [facility] Stop: 11/30/20 06:29 Ketorolac Tromethamine (Toradol) 15 mg IVPUSH Q6H PRN PRN Reason: Pain (severe 7-10) Last Admin: 11/27/20 09:53 Dose: 15 mg Documented by: Ketorolac Tromethamine (Toradol) 15 mg IVPUSH Q6H PRN PRN Reason: Pain (moderate 4-6) Last Admin: 11/28/20 22:16 Dose: 15 mg Documented by: Morphine Sulfate (Morphine) 2 mg IVPUSH Q4H PRN PRN Reason: Pain (severe 7-10) Stop: 11/25/20 19:25 Last Admin: 11/25/20 06:12 Dose: 2 mg Documented by: Non-Formulary Medication (Alendronate) 70 mg PO WEEKLY [facility] Meloxicam 7.5 Mg (Ptom) 7.5 mg PO DAILY [facility] Last Admin: 11/27/20 16:19 Dose: Not Given Documented by: Oxycodone HCl (Oxycodone) 5 mg PO Q6H PRN PRN Reason: Pain (moderate 4-6) Last Admin: 11/25/20 09:11 Dose: 5 mg Documented by: Oxycodone HCl (Oxycodone) 5 mg PO Q8H PRN PRN Reason: Pain (moderate 4-6) Last Admin: 11/25/20 13:40 Dose: 5 mg Documented by: Oxycodone HCl (Oxycodone) 5 mg PO Q8H PRN PRN Reason: Pain Last Admin: 11/25/20 21:58 Dose: 5 mg Documented by: Oxycodone HCl (Oxycodone) 7.5 mg PO Q4H PRN PRN Reason: Pain (severe 7-10) Last Admin: 11/29/20 10:24 Dose: 7.5 mg Documented by: Oxycodone/Acetaminophen (Percocet 325-5 Mg) 1 tab PO Q8H PRN PRN Reason: Pain (moderate 4-6) Last Admin: 11/26/20 08:19 Dose: 1 tab Documented by: Potassium Chloride (Klor-Con M20) 20 meq PO ONETIME ONE Stop: 11/30/20 10:07 Last Admin: 11/30/20 10:34 Dose: 20 meq Documented by: Senna/Docusate Sodium (Senna Plus) 1 tab PO ONETIME ONE Stop: 11/30/20 10:11 Last Admin: 11/30/20 10:34 Dose: 1 tab Documented by: - Exam Quality Assessment: Supplemental Oxygen General: Alert, Oriented, Cooperative, No Acute Distress, Other (Obese) HEENT: Pupils Equal, Pupils Reactive, EOMI, Mucous Membr. Moist/[place] Neck: Supple Lungs: Clear to Auscultation, Normal Respiratory Effort Cardiovascular: Regular Rate, Regular Rhythm GI/Abdominal Exam: Normal Bowel Sounds, Soft, Non-Tender, No Organomegaly, No Distention, No Abnormal Bruit, No Mass, Other (Obese) (Female) Exam: Deferred Back Exam: Normal Inspection, Decreased Range of Motion Extremities: Normal Inspection, Normal Range of Motion, Non-Tender, No Pedal Edema, Normal Capillary Refill, Other (left hip amputee) Skin: Warm, Dry, Intact Neurological: No New Focal Deficit. No: Normal Gait Psy/Mental Status: Alert, Normal Affect, Normal Mood Sepsis Event Note - Evaluation Sepsis Screening Result: No Definite Risk - Focused Exam Vital Signs: Vital Signs Temp Pulse Resp BP Pulse Ox 12/02/20 20:21 37.1 C 88 14 114/69 99 - Problem List Review Problem List Initiated/Reviewed/Updated: Yes - My Orders Last 24 Hours: My Active Orders 12/03/20 05:11 BMP [BASIC METABOLIC PANEL,BMP] [CHEM] AM CBC WITH AUTO DIFF [HEME] AM MAGNESIUM [CHEM] AM - Assessment Assessment:: 1. Self care deficit secondary to right shoulder surgery. Post surgical shoulder pain. Chronic leg pain. Patient complains of right leg pain, has peripheral neuropathy-> asking for increased frequency. Hold increase in dose due to renal insufficiency; now improved Continue physical therapy. X-ray right leg on 11/28/2020-nothing acute. Gone up on her narcotic dose yesterday. Will go up on Gabapetin to 800 mg po QID. 2. S/p right total should replacement in 10/[address] Mejia in [place] Follow with Dr. Reed after discharge Request Dr. Smith and orthopedics to evaluate patient and her pain. Making sure she gets appropriate therapy and pain control. pain management: Patient started on oxycodone 5 mg every 4 hours as needed, Tylenol 650 mg every 6 hours scheduled, and Toradol 15 mg IV every 6 hours as needed. Patient states she still not getting appropriate pain control. Fentanyl patch will be restarted at 25 mcg/h. Patient did still have a fentanyl patch on as of this morning. It was likely over 3 days. 3. HTN, controlled Continue home medication Discontinued norvasc, her pressures overall are controlled Will resume thiazide in AM as her renal panel has improved 4. Hepatitis C Repeat liver function in morning Continue following liver function panel. Concerned that there is a slight increase in AST and alk phos today with the scheduled Tylenol. Tylenol may need to be stopped or decreased. She is only getting 2600 mg of Tylenol daily at this time. 5. Covid 19 positiveremains asymptomatic 6. DVT prophylaxis: Lovenox 7. Vitamin D insufficiency -25 hydroxy vitamin D23.1 Vitamin D 5000 units daily 8. Prediabetes? Hemoglobin A1c 5.9 Diabetic diet 9. Normocytic Hypochromic Anemia, POA She is post surgical Hgb is stable at 10.5 grams this AM 10. ALLEGRA with Cr 1.2, resolved Iatrogenic for HCTZ and Ketorolac Use Held HCTZ and discontinue NSAID Encourage patient to drink more fluids Refused 500 ml NS bolus x1 ordered yesterday 11. Elevated AST, POA 12. Elevated Alkaline Phosphatase, POA 13. Hypoalbuminemia with Albumin of 3.1, POA 14. Class II Obese, BMI of 37.6 Monitor Dietary consult for weight management Deposition: SNF placement [facility] after 10 days of quarantine at our facility Length of stay greater than 96 hours secondary to being quarantined in our facility because the local nursing homes will not take a Covid positive patient before 10 days. - Plan Plan:: November 25, 2020 Assessment and plan: 1. Self care deficit PT OT 2. S/p right total should replacement in 10/[address] Mejia in [place] Follow with Dr. Reed pain management: Acetaminophen/oxycodone (325-10) Q8hrs prn Morphine 2mg iv Q4h prn Baclofen 10mg tid Gabapentin 600mg Qid Home fentanyl patch and oxycodone 5mg Q4hrs are on hold 3. HTN Continue home medication 4. Hepatitis C Repeat liver function in morning 5. Covid 19 positive Patient is on room air with good oxygen saturation Chest x-ray -no acute change CRP less than 0.2 I did not order D-dimer due to recent surgery Troponin negative I did not order remdesivir, steroid or anticoagulation at this moment Continue home aspirin 6. DVT prophylaxis: Lovenox 7. Vitamin D insufficiency Vitamin D 8. Prediabetes? Hemoglobin A1c 5.9 Diabetic diet Deposition: SNF placement [facility] refused her November 26, 2020 1. Self care deficit PT OT 2. S/p right total should replacement in 10/[address] Mejia in [place] Follow with Dr. Reed pain management: Stop Acetaminophen/oxycodone (325-10) Q8hrs prn Stop Morphine 2mg iv Q4h prn Baclofen 10mg tid Gabapentin 600mg Qid Stop fentanyl patch oxycodone 5mg Q4hrs are on hold 3. HTN Continue home medication 4. Hepatitis C Repeat liver function in morning 5. Covid 19 positive Patient is on room air with good oxygen saturation Chest x-ray -no acute change CRP less than 0.2 I did not order D-dimer due to recent surgery Troponin negative I did not order remdesivir, steroid or anticoagulation at this moment Continue home aspirin 6. DVT prophylaxis: Lovenox 7. Vitamin D insufficiency Vitamin D 5000 units daily 8. Prediabetes? Hemoglobin A1c 5.9 Diabetic diet Deposition: SNF placement [facility] after 10 days of quarantine at our facility 11/27/2020 1. Self care deficit secondary to right shoulder surgery. PT OT 2. S/p right total should replacement in 10/[address] Mejia in [place] Follow with Dr. Reed after discharge Request Dr. Smith and orthopedics to evaluate patient and her pain. Making sure she gets appropriate therapy and pain control. pain management: Patient started on oxycodone 5 mg every 4 hours as needed, Tylenol 650 mg every 6 hours scheduled, and Toradol 15 mg IV every 6 hours as needed. Patient states she still not getting appropriate pain control. Fentanyl patch will be restarted at 25 mcg/h. Patient did still have a fentanyl patch on as of this morning. It was likely over 3 days. 3. HTN Continue home medication 4. Hepatitis C Repeat liver function in morning Continue following liver function panel. Concerned that there is a slight increase in AST and alk phos today with the scheduled Tylenol. Tylenol may need to be stopped or decreased. She is only getting 2600 mg of Tylenol daily at this time. 5. Covid 19 positive, no change on room air 6. DVT prophylaxis: Lovenox 7. Vitamin D insufficiency Vitamin D 5000 units daily 8. Prediabetes? Hemoglobin A1c 5.9 Diabetic diet Deposition: SNF placement [facility] after 10 days of quarantine at our facility 11/28/2020 1. Self care deficit secondary to right shoulder surgery. Patient complains of right leg pain Continue physical therapy. X-ray right leg today. 2. S/p right total should replacement in 10/[address] Mejia in [place] Follow with Dr. Reed after discharge Request Dr. Smith and orthopedics to evaluate patient and her pain. Making sure she gets appropriate therapy and pain control. pain management: Patient started on oxycodone 5 mg every 4 hours as needed, Tylenol 650 mg every 6 hours scheduled, and Toradol 15 mg IV every 6 hours as needed. Patient states she still not getting appropriate pain control. Fentanyl patch will be restarted at 25 mcg/h. Patient did still have a fentanyl patch on as of this morning. It was likely over 3 days. 3. HTN Continue home medication 4. Hepatitis C Repeat liver function in morning Continue following liver function panel. Concerned that there is a slight increase in AST and alk phos today with the scheduled Tylenol. Tylenol may need to be stopped or decreased. She is only getting 2600 mg of Tylenol daily at this time. 5. Covid 19 positiveno change On room air 6. DVT prophylaxis: Lovenox 7. Vitamin D insufficiency -25 hydroxy vitamin D23.1 Vitamin D 5000 units daily 8. Prediabetes? Hemoglobin A1c 5.9 Diabetic diet Deposition: SNF placement [facility] after 10 days of quarantine at our facility Length of stay greater than 96 hours secondary to being quarantined in our facility because the local nursing homes will not take a Covid positive patient before 10 days. 11/29/2020 1. Self care deficit secondary to right shoulder surgery. Patient complains of right leg pain, has peripheral neuropathy-> asking for increased frequency. Hold increase in dose due to renal insufficiency. Continue physical therapy. X-ray right leg on 11/28/2020-nothing acute. Will go up on her narcotic pain medication 2. S/p right total should replacement in 10/[address] Mejia in [place] Follow with Dr. Reed after discharge Request Dr. Smith and orthopedics to evaluate patient and her pain. Making sure she gets appropriate therapy and pain control. pain management: Patient started on oxycodone 5 mg every 4 hours as needed, Tylenol 650 mg every 6 hours scheduled, and Toradol 15 mg IV every 6 hours as needed. Patient states she still not getting appropriate pain control. Fentanyl patch will be restarted at 25 mcg/h. Patient did still have a fentanyl patch on as of this morning. It was likely over 3 days. 3. HTN, controlled Continue home medication 4. Hepatitis C Repeat liver function in morning Continue following liver function panel. Concerned that there is a slight increase in AST and alk phos today with the scheduled Tylenol. Tylenol may need to be stopped or decreased. She is only getting 2600 mg of Tylenol daily at this time. 5. Covid 19 positiveasymptomatic 6. DVT prophylaxis: Lovenox 7. Vitamin D insufficiency -25 hydroxy vitamin D23.1 Vitamin D 5000 units daily 8. Prediabetes? Hemoglobin A1c 5.9 Diabetic diet 9. Normocytic Hypochromic Anemia, POA She is post surgical Hgb is sable at 9.8 grams 10. ALLEGRA with Cr 1.2 Iatrogenic for HCTZ and Ketorolac Use Hold HCTZ and discontinue NSAID Encourage patient to drink more fluids 11. Elevated AST, POA 12. Elevated Alkaline Phosphatase, POA 13. Hypoalbuminemia with Albumin of 3.1, POA 14. Class II Obese, BMI of 37.6 Monitor Dietary consult for weight management 15. Epigastric Pain/Rib Pain 16. Dyslipidemia, New onset -ruled out ACS -Serial troponin and EKGs were wnl -Lipid pane-abnormal -Dietary consult for dyslipidemia Deposition: SNF placement [facility] after 10 days of quarantine at our facility Length of stay greater than 96 hours secondary to being quarantined in our facility because the local nursing homes will not take a Covid positive patient before 10 days. 12/01/2020 1. Self care deficit secondary to right shoulder surgery. Patient complains of right leg pain, has peripheral neuropathy. Hold increase in dose due to renal insufficiency. Continue physical therapy. X-ray right leg on 11/28/2020-nothing acute. Oxycodon now at 10 mg po Q4H PRN for pain Gabapentin 800 mg po QID-will change last dose to 2300 2. S/p right total should replacement in 10/[address] Mejia in [place] Follow with Dr. Reed after discharge Request Dr. Smith and orthopedics to evaluate patient and her pain. Making sure she gets appropriate therapy and pain control. pain management: Patient started on oxycodone 5 mg every 4 hours as needed, Tylenol 650 mg every 6 hours scheduled, and Toradol 15 mg IV every 6 hours as needed. Patient states she still not getting appropriate pain control. Fentanyl patch will be restarted at 25 mcg/h. Patient did still have a fentanyl patch on as of this morning. It was likely over 3 days. 3. HTN, controlled Continue home medication Discontinue norvasc per patient request 4. Hepatitis C Repeat liver function in morning Continue following liver function panel. Concerned that there is a slight increase in AST and alk phos today with the scheduled Tylenol. Tylenol may need to be stopped or decreased. She is only getting 2600 mg of Tylenol daily at this time. 5. Covid 19 positiveasymptomatic 6. DVT prophylaxis: Lovenox 7. Vitamin D insufficiency -25 hydroxy vitamin D23.1 Vitamin D 5000 units daily 8. Prediabetes? Hemoglobin A1c 5.9 Diabetic diet 9. Normocytic Hypochromic Anemia, POA She is post surgical Hgb remains stable at 10.5 grams 10. ALLEGRA with Cr 1.2 Iatrogenic for HCTZ and Ketorolac Use Hold HCTZ and discontinue NSAID Encourage patient to drink more fluids 11. Elevated AST, POA 12. Elevated Alkaline Phosphatase, POA 13. Hypoalbuminemia with Albumin of 3.1, POA 14. Class II Obese, BMI of 37.6 Monitor Dietary consult for weight management 15. Epigastric Pain/Rib Pain 16. Dyslipidemia, New onset -ruled out ACS -Serial troponin and EKGs were wnl -Lipid pane-abnormal -Dietary consult for dyslipidemia Deposition: SNF placement [facility] after 10 days of quarantine at our facility Expected day of discharge 12/05/2020 per Malika JOYCE Length of stay greater than 96 hours secondary to being quarantined in our facility because the local nursing homes will not take a Covid positive patient before 10 days. 12/02/2020 1. Self care deficit secondary to right shoulder surgery. Patient complains of right leg pain, has peripheral neuropathy. Hold increase in dose due to renal insufficiency. Continue physical therapy. X-ray right leg on 11/28/2020-nothing acute. Oxycodon now at 10 mg po Q4H PRN for pain Gabapentin 800 mg po QID-will change last dose to 2300 2. S/p right total should replacement in 10/[address] Mejia in [place] Follow with Dr. Reed after discharge Request Dr. Smith and orthopedics to evaluate patient and her pain. Making sure she gets appropriate therapy and pain control. pain management: Patient started on oxycodone 5 mg every 4 hours as needed, Tylenol 650 mg every 6 hours scheduled, and Toradol 15 mg IV every 6 hours as needed. Patient states she still not getting appropriate pain control. Fentanyl patch will be restarted at 25 mcg/h. Patient did still have a fentanyl patch on as of this morning. It was likely over 3 days. 3. HTN, controlled Continue home medication Discontinue norvasc per patient request 4. Hepatitis C Repeat liver function in morning Continue following liver function panel. Concerned that there is a slight increase in AST and alk phos today with the scheduled Tylenol. Tylenol may need to be stopped or decreased. She is only getting 2600 mg of Tylenol daily at this time. 5. Covid 19 positiveasymptomatic 6. DVT prophylaxis: Lovenox 7. Vitamin D insufficiency -25 hydroxy vitamin D23.1 Vitamin D 5000 units daily 8. Prediabetes? Hemoglobin A1c 5.9 Diabetic diet 9. Normocytic Hypochromic Anemia, POA She is post surgical Hgb remains stable at 10.5 grams 10. ALLEGRA with Cr 1.2 Iatrogenic for HCTZ and Ketorolac Use Hold HCTZ and discontinue NSAID Encourage patient to drink more fluids 11. Elevated AST, POA 12. Elevated Alkaline Phosphatase, POA 13. Hypoalbuminemia with Albumin of 3.1, POA 14. Class II Obese, BMI of 37.6 Monitor Dietary consult for weight management 15. Epigastric Pain/Rib Pain 16. Dyslipidemia, New onset ruled out ACS Serial troponin and EKGs were wnl Lipid pane-abnormal Dietary consult for dyslipidemia Deposition: SNF placement [facility] after 10 days of quarantine at our facility Expected day of discharge 12/05/2020 per Malika JOYCE Length of stay greater than 96 hours secondary to being quarantined in our facility because the local nursing homes will not take a Covid positive patient before 10 days. 12/03/2020 1. Self care deficit secondary to right shoulder surgery. Patient complains of right leg pain, has peripheral neuropathy. Hold increase in dose due to renal insufficiency. Continue physical therapy. X-ray right leg on 11/28/2020-nothing acute. Continue: Oxycodon now at 10 mg po Q4H PRN for pain and Gabapentin 800 mg po QID for peripheral neuropathy 2. S/p right total should replacement in 10/[address] Mejia in [place] Follow with Dr. Reed after discharge Request Dr. Smith and orthopedics to evaluate patient and her pain. Making sure she gets appropriate therapy and pain control. pain management: Patient started on oxycodone 5 mg every 4 hours as needed, Tylenol 650 mg every 6 hours scheduled, and Toradol 15 mg IV every 6 hours as needed. Patient states she still not getting appropriate pain control. Fentanyl patch will be restarted at 25 mcg/h. Patient did still have a fentanyl patch on as of this morning. It was likely over 3 days. 3. HTN, controlled Continue home medication Discontinue norvasc per patient request 4. Hepatitis C Repeat liver function in morning Continue following liver function panel. Concerned that there is a slight increase in AST and alk phos today with the scheduled Tylenol. Tylenol may need to be stopped or decreased. She is only getting 2600 mg of Tylenol daily at this time. 5. Covid 19 positiveasymptomatic 6. DVT prophylaxis: Lovenox 7. Vitamin D insufficiency -25 hydroxy vitamin D23.1 Vitamin D 5000 units daily 8. Prediabetes? Hemoglobin A1c 5.9 Diabetic diet 9. Normocytic Hypochromic Anemia, POA She is post surgical Hgb remains stable at 10.5 grams 10. ALLEGRA with Cr 1.2 Iatrogenic for HCTZ and Ketorolac Use Hold HCTZ and discontinue NSAID Encourage patient to drink more fluids 11. Elevated AST, POA 12. Elevated Alkaline Phosphatase, POA 13. Hypoalbuminemia with Albumin of 3.1, POA 14. Class II Obese, BMI of 37.6 Monitor Dietary consult for weight management 15. Epigastric Pain/Rib Pain 16. Dyslipidemia, New onset ruled out ACS Serial troponin and EKGs were wnl Lipid pane-abnormal Dietary consult for dyslipidemia Deposition: SNF placement [facility] after 10 days of quarantine at our facility Expected day of discharge 12/05/2020 per Malika JOYCE Length of stay greater than 96 hours secondary to being quarantined in our facility because the local nursing [facility] will not take a Covid positive patient before 10 days.
[2020-12-03] MEDS: Enoxaparin 40 MG/0.4 ML Syringe SUBCUT SCH (09:06)
[2020-12-03] MEDS: Potassium Chloride 20 MEQ Tab.ER PO SCH (09:06)
[2020-12-03] MEDS: Aspirin 81 MG Tab.EC PO SCH (09:07)
[2020-12-03] MEDS: Atenolol 50 MG Tab PO SCH (09:07)
[2020-12-03] MEDS: Gabapentin 600 MG Tab PO SCH ×4 (09:07→22:29)
[2020-12-03] MEDS: Hydrochlorothiazide 25 MG Tab PO SCH (09:07)
[2020-12-03] MEDS: Gabapentin 100 MG Cap PO SCH ×4 (09:07→22:29)
[2020-12-03] MEDS: Pantoprazole 40 MG Tab.CR PO SCH ×2 (09:07→21:32)
[2020-12-03] MEDS: Baclofen 10 MG Tab PO SCH ×3 (09:07→21:32)
[2020-12-03] MEDS: Iron Polysaccharides Complex 150 MG Cap PO SCH (09:07)
[2020-12-03] MEDS: oxyCODONE 5 MG Tab PO PRN ×3 (09:08→21:31)
[2020-12-03] MEDS: Diclofenac Sodium 1% Gel 100 GM Tube TOP PRN (09:09)
[2020-12-03] MEDS: fentaNYL 25 MCG/HR Transdermal Patch TRDERM SCH (15:14)
[2020-12-04] MEDS: Zolpidem 10 MG Tab PO PRN (01:27)
[2020-12-04] MEDS: Acetaminophen 325 MG Tab PO SCH ×5 (01:28→21:21)
[2020-12-04] MEDS: oxyCODONE 5 MG Tab PO PRN ×4 (06:15→21:21)
--- NOTE | 2020-12-04 08:13 | PCM.PN ---
- General Info Date of Service: 12/04/20 Admission Dx/Problem (Free Text): Admission Diagnosis/Problem Admission Diagnosis/Problem Failure to thrive in adult Subjective Update: In to see Tonya. She is sitting up in the chair eating lunch. She reports she feels good and has not had any Covid symptoms. Her pain is better controlled. No labs obtained today and since they have been stable he will not be obtained tomorrow. Patient does not want any more lab draws. Plan for discharge tomorrow with SNF placement. Functional Status: Reports: Pain Controlled, Tolerating Diet, Urinating. Denies: Ambulating (Baseline left leg amputee ), New Symptoms - Review of Systems General: Reports: No Symptoms. Denies: Fever, Weakness, Fatigue, Malaise, Chills HEENT: Reports: No Symptoms. Denies: Headaches, Sore Throat Pulmonary: Reports: No Symptoms. Denies: Shortness of Breath, Cough, Sputum, Wheezing Cardiovascular: Reports: No Symptoms. Denies: Chest Pain, Palpitations, Dyspnea on Exertion Gastrointestinal: Reports: No Symptoms. Denies: Abdominal Pain, Diarrhea, Nausea, Vomiting Genitourinary: Reports: No Symptoms. Denies: Pain Musculoskeletal: Reports: Shoulder Pain (right -s/p surgery ) Skin: Reports: No Symptoms. Denies: Cyanosis Neurological: Reports: Pre-Existing Deficit (left leg amputee ), Difficulty Walking, Gait Disturbance. Denies: Confusion Psychiatric: Reports: No Symptoms - Patient Data Vitals - Most Recent: Last Vital Signs Temp 97.5 F 12/03/20 15:53 Pulse 80 12/03/20 15:53 Resp 16 12/03/20 15:53 BP 116/61 12/03/20 15:53 Pulse Ox 97 12/03/20 19:00 Weight - Most Recent: 223 lb 6.4 oz I&O - Last 24 Hours: Intake & Output 12/03/20 12/04/20 12/04/20 22:59 06:59 14:59 Intake Total 2680 1000 Balance 2680 1000 Med Orders - Current: Current Medications Acetaminophen (Tylenol) 650 mg PO Q6H ADAM Last Admin: 12/04/20 02:25 Dose: Not Given Documented by: Albuterol/Ipratropium (Duoneb 3.0-0.5 Mg/3 Ml) 3 ml NEB Q4H PRN PRN Reason: Shortness Of Breath/wheezing Aspirin (Halfprin) 81 mg PO DAILY [facility] Last Admin: 12/03/20 09:07 Dose: 81 mg Documented by: Atenolol (Tenormin) 100 mg PO DAILY [facility] Last Admin: 12/03/20 09:07 Dose: 100 mg Documented by: Baclofen (Lioresal) 10 mg PO TID [facility] Last Admin: 12/03/20 21:32 Dose: 10 mg Documented by: Diclofenac Sodium (Voltaren 1% Gel) 2 gm TOP QID PRN PRN Reason: Pain Last Admin: 12/03/20 09:09 Dose: 1 applic Documented by: Docusate Sodium (Colace) 100 mg PO BID PRN PRN Reason: Constipation Last Admin: 12/02/20 22:04 Dose: 100 mg Documented by: Enoxaparin Sodium (Lovenox) 40 mg SUBCUT DAILY [facility] Last Admin: 12/03/20 09:06 Dose: 40 mg Documented by: Fentanyl (Duragesic) 25 mcg TRDERM Q72H [facility] Last Admin: 12/03/20 15:14 Dose: 25 mcg Documented by: Gabapentin (Neurontin) 200 mg PO 0900,1300,1700,2300 [facility] Last Admin: 12/03/20 22:29 Dose: 200 mg Documented by: Gabapentin (Neurontin) 600 mg PO 0900,1300,1700,2300 [facility] Last Admin: 12/03/20 22:29 Dose: 600 mg Documented by: Hydralazine HCl (Apresoline) 10 mg IVPUSH Q4H PRN PRN Reason: Hypertension Hydrochlorothiazide (Hydrochlorothiazide) 50 mg PO DAILY [facility] Last Admin: 12/03/20 09:07 Dose: 50 mg Documented by: Promethazine HCl 12.5 mg/ (Sodium Chloride) 50.5 mls @ 100 mls/hr IV Q6H PRN PRN Reason: Nausea/Vomiting Miscellaneous Information (Remove Patch) 1 ea TRDERM Q72H [facility] Last Admin: 12/03/20 15:15 Dose: 1 ea Documented by: Oxycodone HCl (Oxycodone) 5 mg PO Q4H PRN PRN Reason: Pain (moderate 4-6) Last Admin: 12/01/20 08:39 Dose: 5 mg Documented by: Oxycodone HCl (Oxycodone) 10 mg PO Q4H PRN PRN Reason: Pain (severe 7-10) Last Admin: 12/04/20 06:15 Dose: 10 mg Documented by: Pantoprazole Sodium (Protonix) 40 mg PO BID [facility] Last Admin: 12/03/20 21:32 Dose: 40 mg Documented by: Polysaccharide Iron Complex (Ferrex 150) 150 mg PO DAILY [facility] Last Admin: 12/03/20 09:07 Dose: 150 mg Documented by: Potassium Chloride (Klor-Con M20) 20 meq PO DAILY [facility] Last Admin: 12/03/20 09:06 Dose: 20 meq Documented by: Senna/Docusate Sodium (Senna Plus) 1 tab PO DAILY [facility] Last Admin: 12/03/20 09:08 Dose: 1 tab Documented by: Zolpidem Tartrate (Ambien) 10 mg PO BEDTIME PRN PRN Reason: Sleep Last Admin: 12/04/20 01:27 Dose: 10 mg Documented by: Discontinued Medications Acetaminophen (Tylenol) 650 mg PO Q6H PRN PRN Reason: Pain (Mild 1-3)/fever Last Admin: 11/26/20 08:20 Dose: 650 mg Documented by: Acetaminophen (Tylenol) 650 mg PO Q6H [facility] Last Admin: 11/27/20 02:10 Dose: 650 mg Documented by: Amlodipine Besylate (Norvasc) 2.5 mg PO DAILY [facility] Last Admin: 11/30/20 09:30 Dose: Not Given Documented by: Aspirin (Aspirin) 81 mg PO DAILY [facility] Last Admin: 11/30/20 10:17 Dose: 81 mg Documented by: Gabapentin (Neurontin) 600 mg PO QID [facility] Last Admin: 12/01/20 07:46 Dose: Not Given Documented by: Gabapentin (Neurontin) 600 mg PO QID [facility] Last Admin: 12/01/20 17:44 Dose: 600 mg Documented by: Gabapentin (Neurontin) 200 mg PO QID [facility] Last Admin: 12/01/20 17:45 Dose: 200 mg Documented by: Hydrochlorothiazide (Hydrochlorothiazide) 50 mg PO DAILY [facility] Last Admin: 11/29/20 09:08 Dose: 50 mg Documented by: Sodium Chloride (Normal Saline) 500 mls @ 50 mls/hr IV ASDIRECTED [facility] Stop: 11/30/20 06:29 Ketorolac Tromethamine (Toradol) 15 mg IVPUSH Q6H PRN PRN Reason: Pain (severe 7-10) Last Admin: 11/27/20 09:53 Dose: 15 mg Documented by: Ketorolac Tromethamine (Toradol) 15 mg IVPUSH Q6H PRN PRN Reason: Pain (moderate 4-6) Last Admin: 11/28/20 22:16 Dose: 15 mg Documented by: Morphine Sulfate (Morphine) 2 mg IVPUSH Q4H PRN PRN Reason: Pain (severe 7-10) Stop: 11/25/20 19:25 Last Admin: 11/25/20 06:12 Dose: 2 mg Documented by: Non-Formulary Medication (Alendronate) 70 mg PO WEEKLY [facility] Meloxicam 7.5 Mg (Ptom) 7.5 mg PO DAILY [facility] Last Admin: 11/27/20 16:19 Dose: Not Given Documented by: Oxycodone HCl (Oxycodone) 5 mg PO Q6H PRN PRN Reason: Pain (moderate 4-6) Last Admin: 11/25/20 09:11 Dose: 5 mg Documented by: Oxycodone HCl (Oxycodone) 5 mg PO Q8H PRN PRN Reason: Pain (moderate 4-6) Last Admin: 11/25/20 13:40 Dose: 5 mg Documented by: Oxycodone HCl (Oxycodone) 5 mg PO Q8H PRN PRN Reason: Pain Last Admin: 11/25/20 21:58 Dose: 5 mg Documented by: Oxycodone HCl (Oxycodone) 7.5 mg PO Q4H PRN PRN Reason: Pain (severe 7-10) Last Admin: 11/29/20 10:24 Dose: 7.5 mg Documented by: Oxycodone/Acetaminophen (Percocet 325-5 Mg) 1 tab PO Q8H PRN PRN Reason: Pain (moderate 4-6) Last Admin: 11/26/20 08:19 Dose: 1 tab Documented by: Potassium Chloride (Klor-Con M20) 20 meq PO ONETIME ONE Stop: 11/30/20 10:07 Last Admin: 11/30/20 10:34 Dose: 20 meq Documented by: Senna/Docusate Sodium (Senna Plus) 1 tab PO ONETIME ONE Stop: 11/30/20 10:11 Last Admin: 11/30/20 10:34 Dose: 1 tab Documented by: - Exam Quality Assessment: DVT Prophylaxis. No: Supplemental Oxygen, Urine Catheter General: Alert, Oriented, Cooperative, No Acute Distress HEENT: Pupils Equal, Pupils Reactive, Mucous Membr. Moist/[place] Neck: Supple, Trachea Midline Lungs: Clear to Auscultation, Normal Respiratory Effort Cardiovascular: Regular Rate, Regular Rhythm GI/Abdominal Exam: Normal Bowel Sounds, Soft, Non-Tender, No Distention (Female) Exam: Deferred Back Exam: Normal Inspection, Decreased Range of Motion Extremities: Normal Inspection, Normal Range of Motion, No Pedal Edema, Normal Capillary Refill, Arm Pain (right shoulder ), Leg Pain, Other (Left leg amputee ) Peripheral Pulses: 2+: Radial (L), Radial (R), Dorsalis Pedis (R) Skin: Warm, Dry, Intact Neurological: No New Focal Deficit Psy/Mental Status: Alert Sepsis Event Note - Evaluation Sepsis Screening Result: No Definite Risk - Problem List & Annotations (1) Acute postoperative pain of right shoulder SNOMED Code(s): 15073608 Code(s): G89.18 - OTHER ACUTE POSTPROCEDURAL PAIN; M25.511 - PAIN IN RIGHT SHOULDER Status: Acute Priority: High Current Visit: Yes (2) COVID-19 SNOMED Code(s): 720344685 Code(s): U07.1 - COVID-19 Status: Acute Priority: High Current Visit: Yes (3) Unable to care for self SNOMED Code(s): 735623864, 214947168 Code(s): Z78.9 - OTHER SPECIFIED HEALTH STATUS Status: Acute Priority: High Current Visit: Yes (4) History of hepatitis C SNOMED Code(s): 80893365354443, 59365887832044 Code(s): Z86.19 - PERSONAL HISTORY OF OTHER INFECTIOUS AND PARASITIC DISEASES Status: Chronic Priority: Medium Current Visit: No (5) Normocytic hypochromic anemia SNOMED Code(s): 99804615 Code(s): D50.9 - IRON DEFICIENCY ANEMIA, UNSPECIFIED Status: Acute Priority: High Current Visit: Yes (6) Vitamin D deficiency SNOMED Code(s): 71412864 Code(s): E55.9 - VITAMIN D DEFICIENCY, UNSPECIFIED Status: Acute Priority : High Current Visit: Yes (7) ALLEGRA (acute kidney injury) SNOMED Code(s): 49767524, 88412296 Code(s): N17.9 - ACUTE KIDNEY FAILURE, UNSPECIFIED Status: Acute Priority: High Current Visit: Yes (8) Transaminitis SNOMED Code(s): 225791021, 674431748 Code(s): R74.01 - ELEVATION OF LEVELS OF LIVER TRANSAMINASE LEVELS Status: Acute Priority: High Current Visit: Yes (9) Obesity SNOMED Code(s): 821776514, 326386694 Code(s): E66.9 - OBESITY, UNSPECIFIED Status: Chronic Priority: Medium Current Visit: Yes Qualifiers: Obesity type: unspecified obesity type Obesity classification: adult class 2 (BMI 35 - 39.9) Serious obesity comorbidity presence: with serious comorbidity Body mass index: BMI 38.0-38.9 Qualified Code(s): E66.01 - Morbid (severe) obesity due to excess calories; Z68.38 - Body mass index [BMI] 38.0-38.9, adult (10) Amputated left leg SNOMED Code(s): 643932302 Code(s): S88.912A - COMPLETE TRAUMATIC AMPUTATION OF L LOW LEG, LEVEL UNSP, INIT Status: Chronic Priority: Low Current Visit: No Qualifiers: Encounter type: sequela Qualified Code(s): S88.912S - Complete traumatic amputation of left lower leg, level unspecified, sequela (11) HTN (hypertension) SNOMED Code(s): 56423230 Code(s): I10 - ESSENTIAL (PRIMARY) HYPERTENSION Status: Chronic Priority: Medium Current Visit: No Qualifiers: Hypertension type: unspecified secondary hypertension Qualified Code(s): I15.9 - Secondary hypertension, unspecified; I15 - Secondary hypertension (12) Neuropathic pain SNOMED Code(s): 912881647 Code(s): M79.2 - NEURALGIA AND NEURITIS, UNSPECIFIED Status: Chronic Priority: Medium Current Visit: No (13) HLD (hyperlipidemia) SNOMED Code(s): 10280619 Code(s): E78.5 - HYPERLIPIDEMIA, UNSPECIFIED Status: Acute Priority: High Current Visit: Yes Qualifiers: Hyperlipidemia type: unspecified Qualified Code(s): E78.5 - Hyperlipidemia, unspecified (14) Epigastric pain SNOMED Code(s): 49505612 Code(s): R10.13 - EPIGASTRIC PAIN Status: Acute Priority: Medium Current Visit: Yes - Problem List Review Problem List Initiated/Reviewed/Updated: Yes - Plan Plan:: November 25, 2020 Assessment and plan: 1. Self care deficit PT OT 2. S/p right total should replacement in 10/[address] Mejai in [place] Follow with Dr. Reed pain management: Acetaminophen/oxycodone (325-10) Q8hrs prn Morphine 2mg iv Q4h prn Baclofen 10mg tid Gabapentin 600mg Qid Home fentanyl patch and oxycodone 5mg Q4hrs are on hold 3. HTN Continue home medication 4. Hepatitis C Repeat liver function in morning 5. Covid 19 positive Patient is on room air with good oxygen saturation Chest x-ray -no acute change CRP less than 0.2 I did not order D-dimer due to recent surgery Troponin negative I did not order remdesivir, steroid or anticoagulation at this moment Continue home aspirin 6. DVT prophylaxis: Lovenox 7. Vitamin D insufficiency Vitamin D 8. Prediabetes? Hemoglobin A1c 5.9 Diabetic diet Deposition: SNF placement [facility] refused her November 26, 2020 1. Self care deficit PT OT 2. S/p right total should replacement in 10/[address] Mejia in [place] Follow with Dr. Reed pain management: Stop Acetaminophen/oxycodone (325-10) Q8hrs prn Stop Morphine 2mg iv Q4h prn Baclofen 10mg tid Gabapentin 600mg Qid Stop fentanyl patch oxycodone 5mg Q4hrs are on hold 3. HTN Continue home medication 4. Hepatitis C Repeat liver function in morning 5. Covid 19 positive Patient is on room air with good oxygen saturation Chest x-ray -no acute change CRP less than 0.2 I did not order D-dimer due to recent surgery Troponin negative I did not order remdesivir, steroid or anticoagulation at this moment Continue home aspirin 6. DVT prophylaxis: Lovenox 7. Vitamin D insufficiency Vitamin D 5000 units daily 8. Prediabetes? Hemoglobin A1c 5.9 Diabetic diet Deposition: SNF placement [facility] after 10 days of quarantine at our facility 11/27/2020 1. Self care deficit secondary to right shoulder surgery. PT OT 2. S/p right total should replacement in 10/[address] Mejia in [place] Follow with Dr. Reed after discharge Request Dr. Smith and orthopedics to evaluate patient and her pain. Making sure she gets appropriate therapy and pain control. pain management: Patient started on oxycodone 5 mg every 4 hours as needed, Tylenol 650 mg every 6 hours scheduled, and Toradol 15 mg IV every 6 hours as needed. Patient states she still not getting appropriate pain control. Fentanyl patch will be restarted at 25 mcg/h. Patient did still have a fentanyl patch on as of this morning. It was likely over 3 days. 3. HTN Continue home medication 4. Hepatitis C Repeat liver function in morning Continue following liver function panel. Concerned that there is a slight increase in AST and alk phos today with the scheduled Tylenol. Tylenol may need to be stopped or decreased. She is only getting 2600 mg of Tylenol daily at this time. 5. Covid 19 positive, no change on room air 6. DVT prophylaxis: Lovenox 7. Vitamin D insufficiency Vitamin D 5000 units daily 8. Prediabetes? Hemoglobin A1c 5.9 Diabetic diet Deposition: SNF placement [facility] after 10 days of quarantine at our facility 11/28/2020 1. Self care deficit secondary to right shoulder surgery. Patient complains of right leg pain Continue physical therapy. X-ray right leg today. 2. S/p right total should replacement in 10/[address] Mejia in [place] Follow with Dr. Reed after discharge Request Dr. Smith and orthopedics to evaluate patient and her pain. Making sure she gets appropriate therapy and pain control. pain management: Patient started on oxycodone 5 mg every 4 hours as needed, Tylenol 650 mg every 6 hours scheduled, and Toradol 15 mg IV every 6 hours as needed. Patient states she still not getting appropriate pain control. Fentanyl patch will be restarted at 25 mcg/h. Patient did still have a fentanyl patch on as of this morning. It was likely over 3 days. 3. HTN Continue home medication 4. Hepatitis C Repeat liver function in morning Continue following liver function panel. Concerned that there is a slight increase in AST and alk phos today with the scheduled Tylenol. Tylenol may need to be stopped or decreased. She is only getting 2600 mg of Tylenol daily at this time. 5. Covid 19 positiveno change On room air 6. DVT prophylaxis: Lovenox 7. Vitamin D insufficiency -25 hydroxy vitamin D23.1 Vitamin D 5000 units daily 8. Prediabetes? Hemoglobin A1c 5.9 Diabetic diet Deposition: SNF placement [facility] after 10 days of quarantine at our facility Length of stay greater than 96 hours secondary to being quarantined in our facility because the local nursing homes will not take a Covid positive patient before 10 days. 11/29/2020 1. Self care deficit secondary to right shoulder surgery. Patient complains of right leg pain, has peripheral neuropathy-> asking for increased frequency. Hold increase in dose due to renal insufficiency. Continue physical therapy. X-ray right leg on 11/28/2020-nothing acute. Will go up on her narcotic pain medication 2. S/p right total should replacement in 10/[address] Mejia in [place] Follow with Dr. Reed after discharge Request Dr. Smith and orthopedics to evaluate patient and her pain. Making sure she gets appropriate therapy and pain control. pain management: Patient started on oxycodone 5 mg every 4 hours as needed, Tylenol 650 mg every 6 hours scheduled, and Toradol 15 mg IV every 6 hours as needed. Patient states she still not getting appropriate pain control. Fentanyl patch will be restarted at 25 mcg/h. Patient did still have a fentanyl patch on as of this morning. It was likely over 3 days. 3. HTN, controlled Continue home medication 4. Hepatitis C Repeat liver function in morning Continue following liver function panel. Concerned that there is a slight increase in AST and alk phos today with the scheduled Tylenol. Tylenol may need to be stopped or decreased. She is only getting 2600 mg of Tylenol daily at this time. 5. Covid 19 positiveasymptomatic 6. DVT prophylaxis: Lovenox 7. Vitamin D insufficiency -25 hydroxy vitamin D23.1 Vitamin D 5000 units daily 8. Prediabetes? Hemoglobin A1c 5.9 Diabetic diet 9. Normocytic Hypochromic Anemia, POA She is post surgical Hgb is sable at 9.8 grams 10. ALLEGRA with Cr 1.2 Iatrogenic for HCTZ and Ketorolac Use Hold HCTZ and discontinue NSAID Encourage patient to drink more fluids 11. Elevated AST, POA 12. Elevated Alkaline Phosphatase, POA 13. Hypoalbuminemia with Albumin of 3.1, POA 14. Class II Obese, BMI of 37.6 Monitor Dietary consult for weight management 15. Epigastric Pain/Rib Pain 16. Dyslipidemia, New onset -ruled out ACS -Serial troponin and EKGs were wnl -Lipid pane-abnormal -Dietary consult for dyslipidemia Deposition: SNF placement [facility] after 10 days of quarantine at our facility Length of stay greater than 96 hours secondary to being quarantined in our facility because the local nursing homes will not take a Covid positive patient before 10 days. 12/01/2020 1. Self care deficit secondary to right shoulder surgery. Patient complains of right leg pain, has peripheral neuropathy. Hold increase in dose due to renal insufficiency. Continue physical therapy. X-ray right leg on 11/28/2020-nothing acute. Oxycodon now at 10 mg po Q4H PRN for pain Gabapentin 800 mg po QID-will change last dose to 2300 2. S/p right total should replacement in 10/[address] Mejia in [place] Follow with Dr. Reed after discharge Request Dr. Smith and orthopedics to evaluate patient and her pain. Making sure she gets appropriate therapy and pain control. pain management: Patient started on oxycodone 5 mg every 4 hours as needed, Tylenol 650 mg every 6 hours scheduled, and Toradol 15 mg IV every 6 hours as needed. Patient states she still not getting appropriate pain control. Fentanyl patch will be restarted at 25 mcg/h. Patient did still have a fentanyl patch on as of this morning. It was likely over 3 days. 3. HTN, controlled Continue home medication Discontinue norvasc per patient request 4. Hepatitis C Repeat liver function in morning Continue following liver function panel. Concerned that there is a slight increase in AST and alk phos today with the scheduled Tylenol. Tylenol may need to be stopped or decreased. She is only getting 2600 mg of Tylenol daily at this time. 5. Covid 19 positiveasymptomatic 6. DVT prophylaxis: Lovenox 7. Vitamin D insufficiency -25 hydroxy vitamin D23.1 Vitamin D 5000 units daily 8. Prediabetes? Hemoglobin A1c 5.9 Diabetic diet 9. Normocytic Hypochromic Anemia, POA She is post surgical Hgb remains stable at 10.5 grams 10. ALLEGRA with Cr 1.2 Iatrogenic for HCTZ and Ketorolac Use Hold HCTZ and discontinue NSAID Encourage patient to drink more fluids 11. Elevated AST, POA 12. Elevated Alkaline Phosphatase, POA 13. Hypoalbuminemia with Albumin of 3.1, POA 14. Class II Obese, BMI of 37.6 Monitor Dietary consult for weight management 15. Epigastric Pain/Rib Pain 16. Dyslipidemia, New onset -ruled out ACS -Serial troponin and EKGs were wnl -Lipid pane-abnormal -Dietary consult for dyslipidemia Deposition: SNF placement [facility] after 10 days of quarantine at our facility Expected day of discharge 12/05/2020 per Malika JOYCE Length of stay greater than 96 hours secondary to being quarantined in our facility because the local [place] [facility] homes will not take a Covid positive patient before 10 days. 12/02/2020 1. Self care deficit secondary to right shoulder surgery. Patient complains of right leg pain, has peripheral neuropathy. Hold increase in dose due to renal insufficiency. Continue physical therapy. X-ray right leg on 11/28/2020-nothing acute. Oxycodon now at 10 mg po Q4H PRN for pain Gabapentin 800 mg po QID-will change last dose to 2300 2. S/p right total should replacement in 10/[address] Mejia in [place] Follow with Dr. Reed after discharge Request Dr. mSith and orthopedics to evaluate patient and her pain. Making sure she gets appropriate therapy and pain control. pain management: Patient started on oxycodone 5 mg every 4 hours as needed, Tylenol 650 mg every 6 hours scheduled, and Toradol 15 mg IV every 6 hours as needed. Patient states she still not getting appropriate pain control. Fentanyl patch will be restarted at 25 mcg/h. Patient did still have a fentanyl patch on as of this morning. It was likely over 3 days. 3. HTN, controlled Continue home medication Discontinue norvasc per patient request 4. Hepatitis C Repeat liver function in morning Continue following liver function panel. Concerned that there is a slight increase in AST and alk phos today with the scheduled Tylenol. Tylenol may need to be stopped or decreased. She is only getting 2600 mg of Tylenol daily at this time. 5. Covid 19 positiveasymptomatic 6. DVT prophylaxis: Lovenox 7. Vitamin D insufficiency -25 hydroxy vitamin D23.1 Vitamin D 5000 units daily 8. Prediabetes? Hemoglobin A1c 5.9 Diabetic diet 9. Normocytic Hypochromic Anemia, POA She is post surgical Hgb remains stable at 10.5 grams 10. ALLEGRA with Cr 1.2 Iatrogenic for HCTZ and Ketorolac Use Hold HCTZ and discontinue NSAID Encourage patient to drink more fluids 11. Elevated AST, POA 12. Elevated Alkaline Phosphatase, POA 13. Hypoalbuminemia with Albumin of 3.1, POA 14. Class II Obese, BMI of 37.6 Monitor Dietary consult for weight management 15. Epigastric Pain/Rib Pain 16. Dyslipidemia, New onset ruled out ACS Serial troponin and EKGs were wnl Lipid pane-abnormal Dietary consult for dyslipidemia Deposition: SNF placement [facility] after 10 days of quarantine at our facility Expected day of discharge 12/05/2020 per Malika JOYCE Length of stay greater than 96 hours secondary to being quarantined in our facility because the local nursing homes will not take a Covid positive patient before 10 days. 12/03/2020 1. Self care deficit secondary to right shoulder surgery. Patient complains of right leg pain, has peripheral neuropathy. Hold increase in dose due to renal insufficiency. Continue physical therapy. X-ray right leg on 11/28/2020-nothing acute. Continue: Oxycodon now at 10 mg po Q4H PRN for pain and Gabapentin 800 mg po QID for peripheral neuropathy 2. S/p right total should replacement in 10/[address] Mejia in [place] Follow with Dr. Reed after discharge Request Dr. Smith and orthopedics to evaluate patient and her pain. Making sure she gets appropriate therapy and pain control. pain management: Patient started on oxycodone 5 mg every 4 hours as needed, Tylenol 650 mg every 6 hours scheduled, and Toradol 15 mg IV every 6 hours as needed. Patient states she still not getting appropriate pain control. Fentanyl patch will be restarted at 25 mcg/h. Patient did still have a fentanyl patch on as of this morning. It was likely over 3 days. 3. HTN, controlled Continue home medication Discontinue norvasc per patient request 4. Hepatitis C Repeat liver function in morning Continue following liver function panel. Concerned that there is a slight increase in AST and alk phos today with the scheduled Tylenol. Tylenol may need to be stopped or decreased. She is only getting 2600 mg of Tylenol daily at this time. 5. Covid 19 positiveasymptomatic 6. DVT prophylaxis: Lovenox 7. Vitamin D insufficiency -25 hydroxy vitamin D23.1 Vitamin D 5000 units daily 8. Prediabetes? Hemoglobin A1c 5.9 Diabetic diet 9. Normocytic Hypochromic Anemia, POA She is post surgical Hgb remains stable at 10.5 grams 10. ALLEGRA with Cr 1.2 Iatrogenic for HCTZ and Ketorolac Use Hold HCTZ and discontinue NSAID Encourage patient to drink more fluids 11. Elevated AST, POA 12. Elevated Alkaline Phosphatase, POA 13. Hypoalbuminemia with Albumin of 3.1, POA 14. Class II Obese, BMI of 37.6 Monitor Dietary consult for weight management 15. Epigastric Pain/Rib Pain 16. Dyslipidemia, New onset ruled out ACS Serial troponin and EKGs were wnl Lipid pane-abnormal Dietary consult for dyslipidemia Deposition: SNF placement [facility] after 10 days of quarantine at our facility Expected day of discharge 12/05/2020 per Malika JOYCE Length of stay greater than 96 hours secondary to being quarantined in our facility because the local nursing homes will not take a Covid positive patient before 10 days. 12/04/20 1. Self care deficit secondary to right shoulder surgery. Patient complains of right leg pain, has peripheral neuropathy. Continue physical therapy/occupational therapy. X-ray right leg on 11/28/2020-nothing acute. Continue: Oxycodon now at 10 mg po Q4H PRN for pain and Gabapentin 800 mg po QID for peripheral neuropathy Continue fentanyl patch 2. S/p right total should replacement in 10/[address] Mejia in [place] Follow with Dr. Reed after discharge Dr. Smith evaluated patient - no concerns Continue oxycodone, gabapentin and fentanyl patch PT/OT at [facility] 3. HTN, controlled Continue home medication Discontinue norvasc per patient request 4. Hepatitis C Liver panel has improved and we are no longer following 5. Covid 19 positive Asymptomatic 6. DVT prophylaxis: Lovenox 7. Vitamin D insufficiency 25 hydroxy vitamin D23.1 Vitamin D 5000 units daily 8. Prediabetes Hemoglobin A1c 5.9 Diabetic diet 9. Normocytic Hypochromic Anemia, POA She is post surgical Hgb remains stable at 9.8 grams 10. ALLEGRA with Cr 1.2, stable Iatrogenic for HCTZ and Ketorolac Use Encourage patient to drink more fluids 11. Elevated AST, POA Improved 12. Elevated Alkaline Phosphatase, POA Improved 13. Hypoalbuminemia with Albumin of 3.1, POA Improving Dietary consultation 14. Class II Obese, BMI of 37.6 Monitor Dietary consult for weight management 15. Epigastric Pain/Rib Pain Stable 16. Dyslipidemia, New onset ruled out ACS Serial troponin and EKGs were wnl Lipid pane-abnormal Dietary consult for dyslipidemia Deposition: SNF placement [facility] after 10 days of quarantine at our facility Expected day of discharge 12/05/2020 per Malika JOYCE Length of stay greater than 96 hours secondary to being quarantined in our facility because the local [facility] will not take a Covid positive patient before 10 days. Discharge 12/05/20 to [facility] at 1300
[2020-12-04] MEDS: Pantoprazole 40 MG Tab.CR PO SCH ×2 (10:04→21:22)
[2020-12-04] MEDS: Atenolol 50 MG Tab PO SCH (10:05)
[2020-12-04] MEDS: Iron Polysaccharides Complex 150 MG Cap PO SCH (10:07)
[2020-12-04] MEDS: Aspirin 81 MG Tab.EC PO SCH (10:07)
[2020-12-04] MEDS: Hydrochlorothiazide 25 MG Tab PO SCH (10:07)
[2020-12-04] MEDS: Potassium Chloride 20 MEQ Tab.ER PO SCH (10:07)
[2020-12-04] MEDS: Baclofen 10 MG Tab PO SCH ×3 (10:07→21:22)
[2020-12-04] MEDS: Enoxaparin 40 MG/0.4 ML Syringe SUBCUT SCH (10:08)
[2020-12-04] MEDS: Gabapentin 100 MG Cap PO SCH ×4 (10:13→22:32)
[2020-12-04] MEDS: Gabapentin 600 MG Tab PO SCH ×4 (10:14→22:32)
[2020-12-05] MEDS: Zolpidem 10 MG Tab PO PRN (00:56)
[2020-12-05] MEDS: Acetaminophen 325 MG Tab PO SCH ×2 (03:08→10:15)
--- NOTE | 2020-12-05 09:38 | PCM.DCSUM1 ---
Discharge Summary - Hospital Course HPI Initial Comments: Patient is a 65-year-old female with a history of high blood pressure and hepatitis C who presented to the ER because she is unable to take care of of herself wants shelter placement. Patient had a right total shoulder placement in October [address] Reed in [place] and has been in a shelter in [place] until last Tuesday. Other than mild right shoulder pain and limited range of motion, she is fine. Denies headache, dizziness, chest pain, shortness of breath, abdominal pain, or dysuria. In the ER, Covid test positive. Diagnosis: Stroke: No - Discharge Data Discharge Date: 12/05/20 (Admit date: 11/24/20) Discharge Disposition: DC/Tfer to SNF 03 Condition: Good - Referral to Home Health Primary Care Physician: Toño Elaine Jr, MD - Discharge Diagnosis/Problem(s) (1) Acute postoperative pain of right shoulder SNOMED Code(s): 58516371 ICD Code: G89.18 - OTHER ACUTE POSTPROCEDURAL PAIN; M25.511 - PAIN IN RIGHT SHOULDER Status: Acute Priority: High Current Visit: Yes (2) COVID-19 SNOMED Code(s): 491741382 ICD Code: U07.1 - COVID-19 Status: Acute Priority: High Current Visit: Yes (3) Unable to care for self SNOMED Code(s): 163754686, 431350758 ICD Code: Z78.9 - OTHER SPECIFIED HEALTH STATUS Status: Acute Priority: High Current Visit: Yes (4) History of hepatitis C SNOMED Code(s): 46300945942444, 09775808585518 ICD Code: Z86.19 - PERSONAL HISTORY OF OTHER INFECTIOUS AND PARASITIC DISEASES Status: Chronic Priority: Medium Current Visit: No (5) Normocytic hypochromic anemia SNOMED Code(s): 38268698 ICD Code: D50.9 - IRON DEFICIENCY ANEMIA, UNSPECIFIED Status: Acute Priority: High Current Visit: Yes (6) Vitamin D deficiency SNOMED Code(s): 82996851 ICD Code: E55.9 - VITAMIN D DEFICIENCY, UNSPECIFIED Status: Acute Priority: High Current Visit: Yes (7) ALLEGRA (acute kidney injury) SNOMED Code(s): 43665429, 09032470 ICD Code: N17.9 - ACUTE KIDNEY FAILURE, UNSPECIFIED Status: Acute Priority: High Current Visit: Yes (8) Transaminitis SNOMED Code(s): 030355655, 171325322 ICD Code: R74.01 - ELEVATION OF LEVELS OF LIVER TRANSAMINASE LEVELS Status: Acute Priority: High Current Visit: Yes (9) Obesity SNOMED Code(s): 639138760, 920385526 ICD Code: E66.9 - OBESITY, UNSPECIFIED Status: Chronic Priority: Medium Current Visit: Yes Qualifiers: Obesity type: unspecified obesity type Obesity classification: adult class 2 (BMI 35 - 39.9) Serious obesity comorbidity presence: with serious comorbidity Body mass index: BMI 38.0-38.9 Qualified Code(s): E66.01 - Morbid (severe) obesity due to excess calories; Z68.38 - Body mass index [BMI] 38.0-38.9, adult (10) Amputated left leg SNOMED Code(s): 113780556 ICD Code: S88.912A - COMPLETE TRAUMATIC AMPUTATION OF L LOW LEG, LEVEL UNSP, INIT Status: Chronic Priority: Low Current Visit: No Qualifiers: Encounter type: sequela Qualified Code(s): S88.912S - Complete traumatic amputation of left lower leg, level unspecified, sequela (11) HTN (hypertension) SNOMED Code(s): 45307861 ICD Code: I10 - ESSENTIAL (PRIMARY) HYPERTENSION Status: Chronic Priority: Medium Current Visit: No Qualifiers: Hypertension type: unspecified secondary hypertension Qualified Code(s): I15.9 - Secondary hypertension, unspecified; I15 - Secondary hypertension (12) Neuropathic pain SNOMED Code(s): 341593002 ICD Code: M79.2 - NEURALGIA AND NEURITIS, UNSPECIFIED Status: Chronic Priority: Medium Current Visit: No (13) HLD (hyperlipidemia) SNOMED Code(s): 57523213 ICD Code: E78.5 - HYPERLIPIDEMIA, UNSPECIFIED Status: Acute Priority: High Current Visit: Yes Qualifiers: Hyperlipidemia type: unspecified Qualified Code(s): E78.5 - Hyperlipidemia, unspecified (14) Epigastric pain SNOMED Code(s): 82034119 ICD Code: R10.13 - EPIGASTRIC PAIN Status: Acute Priority: Medium Current Visit: Yes - Patient Summary/Data Consults: Consultations 11/24/20 19:26 OT Evaluation and Treatment [CONS] Routine PT Evaluation and Treatment [CONS] Routine 11/25/20 07:14 Consult to Case Management/Flitch Hanger [CONS] Routine 11/27/20 09:30 Consult to Physician [CONS] Routine Labs Pending at D/C: None Recommended Follow-up Testing/Procedures: Follow-up with primary care provider within 7-10 days of discharge, sooner if needed. -Recommend repeat CBC, CMP, and magnesium at that visit Follow-up with Dr. Reed, orthopedics, as scheduled. Hospital Course: This is a 65-year-old female who presented to ED on 11/25/2020 with the inability to care for herself. She had recently been in a shelter in [place] and reportedly had checked herself out prior. Shortly thereafter she came to the realization that she could not take care of herself. She had reportedly contacted a local shelter who told her to come to the emergency room. She had undergone right TSA in October [address] Reed in [place]. On admission she was found to be Covid positive although she reports no symptoms. Labs remained stable and she never did require oxygen. She therefore did not un dergo any COVID-19 treatment. Throughout her stay she was noted to have multiple pain issues including phantom left leg pain and shoulder pain. She carries a history of hepatitis C and hypertension which were monitored. She had a prior left leg amputation and is therefore wheelchair bound. Vitamin D was 21.3 and this was supplemented daily. Procalcitonin on admission was negative. A1c was obtained and was 5.9 so the patient was placed on a diabetic diet. Work with PT and OT who continue to recommend SNF placement. Given patient's recent shoulder surgery and continued shoulder pain Dr. Mcclure, orthopedic surgeon, was consulted locally. He had no concerns and stated that things look like they are healing well. Recommend she continue to wear her shoulder brace and follow-up with Dr. Reed as scheduled prior. Patient did report epigastric/rib pain and ACS was ruled out with serial troponins and EKGs. Lipid panel was found to be abnormal and dietary consult was placed. Unfortunately as the patient did test Covid positive we were advised no local shelter as well except the patient until she has had a 10-day stay, even if they are asymptomatic. She therefore remained in our facility for 10 days until today - 12/05/2020.She was discharged on 800 mg p.o. 4 times daily gabapentin, 1 tab p.o. daily senna plus, and 650 mg p.o. every 6 hour Tylenol. Home medications were otherwise continued. Recommend she follow-up with primary care provider within 5 to 7 days of discharge, sooner if needed. Recommend repeat CBC, CMP, and magnesium at that visit. Recommend she follow-up with Dr. Reed, orthopedics in [place], as scheduled. Recommend she continue PT/OT at SNF. Discharged to [facility] today. - Patient Instructions Diet: Diabetic Diet Activity: As Tolerated Driving: Do Not Drive Showering/Bathing: May Shower Notify Provider of: Fever, Increased Pain, Nausea and/or Vomiting Other/Special Instructions: Follow-up with primary care provider within 7 to 10 days of discharge, sooner if needed. Follow-up with Dr. Reed, orthopedics in [place] as scheduled. Resume home medications as prescribed. You were positive for COVID-19 but were not requiring any treatment. Follow shelter guidelines for isolation/quarantine. Continue PT/OT at SNF. Should symptoms return or worsen contact primary care provider or return the emergency room. - Discharge Plan *PRESCRIPTION DRUG MONITORING PROGRAM REVIEWED*: No *COPY OF PRESCRIPTION DRUG MONITORING REPORT IN PATIENT CHIDI: No Prescriptions/Med Rec: Gabapentin [Neurontin] 800 mg PO QID #40 tablet Docusate Sodium/Sennosides [Senna Plus] 1 tab PO DAILY #20 tablet Acetaminophen [Tylenol] 650 mg PO Q6H #20 tablet Home Medications: Home Meds Potassium Chloride [Klor-Con 10] 20 meq PO DAILY 10/18/14 [History] Alendronate [Fosamax] 70 mg PO WEEKLY 10/14/17 [History] Baclofen 10 mg PO TID 10/14/17 [History] Zolpidem [Ambien] 10 mg PO BEDTIME PRN 10/14/17 [History] Atenolol [Tenormin] 100 mg PO DAILY 01/27/18 [History] Iron Ag,Ps/C/Fa6/B12/Zn/SA/Sto [Niferex Tablet] 1 tab PO DAILY 01/27/18 [History] Aspirin 81 mg PO DAILY 11/24/20 [History] Diclofenac Sodium 2 gram TOP QID PRN 11/24/20 [History] fentaNYL [Fentanyl] 25 mcg TRDERM ASDIRECTED 11/24/20 [History] hydroCHLOROthiazide [Hydrochlorothiazide] 50 mg PO DAILY 11/24/20 [History] oxyCODONE 5 mg PO Q4HR PRN 11/24/20 [History] Omeprazole Magnesium [Prilosec Otc] 20 mg PO BID 11/27/20 [History] Acetaminophen [Tylenol] 650 mg PO Q6H #20 tablet 12/05/20 [Rx] Docusate Sodium/Sennosides [Senna Plus] 1 tab PO DAILY #20 tablet 12/05/20 [Rx] Gabapentin [Neurontin] 800 mg PO QID #40 tablet 12/05/20 [Rx] Oxygen Therapy Mode: Room Air Patient Handouts: COVID-19, Preventing Health Risks of Being Overweight, COVID- 19: How to Protect Yourself and Others - CDC, Fat and Cholesterol Restricted Eating Plan, [id number], Coronavirus Information 12/31/19 Forms: ED Department Discharge Referrals: Valdemar Reed MD [Physician] - 12/16/20 11:20 am (Shoulder surgery follow-up appointment. Please arrive at [address] [facility] Wes Valentine MD [Ordering Only Provider] - 12/17/20 11:00 am (Hospital follow-up appointment.) - Discharge Summary/Plan Comment DC Time >30 min.: Yes (45 mins) - General Info Date of Service: 12/05/20 Admission Dx/Problem (Free Text: Admission Diagnosis/Problem Admission Diagnosis/Problem Failure to thrive in adult Functional Status: Reports: Pain Controlled, Tolerating Diet, Ambulating, Urinating. Denies: New Symptoms - Review of Systems General: Reports: No Symptoms. Denies: Fever, Weakness, Fatigue, Malaise, Chills HEENT: Reports: No Symptoms. Denies: Headaches, Sore Throat Pulmonary: Reports: No Symptoms. Denies: Shortness of Breath, Cough, Sputum, Wheezing Cardiovascular: Reports: No Symptoms. Denies: Chest Pain, Palpitations, Dyspnea on Exertion, Edema Gastrointestinal: Reports: No Symptoms. Denies: Abdominal Pain, Constipation, Diarrhea, Nausea, Vomiting Genitourinary: Reports: No Symptoms. Denies: Pain Musculoskeletal: Reports: Shoulder Pain (right s/p shoulder surgery ), Leg Pain (left phantom pain) Skin: Reports: No Symptoms. Denies: Cyanosis Neurological: Reports: Pre-Existing Deficit (Left leg amputee ), Difficulty Walking, Gait Disturbance. Denies: Confusion Psychiatric: Reports: No Symptoms - Patient Data Vitals - Most Recent: Last Vital Signs Temp 98.1 F 12/04/20 15:08 Pulse 81 12/04/20 15:08 Resp 18 12/04/20 15:08 BP 127/59 L 12/04/20 15:08 Pulse Ox 96 12/04/20 15:08 Weight - Most Recent: 223 lb 3.2 oz I&O - Last 24 hours: Intake & Output 12/04/20 12/05/20 12/05/20 22:59 06:59 14:59 Intake Total 1280 1080 Balance 1280 1080 Med Orders - Current: Current Medications Acetaminophen (Tylenol) 650 mg PO Q6H [facility] Last Admin: 12/05/20 03:08 Dose: Not Given Documented by: Albuterol/Ipratropium (Duoneb 3.0-0.5 Mg/3 Ml) 3 ml NEB Q4H PRN PRN Reason: Shortness Of Breath/wheezing Aspirin (Halfprin) 81 mg PO DAILY [facility] Last Admin: 12/04/20 10:07 Dose: 81 mg Documented by: Atenolol (Tenormin) 100 mg PO DAILY [facility] Last Admin: 12/04/20 10:05 Dose: 100 mg Documented by: Baclofen (Lioresal) 10 mg PO TID [facility] Last Admin: 12/04/20 21:22 Dose: 10 mg Documented by: Diclofenac Sodium (Voltaren 1% Gel) 2 gm TOP QID PRN PRN Reason: Pain Last Admin: 12/03/20 09:09 Dose: 1 applic Documented by: Docusate Sodium (Colace) 100 mg PO BID PRN PRN Reason: Constipation Last Admin: 12/02/20 22:04 Dose: 100 mg Documented by: Enoxaparin Sodium (Lovenox) 40 mg SUBCUT DAILY [facility] Last Admin: 12/04/20 10:08 Dose: 40 mg Documented by: Fentanyl (Duragesic) 25 mcg TRDERM Q72H [facility] Last Admin: 12/03/20 15:14 Dose: 25 mcg Documented by: Gabapentin (Neurontin) 200 mg PO 0900,1300,1700,2300 [facility] Last Admin: 12/04/20 22:32 Dose: 200 mg Documented by: Gabapentin (Neurontin) 600 mg PO 0900,1300,1700,2300 [facility] Last Admin: 12/04/20 22:32 Dose: 600 mg Documented by: Hydralazine HCl (Apresoline) 10 mg IVPUSH Q4H PRN PRN Reason: Hypertension Hydrochlorothiazide (Hydrochlorothiazide) 50 mg PO DAILY [facility] Last Admin: 12/04/20 10:07 Dose: 50 mg Documented by: Promethazine HCl 12.5 mg/ (Sodium Chloride) 50.5 mls @ 100 mls/hr IV Q6H PRN PRN Reason: Nausea/Vomiting Miscellaneous Information (Remove Patch) 1 ea TRDERM Q72H [facility] Last Admin: 12/03/20 15:15 Dose: 1 ea Documented by: Oxycodone HCl (Oxycodone) 5 mg PO Q4H PRN PRN Reason: Pain (moderate 4-6) Last Admin: 12/01/20 08:39 Dose: 5 mg Documented by: Oxycodone HCl (Oxycodone) 10 mg PO Q4H PRN PRN Reason: Pain (severe 7-10) Last Admin: 12/04/20 21:21 Dose: 10 mg Documented by: Pantoprazole Sodium (Protonix) 40 mg PO BID [facility] Last Admin: 12/04/20 21:22 Dose: 40 mg Documented by: Polysaccharide Iron Complex (Ferrex 150) 150 mg PO DAILY [facility] Last Admin: 12/04/20 10:07 Dose: 150 mg Documented by: Potassium Chloride (Klor-Con M20) 20 meq PO DAILY [facility] Last Admin: 12/04/20 10:07 Dose: 20 meq Documented by: Senna/Docusate Sodium (Senna Plus) 1 tab PO DAILY [facility] Last Admin: 12/04/20 10:07 Dose: 1 tab Documented by: Zolpidem Tartrate (Ambien) 10 mg PO BEDTIME PRN PRN Reason: Sleep Last Admin: 12/05/20 00:56 Dose: 10 mg Documented by: Discontinued Medications Acetaminophen (Tylenol) 650 mg PO Q6H PRN PRN Reason: Pain (Mild 1-3)/fever Last Admin: 11/26/20 08:20 Dose: 650 mg Documented by: Acetaminophen (Tylenol) 650 mg PO Q6H [facility] Last Admin: 11/27/20 02:10 Dose: 650 mg Documented by: Amlodipine Besylate (Norvasc) 2.5 mg PO DAILY [facility] Last Admin: 11/30/20 09:30 Dose: Not Given Documented by: Aspirin (Aspirin) 81 mg PO DAILY [facility] Last Admin: 11/30/20 10:17 Dose: 81 mg Documented by: Gabapentin (Neurontin) 600 mg PO QID [facility] Last Admin: 12/01/20 07:46 Dose: Not Given Documented by: Gabapentin (Neurontin) 600 mg PO QID [facility] Last Admin: 12/01/20 17:44 Dose: 600 mg Documented by: Gabapentin (Neurontin) 200 mg PO QID [facility] Last Admin: 12/01/20 17:45 Dose: 200 mg Documented by: Hydrochlorothiazide (Hydrochlorothiazide) 50 mg PO DAILY [facility] Last Admin: 11/29/20 09:08 Dose: 50 mg Documented by: Sodium Chloride (Normal Saline) 500 mls @ 50 mls/hr IV ASDIRECTED [facility] Stop: 11/30/20 06:29 Ketorolac Tromethamine (Toradol) 15 mg IVPUSH Q6H PRN PRN Reason: Pain (severe 7-10) Last Admin: 11/27/20 09:53 Dose: 15 mg Documented by: Ketorolac Tromethamine (Toradol) 15 mg IVPUSH Q6H PRN PRN Reason: Pain (moderate 4-6) Last Admin: 11/28/20 22:16 Dose: 15 mg Documented by: Morphine Sulfate (Morphine) 2 mg IVPUSH Q4H PRN PRN Reason: Pain (severe 7-10) Stop: 11/25/20 19:25 Last Admin: 11/25/20 06:12 Dose: 2 mg Documented by: Non-Formulary Medication (Alendronate) 70 mg PO WEEKLY [facility] Meloxicam 7.5 Mg (Ptom) 7.5 mg PO DAILY [facility] Last Admin: 11/27/20 16:19 Dose: Not Given Documented by: Oxycodone HCl (Oxycodone) 5 mg PO Q6H PRN PRN Reason: Pain (moderate 4-6) Last Admin: 11/25/20 09:11 Dose: 5 mg Documented by: Oxycodone HCl (Oxycodone) 5 mg PO Q8H PRN PRN Reason: Pain (moderate 4-6) Last Admin: 11/25/20 13:40 Dose: 5 mg Documented by: Oxycodone HCl (Oxycodone) 5 mg PO Q8H PRN PRN Reason: Pain Last Admin: 11/25/20 21:58 Dose: 5 mg Documented by: Oxycodone HCl (Oxycodone) 7.5 mg PO Q4H PRN PRN Reason: Pain (severe 7-10) Last Admin: 11/29/20 10:24 Dose: 7.5 mg Documented by: Oxycodone/Acetaminophen (Percocet 325-5 Mg) 1 tab PO Q8H PRN PRN Reason: Pain (moderate 4-6) Last Admin: 11/26/20 08:19 Dose: 1 tab Documented by: Potassium Chloride (Klor-Con M20) 20 meq PO ONETIME ONE Stop: 11/30/20 10:07 Last Admin: 11/30/20 10:34 Dose: 20 meq Documented by: Senna/Docusate Sodium (Senna Plus) 1 tab PO ONETIME ONE Stop: 11/30/20 10:11 Last Admin: 11/30/20 10:34 Dose: 1 tab Documented by: - Exam Quality Assessment: Reports: DVT Prophylaxis. Denies: Supplemental Oxygen, Urine Catheter General: Reports: Alert, Oriented, Cooperative, No Acute Distress HEENT: Reports: Pupils Equal, Pupils Reactive, Mucous Membr. Moist/[place] Neck: Reports: Supple Lungs: Reports: Clear to Auscultation, Normal Respiratory Effort Cardiovascular: Reports: Regular Rate, Regular Rhythm GI/Abdominal Exam: Normal Bowel Sounds, Soft, Non-Tender, No Distention (Female) Exam: Deferred Rectal (Female) Exam: Deferred Back Exam: Reports: Normal Inspection, Full Range of Motion Extremities: Normal Inspection, Normal Range of Motion, Non-Tender, No Pedal Edema, Normal Capillary Refill Skin: Reports: Warm, Dry, Intact Neurological: Reports: No New Focal Deficit Psy/Mental Status: Reports: Alert, Normal Affect, Normal Mood
[2020-12-05] MEDS: Baclofen 10 MG Tab PO SCH (10:14)
[2020-12-05] MEDS: Hydrochlorothiazide 25 MG Tab PO SCH (10:14)
[2020-12-05] MEDS: Atenolol 50 MG Tab PO SCH (10:14)
[2020-12-05] MEDS: Aspirin 81 MG Tab.EC PO SCH (10:15)
[2020-12-05] MEDS: Iron Polysaccharides Complex 150 MG Cap PO SCH (10:15)
[2020-12-05] MEDS: Potassium Chloride 20 MEQ Tab.ER PO SCH (10:15)
[2020-12-05] MEDS: Pantoprazole 40 MG Tab.CR PO SCH (10:15)
[2020-12-05 10:16] VITALS: BP 128/88; PULSE 91
[2020-12-05] MEDS: Enoxaparin 40 MG/0.4 ML Syringe SUBCUT SCH (10:16)
[2020-12-05] MEDS: Gabapentin 100 MG Cap PO SCH (10:22)
[2020-12-05] MEDS: oxyCODONE 5 MG Tab PO PRN (10:22)
[2020-12-05] MEDS: Gabapentin 600 MG Tab PO SCH (10:22)
== END 2020-12-05 13:00 | DRG 947 ==
LOC: JD.ED 14:06 → JD.MS 17:45 → OBSVTOIN 11-26 11:23
PROVIDERS: ADMIT Internal Medicine; ATTEND Internal Medicine
DX: G89.18 Other acute postprocedural pain (principal); U07.1 COVID-19; N17.9 Acute kidney failure, unspecified; R62.7 Adult failure to thrive; D50.9 Iron deficiency anemia, unspecified; E55.9 Vitamin D deficiency, unspecified; R74.01 Elevation of levels of liver transaminase levels; E66.01 Morbid (severe) obesity due to excess calories; M79.671 Pain in right foot; I15.9 Secondary hypertension, unspecified; M79.2 Neuralgia and neuritis, unspecified; Z89.622 Acquired absence of left hip joint; E78.5 Hyperlipidemia, unspecified; Z79.82 Long term (current) use of aspirin; I10 Essential (primary) hypertension; F32.9 Major depressive disorder, single episode, unspecified; D64.9 Anemia, unspecified; H54.7 Unspecified visual loss; Z85.830 Personal history of malignant neoplasm of bone; K52.9 Noninfective gastroenteritis and colitis, unspecified; R73.03 Prediabetes; K21.9 Gastro-esophageal reflux disease without esophagitis; G89.29 Other chronic pain; Z96.659 Presence of unspecified artificial knee joint; M25.511 Pain in right shoulder; B19.20 Unspecified viral hepatitis C without hepatic coma; Z74.1 Need for assistance with personal care; E66.9 Obesity, unspecified; Z96.611 Presence of right artificial shoulder joint; Z68.38 Body mass index [BMI] 38.0-38.9, adult; S88.912S Complete traumatic amputation of left lower leg, level unspecified, sequela; Z99.3 Dependence on wheelchair; Z78.9 Other specified health status; Z86.19 Personal history of other infectious and parasitic diseases; Z68.37 Body mass index [BMI] 37.0-37.9, adult; Z79.899 Other long term (current) drug therapy; Z87.440 Personal history of urinary (tract) infections; Z90.49 Acquired absence of other specified parts of digestive tract; Z88.8 Allergy status to other drugs, medicaments and biological substances; Z88.5 Allergy status to narcotic agent
CPT/HCPCS: 36415 ×3; 71045; 80053 ×2; 82306; 82728; 83036; 83735; 84145; 84484; 85025 ×2; 86140; 87641; 94762 ×2; 96372; 96374; 96376; 97110 ×5; 97140; 97161; 97165; 97530 ×4; A9270 ×30; G0378 ×4; J1650; J2270 ×2; U0002; 73030-26-RT; 73030-RT; 73590-26-RT; 73590-RT; 80048; 80061; 84100; 93005; 97535-GO; 99219; 99225; 99232; 99233; 99239; 99284; J1885

== ENCOUNTER 2023-02-20 15:15 | Emergency (ER) | payer MEDICARE ==
[2023-02-20 15:27] VITALS: BP 164/75; PULSE 72
== END 2023-02-20 17:30 | disposition home or self-care (01) ==
LOC: JD.ED 15:15
DX: S93.601A Unspecified sprain of right foot, initial encounter (principal); K21.9 Gastro-esophageal reflux disease without esophagitis; I10 Essential (primary) hypertension; Z86.16 Personal history of COVID-19; Z79.899 Other long term (current) drug therapy; W19.XXXA Unspecified fall, initial encounter
CPT/HCPCS: 73630-26-RT; 73630-RT; 99283

== ENCOUNTER 2023-02-22 19:00 | Observation (INO) | payer MEDICAID, MEDICARE ==
[2023-02-22] MEDS ORDERED: Sodium Chloride 0.9% 10 ML Syringe FLUSH PRN ×2 (19:31→22:22)
[2023-02-22] MEDS ORDERED: HYDROmorphone 0.5 MG/0.5 ML Syringe IVPUSH ONE (19:33)
[2023-02-22 20:16] LABS: BASOPHILS ABSOLUTE AUTO 0.02 K/mm3 (0.01-0.08); BASOPHILS PERCENT AUTO 0.3 % (0.1-1.2); EOSINOPHILS ABSOLUTE AUTO 0.29 K/mm3 (0.04-0.36); HEMATOCRIT 40.9 % (34.1-44.9); HEMOGLOBIN 12.8 gm/dl (11.2-15.7); IMMATURE GRAN ABSOLUTE AUTO 0.01 K/mm3 (0.00-0.10); IMMATURE GRAN PERCENT AUTO 0.1 % (<=1.0); LYMPHOCYTES ABSOLUTE AUTO 1.87 K/mm3 (1.18-3.74); LYMPHOCYTES PERCENT AUTO 25.5 % (19.3-51.7); MEAN CORPUSCULAR HEMOGLOBIN 29.2 pg (25.6-32.2); MEAN CORPUSCULAR HGB CONC 31.3 g/dl (32.2-35.5); MEAN CORPUSCULAR VOLUME 93.4 fl (79.4-94.8); MONOCYTES ABSOLUTE AUTO 0.82 K/mm3 (0.24-0.36); MONOCYTES PERCENT AUTO 11.2 % (4.7-12.5); NEUTROPHILS ABSOLUTE AUTO 4.33 K/mm3 (1.56-6.13); NEUTROPHILS PERCENT AUTO 58.9 % (34.0-71.1); PLATELET COUNT,PLT 243 K/mm3 (182-369); RED BLOOD CELL COUNT 4.38 M/mm3 (3.98-5.22); WHITE BLOOD CELL COUNT,WBC 7.34 K/mm3 (3.98-10.04)
[2023-02-22 20:40] LABS: A/G RATIO 0.8 (1-2); ALBUMIN 3.3 g/dl (3.4-5.0); ANION GAP 10.3 (5-15); BILIRUBIN TOTAL 0.6 mg/dL (0.2-1.0); BUN/CREATININE RATIO 12.5 (14-18); CALCIUM 8.9 mg/dL (8.5-10.1); CREATININE 1.2 mg/dL (0.55-1.02); EST CRCL DRUG DOSING (CG) 39.81 mL/min; POTASSIUM,K 4.3 mEq/L (3.5-5.1); PROTEIN TOTAL,TP 7.6 g/dl (6.4-8.2)
[2023-02-22] MEDS ORDERED: Ondansetron 4 MG Tab.DIS PO PRN (22:23)
[2023-02-22] MEDS: HYDROmorphone 0.5 MG/0.5 ML Syringe IVPUSH PRN (22:39)
[2023-02-23] MEDS: HYDROmorphone 0.5 MG/0.5 ML Syringe IVPUSH PRN ×6 (01:35→18:51)
[2023-02-23] MEDS ORDERED: Acetaminophen 325 MG Tab PO PRN (06:27)
[2023-02-23] MEDS ORDERED: Diclofenac Sodium 1% Gel 100 GM Tube TOP PRN (06:27)
[2023-02-23] MEDS ORDERED: Baclofen 10 MG Tab PO PRN (06:27)
[2023-02-23] MEDS ORDERED: Pantoprazole 40 MG Tab.CR PO PRN (09:31)
[2023-02-23] MEDS: Atenolol 50 MG Tab PO SCH (09:55)
[2023-02-23] MEDS: Gabapentin 100 MG Cap PO SCH ×4 (09:57→20:51)
[2023-02-23] MEDS: Hydrochlorothiazide 25 MG Tab PO SCH (09:57)
[2023-02-23] MEDS: Gabapentin 600 MG Tab PO SCH ×4 (09:57→20:51)
[2023-02-23] MEDS: Potassium Chloride 20 MEQ Tab.ER PO SCH (09:57)
[2023-02-23] MEDS: Enoxaparin 40 MG/0.4 ML Syringe SUBCUT SCH (09:58)
[2023-02-23] MEDS: Acetaminophen/oxyCODONE 325-5 MG Tab PO PRN ×2 (10:19→16:17)
[2023-02-23] MEDS: oxyCODONE 5 MG Tab PO PRN (17:49)
[2023-02-23] MEDS: Acetaminophen 325 MG Tab PO PRN (20:58)
[2023-02-23] MEDS ORDERED: Zolpidem 10 MG Tab PO PRN (21:00)
[2023-02-24] MEDS: oxyCODONE 5 MG Tab PO PRN (00:22)
[2023-02-24 06:07] LABS: BASOPHILS ABSOLUTE AUTO 0.01 K/mm3 (0.01-0.08); BASOPHILS PERCENT AUTO 0.2 % (0.1-1.2); EOSINOPHILS ABSOLUTE AUTO 0.28 K/mm3 (0.04-0.36); EOSINOPHILS PERCENT AUTO 5.7 (0.7-5.8); HEMATOCRIT 39.7 % (34.1-44.9); HEMOGLOBIN 12.2 gm/dl (11.2-15.7); IMMATURE GRAN ABSOLUTE AUTO 0.01 K/mm3 (0.00-0.10); IMMATURE GRAN PERCENT AUTO 0.2 % (<=1.0); LYMPHOCYTES ABSOLUTE AUTO 1.76 K/mm3 (1.18-3.74); LYMPHOCYTES PERCENT AUTO 36.1 % (19.3-51.7); MEAN CORPUSCULAR HEMOGLOBIN 28.8 pg (25.6-32.2); MEAN CORPUSCULAR HGB CONC 30.7 g/dl (32.2-35.5); MEAN CORPUSCULAR VOLUME 93.6 fl (79.4-94.8); MEAN PLATELET VOLUME 11.3 fl (9.4-12.3); MONOCYTES ABSOLUTE AUTO 0.45 K/mm3 (0.24-0.36); MONOCYTES PERCENT AUTO 9.2 % (4.7-12.5); NEUTROPHILS ABSOLUTE AUTO 2.36 K/mm3 (1.56-6.13); NEUTROPHILS PERCENT AUTO 48.6 % (34.0-71.1); PLATELET COUNT,PLT 196 K/mm3 (182-369); RED BLOOD CELL COUNT 4.24 M/mm3 (3.98-5.22); WHITE BLOOD CELL COUNT,WBC 4.87 K/mm3 (3.98-10.04)
[2023-02-24 06:39] LABS: A/G RATIO 0.8 (1-2); ALBUMIN 3.1 g/dl (3.4-5.0); ANION GAP 10.2 (5-15); BILIRUBIN TOTAL 0.5 mg/dL (0.2-1.0); BUN/CREATININE RATIO 21.4 (14-18); CALCIUM 9.3 mg/dL (8.5-10.1); CREATININE 0.7 mg/dL (0.55-1.02); EST CRCL DRUG DOSING (CG) 65.5 mL/min; MAGNESIUM 1.9 mg/dL (1.8-2.4); POTASSIUM,K 4.2 mEq/L (3.5-5.1); PROTEIN TOTAL,TP 6.9 g/dl (6.4-8.2)
[2023-02-24] MEDS: Gabapentin 100 MG Cap PO SCH ×2 (08:27→13:58)
[2023-02-24] MEDS: Potassium Chloride 20 MEQ Tab.ER PO SCH (08:27)
[2023-02-24] MEDS: Gabapentin 600 MG Tab PO SCH ×2 (08:27→13:58)
[2023-02-24] MEDS: Acetaminophen 325 MG Tab PO PRN ×2 (08:28→13:58)
[2023-02-24] MEDS: Acetaminophen/oxyCODONE 325-5 MG Tab PO PRN (08:29)
[2023-02-24] MEDS: Atenolol 50 MG Tab PO SCH (08:29)
[2023-02-24] MEDS: Hydrochlorothiazide 25 MG Tab PO SCH (08:29)
[2023-02-24] MEDS: Enoxaparin 40 MG/0.4 ML Syringe SUBCUT SCH (08:30)
[2023-02-24 13:12] VITALS: BP 141/71; PULSE 73
== END 2023-02-24 14:39 | disposition home or self-care (01) ==
LOC: JD.ED 19:00 → JD.MS 20:14
PROVIDERS: ADMIT Internal Medicine; ATTEND Internal Medicine
DX: S92.302A Fracture of unspecified metatarsal bone(s), left foot, initial encounter for closed fracture (principal); S92.425A Nondisplaced fracture of distal phalanx of left great toe, initial encounter for closed fracture; S88.912S Complete traumatic amputation of left lower leg, level unspecified, sequela; I10 Essential (primary) hypertension; K21.9 Gastro-esophageal reflux disease without esophagitis; E66.9 Obesity, unspecified; F32.A Depression, unspecified; D64.9 Anemia, unspecified; Z68.39 Body mass index [BMI] 39.0-39.9, adult; Z86.16 Personal history of COVID-19; Z74.09 Other reduced mobility; Z79.899 Other long term (current) drug therapy; Z98.890 Other specified postprocedural states; W19.XXXS Unspecified fall, sequela; Y92.009 Unspecified place in unspecified non-institutional (private) residence as the place of occurrence of the external cause
CPT/HCPCS: 36415; 80053; 83735; 84484; 85025; 93005; 93010; 96372; 96374; 96376; 97110-GP; 97116-GP; 97162-GP; 97166-GO; 97530-GO; 97530-GP; 99284-25; 99285; A9270-GY; G0378; J1170; J1650; J3490

== ENCOUNTER 2023-07-05 04:27 | Emergency (ER) | payer MEDICARE ==
[2023-07-05] MEDS ORDERED: Sodium Chloride 0.9% 1,000 ML IV ONE (04:35)
[2023-07-05 05:22] LABS: A/G RATIO 0.8 (1-2); ALBUMIN 3.9 g/dl (3.4-5.0); ANION GAP 17.9 (5-15); BASOPHILS ABSOLUTE AUTO 0.1 K/mm3 (0.0-0.2); BASOPHILS PERCENT AUTO 0.6 % (0.0-1.0); BILIRUBIN TOTAL 0.4 mg/dL (0.2-1.0); BUN/CREATININE RATIO 26.2 (14-18); CALCIUM 9.4 mg/dL (8.5-10.1); CREATININE 1.3 mg/dL (0.55-1.02); EOSINOPHILS ABSOLUTE AUTO 0.2 K/mm3 (0.0-0.4); EST CRCL DRUG DOSING (CG) 35.27 mL/min; HEMATOCRIT 36.3 % (37.0-47.0); HEMOGLOBIN 11.8 gm/dl (12.0-16.0); IMMATURE GRAN ABSOLUTE AUTO 0.03 K/mm3 (0.00-0.05); IMMATURE GRAN PERCENT AUTO 0.4 % (0.0-0.4); LYMPHOCYTES PERCENT AUTO 24.6 % (24.0-44.0); MAGNESIUM 1.7 mg/dL (1.8-2.4); MEAN CORPUSCULAR HEMOGLOBIN 30.6 pg (28.0-32.0); MEAN CORPUSCULAR HGB CONC 32.5 g/dl (32.0-36.0); MEAN PLATELET VOLUME 9.9 fl (9.4-12.3); MONOCYTES ABSOLUTE AUTO 0.8 K/mm3 (0.0-0.8); MONOCYTES PERCENT AUTO 10.5 % (0.0-8.0); NEUTROPHILS ABSOLUTE AUTO 4.9 K/mm3 (1.8-7.7); NEUTROPHILS PERCENT AUTO 60.9 % (41.0-71.0); PLATELET COUNT,PLT 394 K/mm3 (150-400); POTASSIUM,K 3.9 mEq/L (3.5-5.1); PROTEIN TOTAL,TP 8.7 g/dl (6.4-8.2); RED BLOOD CELL COUNT 3.86 M/mm3 (4.10-5.30); WHITE BLOOD CELL COUNT,WBC 7.98 K/mm3 (3.9-11.3)
[2023-07-05] MEDS ORDERED: Magnesium Sulfate/Water 2 GM in Premix Bag 1 BAG IV ONE (05:28)
[2023-07-05 05:46] LABS: APPEARANCE,URINE CLEAR (Clear); BILIRUBIN,URINE NEGATIVE (Negative); COLOR,URINE YELLOW (Yellow); GLUCOSE,URINE NEGATIVE (Negative); KETONES,URINE NEGATIVE (Negative); LEUKOCYTE ESTERASE,URINE NEGATIVE (Negative); NITRITE,URINE NEGATIVE (Negative); OCCULT BLOOD,URINE NEGATIVE (Negative); PH,URINE 5.5 (5.0-8.0); PROTEIN,URINE NEGATIVE (Negative); UROBILINOGEN,URINE 0.2 (0.2-1.0)
[2023-07-05 06:14] LABS: BACTERIA,URINE MODERATE /hpf (FEW); HYALINE CASTS,URINE 0-5 /lpf (0-5); RBC,URINE NOT SEEN /hpf (0-5); WBC,URINE 0-5 /hpf (0-5)
[2023-07-05 06:15] LABS: MUCUS,URINE NOT SEEN /hpf (FEW)
[2023-07-05 08:12] VITALS: BP 129/74; PULSE 84
== END 2023-07-05 08:09 | disposition home or self-care (01) ==
LOC: JD.ED 04:27
DX: E83.42 Hypomagnesemia (principal); E86.9 Volume depletion, unspecified; I10 Essential (primary) hypertension; E66.9 Obesity, unspecified; K21.9 Gastro-esophageal reflux disease without esophagitis; Z86.16 Personal history of COVID-19; Z79.899 Other long term (current) drug therapy
CPT/HCPCS: 36415; 80053; 81001; 83735; 85025; 93005; 96361; 96365; 96366; 99284; J3475; J7030; 93010; 99283

== ENCOUNTER 2024-09-23 13:43 | Emergency (ER) | payer MEDICARE ==
[2024-09-23 14:29] LABS: BASOPHILS PERCENT AUTO 0.2 % (0.0-1.0); EOSINOPHILS ABSOLUTE AUTO 0.3 K/mm3 (0.0-0.4); EOSINOPHILS PERCENT AUTO 3.3 % (0.0-6.0); HEMATOCRIT 30.3 % (37.0-47.0); HEMOGLOBIN 9.1 gm/dl (12.0-16.0); IMMATURE GRAN ABSOLUTE AUTO 0.03 K/mm3 (0.00-0.05); IMMATURE GRAN PERCENT AUTO 0.4 % (0.0-0.4); LYMPHOCYTES ABSOLUTE AUTO 1.2 K/mm3 (1.0-4.8); LYMPHOCYTES PERCENT AUTO 14.4 % (24.0-44.0); MEAN CORPUSCULAR HEMOGLOBIN 26.3 pg (28.0-32.0); MEAN CORPUSCULAR VOLUME 87.6 fl (83.0-99.0); MEAN PLATELET VOLUME 10.6 fl (9.4-12.3); MONOCYTES ABSOLUTE AUTO 0.7 K/mm3 (0.0-0.8); NEUTROPHILS ABSOLUTE AUTO 6.3 K/mm3 (1.8-7.7); NEUTROPHILS PERCENT AUTO 73.7 % (41.0-71.0); PLATELET COUNT,PLT 324 K/mm3 (150-400); RED BLOOD CELL COUNT 3.46 M/mm3 (4.10-5.30); WHITE BLOOD CELL COUNT,WBC 8.53 K/mm3 (3.9-11.3)
[2024-09-23 14:58] LABS: CORONAVIRUS COVID-19 NAA NEGATIVE (NEGATIVE); INFLUENZA A NAA NEGATIVE (NEGATIVE); RESPIRATORY SYNCYTIAL VIR NAA NEGATIVE (NEGATIVE)
[2024-09-23 15:00] LABS: A/G RATIO 0.9 (1-2); ALBUMIN 3.3 g/dl (3.4-5.0); ANION GAP 12.1 (5-15); BILIRUBIN TOTAL 0.3 mg/dL (0.2-1.0); BUN/CREATININE RATIO 26.3 (14-18); C-REACTIVE PROTEIN 3.62 mg/dL (<0.30); CREATININE 0.8 mg/dL (0.55-1.02); EST CRCL DRUG DOSING (CG) 56.5 mL/min; POTASSIUM,K 4.1 mEq/L (3.5-5.1)
[2024-09-23] MEDS ORDERED: methylPREDNISolone Sodium Succinate 40 MG/1 ML SDV IVPUSH ONE (16:39)
[2024-09-23] MEDS: Albuterol/Ipratropium 3.0-0.5 MG/3 ML Neb Soln NEB ONE (16:40)
[2024-09-23] MEDS: methylPREDNISolone Sodium Succinate 40 MG/1 ML SDV IM ONE (17:17)
[2024-09-23] MEDS: Doxycycline Monohydrate 100 MG Cap PO ONE (18:05)
[2024-09-23] MEDS: Benzonatate 100 MG Cap PO ONE (18:05)
[2024-09-23 18:07] VITALS: BP 149/75; PULSE 98
== END 2024-09-23 18:35 | disposition home or self-care (01) ==
LOC: JD.ED 13:43
DX: J20.9 Acute bronchitis, unspecified (principal); I10 Essential (primary) hypertension; K21.9 Gastro-esophageal reflux disease without esophagitis; Z86.16 Personal history of COVID-19; Z90.49 Acquired absence of other specified parts of digestive tract; Z96.659 Presence of unspecified artificial knee joint; Z96.619 Presence of unspecified artificial shoulder joint; Z88.8 Allergy status to other drugs, medicaments and biological substances; Z79.51 Long term (current) use of inhaled steroids; Z79.52 Long term (current) use of systemic steroids; Z79.899 Other long term (current) drug therapy
CPT/HCPCS: 0241U; 36415; 71046; 80053; 83880; 84484; 85025; 86140; 94640; 96372; 99285; A9270; J2919; J7620-GY

== ENCOUNTER 2025-03-15 14:57 | Emergency (ER) | payer MEDICARE ==
[2025-03-15] MEDS ORDERED: methylPREDNISolone Sodium Succinate 40 MG/1 ML SDV IM ONE (17:40)
[2025-03-15 18:08] VITALS: BP 135/85; PULSE 80
== END 2025-03-15 18:06 | disposition home or self-care (01) ==
LOC: JD.ED 14:57
DX: M54.32 Sciatica, left side (principal); I10 Essential (primary) hypertension; E78.00 Pure hypercholesterolemia, unspecified; Z88.8 Allergy status to other drugs, medicaments and biological substances; Z79.899 Other long term (current) drug therapy; Z86.16 Personal history of COVID-19
CPT/HCPCS: 72170; 72170-26; 99283

== ENCOUNTER 2025-03-21 15:03 | Emergency (ER) | payer MEDICARE ==
[2025-03-21 16:30] VITALS: PULSE 87
[2025-03-21] MEDS: Acetaminophen 325 MG Tab PO ONE (17:03)
[2025-03-21] MEDS: Ketorolac 30 MG/ML SDV IM ONE (17:18)
[2025-03-21 19:26] VITALS: BP 134/82
== END 2025-03-21 18:48 | disposition home or self-care (01) ==
LOC: JD.ED 15:03
DX: M53.3 Sacrococcygeal disorders, not elsewhere classified (principal); G89.29 Other chronic pain; S88.912S Complete traumatic amputation of left lower leg, level unspecified, sequela; I10 Essential (primary) hypertension; E78.00 Pure hypercholesterolemia, unspecified; K21.9 Gastro-esophageal reflux disease without esophagitis; Z86.16 Personal history of COVID-19; Z79.899 Other long term (current) drug therapy; Z88.8 Allergy status to other drugs, medicaments and biological substances
CPT/HCPCS: 72192; 96372; 99283; A9270; J1885; 99284

== ENCOUNTER 2025-06-07 12:07 | Emergency (ER) | payer MEDICARE ==
[2025-06-07] MEDS ORDERED: Sodium Chloride 0.9% 10 ML Syringe FLUSH PRN (12:19)
[2025-06-07 12:55] LABS: BASOPHILS ABSOLUTE AUTO 0.0 K/mm3 (0.0-0.2); BASOPHILS PERCENT AUTO 0.4 % (0.0-1.0); EOSINOPHILS ABSOLUTE AUTO 0.1 K/mm3 (0.0-0.4); EOSINOPHILS PERCENT AUTO 1.8 % (0.0-6.0); IMMATURE GRAN ABSOLUTE AUTO 0.01 K/mm3 (0.00-0.05); IMMATURE GRAN PERCENT AUTO 0.1 % (0.0-0.4); LYMPHOCYTES ABSOLUTE AUTO 1.2 K/mm3 (1.0-4.8); LYMPHOCYTES PERCENT AUTO 17.4 % (24.0-44.0); MEAN PLATELET VOLUME 9.8 fl (9.4-12.3); MONOCYTES ABSOLUTE AUTO 0.6 K/mm3 (0.0-0.8); MONOCYTES PERCENT AUTO 8.1 % (0.0-8.0); NEUTROPHILS ABSOLUTE AUTO 4.9 K/mm3 (1.8-7.7); NEUTROPHILS PERCENT AUTO 72.2 % (41.0-71.0); NRBC ABSOLUTE 0.00 (0.00-0.02); NRBC PERCENT 0.0 % (0.0-0.2); PLATELET COUNT,PLT 433 K/mm3 (150-400); RED BLOOD CELL COUNT 4.41 M/mm3 (4.10-5.30); WHITE BLOOD CELL COUNT,WBC 6.79 K/mm3 (3.9-11.3)
[2025-06-07 13:05] LABS: APPEARANCE,URINE CLEAR (Clear); GLUCOSE,URINE NEGATIVE (Negative); OCCULT BLOOD,URINE TRACE-INTACT (Negative)
[2025-06-07] MEDS: Ondansetron 4 MG/2 ML SDV IVPUSH ONE (13:14)
[2025-06-07 13:27] LABS: A/G RATIO 0.9 (1-2); ALANINE AMINOTRANSFERASE,ALT 26.0 U/L (14-59); ASPARTATE AMNIOTRANSFERASE,AST 23.0 U/L (15-37); BILIRUBIN TOTAL 0.6 mg/dL (0.2-1.0); BLOOD UREA NITROGEN,BUN 22.0 mg/dL (7-18); CARBON DIOXIDE,CO2 29.0 mEq/L (21-32); CHLORIDE,CL 98.0 mEq/L (98-107); CREATININE 0.8 mg/dL (0.55-1.02); EST CRCL DRUG DOSING (CG) 55.7 mL/min; ESTIMATED GFR 79.0 mL/min (>60); GLUCOSE RANDOM 103.0 mg/dL (70-99); POTASSIUM,K 3.9 mEq/L (3.5-5.1); PROTEIN TOTAL,TP 8.5 g/dl (6.4-8.2); SODIUM,NA 138.0 mEq/L (136-145)
[2025-06-07 13:41] LABS: EPITHELIAL CELLS,URINE 0-5 /hpf (0-5)
[2025-06-07 18:00] VITALS: BP 126/63; PULSE 99
== END 2025-06-07 16:10 | disposition home or self-care (01) ==
LOC: JD.ED 12:07
DX: R11.2 Nausea with vomiting, unspecified (principal); E78.00 Pure hypercholesterolemia, unspecified; I10 Essential (primary) hypertension; K21.9 Gastro-esophageal reflux disease without esophagitis; Z86.16 Personal history of COVID-19; Z88.8 Allergy status to other drugs, medicaments and biological substances; Z79.899 Other long term (current) drug therapy
CPT/HCPCS: 36415; 80053; 81001; 83690; 83735; 85025; 86140; 96361; 96374; 99284; A9270; J2405; J7030

== ENCOUNTER 2025-07-06 10:44 | Inpatient (IN) | payer MEDICARE ==
[2025-07-06] MEDS ORDERED: Naloxone 0.4 MG/ML SDV IVPUSH PRN ×3 (11:51→18:26)
[2025-07-06] MEDS: fentaNYL 100 MCG/2 ML SDV IVPUSH ONE (12:13)
[2025-07-06 18:21] LABS: BASOPHILS ABSOLUTE AUTO 0.0 K/mm3 (0.0-0.2); BASOPHILS PERCENT AUTO 0.5 % (0.0-1.0); EOSINOPHILS ABSOLUTE AUTO 0.2 K/mm3 (0.0-0.4); EOSINOPHILS PERCENT AUTO 2.1 % (0.0-6.0); IMMATURE GRAN ABSOLUTE AUTO 0.03 K/mm3 (0.00-0.05); IMMATURE GRAN PERCENT AUTO 0.4 % (0.0-0.4); LYMPHOCYTES ABSOLUTE AUTO 0.9 K/mm3 (1.0-4.8); LYMPHOCYTES PERCENT AUTO 11.2 % (24.0-44.0); MEAN PLATELET VOLUME 9.5 fl (9.4-12.3); MONOCYTES ABSOLUTE AUTO 0.5 K/mm3 (0.0-0.8); MONOCYTES PERCENT AUTO 6.6 % (0.0-8.0); NEUTROPHILS ABSOLUTE AUTO 6.5 K/mm3 (1.8-7.7); NEUTROPHILS PERCENT AUTO 79.2 % (41.0-71.0); NRBC ABSOLUTE 0.00 (0.00-0.02); NRBC PERCENT 0.0 % (0.0-0.2); PLATELET COUNT,PLT 345 K/mm3 (150-400); RED BLOOD CELL COUNT 3.87 M/mm3 (4.10-5.30); WHITE BLOOD CELL COUNT,WBC 8.14 K/mm3 (3.9-11.3)
[2025-07-06 18:44] LABS: A/G RATIO 0.9 (1-2); ALANINE AMINOTRANSFERASE,ALT 20.0 U/L (14-59); ASPARTATE AMNIOTRANSFERASE,AST 19.0 U/L (15-37); BILIRUBIN TOTAL 0.6 mg/dL (0.2-1.0); BLOOD UREA NITROGEN,BUN 21.0 mg/dL (7-18); CARBON DIOXIDE,CO2 26.0 mEq/L (21-32); CHLORIDE,CL 101.0 mEq/L (98-107); CREATININE 0.7 mg/dL (0.55-1.02); EST CRCL DRUG DOSING (CG) 63.65 mL/min; ESTIMATED GFR 92.0 mL/min (>60); GLUCOSE RANDOM 93.0 mg/dL (70-99); POTASSIUM,K 3.8 mEq/L (3.5-5.1); PROTEIN TOTAL,TP 7.1 g/dl (6.4-8.2); SODIUM,NA 134.0 mEq/L (136-145)
[2025-07-06] MEDS ORDERED: Ondansetron 4 MG/2 ML SDV IV PRN (20:07)
[2025-07-06] MEDS ORDERED: Sennosides/Docusate Sodium 50-8.6 MG Tab PO PRN (20:07)
[2025-07-06] MEDS ORDERED: Ondansetron 4 MG Tab.DIS PO PRN (20:07)
[2025-07-06] MEDS ORDERED: Labetalol 100 MG/20 ML MDV IVPUSH PRN (20:10)
[2025-07-06] MEDS ORDERED: hydrALAZINE 20 MG/ML SDV IVPUSH PRN (20:10)
[2025-07-06 20:22] LABS: IRON,FE 28 ug/dL (50-170); PERCENT FE SATURATION 6 % (20-55)
[2025-07-06] MEDS: Magnesium Sulf/Wat 4 GM/50 mL 4 GM in Premix Bag 1 BAG IV ONE (21:09)
[2025-07-07 06:03] LABS: BASOPHILS ABSOLUTE AUTO 0.0 K/mm3 (0.0-0.2); BASOPHILS PERCENT AUTO 0.6 % (0.0-1.0); EOSINOPHILS ABSOLUTE AUTO 0.2 K/mm3 (0.0-0.4); EOSINOPHILS PERCENT AUTO 2.7 % (0.0-6.0); IMMATURE GRAN ABSOLUTE AUTO 0.02 K/mm3 (0.00-0.05); IMMATURE GRAN PERCENT AUTO 0.3 % (0.0-0.4); LYMPHOCYTES ABSOLUTE AUTO 1.2 K/mm3 (1.0-4.8); LYMPHOCYTES PERCENT AUTO 17.3 % (24.0-44.0); MEAN PLATELET VOLUME 10.1 fl (9.4-12.3); MONOCYTES ABSOLUTE AUTO 0.5 K/mm3 (0.0-0.8); MONOCYTES PERCENT AUTO 7.2 % (0.0-8.0); NEUTROPHILS ABSOLUTE AUTO 5.0 K/mm3 (1.8-7.7); NEUTROPHILS PERCENT AUTO 71.9 % (41.0-71.0); NRBC ABSOLUTE 0.00 (0.00-0.02); NRBC PERCENT 0.0 % (0.0-0.2); PLATELET COUNT,PLT 342 K/mm3 (150-400); RED BLOOD CELL COUNT 3.66 M/mm3 (4.10-5.30); WHITE BLOOD CELL COUNT,WBC 6.93 K/mm3 (3.9-11.3)
[2025-07-07 06:24] LABS: A/G RATIO 0.8 (1-2); ALANINE AMINOTRANSFERASE,ALT 20.0 U/L (14-59); ASPARTATE AMNIOTRANSFERASE,AST 17.0 U/L (15-37); BILIRUBIN TOTAL 0.6 mg/dL (0.2-1.0); BLOOD UREA NITROGEN,BUN 14.0 mg/dL (7-18); CARBON DIOXIDE,CO2 28.0 mEq/L (21-32); CHLORIDE,CL 102.0 mEq/L (98-107); CREATININE 0.8 mg/dL (0.55-1.02); EST CRCL DRUG DOSING (CG) 55.7 mL/min; ESTIMATED GFR 79.0 mL/min (>60); GLUCOSE RANDOM 143.0 mg/dL (70-99); PHOSPHORUS 3.6 mg/dL (2.6-4.7); POTASSIUM,K 3.7 mEq/L (3.5-5.1); PROTEIN TOTAL,TP 6.8 g/dl (6.4-8.2); SODIUM,NA 138.0 mEq/L (136-145)
[2025-07-07] MEDS: Potassium Chloride 20 MEQ Tab.ER PO ONE (08:47)
[2025-07-07] MEDS: Sodium Ferric Gluconate Cmplex 125 MG in Sodium Chloride 0.9% 100 ML IV SCH (09:36)
[2025-07-11 10:15] LABS: BASOPHILS ABSOLUTE AUTO 0.0 K/mm3 (0.0-0.2); BASOPHILS PERCENT AUTO 0.3 % (0.0-1.0); EOSINOPHILS ABSOLUTE AUTO 0.3 K/mm3 (0.0-0.4); EOSINOPHILS PERCENT AUTO 4.1 % (0.0-6.0); IMMATURE GRAN ABSOLUTE AUTO 0.02 K/mm3 (0.00-0.05); IMMATURE GRAN PERCENT AUTO 0.3 % (0.0-0.4); LYMPHOCYTES ABSOLUTE AUTO 1.3 K/mm3 (1.0-4.8); LYMPHOCYTES PERCENT AUTO 19.8 % (24.0-44.0); MEAN PLATELET VOLUME 9.7 fl (9.4-12.3); MONOCYTES ABSOLUTE AUTO 0.7 K/mm3 (0.0-0.8); MONOCYTES PERCENT AUTO 10.1 % (0.0-8.0); NEUTROPHILS ABSOLUTE AUTO 4.3 K/mm3 (1.8-7.7); NEUTROPHILS PERCENT AUTO 65.4 % (41.0-71.0); NRBC ABSOLUTE 0.00 (0.00-0.02); NRBC PERCENT 0.0 % (0.0-0.2); PLATELET COUNT,PLT 337 K/mm3 (150-400); RED BLOOD CELL COUNT 3.94 M/mm3 (4.10-5.30); WHITE BLOOD CELL COUNT,WBC 6.63 K/mm3 (3.9-11.3)
[2025-07-11 10:38] LABS: A/G RATIO 0.8 (1-2); ALANINE AMINOTRANSFERASE,ALT 16.0 U/L (14-59); ASPARTATE AMNIOTRANSFERASE,AST 15.0 U/L (15-37); BILIRUBIN TOTAL 0.4 mg/dL (0.2-1.0); BLOOD UREA NITROGEN,BUN 13.0 mg/dL (7-18); CARBON DIOXIDE,CO2 30.0 mEq/L (21-32); CHLORIDE,CL 104.0 mEq/L (98-107); CREATINE KINASE,CK 60.0 U/L (26-192); CREATININE 0.7 mg/dL (0.55-1.02); EST CRCL DRUG DOSING (CG) 63.65 mL/min; ESTIMATED GFR 92.0 mL/min (>60); GLUCOSE RANDOM 103.0 mg/dL (70-99); POTASSIUM,K 4.1 mEq/L (3.5-5.1); PROTEIN TOTAL,TP 6.7 g/dl (6.4-8.2); SODIUM,NA 141.0 mEq/L (136-145)
[2025-07-11] MEDS: fentaNYL 25 MCG/HR Transdermal Patch TRDERM SCH (11:57)
[2025-07-11] MEDS: Remove Patch*FENTANYL TRDERM SCH (11:58)
[2025-07-12] MEDS: Ferrous Sulfate 324 MG Tab.EC PO SCH (06:29)
[2025-07-13] MEDS: Ferrous Sulfate 324 MG Tab.EC PO SCH (09:05)
[2025-07-13] MEDS ORDERED: Remove Patch*FENTANYL TRDERM SCH (16:00)
[2025-07-14] MEDS: Ferrous Sulfate 324 MG Tab.EC PO SCH (08:33)
[2025-07-16 08:57] VITALS: BP 145/64; PULSE 83
== END 2025-07-16 13:17 | DRG 536 ==
LOC: JD.ED 10:44 → JD.OB 18:56 → JD.MS 07-07 16:25
PROVIDERS: ADMIT Student in an Organized Health Care Education/Training Program; ATTEND Family Medicine
DX: S32.512A Fracture of superior rim of left pubis, initial encounter for closed fracture (principal); J98.11 Atelectasis; R26.2 Difficulty in walking, not elsewhere classified; D64.9 Anemia, unspecified; D50.9 Iron deficiency anemia, unspecified; R26.89 Other abnormalities of gait and mobility; G62.9 Polyneuropathy, unspecified; M10.9 Gout, unspecified; H54.7 Unspecified visual loss; G47.33 Obstructive sleep apnea (adult) (pediatric); R09.02 Hypoxemia; E78.00 Pure hypercholesterolemia, unspecified; K21.9 Gastro-esophageal reflux disease without esophagitis; I10 Essential (primary) hypertension; F32.A Depression, unspecified; Z96.659 Presence of unspecified artificial knee joint; Z96.619 Presence of unspecified artificial shoulder joint; F17.200 Nicotine dependence, unspecified, uncomplicated; Z98.890 Other specified postprocedural states; Z86.16 Personal history of COVID-19; Z79.899 Other long term (current) drug therapy; Z90.49 Acquired absence of other specified parts of digestive tract; Z88.8 Allergy status to other drugs, medicaments and biological substances; W01.198A Fall on same level from slipping, tripping and stumbling with subsequent striking against other object, initial encounter
CPT/HCPCS: 36415; 70450; 72125; 72170; 72192; 80053; 82728; 83540; 83735; 84466; 85025; 96374; 96375; 96376; 99285; J3010; 71045; 71045-26; 76881-26-RT; 76881-RT; 82550; 84100; 86140; 87426-QW; 93971-26-RT; 93971-RT; 94760; 94761; 97110-GP; 97116-GP; 97162-GP; 97166-GO; 97530-GP; 97535-GO; 99223; 99231; 99232; 99239; A9270-GY; J1171; J1650; J2270; J2916; J3475